=== PATIENT | male | born 1965 | race Caucasian/White ===

== ENCOUNTER → 2017-06-19 10:40 | Outpatient (CLI) | payer MEDICARE, SELFPAY ==
[2017-06-19 11:08] LABS: Absolute Lymphocyte Count 1.54 X10^3/ul (0.83-4.51); Absolute Neutrophil Count 2.7 X10^3/uL (2.0-7.7); Basophil# 0.03 X10^3/uL; Basophil% 0.6 % (0-1); Eosinophil# 0.24 X10^3/uL; Eosinophils% 4.8 % (0-5); Hematocrit 48.2 % (40-54); Hemoglobin 16.9 g/dl (13.0-16.5); Lymphocyte # 1.54 X10^3/ul (4.0); Lymphocyte % 30.8 % (19-41); Mean Corp Hgb Conc 35.1 g/gl (32-36); Mean Corpuscular Hgb 32.9 pg (27.0-32.0); Mean Platelet Vol. 10.2 fl (6.2-12.0); Neutrophil # 2.68 X10^3/uL (2.7-7.7); Neutrophil % 53.6 % (47-70); Platelet Count 168 K/mm3 (150-450); RBC Distribution Width CV 13.8 % (11.6-14.6); RBC Distribution Width SD 46.2 fl (35.1-43.9); Red Blood Count 5.13 M/mm3 (4.6-6.2)
[2017-06-19 11:10] LABS: POSITIVE COUNT NO; POSITIVE DIFFERENTIAL NO; POSITIVE MORPHOLOGY NO
[2017-06-19 11:24] LABS: International Normalized Ratio 0.9; Prothrombin Time (Protime)PT. 12.2 SECONDS (11.7-14.9)
[2017-06-19 11:25] LABS: Partial Thromboplast Time 27.8 Seconds (24.1-36.2)
--- NOTE | 2017-06-19 11:45 | RAD_ITS ---
STUDY: X-RAY CHEST REASON FOR EXAM: Male, 52 years old. Chest pain TECHNIQUE: 2 views COMPARISON: Prior chest radiograph of February 25, 2017. FINDINGS: Lung little remain well expanded without new consolidation, focal atelectasis or a substantial pleural effusion. Stable mild chronic changes. There is no demonstrated pleural abnormality. Normal size heart. Normal mediastinum and beverley. Normal visualized pulmonary arteries. Normal visualized aortic arch and descending thoracic aorta. Normal visualized thoracic spine. Multiple prior healed left rib fractures. There is no demonstrated abnormality of the visualized soft tissue structures of the upper abdomen. RAD/Chest PA and Lateral IMPRESSION: No acute cardiopulmonary findings or changes. Electronically Signed: Evelin Strickland MD at 22:23 EST , Service support ,
[2017-06-19 11:56] LABS: Anion Gap 7 (5-15); BUN 15 mg/dL (7-18); BUN/Creat Ratio 15.3 RATIO (10-20); Calcium,Total 8.6 mg/dL (8.5-10.1); Chloride 98 mmol/L (98-107); Creatinine, Serum 0.98 mg/dL (0.70-1.30); EST Glomerular Filtration Rate 86 mL/min (>60); Est Glom Filt Rate - Afr Amer 103 mL/min (>60); Glucose 177 mg/dL (74-106); Potassium 4.1 mmol/L (3.5-5.1); Sodium Level 135 mmol/L (136-145)
== END ==
PROVIDERS: Family Provider Family Medicine; PCP Family Medicine; Visit Provider Internal Medicine Cardiovascular Disease
DX: R07.89 Other chest pain (principal); E78.00 Pure hypercholesterolemia, unspecified; I25.5 Ischemic cardiomyopathy
CPT/HCPCS: 36415; 71046; 80048; 85025; 85610; 85730

== ENCOUNTER → 2017-07-01 08:03 | Day surgery (SDC) | payer MEDICARE, SELFPAY ==
[2017-06-28 10:25] VITALS: BMI 25.5
--- NOTE | 2017-07-01 10:14 | CL.D_ITS ---
Patient Name: VERÓNICA ENGLE Study Date: 07/01/2017 Performing: Dante Parnell MD Ht: 68.11 inches 173 cm : 1965 Wt: 167.55 lbs 76 kg Age: 52 Gender: male BSA: 1.9 PROCEDURE(S) PERFORMED MI65-GQS/COR/LV CLINICAL PROFILE AND INDICATIONS INDICATIONS: 52-year-old man with a history of chest pain. Stress/Imaging Standard Exercise Stress Test: Yes Result: Negative CAD Presentations: Symptom unlikely to be ischemic. 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 The risks and benefits of the procedure as well as a full d escription of our services here and current unavailability of surgical backup were fully explained to the patient and/or their significant other prior to the catheterization. The Timeout was completed, verifying the correct patient and procedure. The patient's procedural site was prepped and draped in the usual fashion. Local anesthetic was given subcutaneously to right radial region with Lidocaine 2% . Local anesthetic was given subcutaneously to right groin region with Lidocaine 2%. Using a modified Seldinger technique, arterial access was obtained via the right femoral artery, a 5Fr sheath was ins erted. Left Coronary Artery selective angiography was performed in multiple views using a 5 Fr. JL 5 catheter. Right Coronary Artery selective angiography was then performed in multiple views using a 5 Fr. 3DRC (Geraldo) catheter. Left Ventriculography was performed in GRAHAM projection using a 5 Fr. Pi gtail catheter. LV to AO pullback pressures were then recorded.The arterial sheath was pulled and man ual compression applied until hemostasis is achieved. CORONARY ANGIOGRAPHY DOMINANCE: Right Dominant LEFT HEART ASSESSMENT Left Ventricular Ejection Fraction: by LV Gram 37 % Anterior Hypokinesis - Severe Depressed Left Ventricular systolic function LEFT MAIN: Angiographically normal LEFT ANTERIOR DECENDING ARTERY: PROX LAD: Previously placed stent is patent DISTAL LAD: Mild luminal irregularities CIRCUMFLEX ARTERY: PROX CIRC: Mild luminal irregularities less than 30% MID CIRC: Mild luminal irregularities RIGHT CORONARY ARTERY: PROX RCA: is occluded COLLATERAL FLOW: Collateral flow from Left to Right COMPLICATIONS No Complications PROCEDURE MEDICATIONS Fentanyl 50 mcg IV Versed 1 mg IV Fentanyl 25 mcg IV Fentanyl 25 mcg IV Versed 1 mg IV Oxygen: 2 L/min via nasal cannula Baby Aspirin (81mg) 1 Tabs PO @ 07/01/2017 09:05:39 SUMMARY OF HEMODYNAMIC DATA Time AIR REST ECG 08:26:08 AO 126/61 (87) SA 09:53:48 LV 109/5, 15 09:59:54 LV 124/-2, 5 10:00:19 LV 114/-2, 3 10:01:34 LVp 118/-2, 5 10:01:38 AOp 127/63 (90) 10:01:43 Signed By Dante Parnell MD On 07/01/2017 10:13:44 Dante Parnell MD
== END ==
PROVIDERS: Family Provider Family Medicine; PCP Family Medicine; Visit Provider Internal Medicine Cardiovascular Disease
DX: I25.10 Atherosclerotic heart disease of native coronary artery without angina pectoris (principal); R07.9 Chest pain, unspecified; Z95.5 Presence of coronary angioplasty implant and graft; Z79.899 Other long term (current) drug therapy; Z79.02 Long term (current) use of antithrombotics/antiplatelets; Z79.82 Long term (current) use of aspirin; R06.09 Other forms of dyspnea; E78.5 Hyperlipidemia, unspecified; E03.9 Hypothyroidism, unspecified; Z82.49 Family history of ischemic heart disease and other diseases of the circulatory system; Z86.73 Personal history of transient ischemic attack (TIA), and cerebral infarction without residual deficits; Z79.4 Long term (current) use of insulin; F17.200 Nicotine dependence, unspecified, uncomplicated; I25.5 Ischemic cardiomyopathy; R07.89 Other chest pain; I10 Essential (primary) hypertension; E10.8 Type 1 diabetes mellitus with unspecified complications
CPT/HCPCS: 93005; 93458; 99152; J3010; J7040; Q9967; A4216; C1769; C1894

== ENCOUNTER → 2018-04-09 11:59 | Outpatient (CLI) | payer MEDICARE, SELFPAY ==
[2017-12-10 10:37] VITALS: BMI 24.7
[2018-04-09 12:02] LABS: Bacteria 0 SEEN /hpf (None Seen); Mucous, Urine 0 SEEN /hpf (<or=2+); Red Blood Cells-Urine 0 SEEN /hpf (0-5); Squamous Epithelial Cells - UA 0 SEEN /hpf (0-5); White Blood Cells 0 SEEN /hpf (0-5)
[2018-04-09 14:35] LABS: Color, Urine Yellow (Yellow); Glucose, Dipstick 50 mg/dl (Normal); Ketone-Dipstick Negative (Negative); Leukocyte Esterase-Dipstick Negative /ul (Negative); Nitrite-Dipstick Negative (Negative); Occult Blood-Urine Negative /ul (Negative); Protein-Dipstick Negative (Negative); Urine Bilirubin Dipstick Negative (Negative); Urine Clarity Clear (Clear); Urine Urobilinogen Normal (Normal); Urine pH 6.5 (5.0 - 8.0)
[2018-04-09 14:42] LABS: T3 Total - Triiodothyronine 1.07 ng/mL (0.6-1.81)
[2018-04-09 14:47] LABS: Hemoglobin A1c 7.6 % (4.2-6.3)
[2018-04-09 14:57] LABS: Microalbumin,Random Urine < 5.0 mg/L (NO RANGE EST.)
[2018-04-09 15:18] LABS: AST(SGOT) 26 U/L (15-37); Alanine Aminotransfer ALT/SGPT 36 U/L (16-61); Albumin, Serum 3.7 g/dL (3.2-5.0); Alkaline Phosphatase 57 U/L (45-117); Anion Gap 10 (5-15); BUN 12 mg/dL (7-18); Bilirubin, Direct 0.15 mg/dL (0.00-0.30); Calcium,Total 8.8 mg/dL (8.5-10.1); Chloride 103 mmol/L (98-107); Cholesterol 128 mg/dL (200); Creatinine, Serum 0.86 mg/dL (0.70-1.30); EST Glomerular Filtration Rate 100 mL/min (>60); Est Glom Filt Rate - Afr Amer 121 mL/min (>60); Free T3 3.6 pg/mL (2.18-3.98); Glucose 164 mg/dL (74-106); High Density Lipoprotein 56 mg/dL; Potassium 4.1 mmol/L (3.5-5.1); Protein, Total 6.7 g/dL (6.4-8.2); Sodium Level 139 mmol/L (136-145); T4 Total, Thyroxin 12.3 ug/dL (4.5-12.1); Thyroid Stim Hormone (TSH) < 0.01 uIU/mL (0.358-3.74); Triglycerides 126 mg/dL; Very Low Density Lipoprotein 25 mg/dL (5-40)
--- OUTSIDE RECORDS SUMMARY | 2018-05-26 15:30 | XMS RPT_ITS ---
:1965 Author Organization OHIP Care Team Providers Name Role Phone Yassine Bui Attending Unavailable Yassine Bui Primary Care Unavailable Parmjit, Dante Attending Unavailable Yassine Bui Referring Unavailable Yassine Bui Primary Care Unavailable Parmjit, Dante Attending Unavailable Parmjit, Dante Referring Unavailable Yassine Bui Primary Care Unavailable Parmjit, Dante Attending Unavailable Yassine Bui Primary Care Unavailable Parmjit, Dante Referring Unavailable Parmjit, Dante Attending Unavailable Parmjit, Dante Referring Unavailable Debora Garcia Attending Unavailable Yassine Bui Referring Unavailable PROBLEMS PROBLEMS DATE TYPE CONDITION / CODE ATTENDING STATUS SOURCE Unknown E11.9 - Type 2 diabetes Yassine Bui Active [facility]ff mellitus without Community complications / Hospital E11.9(ICD-10) Repository Unknown E03.9 - Hypothyroidism, Yassine Bui 8 unspecified / Community E03.9(ICD-10) Hospital Repository Unknown N48.89 - Other specified Yassine Bui Active [facility] 8 disorders of penis / Community N48.89(ICD-10) Hospital Repository Unknown R07.89 - Other chest pain Parmjit, [place] Active [facility] 8 / R07.89(ICD-10) [facility] Hospital Repository Unknown E78.00 - Pure Parmjit, [place] Active [facility] 8 hypercholesterolemia, Community unspecified / Hospital E78.00(ICD-10) Repository Unknown I25.5 - Ischemic Parmjit, [place] Active [facility] 8 cardiomyopathy / Community I25.5(ICD-10) Hospital Repository Unknown E78.0 - Pure Parmjit, [place] Active [facility] 8 hypercholesterolemia / Community E78.0(ICD-10) Hospital Repository Unknown I10 - Essential (primary) Parmjit, [place] Active [facility] 8 hypertension / Community I10(ICD-10) Hospital Repository Unknown Z72.0 - Tobacco use / Parmjit, [place] Active [facility] 8 Z72.0(ICD-10) [facility] Hospital Repository PROCEDURES PROCEDURES No Procedure Records FoundRESULTS RESULTS URINALYSIS, COMPLETE Collected: 04/09/2018 Status: F Source: [place] 12:00 PM [facility] REPOSITORY Order Comment: How was Urine Obtained? CLEAN CATCH TYPE CODE TESTS RESULT OUT OF RANGE REFERENCE UNITS LAB L400.3000 Yellow COLOR Normal Yellow LAB L400.3050 Clear Normal CLARITY Clear LAB L400.3200 Normal mg/dl High 50 GLUCOSE, UR LAB L400.3300 Negative mg/dL Normal BILIRUBIN URINE Negative LAB L400.3400 Negative mg/dl Normal KETONE UR Negative LAB L400.3465 1.002-1.030 Normal SP.GR. DIPSTX 1.010 LAB L400.3550 5.0 - 8.0 pH UR Normal 6.5 LAB L400.3600 Negative mg/dl PROT Normal DIPSTX Negative LAB L400.3700 Normal mg/dl Normal UROBILI Normal LAB L400.3750 Negative Normal NITRITE UR Negative LAB L400.3780 Negative /ul Normal OCCULT BLOOD-UR Negative LAB L400.3800 Negative /ul LEUK Normal ESTERASE Negative LAB L400.4050 0-5 /hpf WBC 0 Normal SEEN LAB L400.4100 0-5 /hpf 0 Normal RBC-UA SEEN LAB L400.4150 0-5 /hpf SQUAM 0 Normal EPI SEEN LAB L400.4300 None Seen /hpf 0 Normal BACTERIA SEEN LAB L400.4350 <or=2+ /hpf 0 Normal MUCUS, URINE SEEN Performed By: #### L400.0001 #### [facility] [address] [place], [place], [address] T3 TOTAL - TRIIODOTHYRONINE Collected: 04/09/2018 Status: F Source: [place] 12:00 PM [facility] REPOSITORY TYPE CODE TESTS RESULT OUT OF RANGE REFERENCE UNITS LAB L501.9186 0.6-1.81 ng/mL Normal T3 Total 1.07 Performed By: #### L501.9186 #### [facility] [address] [place], [place], [id number] HEMOGLOBIN A1C Collected: 04/09/2018 Status: F Source: [place] 12:00 PM [facility] REPOSITORY TYPE CODE TESTS RESULT OUT OF RANGE REFERENCE UNITS LAB L501.9985 4.2-6.3 % High HGB A1C 7.6 Performed By: #### L501.9985 #### [facility] [address] [place], [place], [address] MICROALB:CREAT Collected: 04/09/2018 Status: F Source: [place] RATIO,RANDOM UR 12:00 PM [facility] REPOSITORY TYPE CODE TESTS RESULT OUT OF RANGE REFERENCE UNITS LAB L501.1200 NO RANGE EST. mg/dL 56.30 Normal UR CREAT LAB L502.0500 NO RANGE EST. mg/L < 5.0 Normal MICROALBUMI N,UR LAB L502.0600 <30 mg/g CRE mg/g CRE Test Normal not performed MALB:CREAT Performed By: #### L502.0250 #### [facility] [address] [place], [address] BASIC METABOLIC Collected: 04/09/2018 Status: F Source: [place] PROFILE (BMP) 12:00 PM [facility] REPOSITORY Order Comment: Has Patient had X-rays with Contrast this admission? N TYPE CODE TESTS RESULT OUT OF RANGE REFERENCE UNITS LAB L501.0100 74-106 mg/dL High GLU 164 Result Comment: Fasting Glucose result greater than or equal to 126 mg/dL suggests DIABETES MELLITUS per A.D.A. criteria. Please note revised GLUCOSE reference range effective 2017. LAB L501.1000 7-18 mg/dL Normal BUN 12 LAB L501.1100 0.70-1.30 mg/dL Normal CREAT,SERUM 0.86 Result Comment: The validity of the calculated GFR AND GFRAA in patients over 70 years has not been determined. Clinical correlation is essential. LAB L501.1110 >60 mL/min Normal EST GFR 100 Result Comment: Non- GFR Calc LAB L501.1115 >60 mL/min Normal EST GFR - AA 121 Result Comment: GFR Calc LAB L501.1300 10-20 RATIO Normal BUN/CRE 14.0 LAB L501.2200 8.5-10.1 mg/dL CA Normal 8.8 LAB L501.5300 136-145 mmol/L NA Normal 139 LAB L501.5600 3.5-5.1 mmol/L K Normal 4.1 LAB L501.5900 98-107 mmol/L CL Normal 103 LAB L501.6100 21.0-32.0 mmol/L Normal CO2 26.0 LAB L501.6200 5-15 Normal GAP 10 Performed By: #### L500.2500, L500.3400, L500.4100, L501.70418, L501.9310, L501.9520 #### [facility] [address] [place], [place], [address] LIVER PROFILE Collected: 04/09/2018 Status: F Source: [place] 12:00 PM [facility] REPOSITORY Order Comment: Has Patient had X-rays with Contrast this admission? N TYPE CODE TESTS RESULT OUT OF RANGE REFERENCE UNITS LAB L501.1500 6.4-8.2 g/dL Normal T PROT 6.7 LAB L501.1800 3.2-5.0 g/dL Normal ALB 3.7 LAB L501.1950 2.2-4.2 g/dL Normal GLOB 3.0 LAB L501.4100 15-37 U/L Normal AST 26 LAB L501.4305 45-117 U/L Normal ALK P 57 LAB L501.4405 16-61 U/L Normal ALT 36 LAB L501.4600 0.20-1.00 mg/dL Normal T BILI 0.60 LAB L501.4700 0.00-0.30 mg/dL Normal D BILI 0.15 Performed By: #### L500.2500, L500.3400, L500.4100, L501.85086, L501.9310, L501.9520 #### [facility] [address] [place], [place], [id number] LIPID PROFILE Collected: 04/09/2018 Status: F Source: [place] 12:00 PM [facility] REPOSITORY Order Comment: Has Patient had X-rays with Contrast this admission? N TYPE CODE TESTS RESULT OUT OF RANGE REFERENCE UNITS LAB L501.4900 200 mg/dL Normal CHOL 128 Result Comment: <200 mg/dL Desirable 200-240 mg/dL Borderline >240 mg/dL High Risk LAB L501.5000 mg/dL Normal TRIG 126 Result Comment: The drugs N-Acetylcysteine and Metamizole may falsely depress this assay. Serum Triglycerides Reference Interval Normal <150 mg/dL Borderline high 150 - 199 mg/dL High 200 - 499 mg/dL Very High > or = 500 mg/dL LAB L501.6400 mg/dL Normal HDL 56 Result Comment: The drugs N-Acetylcysteine and Metamizole may falsely depress this assay. Reference Range HDL <40 mg/dL Low HDL Cholesterol HDL >or= 60 mg/dL High HDL Cholesterol LAB L501.6500 0-130 mg/dL Normal LDL 47 LAB L501.6600 5-40 mg/dL Normal VLDL 25 Performed By: #### L500.2500, L500.3400, L500.4100, L501.83148, L501.9310, L501.9520 #### [facility] [address] [place], [place], [id number] FREE T3 Collected: 04/09/2018 Status: F Source: [place] 12:00 PM [facility] REPOSITORY Order Comment: Has Patient had X-rays with Contrast this admission? N TYPE CODE TESTS RESULT OUT OF RANGE REFERENCE UNITS LAB L501.63080 2.18-3.98 pg/mL Normal FREE T3 3.6 Performed By: #### L500.2500, L500.3400, L500.4100, L501.58377, L501.9310, L501.9520 #### [facility] [address] [place], [address] T4 TOTAL, THYROXIN Collected: 04/09/2018 Status: F Source: [place] 12:00 PM [facility] REPOSITORY Order Comment: Has Patient had X-rays with Contrast this admission? N TYPE CODE TESTS RESULT OUT OF REFERENCE UNITS RANGE LAB L501.9310 4.5-12.1 ug/dL T4 High THYROXIN 12.3 Performed By: #### L500.2500, L500.3400, L500.4100, L501.65234, L501.9310, L501.9520 #### [facility] [place], [address] THYROID STIM HORMONE Collected: 04/09/2018 Status: F Source: [place] ([facility]SH) 12:00 PM [facility] REPOSITORY Order Comment: Has Patient had X-rays with Contrast this admission? N TYPE CODE TESTS RESULT OUT OF RANGE REFERENCE UNITS LAB L501.9520 0.358-3.74 uIU/mL Low TSH < 0.01 Performed By: #### L500.2500, L500.3400, L500.4100, L501.70938, L501.9310, L501.9520 #### [facility] [address] [place], [place], [address] CARDIOLOGY VISIT Observed: 12/16/2017 Status: F Source: [place] REPORT 7:26 AM [facility] REPOSITORY [facility] [address] [place] [address] OFFICE VISIT Date of Service: 12/10/17 MR#: [id number] Acct: [id number] Name: VERÓNICA ENGLE Rep #: [id number] : 1965 Provider: Debora Garcia Age/Sex: 52/M [place] [facility] Status: Signed HPI HPI Details: VERÓNICA ENGLE, is a 52 M who presents to the office today for a cardiovascular follow up. He has a history of premature coronary artery disease, diabetes mellitus, retinopathy and neuropathy. He was diagnosed with autonamic nervous system neuropathy. He does occasionally have chest pain. He did need to use his NTG once since he was here last. He is able to do things for 10-15 minutes then he takes a break. He does have some SOB but he feels that it is related to his vocal cords. He does have issues with aspiration at night. He does not have any palpitations. He continue to have positional dizziness. He does not have any near syncope/syncope. He does have swelling in his hands at night, this is newer for him. He does have some edema in his feet. 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 Accompanied by: none Is patient in pain?: No Allergies No Known Allergies Allergy (Verified 12/10/17 10:42) Medications Albuterol IH (ProAir) [Proair Hfa] 1 - 2 puff INHALATION Q4H PRN PRN 03/18/13 [History Confirmed 12/10/17] Citalopram [Celexa] 40 mg PO DAILY 03/18/13 [History Confirmed 12/10/17] Levothyroxine [Synthroid] 125 mcg PO DAILY 03/18/13 [History Confirmed 12/10/17] Amitriptyline HCl 50 mg PO QHS 11/02/14 [History Confirmed 12/10/17] Quetiapine Fumarate [Seroquel] 25 mg PO DAILY 03/13/16 [History Confirmed 12/10/17] nitroglycerin 0.4 mg sublingual tablet 0.4 mg SUBLINGUAL Q5M PRN 06/06/17 [History Confirmed 12/10/17] sucralfate 1 gram tablet 1 g PO .QID tab 06/06/17 [History Confirmed 12/10/17] aspirin 81 mg tablet,delayed release 81 mg PO .q day tab 06/07/17 [History Confirmed 12/10/17] gabapentin 600 mg tablet 600 mg PO BID tab 06/07/17 [History Confirmed 12/10/17] insulin aspart U-100 100 unit/mL subcutaneous solution 1 unit CONTINUOUS SUBCUTANEOUS INFUSION UD 06/07/17 [History Confirmed 12/10/17] atorvastatin 80 mg tablet 80 mg PO QHS #90 tab 06/10/17 [Rx Confirmed 12/10/17] amlodipine 5 mg tablet 5 mg PO QDAY #30 tab 07/01/17 [Rx Confirmed 12/10/17] isosorbide mononitrate ER 30 mg tablet,extended release 24 hr 30 mg PO QAM #30 tab 07/01/17 [Rx Confirmed 12/10/17] metoprolol succinate ER 50 mg tablet,extended release 24 hr 50 mg PO DAILY #90 tab 08/23/17 [Rx Confirmed 12/10/17] clopidogrel 75 mg tablet 75 mg PO DAILY #30 tab 08/26/17 [Rx Confirmed 12/10/17] lisinopril 5 mg tablet 5 mg PO .COMPLEX #90 tab 12/10/17 [Rx Confirmed 12/10/17] Ejection fraction %: 40 to 44 PFSH Medical History Ischemic cardiomyopathy (Chronic) Atherosclerotic heart disease of [place] coronary artery without angina pectoris (Chronic) Dyspnea on exertion (Chronic) Obstructive sleep apnea (Chronic) Tobacco abuse (Chronic) Old myocardial infarction (Chronic) Family history of CVA (Chronic) Family history of hyperlipidemia (Inactive) Family history of hypertension (Inactive) Palpitations (Chronic) TIA (transient ischemic attack) (Chronic) Other penitentiary (current) drug therapy (Chronic) Diabetes mellitus type I (Chronic) Hyperlipemia (Chronic) Acute ischemic left posterior cerebral artery (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) stroke (Acute) Hypertension (Chronic) Hypothyroidism (Acute) History lymph node removal (Resolved) History of vocal cord surgery (Resolved) Dizziness and giddiness (Inactive) Surgical History History of left heart catheterization (Chronic) Stented coronary artery (Chronic) History of prosthetic vocal cord (Chronic) History of appendectomy (Resolved) History of cataract extraction (Resolved) History of cholecystectomy (Resolved) History of open reduction and internal fixation (ORIF) procedure (Resolved) History of tonsillectomy and adenoidectomy (Resolved) Family History Unknown No problems noted. Father Heart disease CVA (cerebral vascular accident) Mother CAD (coronary artery disease) Grandfather Cancer Social History Smoking Status: Heavy Smoker (>10/day) alcohol intake: current alcohol intake frequency: a few times a week caffeine: Yes Type: coffee Number of servings: 2, carbonated beverages Number of servings: 6 ROS Const Const: Negative for weakness, fatigue, fever(s) or headache(s) Eyes Eyes: Negative for blind spots, loss of peripheral vision or transient loss of vision ENT ENT: Negative for headache(s), dizziness, tinnitus or Nosebleed/epistaxis Cardio Chest Pain: Yes Palpitations: No Edema: None Muscle aches with walking: None Resp Respiratory: Positive for SOB with activity; negative for SOB at rest, SOB orthopnea\SOB lying down or Cough GI GI: Negative nausea, vomiting, heartburn or vomiting blood/hematemesis : Negative for hematuria Musc Musc: Negative for muscle aches/ myalgia Neuro Neuro: Negative for weakness, headache(s), dizziness, near syncope, syncope, lightheadedness or orthostatic symptoms Maxx Hematologic/Lymphatic: Negative for easy bleeding Endo Endo: Negative for fatigue Cardiology Exam Const Appearance: cooperative, no acute distress and well developed Orientation: alert, awake and oriented x3 Head Head: normocephalic and atraumatic Mouth: moist mucous membranes Eyes General: appearance normal, both eyes and all related structures Conjunctivae: conjunctivae normal Pupils: PERRL EOM: EOM intact bilaterally Neck Neck: normal visual inspection, no lymphadenopathy, no JVD and other (trachestomy scor noted) Carotids: Negative bruit Neck Mass: Negative Neck mass Chest Chest inspection: normal inspection of the chest and symmetric chest movement Auscultation: Bilateral: Diminished Lung Sounds, Other (inspiratory stridor with deep breaths) Cardio Palpation: normal PMI Rate: regular rate Rhythm: regular rhythm Heart sounds: S1 normal and S2 normal; negative rub, gallop or murmur GI GI: normal to inspection, soft, no hepatosplenomegaly and bowel sounds present; negative tender Neuro General: alert, awake, oriented x3, CN's II-XI intact bilaterally and moves all extremities Extremities Pulses: Normal: Right Posterior Tibial Pulse, Left Posterior Tibial Pulse, Right Radial Pulse, Left Radial Pulse Lower Extremity Edema: +1: Bilateral Psych Psychological: normal affect Supplemental Info CORONARY ANGIOGRAPHY DOMINANCE: Right Dominant LEFT HEART ASSESSMENT Left Ventricular Ejection Fraction: by LV Gram 37 % Anterior Hypokinesis - Severe Depressed Left Ventricular systolic function LEFT MAIN: Angiographically normal LEFT ANTERIOR DESCENDING ARTERY: PROX LAD: Previously placed stent is patent DISTAL LAD: Mild luminal irregularities CIRCUMFLEX ARTERY: PROX CIRC: Mild luminal irregularities less than 30% MID CIRC: Mild luminal irregularities RIGHT CORONARY ARTERY: PROX RCA: is occluded COLLATERAL FLOW: Collateral flow from Left to Right Assessment AND Plan 1. Atherosclerosis of [place] coronary artery of [place] heart without angina pectoris I25.10 02/04/2010 PTCA and ANDRAE to mid LAD @ [facility] Plan - STEFANIA Burdick Patient has only needed to use 1 nitroglycerin since his last office visit. He feels that his chest pain is manageable. It is not any worse than before he is able to keep himself active for himself. He will continue with aggressive medical management and risk factor modification. 2. Cardiomyopathy, ischemic I25.5 EF 45% per echo 04/08/14 Plan - STEFANIA Burdick Patient does not have any symptoms of congestive heart failure. He will continue with current aggressive medical management and risk factor modification. 3. Essential hypertension I10 Plan - STEFANIA Burdick Blood pressure is well controlled on current medications, we do not recommend any changes at this time. 4. Pure hypercholesterolemia E78.00 Plan - STEFANIA Burdick These have been managed with his primary care doctor. Plan Detail Additional Comments - STEFANIA Burdick In regards to his concern over a swelling and numbness in his hands. Encouraged him to discuss this with his primary care and his neurologist. It does appear that this could be likely related to neuropathy or carpal tunnel syndrome. Recent echocardiogram has been reviewed. We will continue to monitor by history, exam and echocardiograms as deemed appropriate. The above patient was discussed with Dr. Parnell, he agrees with plan of care. Thank you for allowing us to participate in patient's plan of care, if you have any questions please do not hesitate to call. This note was generated using a voice recognition system and there may be incorrect words, spelling or punctuation errors that were not noted when reviewing the office note prior to saving. Follow Up 6 Months (TANK TESTER) Coding Level of Care Code Off vis,est,level 3 Diagnoses Atherosclerosis of [place] coronary artery of [place] heart without angina pectoris I25.10 [place] vs. transplanted heart: king salmon heart Cardiomyopathy, ischemic I25.5 Essential hypertension I10 Hypertension type: essential hypertension Pure hypercholesterolemia E78.00 Hyperlipidemia type: pure hypercholesterolemia Coding Level of Care Code Off vis,est,level 3 Diagnoses Atherosclerosis of [place] coronary artery of [place] heart without angina pectoris I25.10 [place] vs. transplanted heart: king salmon heart Cardiomyopathy, ischemic I25.5 Essential hypertension I10 Hypertension type: essential hypertension Pure hypercholesterolemia E78.00 Hyperlipidemia type: pure hypercholesterolemia 12/14/17 1247 <Electronically signed by Debora Garcia PA> Date Debora AGUIAR 12/16/17 0726<Electronically signed by Dante Parnell MD> Cosigner Signature: Date (if applicable) Dante Parnell MD CC: Yassine Bui MD CHEST PA AND LATERAL Observed: 06/19/2017 Status: F Source: [place] 10:54 AM [facility] REPOSITORY [facility] Imaging Services [address] [place] [id number] Chest PA and Lateral MR#: [id number] Acct: [id number] Name: VERÓNICA ENGLE Rep #: [id number] : 1965 M 52 From: Evelin Strickland MD PCP: Yassine Bui MD Status: REG CLI Study: Chest PA and Lateral Date of Exam: 06/19/17 Exam# [id number] Ordering Dr: Dante Parnell MD STUDY: X-RAY CHEST REASON FOR EXAM: Male, 52 years old. Chest pain TECHNIQUE: 2 views COMPARISON: Prior chest radiograph of February 25, 2017. FINDINGS: Lung little remain well expanded without new consolidation, focal atelectasis or a substantial pleural effusion. Stable mild chronic changes. There is no demonstrated pleural abnormality. Normal size heart. Normal mediastinum and beverley. Normal visualized pulmonary arteries. Normal visualized aortic arch and descending thoracic aorta. Normal visualized thoracic spine. Multiple prior healed left rib fractures. There is no demonstrated abnormality of the visualized soft tissue structures of the upper abdomen. RAD/Chest PA and Lateral IMPRESSION: No acute cardiopulmonary findings or changes. Electronically Signed: Evelin Strickland MD at 22:23 EST , Service support , CC: Dante Parnell MD; Yassine Bui MD Drum Stock Clerk: Signed CBC W/DIFF, AUTOMATED Collected: 06/19/2017 Status: F Source: [place] 10:46 AM [facility] REPOSITORY TYPE CODE TESTS RESULT OUT OF RANGE REFERENCE UNITS LAB L100.1000 4.4-11.0 K/mm3 Normal WBC 5.0 LAB L100.1200 4.6-6.2 M/mm3 Normal RBC 5.13 LAB L100.1300 13.0-16.5 g/dl High HGB 16.9 LAB L100.1400 40-54 % Normal HCT 48.2 LAB L100.1500 80-94 fL Normal MCV 94.0 LAB L100.1600 27.0-32.0 pg High MCH 32.9 LAB L100.1700 32-36 g/gl Normal MCHC 35.1 LAB L100.1810 11.6-14.6 % Normal RDW CV 13.8 LAB L100.1820 35.1-43.9 fl High RDW SD 46.2 LAB L100.1900 150-450 K/mm3 Normal PLT 168 LAB L100.2000 6.2-12.0 fl Normal MPV 10.2 LAB L100.2100 47-70 % Normal NEUT% 53.6 LAB L100.2200 19-41 % Normal LY% 30.8 LAB L100.2300 0-10 % Normal MONO% 10.0 LAB L100.2400 0-5 % Normal EO% 4.8 LAB L100.2500 0-1 % Normal BASO% 0.6 LAB L100.2550 0.0-0.9 % Normal IM GRAN % 0.200 Result Comment: IG% - Immature Granulocytes (promyelocytes, myelocytes and metamyelocytes) > 1% indicates that a LEFT SHIFT is Present. LAB L100.2620 2.0-7.7 X10 3/uL Normal Absolute Neut 2.7 LAB L100.2720 0.83-4.51 X10 3/ul Normal Absolute Lymph 1.54 Performed By: #### L100.0100, L300.3900, L300.4310 #### [facility] [address] [place], [address] PROTHROMBIN TIME W/INR Collected: 06/19/2017 Status: F Source: [place] 10:46 AM [facility] REPOSITORY TYPE CODE TESTS RESULT OUT OF RANGE REFERENCE UNITS LAB L300.4150 11.7-14.9 SECONDS Normal PROTIME 12.2 LAB L300.4200 Normal INR 0.9 Performed By: #### L100.0100, L300.3900, L300.4310 #### [facility] [address] [place], [place], [id number] PARTIAL THROMBOPLAST Collected: 06/19/2017 Status: F Source: [place] TIME 10:46 AM [facility] REPOSITORY TYPE CODE TESTS RESULT OUT OF RANGE REFERENCE UNITS LAB L300.4310 24.1-36.2 Seconds Normal PTT 27.8 Performed By: #### L100.0100, L300.3900, L300.4310 #### [facility] [address] [place], [address] BASIC METABOLIC Collected: 06/19/2017 Status: F Source: [place] PROFILE (BMP) 10:46 AM [facility] REPOSITORY TYPE CODE TESTS RESULT OUT OF RANGE REFERENCE UNITS LAB L501.0100 74-106 mg/dL High GLU 177 Result Comment: Fasting Glucose result greater than or equal to 126 mg/dL suggests DIABETES MELLITUS per A.D.A. criteria. Please note revised GLUCOSE reference range effective 2017. LAB L501.1000 7-18 mg/dL Normal BUN 15 LAB L501.1100 0.70-1.30 mg/dL Normal CREAT,SERUM 0.98 Result Comment: The validity of the calculated GFR AND GFRAA in patients over 70 years has not been determined. Clinical correlation is essential. LAB L501.1110 >60 mL/min Normal EST GFR 86 Result Comment: Non- GFR Calc LAB L501.1115 >60 mL/min Normal EST GFR - AA 103 Result Comment: GFR Calc LAB L501.1300 10-20 RATIO Normal BUN/CRE 15.3 LAB L501.2200 8.5-10.1 mg/dL CA Normal 8.6 LAB L501.5300 136-145 mmol/L Low NA 135 LAB L501.5600 3.5-5.1 mmol/L K Normal 4.1 LAB L501.5900 98-107 mmol/L CL Normal 98 LAB L501.6100 21.0-32.0 mmol/L Normal CO2 30.0 LAB L501.6200 5-15 Normal GAP 7 Performed By: #### L500.2500 #### [facility] [address] [place], [address] CARDIOLOGY VISIT Observed: 06/11/2017 Status: F Source: [place] REPORT 11:14 AM [facility] REPOSITORY [facility] [address] [place] [address] OFFICE VISIT Date of Service: 06/11/17 MR#: [id number] Acct: [id number] Name: VERÓNICA ENGLE Rep #: [id number] : 1965 Provider: Dante Parnell MD Age/Sex: 52/M Location[place] [facility] Status: Signed [facility] Chief Complaint: Follow-up visits. Details: VERÓNICA NEGLE, is a 52 M who presents to the office today for a follow-up visit. He is a gentleman with a history of premature coronary artery disease diabetes mellitus and diabetic complications whose has a known occluded left anterior descending artery 40% stenosis in the diagonal vessel 80% stenosis in the right coronary artery and circumflex artery. This was at the [facility] and he underwent angioplasty and stenting to the left anterior descending artery as an acute event. Medical therapy was recommended for the rest of the vessels. He appears to have done well but he unfortunately continues to have a significant amount of angina. He had previously been put on Ranexa but he could not afford it and also was put on isosorbide which she said caused a lot of esophageal problems. You do remember that he underwent stress testing in 2013 and demonstrated evidence of ischemic cardiac myopathy with a previous anteroapical infarct and inferoapical infarct and no ischemia was present however he continues to have chest discomfort which is very suggestive of angina. It is frequently relieved by sublingual nitroglycerin. He is currently on a calcium channel kathryn beta-kathryn and MARIYA inhibitor. He denies any neck arm or jaw discomfort suggest angina no dizziness or diaphoresis no near syncope or syncope. His physical exam today demonstrates clear lung little regular rate and rhythm and no pedal edema. Intake Vital Signs06/11/17 Height 5 ft 8 in 06/11/17 Weight: 168 lb 06/11/17 Body Mass Index (BMI) 25.5 06/11/17 Blood Pressure 120/50 Intake Visit Reasons: 6 M FU Is patient in pain?: No Allergies No Known Allergies Allergy (Verified 06/07/17 11:37) Medications Albuterol IH (ProAir) [Proair Hfa] 1 - 2 puff INHALATION Q4H PRN PRN 03/18/13 [History Confirmed 06/07/17] Citalopram [Celexa] 40 mg PO DAILY 03/18/13 [History Confirmed 06/07/17] Levothyroxine [Synthroid] 125 mcg PO DAILY 03/18/13 [History Confirmed 06/07/17] Lisinopril [Zestril] 5 mg PO DAILY 03/18/13 [History Confirmed 06/07/17] Clopidogrel Bisulfate [Plavix] 75 mg PO DAILY #30 tab 04/09/14 [Rx Confirmed 06/07/17] Amitriptyline HCl 50 mg PO QHS 11/02/14 [History Confirmed 06/07/17] Quetiapine Fumarate [Seroquel] 25 mg PO DAILY 03/13/16 [History Confirmed 06/07/17] Amlodipine Besylate [Norvasc] 2.5 mg PO DAILY #30 tab 02/25/17 [Rx Confirmed 06/07/17] Metoprolol(XL)Succ [Toprol Xl (Beta Kathryn)] 50 mg PO DAILY #30 tab 02/25/17 [Rx Confirmed 06/07/17] doxycycline hyclate 100 mg capsule 100 mg PO QDAY 06/06/17 [History Confirmed 06/07/17] nitroglycerin 0.4 mg sublingual tablet 0.4 mg SUBLINGUAL Q5M PRN 06/06/17 [History Confirmed 06/07/17] sucralfate 1 gram tablet 1 g PO .QID tab 06/06/17 [History Confirmed 06/07/17] aspirin 81 mg tablet,delayed release 81 mg PO .q day tab 06/07/17 [History Confirmed 06/07/17] gabapentin 600 mg tablet 600 mg PO BID tab 06/07/17 [History Confirmed 06/07/17] insulin aspart U-100 100 unit/mL subcutaneous solution 1 unit CONTINUOUS SUBCUTANEOUS INFUSION UD 06/07/17 [History Confirmed 06/07/17] atorvastatin 80 mg tablet 80 mg PO QHS #90 tab 06/10/17 [Rx Confirmed 06/11/17] Ejection fraction %: 45 to 49 (45% per echo 2013) [facility] Medical History Ischemic cardiomyopathy (Chronic) Atherosclerotic heart disease of [place] coronary artery without angina pectoris (Chronic) Dyspnea on exertion (Chronic) Obstructive sleep apnea (Chronic) Tobacco abuse (Chronic) Old myocardial infarction (Chronic) Family history of CVA (Chronic) Family history of hyperlipidemia (Inactive) Family history of hypertension (Inactive) Palpitations (Chronic) TIA (transient ischemic attack) (Chronic) Other penitentiary (current) drug therapy (Chronic) Diabetes mellitus type I (Chronic) Hyperlipemia (Chronic) Acute ischemic left posterior cerebral artery (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 Social History Smoking Status: Current every day smoker ROS Const Const: Positive for fatigue, weakness, poor appetite and weight gain; negative for frequent falls, headache(s) or excessive sweating Eyes Eyes: Negative for blurry vision or double vision ENT ENT: Negative for balance problems, Negative for dizziness, Negative for headache(s) Cardio Chest Pain: Yes (occasional tightness, not actual.) Frequency: other (about every 2 weeks) Character: tightness Onset: other (spontaneously or with going up stairs), exercise Location: mid sternal Duration: minutes (5) Relieving: rest Edema: None Muscle aches with walking: None Resp Respiratory: Positive for SOB with activity; negative for SOB at rest, SOB orthopnea\SOB lying down, Coughing up blood/hemoptysis, chest congestion, pain on inspiration, snoring, stridor, wheezing, crackles, paroxysmal nocturnal dyspnea or other GI GI: Negative nausea, vomiting, heartburn, constipation, belching, bloating, cramping, vomiting blood/hematemesis, bright, red blood in stools, black,tarry stools, loose stools, Difficulty Swallowing or other Musc Musc: Positive for muscle aches/ myalgia (cramps in calves); negative for muscle weakness, joint pain or balance problems Neuro Neuro: Positive for weakness, Negative for dizziness, Negative for lightheadedness, Negative for near syncope, Negative for syncope, Negative for orthostatic symptoms, Negative for frequent falls, Negative for headache(s), Negative for confusion, Negative for memory loss, Negative for restless legs, Negative for blurry vision, Negative for double vision, Negative for vertigo, Negative for seizures, Negative for lack of coordination, Negative for other Endo Endo: Positive for fatigue; negative for cold intolerance, heat intolerance, excessive sweating, flushing, increased thirst/drinking, increased hunger, hair loss, hair growth or other Cardiology Exam Const Appearance: cooperative, healthy appearing, well developed, well groomed and no acute distress Nutritional Appearance: well nourished and average body habitus Orientation: alert, awake and oriented x3 Head Head: normal to inspection, normocephalic and atraumatic Ears: hearing grossly normal bilaterally and external ears normal Nose: external nose normal, nasal mucous membranes and turbinates normal, nares normal, septum normal, no nasal discharge Face and Sinus: face symmetric Mouth: oral mucosae normal, tongue normal, oropharynx normal and moist mucous membranes Teeth and gingiva: dentition normal Throat: posterior oropharynx normal, tonsils normal and uvula midline Eyes General: appearance normal, both eyes and all related structures Eyelids: eyelids normal Conjunctivae: conjunctivae normal Pupils: PERRL, normal by confrontation and accommodation normal EOM: EOM intact bilaterally Neck Neck: normal visual inspection, trachea midline and no JVD JVD: +5 Carotids: normal carotid upstroke and bounding pulses Chest Chest inspection: normal inspection of the chest, symmetric chest movement and normal respiratory effort Auscultation: Bilateral: Clear to Auscultation Cardio Palpation: normal PMI Rate: regular rate Rhythm: regular rhythm Heart sounds: S1 normal, S2 normal and normal, physiologic split S2; negative rub, gallop or murmur GI GI: normal to inspection, soft, no hepatosplenomegaly and bowel sounds present Neuro General: alert, awake, oriented x3, no focal sensory deficit, gait normal and moves all extremities Skin Skin: no rashes or lesions noted Extremities Pulses: Normal: Right Femoral Pulse, Left Femoral Pulse, Right Dorsalis Pedis Pulse, Left Dorsalis Pedis Pulse, Right Posterior Tibial Pulse, Left Posterior Tibial Pulse, Right Radial Pulse, Left Radial Pulse Lower Extremity Edema: None: Bilateral Musculoskel Musculoskeletal: No joint tenderness Psych Psychological: normal affect Assessment AND Plan 1. Chest discomfort R07.89 Plan He continues unfortunately to have discomfort. I would recommend that we further evaluate him with a cardiac catheterization to assess his coronary anatomy. I have discussed the above with him the risks benefits and alternatives he understands and agrees to proceed. He does have evidence of left ventricular systolic dysfunction with an akinetic apex but it may be prudent to see what is going on his circumflex as well as right coronary artery distributions. Orders Orders: 2. Ischemic cardiomyopathy I25.5 EF 45% per echo 04/08/14 Plan His last echocardiogram demonstrated an ejection fraction of 40%. He has not had any heart failure symptoms but he will remain on the same medications with the beta-kathryn and MARIYA inhibitor. Orders Orders: 3. Essential hypertension I10 Plan His blood pressure is under good control at this time on the current medical therapy if there appears not to be any lesion that can be angioplastied I would recommend that we increase his amlodipine to 5 mg a day. 4. Pure hypercholesterolemia E78.00; E78.0 Plan She does remain on high intensity statin which will be continued. His most recent lipid profile demonstrated a total cholesterol 148, LDL of 52 and HDL of 73. Liver function tests were within normal limits. Orders Orders: 5. Tobacco abuse Z72.0 Plan He has been encouraged to continue refraining from the above. Thank you for allowing me to participate in the care of your patient. Please don't hesitate to call if any issues arise Plan Detail Follow Up 6 Months (mmm) Coding Level of Care Code Off vis,est,level 5 Diagnoses Chest discomfort R07.89 Ischemic cardiomyopathy I25.5 Essential hypertension I10 Hypertension type: essential hypertension Pure hypercholesterolemia E78.00; E78.0 Hyperlipidemia type: pure hypercholesterolemia Tobacco abuse Z72.0 Coding Level of Care Code Off vis,est,level 5 Diagnoses Chest discomfort R07.89 Ischemic cardiomyopathy I25.5 Essential hypertension I10 Hypertension type: essential hypertension Pure hypercholesterolemia E78.00; E78.0 Hyperlipidemia type: pure hypercholesterolemia Tobacco abuse Z72.0 06/11/17 1114 <Electronically signed by Dante Parnell MD> Date Dante Parnell MD Cosigner Signature: Date (if applicable) CC: Yassine Bui MD ALLERGIES ALLERGIES DATE TYPE / CODE NAME / CODE REACTION SEVERITY SOURCE 12/10/2017 Drug No Known Unknown [facility] Allergy/4160 Allergies/F00 Hospital 87867(SNOMED [id number](RXNOR Repository CT) M) ENCOUNTERS ENCOUNTERS ADMIT/DISCHARGE ACCOUNT ADMITTING ENCOUNTER LOCATION SOURCE NUMBER CLASS 04/09/2018 [id number] Ambulatory [place] [facility] 9 [facility] ing:MFPLAB Repository 12/10/2017/ [id number] Ambulatory BMSBuilding:B [facility] 8 2 MS.G [facility] Repository 07/01/2017 [id number] Ambulatory [place] [facility] 6 [facility] ing:CLSP Repository 07/01/2017 [id number] Ambulatory BMSBuilding:W [facility] 1 [facility] Repository 06/19/2017 [id number] Ambulatory [facility] [place] 1 [facility] ing:LAB Repository 06/11/2017/ [id number] Ambulatory BMSBuilding:B [facility] 8 7 MS.[facility] Repository PAYERS PAYERS ENCOUNTER GUARANTOR PAYER SUBSCRIBER SOURCE 04/09/2018 VERÓNICA A Primary VERÓNICA A [facility] [id number] Insurance:SUMMA CARE CHURBYDOB: [id number] Number: Repository [address]Usq: (330 [id number] [phone] () Date:[id number] [address] [place] [address]FJ: 04/09/2018 Secondary NOT GIVENUNK [facility] Insurance:SELF PAY [facility] Number: Effective Repository Date:2018-04-09 12/10/2017 VERÓNICA A Primary VERÓNICA A [facility] [id number] Insurance:SUMMA CARE CHURBYDOB: Community [id number] Number: Repository [address]Vnl: (330) [id number] [phone] () Date:[id number] [address], [place] [address]GR: 12/10/2017 Secondary NOT GIVENUNK [place] Insurance:SELF PAY [facility] Number: Effective Repository Date:2017-12-10 07/01/2017 VERÓNICA A Primary VERÓNICA A [place] [id number] Insurance:SUMMA CARE CHURBYDOB: Community [place] MED[id number] Number: Repository [address]Kxh: [id number] [phone] Date:7931-25-91PJ [address] ([place]) [place] [address]CR: 07/01/2017 Secondary NOT GIVENUNK [place] Insurance:SELF PAY [facility] Number: Effective Repository Date:2017-06-11 07/01/2017 VERÓNICA A Primary VERÓNICA A [facility] [id number] Insurance:SUMMA CARE CHURBYDOB: Community [place] MED[place] [id number] Number: Repository [address]Idw: [id number] [phone] Date:1023-96-88YC [address] (HP) [address] [address]MZ: 07/01/2017 Secondary NOT GIVENUNK [facility] Insurance:SELF PAY [facility] Number: Effective Repository Date:2017-07-01 06/19/2017 VERÓNICA A Primary VERÓNICA A [facility] [id number] Insurance:SUMMA CARE CHURBYDOB: Community [place] MEDICARE[place] [id number] [place] Number: Repository [address]Twz: [id number] [phone] Date:5390-75-31KI [address] ([place]) [place] [address]FR: 06/19/2017 Secondary NOT GIVENUNK [facility] Insurance:SELF PAY [facility] Number: Effective Repository Date:2017-06-19 06/11/2017 VERÓNICA A Primary VERÓNICA A [facility] [id number] Insurance:SUMMA CARE CHURBYDOB: Community [place] MEDICARE[place] [id number] [place] Number: Repository [address]Jqu: [id number] [phone] Date:[id number] [address] (HP) [address] [place] [address]JJ: 06/11/2017 Secondary NOT GIVENUNK [facility] Insurance:SELF PAY [facility] Hospital Number: Effective Repository Date:2017-06-11
== END ==
PROVIDERS: Family Provider Family Medicine; PCP Family Medicine; Visit Provider Family Medicine
DX: E11.9 Type 2 diabetes mellitus without complications (principal); E03.9 Hypothyroidism, unspecified; N48.89 Other specified disorders of penis; Z79.4 Long term (current) use of insulin
CPT/HCPCS: 36415; 80048; 80061; 80076; 81001; 82043; 82570; 83036; 84436; 84443; 84480; 84481

== ENCOUNTER → 2018-07-16 06:56 | Outpatient (CLI) | payer MEDICARE, SELFPAY ==
[2018-07-03 09:05] VITALS: BMI 24.6
--- NOTE | 2018-07-16 10:02 | NEURO ---
NCS and/or EMG Patient Report Ordering Doctor: Isela Royal DATE OF SERVICE: 07/16/18 This is an EMG and nerve conduction study performed on this 53-year-old male who 10 years ago suffered multiple fractures due to a fall and has had jumping sensations since that time. For the past 2 months he is also had tingling diffusely. He says his feet are worse, however today's study is with respect to his upper extremities. He takes gabapentin and has a history of diabetes he says his hemoglobin A1c is 7.5. There is no history of significant alcohol intake. Bilateral upper extremity sensory and motor nerve conduction studies are performed. The median motor and sensory distal latencies are moderately prolonged with preservation of amplitudes and mild slowing of conduction velocities bilaterally symmetrically. The right ulnar motor and sensory response is normal. On the left side the ulnar motor response is diminished across the elbow mildly. The radial sensory responses bilaterally normal. Right upper extremity needle electromyography was performed however the patient deferred testing after only 2 muscles could be evaluated. The right abductor pollicis brevis muscle is normal. The right first dorsal interosseous muscle does demonstrate fibrillation potentials but normal motor unit recruitment pattern and amplitude. Impression this is an abnormal electrophysiologic study including nerve conduction study and partial EMG. There is evidence of a moderate median neuropathy at the wrists bilaterally, and moderate ulnar neuropathy across the elbow on the left. Only 2 muscles could be evaluated at the behest of the patient, however both muscles are C8 distribution so this can be inferred relatively accurately that it is not a C8 radiculopathy rather than ulnar neuropathy at the elbow. It is likely complicated by diabetic neuropathy.
== END ==
LOC: PSN 06:57
PROVIDERS: Family Provider Family Medicine; PCP Family Medicine; Referring Provider Nurse Practitioner Acute Care; Visit Provider Nurse Practitioner Acute Care
DX: R20.0 Anesthesia of skin (principal); R20.2 Paresthesia of skin
CPT/HCPCS: 95885; 95911

== ENCOUNTER → 2018-07-29 07:55 | Outpatient (CLI) | payer MEDICARE, SELFPAY ==
[2018-07-03 09:05] VITALS: BMI 24.6
--- NOTE | 2018-07-29 08:57 | ECHOCS_ITS ---
Reason For Study: CAD Procedure This was a 2D Doppler, Color Flow transthoracic echocardiogram. Contrast injection was performed. Exam performed in department. Left Ventricle Normal LV size. The estimated ejection fraction is 47 %. Mild to moderate segmental systolic dysfunction (see wall motion). Stage 1 diastolic dysfunction. [place] : Akinetic. Mid-anteroseptal : Hypokinetic. Lateral [place] : Hypokinetic. Basal inferoseptal: Hypokinetic. The rest of the wall segments are normal. Right Ventricle Normal RV size. Normal systolic function. Atria Normal left atrium. Normal right atrium. Mitral Valve Normal mitral valve. Tricuspid Valve Normal tricuspid valve. Mild tricuspid valve insufficiency. Aortic Valve The aortic valve is not well visualized. Pulmonic Valve The pulmonic valve is not well visualized. Great Vessels Normal aortic root. The pulmonary artery is normal size. Normal inferior vena cava. Pericardium/Pleural No pericardial effusion. Medication 22 gauge I.V. with prn adaptor inserted into right arm. Diluted definity 3ml given slow IV push to enhance endocardial definition. Previously negative bubble study. MMode/2D Measurements & Calculations LVIDd: 4.8 cm IVSd: 0.87 cm Ao root diam: 2.7 cm LVIDs: 3.7 cm LVPWd: 0.99 cm RVDd: 2.9 cm FS: 23.4 % LAV(MOD-bp): 34.4 ml EDV(MOD-sp4): 105.3 ml SV(MOD-sp4): 50.8 ml LAV(MOD-bp) Indexed: 18.6 ml/m2 ESV(MOD-sp4): 54.4 ml LAV(MOD-sp2): 31.8 ml EF(MOD-sp4): 48.3 % LAV(MOD-sp4): 36.7 ml LA dimension(2D): 3.0 cm LA A4 area: 13.8 cm2 RA A4 area: 8.8 cm2 Time Measurements MV dec time: 0.23 sec Doppler Measurements & Calculations MV E max isaías: 52.2 cm/sec Lat Peak E' Isaías: 5.2 cm/sec Med Peak E' Isaías: 4.5 cm/sec MV A max isaías: 77.1 cm/sec E/E' lat: 10.0 E/E' med: 11.5 MV E/A: 0.68 MV V2 max: 83.6 cm/sec Ao V2 max: 106.3 cm/sec LV V1 max: 77.6 cm/sec MV max P.8 mmHg Ao max P.5 mmHg LV V1 max P.4 mmHg MV V2 mean: 51.4 cm/sec MV mean P.2 mmHg MV V2 VTI: 22.5 cm PA V2 max: 74.9 cm/sec PI end-d isaías: 117.7 cm/sec TR max isaías: 147.2 cm/sec TR max P.7 mmHg MV P1/2t-pr_phl: 107.2 msec Interpretation Summary Normal LV size. The estimated ejection fraction is 47 %. Mild to moderate segmental systolic dysfunction (see wall motion). Stage 1 diastolic dysfunction. Contrast injection was performed. Compared to prior study, there is no significant change. Ordering Physician: Dante Parnell Referring Physician: MAYRA DUMONT Performed By: Jacquie Huang, TRAY, RVT
--- NOTE | 2018-07-29 10:34 | NEURO ---
NCS and/or EMG Patient Report Ordering Doctor: Islea Royal DATE OF SERVICE: 07/29/18 This is a bilateral lower extremity nerve conduction study performed on this 53-year-old male with a history of fall 10 years ago with multiple fractures and more recently has experienced numbness tingling and swelling as well as jerking stations. There is also a history of diabetes. EMG testing was also ordered but declined by the patient. Bilateral lower extremity sensory motor nerve conduction studies are performed. There is mild to moderate diffuse slowing of sensory and motor conduction velocities with mild prolongation of distal latencies and moderate to severe reduction in amplitudes in all nerves tested. F-wave latencies from the tibial and common peroneal nerves are moderately prolonged and H reflex amplitudes from the bilateral tibial nerves are reduced. Impression this is an abnormal electrophysiologic study of the bilateral lower extremities consistent with length dependent polyneuropathy. On the above history this is not likely to be dated to his previous injuries, however diabetes is a common association.
== END ==
PROVIDERS: Family Provider Family Medicine; PCP Family Medicine; Referring Provider Internal Medicine Cardiovascular Disease; Visit Provider Internal Medicine Cardiovascular Disease
DX: R20.0 Anesthesia of skin (principal); R20.2 Paresthesia of skin; I25.5 Ischemic cardiomyopathy; I25.10 Atherosclerotic heart disease of native coronary artery without angina pectoris
CPT/HCPCS: 93306; 95910; Q9957; A4216; C8929

== ENCOUNTER → 2019-03-11 12:04 | Outpatient (CLI) | payer MEDICARE, SELFPAY ==
[2019-01-07 09:27] VITALS: BMI 24.9
[2019-03-11 14:34] LABS: ALB/GLOB Ratio 1.4 RATIO (0.9-2.4); AST(SGOT) 18 U/L (15-37); Alanine Aminotransfer ALT/SGPT 29 U/L (16-61); Alkaline Phosphatase 55 U/L (45-117); Anion Gap 5 (5-15); BUN 12 mg/dL (7-18); BUN/Creat Ratio 11.4 RATIO (10-20); Calcium,Total 8.6 mg/dL (8.5-10.1); Chloride 102 mmol/L (98-107); Cholesterol 163 mg/dL (200); Creatinine, Serum 1.05 mg/dL (0.70-1.30); EST Glomerular Filtration Rate 79 mL/min (>60); Est Glom Filt Rate - Afr Amer 95 mL/min (>60); Globulin 2.9 g/dL (2.2-4.2); Glucose 188 mg/dL (74-106); High Density Lipoprotein 66 mg/dL; Potassium 4.3 mmol/L (3.5-5.1); Protein, Total 6.9 g/dL (6.4-8.2); Sodium Level 134 mmol/L (136-145); Thyroid Stim Hormone (TSH) 3.41 uIU/mL (0.358-3.74); Triglycerides 97 mg/dL; Very Low Density Lipoprotein 19 mg/dL (5-40)
[2019-03-11 16:35] LABS: Neisserai gonorrhoeae by PCR Negative (Negative); Probe Check PASS; Sample Adequacy Control PASS; Specimen Processing Control PASS
[2019-03-12 02:46] LABS: Rapid Plasmin Reagin (RPR) NONREACTIVE (NONREACTIVE)
== END ==
PROVIDERS: Family Provider Family Medicine; PCP Family Medicine; Referring Provider Family Medicine; Visit Provider Family Medicine
DX: E03.9 Hypothyroidism, unspecified (principal); R30.0 Dysuria; E10.9 Type 1 diabetes mellitus without complications
CPT/HCPCS: 36415; 80053; 80061; 84443; 86592; 87591

== ENCOUNTER 2019-03-30 09:58 | Day surgery (SDC) | payer MEDICARE, SELFPAY ==
[2019-01-07 09:27] VITALS: BMI 24.9
[2019-03-30 10:29] VITALS: BP 131/71; PULSE 72; RESP 16; TEMP 36.1; O2SAT 98; BMI 25.7
[2019-03-30] MEDS: Lactated Ringers 1,000 ML 100 ML IV (10:43)
[2019-03-30 10:50] LABS: Bedside Glucose 215 mg/dL (70-110)
--- NOTE | 2019-03-30 11:09 | RAD_ITS ---
PROCEDURE: Caudal block. DATE OF EXAMINATION: March 30, 2019. INDICATION: Male, 54 years old. Chronic low back pain. FLUOROSCOPY TIME (if supplied): (8.5 seconds) minutes/seconds. Single lateral view was obtained. Intraoperative fluoroscopic services provided for caudal block. RAD/Fluor Guidance for Spine Inj IMPRESSION: Intraoperative fluoroscopic services provided for caudal block. Electronically Signed: Jorge A Tavera, at 12:48 EST , Service support ,
[2019-03-30] MEDS: Bupivacaine 0.25% 30 ML Vial (11:13)
[2019-03-30] MEDS: 0.9% Normal Saline (Pres. free 10 ML Vial (11:13)
[2019-03-30] MEDS: MethylPREDNISolone Acetate 80 MG/ML Vial (11:13)
[2019-03-30 11:23] VITALS: BP 130/102; BP 131/71; PULSE 73; RESP 18; TEMP 36.6; O2SAT 96
[2019-03-30 11:30] VITALS: BP 119/69; BP 131/71; PULSE 70; RESP 18; O2SAT 96
[2019-03-30 11:35] VITALS: BP 115/70; BP 121/72; BP 131/71; PULSE 67; RESP 18; O2SAT 94; O2SAT 95
--- NOTE | 2019-03-30 11:39 | OP.PCM_ITS ---
Report of Operation Date of Procedure: 03/30/19 Description of Surgical Findings:: PREOPERATIVE DIAGNOSIS: Lumbosacral radiculopathy, lumbosacral degenerative disc disease, lumbosacral spinal stenosis POSTOPERATIVE DIAGNOSIS: Lumbosacral radiculopathy, lumbosacral degenerative disc disease, lumbosacral spinal stenosis PROCEDURE PERFORMED: Diagnostic/therapeutic caudal epidural steroid injection. ANESTHESIA: MAC. BLOOD LOSS: Minimal. COMPLICATIONS: None. DESCRIPTION OF PROCEDURE: History and physical of today was reviewed. Risks and benefits of the procedure were explained. The patient understood and agreed to proceed. Informed consent was obtained. IV inserted per routine protocol. The patient was taken to the operating room and placed in the prone position with a pillow positioned underneath the abdomen. The lower back and tailbone area was prepped and draped in a sterile fashion using iodine x3. Under fluoroscopy guidance on a lateral view, the caudal space was identified. The skin and subcutaneous tissue was anesthetized with approximately 3 mL of 1% lidocaine using a 25-gauge regular needle. Under direct visualization with fluoroscopy, using a 22-gauge 3-1/2-inch spinal needle, the needle was advanced via the skin through the sacral hiatus. The tip of the needle was passed through the sacrococcygeal ligament and advanced to approximately S4 area. After negative aspiration of blood or CSF, a total of 3 mL of contrast was injec rodriguez to confirm correct placement of the needle as well as cephalad spread. The spread was followed to approximately L5 area. After confirmation on AP as well as lateral view and repeated negative aspiration, a total of 15 mL of preservative-free 0.125% Marcaine with 80 mg of Depo-Medrol was injected easily. The needle was then removed intact. The patient experienced no sign or symptoms of intrathecal or intravascular injection. The patient experienced no paresthesia. The procedure was completed without any apparent difficulty or any complications. The patient appeared to tolerate it well. ASSESSMENT AND PLAN: This is a 54-year-old male with lumbosacral radiculopathy, lumbosacral degenerative disc disease, lumbosacral spinal stenosis status post diagnostic/therapeutic caudal epidural steroid injection patient will continue his current medications patient found approximately 2 weeks for reevaluation.
[2019-03-30 11:45] VITALS: BP 112/69; BP 131/71; PULSE 64; RESP 18; TEMP 36.6; O2SAT 97
[2019-03-30 11:50] VITALS: BP 131/71
== END 2019-03-30 12:05 | disposition home or self-care (01) ==
LOC: SDC 10:01 → AC 10:02
PROVIDERS: Family Provider Family Medicine; PCP Family Medicine; Referring Provider Anesthesiology Pain Medicine; Visit Provider Anesthesiology Pain Medicine
PROC: 3E0S3BZ Introduction of Anesthetic Agent into Epidural Space, Percutaneous Approach (ICD-10-PCS; CPT 62282; principal; 2019-03-30 11:15)
DX: M51.17 Intervertebral disc disorders with radiculopathy, lumbosacral region (principal); M48.07 Spinal stenosis, lumbosacral region; K59.09 Other constipation; M51.36 Other intervertebral disc degeneration, lumbar region; Z79.891 Long term (current) use of opiate analgesic; I25.10 Atherosclerotic heart disease of native coronary artery without angina pectoris; F17.210 Nicotine dependence, cigarettes, uncomplicated; Z86.73 Personal history of transient ischemic attack (TIA), and cerebral infarction without residual deficits; I10 Essential (primary) hypertension; E78.00 Pure hypercholesterolemia, unspecified
CPT/HCPCS: 62323; 64483; 77003; 82962; J7120; J3490

== ENCOUNTER → 2019-06-10 11:23 | Outpatient (CLI) | payer MEDICARE, SELFPAY ==
[2019-06-10 14:32] LABS: Anion Gap 3 (5-15); BUN 13 mg/dL (7-18); BUN/Creat Ratio 12.7 RATIO (10-20); Calcium,Total 8.7 mg/dL (8.5-10.1); Chloride 103 mmol/L (98-107); Creatinine, Serum 1.02 mg/dL (0.70-1.30); EST Glomerular Filtration Rate 81 mL/min (>60); Est Glom Filt Rate - Afr Amer 98 mL/min (>60); Glucose 182 mg/dL (74-106); Sodium Level 136 mmol/L (136-145); Thyroid Stim Hormone (TSH) 5.07 uIU/mL (0.358-3.74)
== END ==
PROVIDERS: PCP Family Medicine; Referring Provider Family Medicine; Visit Provider Family Medicine
DX: E03.9 Hypothyroidism, unspecified (principal); E10.9 Type 1 diabetes mellitus without complications
CPT/HCPCS: 36415; 80048; 84436; 84443; 84481

== ENCOUNTER → 2019-12-09 09:30 | Outpatient (CLI) | payer MEDICARE, SELFPAY ==
[2019-07-28 13:47] VITALS: BMI 25.8
--- NOTE | 2019-12-09 09:34 | RAD_ITS ---
STUDY: X-RAY CHEST REASON FOR EXAM: Male, 54 years old. COUGH PATIENT STATES HE HAS SMOKED FOR MANY YRS. TECHNIQUE: PA and lateral views of the chest. COMPARISON: Comparison is made with prior study dated 06/19/2017. FINDINGS: Surgical clips are seen in the left axillary region. Hyperinflation. Decreased bronchovascular markings bilaterally suggestive of a emphysematous change. There is no demonstrated pleural abnormality. Normal size heart. Normal mediastinum and beverley. Normal visualized pulmonary arteries. Normal visualized aortic arch and descending thoracic aorta. Normal visualized thoracic spine. Healed left rib fractures. There is no demonstrated abnormality of the visualized soft tissue structures of the upper abdomen. RAD/Chest PA and Lateral IMPRESSION: Hyperinflation. Stable decreased bilateral bronchovascular markings suggestive of emphysematous change. Healed left rib fractures. Electronically Signed: Jorge A Tavera, at 15:30 EDT , Service support ,
== END ==
PROVIDERS: PCP Family Medicine; Referring Provider Family Medicine; Visit Provider Family Medicine
DX: R05 Cough (principal)
CPT/HCPCS: 71046

== ENCOUNTER → 2019-12-16 10:31 | Outpatient (CLI) | payer MEDICARE, SELFPAY ==
[2019-07-28 13:47] VITALS: BMI 25.8
[2019-12-16 13:13] LABS: Anion Gap 2 (5-15); BUN 10 mg/dL (7-18); BUN/Creat Ratio 8.6 RATIO (10-20); Calcium,Total 8.5 mg/dL (8.5-10.1); Chloride 104 mmol/L (98-107); Cholesterol 151 mg/dL (200); Creatinine, Serum 1.16 mg/dL (0.70-1.30); EST Glomerular Filtration Rate 70 mL/min (>60); Est Glom Filt Rate - Afr Amer 84 mL/min (>60); Free T3 2.5 pg/mL (2.18-3.98); Glucose 327 mg/dL (74-106); High Density Lipoprotein 59 mg/dL; Potassium 3.7 mmol/L (3.5-5.1); Sodium Level 138 mmol/L (136-145); T4 Total, Thyroxin 8.3 ug/dL (4.5-12.1); Thyroid Stim Hormone (TSH) 0.66 uIU/mL (0.358-3.74); Triglycerides 143 mg/dL; Very Low Density Lipoprotein 29 mg/dL (5-40)
== END ==
PROVIDERS: PCP Family Medicine; Referring Provider Family Medicine; Visit Provider Family Medicine
DX: E03.9 Hypothyroidism, unspecified (principal); E78.5 Hyperlipidemia, unspecified
CPT/HCPCS: 36415; 80048; 80061; 84436; 84443; 84481

== ENCOUNTER 2020-06-02 18:13 | Emergency (ER) | payer MEDICARE, SELFPAY ==
[2019-07-28 13:47] VITALS: BMI 25.8
[2020-06-02 18:14] VITALS: BP 108/53; PULSE 86; RESP 17; TEMP 35.9; O2SAT 98; BMI 24.3
--- NOTE | 2020-06-02 18:33 | ED.VISSUMM ---
- ER Visit Summary Date of Service: 06/02/20 Chief Complaint: Right ankle injury History of Present Illness: The patient is a 55 M who presents with a right ankle injury that occurred today. Patient states he fell and twisted his right ankle. Patient states he got up from a chair and was walking when he fell. Patient states he has neuropathy in his right leg and thinks his right leg gave out on him. Patient states he also passed out and fell. Patient states the pain is worse with any weightbearing. Patient admits to chronic paresthesias in his right ankle and foot. Patient describes the pain as sharp and throbbing. Patient states nothing makes it better. Physical Examination: Vital signs are stable. Patient is afebrile. Patient is in no acute distress. Musculoskeletal exam reveals tenderness over the lateral aspect of the right ankle. There is edema and ecchymosis noted over the lateral malleolus. There is no obvious deformity noted. Range of motion was limited in all motions of the right ankle secondary to pain. Pedal pulses are equal bilaterally. Sensation was intact to light touch in all digits. Capillary refill was less than 2 seconds in all digits. There is no tenderness over the fifth metatarsal or proximal fibula. Test Results: X-rays of the right ankle were obtained. There are 3 views. On my interpretation, there is a nondisplaced fracture of the distal fibula. There is some soft tissue swelling. There are no other fractures noted. Radiologist also interpreted the x-ray and agrees. Emergency Department Course and Treatment: Patient was given a dose of Essington here. Patient was given a walking boot. Patient was instructed to ice and elevate the right ankle. Patient was given a prescription for Essington. Patient states he has crutches. Patient was instructed to follow-up with orthopedics in 3 to 5 days. Patient was instructed return if worse in any way. Patient understood and was agreeable with the plan. All questions were answered. Disposition: Discharge home Impression: 1. Acute fracture right distal fibula This note was generated with [employer] dictation software. It may contain incorrect words, spelling, and punctuation that were not noted in review of the chart prior to signing ED Disposition - Plan for ED Patient: Disposition: Home or Assisted Living Diagnosis: Closed fracture of right distal fibula Instructions: ED Ankle Fracture Prescriptions: Hydrocodone Bitart/Apap 5-325 [Essington 5MG-325MG] 1 tab PO Q6H PRN PRN 3 Days #10 tab PRN Reason: Pain Prescription Printed Referrals: Yassine Bui MD [Primary Care Provider] - 5-7 Days Deejay Nance DO [STAFF PHYSICIAN] - 3-5 Days
[2020-06-02] MEDS: HYDROcodone Bitartrate/Apap 5/325 Tablet PO (18:45)
--- NOTE | 2020-06-02 18:50 | RAD_ITS ---
STUDY: X-RAY - RIGHT ANKLE REASON FOR EXAM: Male, 55 years old. Fall TECHNIQUE: 3 view(s) of the ankle. COMPARISON: None. FINDINGS: There is an oblique fracture of the distal fibula with overlying soft tissue swelling. The remainder the visualized osseous structures are intact. There are no radiodense foreign bodies. RAD/Ankle min 3 Views IMPRESSION: Oblique fracture of the right distal fibula with overlying soft tissue swelling. Electronically Signed: Christian Moore MD at 19:28 EST Tel , Service support ,
[2020-06-02 19:52] VITALS: PULSE 89; RESP 15; O2SAT 99
== END 2020-06-02 19:53 | disposition home or self-care (01) ==
PROVIDERS: Emergency Provider Emergency Medicine; PCP Family Medicine
DX: S82.831A Other fracture of upper and lower end of right fibula, initial encounter for closed fracture (principal); Y93.01 Activity, walking, marching and hiking; G62.9 Polyneuropathy, unspecified; X50.1XXA Overexertion from prolonged static or awkward postures, initial encounter; Y92.9 Unspecified place or not applicable; Y99.9 Unspecified external cause status; Z86.73 Personal history of transient ischemic attack (TIA), and cerebral infarction without residual deficits; I25.2 Old myocardial infarction; E11.9 Type 2 diabetes mellitus without complications; F17.210 Nicotine dependence, cigarettes, uncomplicated
CPT/HCPCS: 73610; 99283

== ENCOUNTER 2020-06-04 17:40 | Emergency (ER) | payer MEDICARE, SELFPAY ==
[2020-06-04] VITALS (7 sets, daily range): BP systolic 89–135; BP diastolic 60–84; PULSE 80–94; RESP 15–20; TEMP 36.9; O2SAT 96; BMI 25.9
--- NOTE | 2020-06-04 18:00 | EKG12_ITS ---
Test Reason : SYNCOPE Blood Pressure : / mmHG Vent. Rate : 095 BPM Atrial Rate : 095 BPM P-R Int : 202 ms QRS Dur : 104 ms QT Int : 394 ms P-R-T Axes : 071 115 080 degrees QTc Int : 495 ms Normal sinus rhythm Right axis deviation Anteroseptal infarct , age undetermined Abnormal ECG Confirmed by MONA SEO, KIRK ([id number]), pictures editor JAIMIE MENDOZA ([id number]) on 06/07/2020 8:20:45 AM Referred By: RADHA Confirmed By:KIRK DUNN MD
--- NOTE | 2020-06-04 18:02 | ED.DCSUM_ITS ---
- ER Visit Summary Date of Service: 06/04/20 Chief Complaint: Fall with near syncope. Complaining right lower leg pain History of Present Illness: The patient is a 55 M history of near syncope. Today was in his kitchen had an episode he went down. No LOC. No significant injury except complaining of pain over the midportion of his right lower leg. He had a similar event happen within the last week and has a distal right fibular fracture. For which he is wearing orthopedic boot. He is scheduled to see orthopedics this week. Denies any other injuries. No LOC. No headache, chest pain, shortness of breath or abdominal pain. No nausea, vomiting, diarrhea or melena. Physical Examination: Middle-aged male no acute distress vital signs stable afebrile. H EENT exam unremarkable. RRR reactive light. No signs of trauma to his face or scalp. No hematoma. C-spine nontender. Trachea midline. Lungs clear to auscultation bilaterally. Heart regular rhythm rate about 90 no murmur. Chest were nontender. Abdomen soft nontender. Pelvic girdle intact. Patient moving all 4 extremities. Neurovascular intact. Is an orthopedic boot on his right leg it was removed. Complains of pain in the midportion of his right lower leg. There is mild swelling in the right lower ankle and foot the foot is nontender neurovascular intact with a strong DP pulse. He is able to wiggle his toes. Has normal touch sensation. Neurologically is awake and alert with no focal motor deficits. Test Results: EKG shows normal sinus rhythm rate 95 no acute signs of DC or ischemia. No dysrhythmia. Right tib-fib x-ray shows the previously seen distal fibula fracture no acute change. Interpreted by myself and also the radiologist. CBC white count 1.5. Hemoglobin 15. Chemistries unremarkable potassium 3.1 creatinine 1.38 normal gap of 3 orthostatic vital signs were positive he became orthostatic with a blood pressure 89/61 standing. This may be from dehydration. Emergency Department Course and Treatment: Patient's is also in the room. She said and he said he has had these near syncopal episodes in the past she is just concerned because every seem to be occurring more frequently over the last week. He has had no recent illness. Normal saline for his orthostatic hypotension. He was given OxyIR for his pain of his previously right lower leg fracture. Treatment Plan: [] Disposition: [] Impression: Near syncope with fall Sent right distal fibula fracture not new tonight Orthostatic hypotension This note was generated with [employer] dictation software. It may contain incorrect words, spelling, and punctuation that were not noted in review of the chart prior to signing ED Disposition - Plan for ED Patient: Referrals: Yassine Bui MD [Primary Care Provider] -
--- NOTE | 2020-06-04 18:04 | RAD_ITS ---
STUDY: X-RAY - RIGHT TIBIA AND FIBULA REASON FOR EXAM: Male, 55 years old. Pt fall. Dizziness. Right lower leg pain. PATIENT HAD A DISTAL FIBULA FX FROM EARLIER THIS WEEK (REMOVED WALKING CAST TO TAKE TODAY''S IMAGES) TECHNIQUE: 2 view(s) of the tibia and fibula were obtained. COMPARISON: 06/02/2020 FINDINGS: Normal visualized tibia. Stable distal fibular fracture with decreased soft tissue swelling. The soft tissue structures are unremarkable. RAD/Tibia & Fibula 2 Views IMPRESSION: 1. No new fracture. Stable distal fibular fracture. Electronically Signed: Ricky Silver MD (Brooks) at 18:25 EST , Service support ,
[2020-06-04 18:23] LABS: Absolute Lymphocyte Count 1.95 X10^3/uL (0.83-4.51); Absolute Neutrophil Count 8.2 X10^3/uL (2.0-7.7); Basophil# 0.08 X10^3/uL; Basophil% 0.7 % (0-1); Eosinophil# 0.24 X10^3/uL; Eosinophils% 2.1 % (0-5); Hematocrit 45.3 % (40-54); Hemoglobin 15.7 g/dL (13.0-16.5); Lymphocyte # 1.95 X10^3/ul (4.0); Mean Corp Hgb Conc 34.7 g/dL (32-36); Mean Corpuscular Hgb 32.2 pg (27.0-32.0); Mean Platelet Vol. 10.2 fl (6.2-12.0); Monocyte% 8.7 % (0-10); NRBC Flagged by Analyzer 0 % (0-5); Neutrophil # 8.15 X10^3/uL (2.7-7.7); Neutrophil % 71.2 % (47-70); Platelet Count 224 K/mm3 (150-450); RBC Distribution Width CV 13.1 % (11.6-14.6); RBC Distribution Width SD 44.5 fl (35.1-43.9); Red Blood Count 4.87 M/mm3 (4.6-6.2); White Blood Count 11.5 K/mm3 (4.4-11.0)
[2020-06-04 18:33] LABS: Anion Gap 3 (5-15); BUN 10 mg/dL (7-18); BUN/Creat Ratio 7.2 RATIO (10-20); Calcium,Total 9.1 mg/dL (8.5-10.1); Chloride 99 mmol/L (98-107); Creatinine, Serum 1.38 mg/dL (0.70-1.30); EST Glomerular Filtration Rate 57 mL/min (>60); Est Glom Filt Rate - Afr Amer 69 mL/min (>60); Glucose 100 mg/dL (74-106); Potassium 3.1 mmol/L (3.5-5.1); Sodium Level 136 mmol/L (136-145)
[2020-06-04] MEDS: 0.9% Normal Saline 1,000 ML 999 ML IV (19:11)
[2020-06-04] MEDS: oxyCODONE 5 MG Tablet 10 MG PO (19:11)
--- NOTE | 2020-06-04 21:33 | ED.DEP ---
ED Disposition - Plan for ED Patient: Disposition: Home or Assisted Living Instructions: ED Hypotension, Orthostatic Referrals: Yassine Bui MD [Primary Care Provider] - 3-5 Days Additional Instructions: Follow-up with your doctor.
== END 2020-06-04 21:50 | disposition home or self-care (01) ==
PROVIDERS: Emergency Provider Emergency Medicine; PCP Family Medicine
DX: S82.831A Other fracture of upper and lower end of right fibula, initial encounter for closed fracture (principal); I95.1 Orthostatic hypotension; W18.30XA Fall on same level, unspecified, initial encounter; Y93.89 Activity, other specified; Y92.000 Kitchen of unspecified non-institutional (private) residence as the place of occurrence of the external cause; Y99.9 Unspecified external cause status
CPT/HCPCS: 73590; 80048; 85025; 93005; 96360; 99285; J7030; A4216

== ENCOUNTER → 2020-06-07 13:53 | Outpatient (CLI) | payer MEDICARE, SELFPAY ==
[2020-06-07 13:02] VITALS: BMI 24.7
[2020-06-07 15:42] LABS: Anion Gap 5 (5-15); BUN 9 mg/dL (7-18); Calcium,Total 8.9 mg/dL (8.5-10.1); Chloride 98 mmol/L (98-107); Creatinine, Serum 1.28 mg/dL (0.70-1.30); EST Glomerular Filtration Rate 62 mL/min (>60); Est Glom Filt Rate - Afr Amer 75 mL/min (>60); Glucose 135 mg/dL (74-106); Potassium 3.1 mmol/L (3.5-5.1); Sodium Level 136 mmol/L (136-145)
[2020-06-07 15:57] LABS: Thyroid Stim Hormone (TSH) 8.44 uIU/mL (0.358-3.74)
== END ==
PROVIDERS: Anesthesiology; PCP Family Medicine; Referring Provider Physician Assistant Medical; Visit Provider Physician Assistant Medical
DX: I25.10 Atherosclerotic heart disease of native coronary artery without angina pectoris (principal); I25.5 Ischemic cardiomyopathy; I10 Essential (primary) hypertension
CPT/HCPCS: 36415; 80048; 83036; 84443

== ENCOUNTER 2020-06-10 08:52 | Day surgery (SDC) | payer MEDICARE, SELFPAY ==
[2020-06-06 11:01] VITALS: BMI 24.3
[2020-06-07 13:02] VITALS: BMI 24.7
--- NOTE | 2020-06-07 14:28 | EKG12_ITS ---
Test Reason : PRE SURGERY Blood Pressure : / mmHG Vent. Rate : 078 BPM Atrial Rate : 078 BPM P-R Int : 180 ms QRS Dur : 098 ms QT Int : 430 ms P-R-T Axes : 059 152 075 degrees QTc Int : 490 ms Normal sinus rhythm Anterolateral infarct , age undetermined Abnormal ECG Confirmed by NADJA SEO, JAZMÍN ([id number]), editor farm journal JAIMIE MENDOZA ([id number]) on 06/10/2020 8:39:59 AM Referred By: Deejay Nance Confirmed By:JENNIFER SAEZ MD
[2020-06-10] VITALS (11 sets, daily range): BP systolic 94–126; BP diastolic 57–95; PULSE 66–80; RESP 16; TEMP 36.2–37; O2SAT 92–97; BMI 25.7
[2020-06-10] MEDS: Lactated Ringers 1,000 ML 100 ML IV (09:38)
[2020-06-10 09:49] LABS: Potassium 4.8 mmol/L (3.5-5.1)
--- NOTE | 2020-06-10 10:52 | PCM.HP.BLA ---
History and Physical Date of Admission: 06/10/20 Intake Intake Visit Reasons: RIGHT ANKLE Accompanied by: Is patient in pain?: Yes Allergies No Known Allergies Allergy (Verified 06/04/20 17:41) Medications Citalopram [Celexa] 40 mg PO DAILY 03/18/13 [History Confirmed 06/06/20] nitroglycerin 0.4 mg sublingual tablet 0.4 mg SUBLINGUAL Q5M PRN 06/06/17 [History Confirmed 06/06/20] aspirin 81 mg tablet,delayed release 81 mg PO .q day tab 06/07/17 [History Confirmed 06/06/20] insulin aspart U-100 100 unit/mL subcutaneous solution 1.2 unit CONTINUOUS SUBCUTANEOUS INFUSION UD 06/07/17 [History Confirmed 06/06/20] nortriptyline 50 mg capsule 50 mg PO QHS 01/28/19 [History Confirmed 06/06/20] quetiapine 200 mg tablet,extended release 24 hr 200 mg PO QPM 01/28/19 [History Confirmed 06/04/20] atorvastatin 80 mg tablet 80 mg PO QHS #90 tab 07/28/19 [Rx Confirmed 06/06/20] clopidogrel 75 mg tablet 75 mg PO DAILY #90 tab 07/28/19 [Rx Confirmed 06/06/20] furosemide 40 mg tablet 40 mg PO DAILY #90 tab 07/28/19 [Rx Confirmed 06/06/20] levothyroxine 125 mcg tablet 125 mcg PO DAILY tab 07/28/19 [History Confirmed 06/06/20] lisinopril 5 mg tablet 5 mg PO DAILY #90 tab 07/28/19 [Rx Confirmed 06/06/20] metoprolol succinate 50 mg tablet,extended release 24 hr 50 mg PO DAILY #90 tab 07/28/19 [Rx Confirmed 06/06/20] Oxycodone HCl/Acetaminophen [Percocet 5/325] 1 tab PO Q6H PRN PRN 06/04/20 [History Confirmed 06/06/20] lorazepam 0.5 mg tablet 0.5 mg PO tab 06/06/20 [History Confirmed 06/06/20] [facility] Medical History (Updated 06/03/20 @ 00:00 by Background Dabetsy) Atherosclerotic heart disease of [place] coronary artery without angina pectoris (Chronic) Ischemic cardiomyopathy (Chronic) Essential (primary) hypertension (Chronic) Hyperlipemia (Chronic) CVA (cerebral vascular accident) (Chronic) Nicotine dependence (Chronic) Acute ischemic left posterior cerebral artery (SPA CONSULTANT) stroke (Chronic) Chronic pain due to injury (Chronic) Degenerative joint disease (DJD) of lumbar spine (Chronic) Diabetes mellitus type I (Chronic) Hypothyroidism (Chronic) Lymphadenopathy, axillary (Chronic) Obstructive sleep apnea (Chronic) Old myocardial infarction (Chronic) Palpitations (Chronic) TIA (transient ischemic attack) (Chronic) TIA (transient ischemic attack) (Chronic) Type I diabetes with insulin pump usage (Chronic) Dyspnea on exertion (Resolved) History lymph node removal (Resolved) History of vocal cord surgery (Resolved) Dizziness and giddiness (Inactive) Family history of hyperlipidemia (Inactive) Family history of hypertension (Inactive) 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 Father Heart disease CVA (cerebral vascular accident) Mother CAD (coronary artery disease) Grandfather Cancer Social History (Updated 06/06/20 @ 11:[address] Deejay Nance DO) Smoking Status: Current every day smoker alcohol intake: current alcohol intake frequency: a few times a week caffeine: Yes Type: carbonated beverages Number of servings: 6, coffee Number of servings: 2 HPI RIGHT ANKLE: Details: Parts of this documentation were recorded by a scribe, this documentation accurately reflects the service provided and the decisions made by me, Dr. Deejay Nance DO 06/06/20 0751. VERÓNICA ENGLE is a 55 year old M new patient here today for ER F/U on Oblique fracture of the right distal fibula. He states that on 06/02/2020 he fell letting his dog out and he doesnt recall how his ankle twisted or if the ankle hit anything. He said that he has blackouts and falls, this injury was do to this . He has increased pain with inversion and twisting of the foot. He was given a CAM boot at the ER. He has episodes of dizziness and he has fallen twice since . Ortho Exam General General: Yes no acute distress Neurologic: Yes alert, Yes oriented x3 Psychologic: Yes reasonable and appropriate Right Knee KNEE: no joint effusion Right Foot/Ankle 06/02/20 Skin/Wound: Yes Soft Tissue Swelling (medial and lateral ankle); no Erythema Exam: present TTP FX site, TTP Lateral Malleolus, TTP Medial Malleolus and TTP Deltoid Ligament Anterior Drawer: 1 Sensation: Deep Peroneal Nerve: I, Superficial Peroneal Nerve: I, Tibial Nerve: I, Sural Nerve: I, Saphenous Nerve: I Pulses: Dorsalis Pedis: 1, Posterior Tibial: 1 ANKLE: swelling over medial and lateral ankle able to move toes Denies numbness, tingling or other associated symptoms. significant swelling medial ankle with tenderness about deltoid and small ecchymosis Supplemental Info 06/04/2020 x-ray right ankle Minimally displaced oblique fracture distal fibula with medial joint space widening suspect small posterior malleolus fracture seen on lateral of tib-fib view Assessment & Plan Problems 1. Other closed fracture of distal end of right fibula, initial encounter S82.831A Plan Patient educated that he does have a distal fibula fx and medial deltoid injury essentially a bimalleolar equivalent injury. Educated that it is recommended that he has surgery to repair the fx but he will need to get the swelling down. He should ice and elevate the leg as much as possible. Reviewed the pre-operative plans with the patient. Risks and benefits of the procedure were fully explained, including but not limited to infection, neurovascular injury, continued pain, arthritis, stiffness, need for further surgery, re-injury, DVT, PE, general risks of anesthesia, and loss of limb or life. The patient understands all the risks and does wish to proceed with written consent for right distal fibula ORIF. Educated that his elevated A1C can cause increased risk of infection. He will be in a splint for 2 weeks post op then will be placed into a cast. He will be NWB for about 8 weeks. We will need medical consent prior to having surgery d/t his syncope episodes. 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 strict ice and elevation nonweight bearing until surgery. no NSAIDs. Follow up post op or sooner if pain, swelling, numbness or associated symptoms, or concerns develop. All questions answered. Patient in agreement of plan. Coding Level of Care Code Off vis,new,level 3 Diagnoses Other closed fracture of distal end of right fibula, initial encounter S82.831A ??Encounter type: initial encounter ??Fracture morphology: other fracture ??Fracture type: closed ??Laterality: right I have re-examined the patient. There are no clinical changes since date of exam
[2020-06-10] MEDS: Cefazolin 2 GM in 0.9% Normal Saline 100 ML IV (11:00)
--- NOTE | 2020-06-10 11:10 | RAD_ITS ---
STUDY: X-RAY - RIGHT ANKLE REASON FOR EXAM: ORIF right fibular fracture. TECHNIQUE: 3 intraoperative images of the ankle. COMPARISON: Radiographs 06/02/2020. FINDINGS: There is an orthopedic plate and screws transfixing a distal fibular fracture in anatomical alignment and position. 28.6 seconds of fluoroscopy time was used. Electronically Signed: Milad Key MD at 14:54 EST Tel , Service support , RAD/Ankle min 3 Views
[2020-06-10 11:40] LABS: Bedside Glucose 240 mg/dL (70-110)
[2020-06-10] MEDS: Bupiv/Epi 0.25% 30 ML Vial (12:19)
--- NOTE | 2020-06-10 12:35 | PCM.DC.ORTHO ---
Discharge Diet: No Restrictions Weight Bearing Status: No weight bearing Keep extremity elevated above heart level: Operative Extremity Call your doctor if you observe: Shortness of breath, Chest pain Additional Instructions: Do not bear weight on operative extremity . strict ice and elevation to the operative extremity 7 days postop. Do not remove splint. keep splint on clean and dry. Keep extremity cool apply ice behind the knee or anterior ankle. Avoid sweating to minimize itch. Do not stick anything inside of splint may take [id number] Benadryl for itch if necessary. Only take pain medication as prescribed. Narcotics can be addictive so only take if needed supplement with 1000 mg of Tylenol every 6 hours as needed for pain and OTC NSAID of preference to minimize narcotic usage. call with any questions or concerns and follow-up as directed. Allergies/Adverse Reactions: Allergies No Known Allergies Allergy (Verified 06/07/20 14:11) Medications to take at Discharge Citalopram [Celexa] 40 mg PO DAILY 03/18/13 nitroglycerin 0.4 mg sublingual tablet 0.4 mg SUBLINGUAL Q5M PRN 06/06/17 insulin aspart U-100 100 unit/mL subcutaneous solution 1.1 unit CONTINUOUS SUBCUTANEOUS INFUSION UD 06/07/17 nortriptyline 50 mg capsule 50 mg PO QHS 01/28/19 quetiapine 200 mg tablet,extended release 24 hr 200 mg PO QPM 01/28/19 levothyroxine 125 mcg tablet 125 mcg PO DAILY tab 07/28/19 lisinopril 5 mg tablet 5 mg PO DAILY #90 tab 07/28/19 metoprolol succinate 50 mg tablet,extended release 24 hr 50 mg PO DAILY #90 tab 07/28/19 Oxycodone HCl/Acetaminophen [Percocet 5/325] 1 tab PO Q6H PRN PRN 06/04/20 lorazepam 0.5 mg tablet 0.5 mg PO QHS tab 06/06/20 potassium chloride 10 mEq capsule,extended release 10 meq PO DAILY #30 cap 06/07/20 Acetaminophen [Tylenol Extra Strength] 1,000 mg PO Q6H PRN #100 tab 06/10/20 Cephalexin [Keflex] 1,000 mg PO Q8 #4 cap 06/10/20 Oxycodone [Oxyir] 5 mg PO Q4H PRN PRN #60 tablet 06/10/20 The following prescriptions were given: Cephalexin [Keflex] 1,000 mg PO Q8 #4 cap Transmission Status: Pending to [facility] Oxycodone [Oxyir] 5 mg PO Q4H PRN PRN #60 tablet PRN Reason: Pain Score 6-10 Transmission Status: Sent to [facility] Acetaminophen [Tylenol Extra Strength] 1,000 mg PO Q6H PRN #100 tab Transmission Status: Pending to [facility] Primary Care Physician: Yassine Bui MD [Primary Care Provider] - Test Results: Test results from this visit will be discussed in further detail at your follow-up appointment, if applicable. Please Follow Up With: Deejay Nance DO - 2weeks
--- NOTE | 2020-06-10 12:38 | PCM.OPRPT ---
Report of Operation Date of Procedure: 06/10/20 Description of Surgical Findings:: Preoperative diagnosis: Right displaced oblique distal fibula fracture with deltoid rupture Postoperative diagnosis: Same Procedure: ORIF right distal fibula Anesthesia: General EBL: 10 Complications: None Implants: Synthes distal fibular locking plate Tourniquet time: 51 minutes Condition: stable to PACU Indication for procedure: 55-year-old male smoker diabetic having multiple syncope events causing fall injury to right ankle with displaced oblique Bowman B distal fibula fracture with corresponding medial joint space widening and deltoid ligament tenderness [We did discuss thoroughly risk benefits and alternatives of surgery versus nonsurgical intervention including risk of bleeding infection nerve artery tissue damage need for further surgery, hardware prominence and continued pain and expected post operative course. Procedure: Patient was met the preoperative holding area once again the operative extremity was then identified by both patient and physician was marked. Patient was brought back to the operating room on a wheeled cart and transferred to the operative table supine position. Anesthesia was started well-padded tourniquet was placed on the operative upper thigh. The patient was prepped and draped in the usual sterile fashion and a timeout was called to ensure the proper patient procedure and extremity were being contemplated. An Esmarch was used to exsanguinate the extremity and the tourniquet was inflated to 300 mmHg. A 15 blade scalpel was used to make a lateral incision to the distal fibula. This was carried down through the skin and subcutaneous tissue electrocautery was used, avoiding superficial peroneal nerve. Full-thickness flaps were elevated to the bone fracture site was evaluated and was cleared of hematoma and debris with a curette and irrigation was used. A [id number] reduction clamp was used to reduce the fracture while a interfragmentary compression screw was placed followed by a lateral locking plate was slid underneath this was checked under fluoroscopy for positioning of plate and fracture reduction the plate was secured to the shaft with a cortical screw followed by sequential cortical screws in the proximal aspect of the plate. This was followed by 3 locking screws in the distal end of the plate hook test was performed to ensure no syndesmotic instability. The medial syndesmotic joint space was symmetric with the remainder of the ankle mortise in both AP and mortise views fluoroscopic under stress testing images were saved to the PACS system the wound was thoroughly irrigated and was closed with 0 Vicryl followed by 2-0 Vicryl subcutaneous tissue followed by 3-0 nylon vertical mattress followed by Xeroform 4 x 4 ABD web roll bulky Love dressing stirrup splint and posterior slab splint followed by an Eric wrap. Patient tolerated the procedure well and was transferred the PACU in stable condition. All counts were correct.
[2020-06-10] MEDS: Cefazolin 1 GM/50 ML BAG IV (14:31)
== END 2020-06-10 15:59 | disposition home or self-care (01) ==
LOC: SDC 08:52 → AC 08:53
PROVIDERS: Anesthesiology; PCP Family Medicine; Referring Provider Orthopaedic Surgery; Visit Provider Orthopaedic Surgery
PROC: (CPT 27792; principal; 2020-06-10 10:10)
DX: S82.831A Other fracture of upper and lower end of right fibula, initial encounter for closed fracture (principal); W19.XXXA Unspecified fall, initial encounter; Y93.9 Activity, unspecified; Y92.89 Other specified places as the place of occurrence of the external cause; Y99.9 Unspecified external cause status; I25.10 Atherosclerotic heart disease of native coronary artery without angina pectoris; E10.9 Type 1 diabetes mellitus without complications; I10 Essential (primary) hypertension; I25.5 Ischemic cardiomyopathy; E03.9 Hypothyroidism, unspecified; Z86.73 Personal history of transient ischemic attack (TIA), and cerebral infarction without residual deficits; G89.21 Chronic pain due to trauma; Z95.5 Presence of coronary angioplasty implant and graft; F17.200 Nicotine dependence, unspecified, uncomplicated; Z79.82 Long term (current) use of aspirin; Z79.4 Long term (current) use of insulin
CPT/HCPCS: 01480; 27792; 73610; 76000; 82962; 84132; 87426; 93005; C1713; C9803; J7120; J0330; J2405

== ENCOUNTER → 2020-08-10 13:48 | Outpatient (CLI) | payer MEDICARE, SELFPAY ==
[2020-08-10 12:55] VITALS: BMI 24.9
[2020-08-10 14:46] LABS: Free T3 1.7 pg/mL (2.18-3.98); T4 Free Direct 0.86 ng/dL (0.76-1.46)
== END ==
PROVIDERS: PCP Family Medicine; Referring Provider Physician Assistant Medical; Visit Provider Physician Assistant Medical
DX: E03.9 Hypothyroidism, unspecified (principal); E78.00 Pure hypercholesterolemia, unspecified
CPT/HCPCS: 36415; 84439; 84443; 84481

== ENCOUNTER 2020-12-21 14:29 | Inpatient (IN) | payer MEDICARE, SELFPAY ==
[2020-12-21] VITALS (9 sets, daily range): BP systolic 88–153; BP diastolic 50–93; PULSE 86–106; RESP 16–18; TEMP 36.3–36.9; O2SAT 97–98; BMI 27.5; BMI 27.6
--- NOTE | 2020-12-21 14:51 | EKG12_ITS ---
Test Reason : Blood Pressure : / mmHG Vent. Rate : 094 BPM Atrial Rate : 094 BPM P-R Int : 198 ms QRS Dur : 098 ms QT Int : 392 ms P-R-T Axes : 065 120 079 degrees QTc Int : 490 ms Normal sinus rhythm Low voltage QRS (Limb Leads) Anteroseptal infarct , age undetermined Abnormal ECG Confirmed by EMILY SEO, MAYRA ([id number]), editorial intern JAIMIE MENDOZA ([id number]) on 12/26/2020 9:46:06 AM Referred By: ALFONZO Confirmed By:MAYRA DIAZ MD
--- NOTE | 2020-12-21 14:53 | ED.VIS.FALL ---
HPI HPI - Fall History of Present Illness Chief Complaint: Fall Detail of Chief Complaint: Complaint of right lower leg pain post fall with deformity. Informant: patient and spouse/S.O. Occured/Mechanism Occurred: Today and Hours Mechanism/Context: Yes same level fall Usually ambulates: Without assistance Pain/Injury Pain Location: lower extremity Quality of Pain: Sharp Current Severity: Severe Maximum Severity: Severe Narrative Narrative: Middle-age male states is a history of with a hypotension, MIs, cardiomyopathy, TIAs, long-term diabetes with insulin pump and neuropathy. He was walking at home fell injuring his right lower leg. There is deformity was brought in by squad. He denies other injuries. He denies hitting his head. He denies recent illness. He denies nausea, vomiting or diarrhea. No chest pain or shortness of breath. No abdominal pain or fever. Patient has been drinking alcohol today. Prior similar symptoms: Yes Recent Illness/Hospitalization: No PFSH PFSH Medical History (Updated 12/21/20 @ 17:[address] 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 CVA (cerebral vascular accident) Degenerative joint disease (DJD) of lumbar spine Diabetes mellitus type I Dizziness and giddiness Dyspnea on exertion Essential (primary) hypertension Family history of hyperlipidemia Family history of hypertension History lymph node removal History of vocal cord surgery Hyperlipemia Hypothyroidism Ischemic cardiomyopathy Lymphadenopathy, axillary Nicotine dependence Obstructive sleep apnea Old myocardial infarction 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 Palpitations TIA (transient ischemic attack) TIA (transient ischemic attack) Type I diabetes with insulin pump usage Home Medications citalopram 40 mg PO DAILY 03/18/13 [History Last Taken 07/01/17] insulin aspart U-100 100 unit/mL subcutaneous solution 1.1 unit CONTINUOUS SUBCUTANEOUS INFUSION UD 06/07/17 [History Last Taken Unknown] nortriptyline 50 mg capsule 50 mg PO QHS 01/28/19 [History Last Taken Unknown] quetiapine 200 mg tablet,extended release 24 hr 200 mg PO QPM 01/28/19 [History Last Taken Unknown] levothyroxine 125 mcg tablet 125 mcg PO DAILY tab 07/28/19 [History Last Taken 06/10/20] lorazepam 0.5 mg tablet 0.5 mg PO QHS tab 06/06/20 [History Last Taken Unknown] acetaminophen 1,000 mg PO Q6H PRN #100 tab 06/10/20 [Rx Last Taken Unknown] aspirin 81 mg tablet,delayed release 81 mg PO DAILY #30 tab 06/14/20 [Rx Last Taken Unknown] famotidine 20 mg tablet 20 mg PO BID 08/10/20 [History Last Taken Unknown] multivitamin 1 tablet PO DAILY 08/10/20 [History Last Taken Unknown] nitroglycerin 0.4 mg sublingual tablet 0.4 mg SUBLINGUAL Q5M PRN #25 tablet 08/10/20 [Rx Last Taken Unknown] metoprolol succinate 50 mg tablet,extended release 24 hr See Rx Instructions .ROUTE .COMPLEX #90 tab 09/14/20 [Rx Last Taken Unknown] lisinopril 5 mg tablet 5 mg PO QPM #90 tablet 10/19/20 [Rx Last Taken Unknown] Allergy/AdvReac Type Severity Reaction Status Date / Time No Known Allergies Allergy Verified 12/21/20 14:30 Family History Unknown No problems noted. Father Heart disease CVA (cerebral vascular accident) Mother CAD (coronary artery disease) Grandfather Cancer Surgical History History of appendectomy History of cataract extraction History of cholecystectomy History of coronary artery stent placement (02/04/10) History of left heart catheterization (06/2017) History of open reduction and internal fixation (ORIF) procedure History of prosthetic vocal cord History of tonsillectomy and adenoidectomy Social History Smoking Status: Current every day smoker tobacco type: cigarettes alcohol intake: current alcohol intake frequency: a few times a week caffeine: Yes Type: carbonated beverages Number of servings: 6 and coffee Number of servings: 2 ROS ROS ED ROS Narrative Patient denies recent illness. Review of Systems ROS Unobtainable: Denies due to encephalopathy Constitutional Constitutional ED: Denies chills or fever(s) Eyes Eyes: Denies change in vision ENT ENT ED: Denies ear pain or sore throat Cardiovascular Cardiovascular: Denies chest pain Respiratory/Chest Respiratory/Chest: Denies cough or dyspnea Gastrointestinal Gastrointestinal: Denies abdominal pain, diarrhea, nausea or vomiting Genitourinary Genitourinary ED: Denies dysuria Musculoskeletal Musculoskeletal: Denies myalgias Integumentary Denies rash Neurologic Neurologic: Denies headache(s) Psychiatric Psychiatric: Denies depression Endocrine Endocrinology: Denies polyuria Hematologic/Lymphatic Hematologic/Lymphatic: Denies easy bruising Allergic/Immunologic Allergic/Immunologic ED: Denies urticaria EXAM Physical Exam Narrative Exam Narrative: Middle-age male. Initial blood pressure 92/50. Pulse ox 90%. Afebrile. He has a right lower leg air splint in place. H EENT exam atraumatic. Strong smell of alcohol on his breath. Pupils round reactive light. Neck nontender trachea midline. Lungs clear to auscultation. Heart regular rhythm rate about 90 no murmur. Chest were nontender. Abdomen soft nontender. Pelvic girdle intact. Both upper extremities are nontender with normal range of motion. Normal cooler servicer strength. Back is nontender. Spine is nontender. Left lower extremity unremarkable. Right hip and knee are nontender. Right mid lower leg is tender to palpation with deformity. Right foot appears to be neurovascularly intact he is able to wiggle his toes. He has normal touch sensation. Normal DP pulse. Skin appears to be intact. Neurologically he is intoxicated but awake alert. Answering questions and following commands. Const Vital Signs: 12/21/20 14:30 12/21/20 16:05 Temperature 98.0 F Temperature Source Oral Pulse Rate 97 89 Respiratory Rate 18 17 Blood Pressure 92/50 L 143/72 H Blood Pressure Mean 64 95 Pulse Ox 98 98 Oxygen Delivery Method Room Air Room Air HEENT Reports normocephalic atraumatic; Negative for trauma, contusion, hematoma or tenderness Eyes PERRL and EOMs intact bilaterally Neck full ROM, no lymphadenopathy and supple General: Negative for tenderness Chest Wall inspection of chest normal and palpation of chest normal Resp normal respiratory effort, no retractions and clear to auscultation bilaterally Auscultation: Negative for rales, rhonchi or wheezes Cardio regular rate, regular rhythm, S1 normal heart sound, S2 normal heart sound and no murmurs GI non-tender, non-distended and no masses Inspection: Negative for abdominal distention Auscultation: normoactive bowel sounds Palpation: soft; Negative for guarding or rebound tenderness present Back/Spine no CVA tenderness Cervical Spine: Negative for cervical spine tenderness Thoracic Spine / Upper Back: Negative for thoracic spinal tenderness Lumbar Spine / Lower Back: Negative for lumbar spinal tenderness Extremity normal to inspection Extremity Narrative: Except right lower leg deformity mid to distal third lower leg. Right foot appears to be neurovascular intact with DP pulse. Able to wiggle his toes. Touch sensation intact. Right knee and hip are unremarkable. Left lower extremity both upper extremities are unremarkable. Neuro oriented x3 and moves all extremities [place] Coma Scale: document GCS findings Spontaneous Obeys Commands Oriented 15 Sensorium / Orientation: alert, oriented to person, oriented to place and oriented to time; Negative for orientation impaired Motor Exam: strength 5/5 throughout Psych mental status grossly normal Skin Lesions: no lesions Rashes: no rashes MDM MDM MDM Narrative Medical decision making narrative: 55-year-old male fall may be from orthostatic hypotension or intoxication. He does smell of alcohol. Admits to drinking. Has a deformity of his right lower leg is suspect tibial fracture. Labs and x-rays to be obtained. He will be given IV fentanyl and Zofran for pain. IV fluids for his hypotension. Repeat exam patient doing well at 4:55 PM. Pain is improving after the initial fentanyl now this pressure is better I gave him IV morphine. His right foot has a strong DP pulse he can wiggle his toes he has normal sensation. He had I went over his test results and x-ray. I have his orthopedic physician on page. Discussed with Dr. Michael Nance. Patient be admitted by hospitalist. He is planning on doing surgery tomorrow. Patient be placed in a long leg posterior Ortho-Glass splint splint fabricated by myself. Ice and elevate to keep the swelling down as discussed with the orthopod. Lab Data Attestation: I reviewed the patient's lab results. Lab results narrative: CBC shows a white count of 7. Hemoglobin 15. Electrolytes unremarkable gap 7. Normal creatinine of 1.1. Patient is intoxicated with alcohol 188. Labs: Laboratory Results - last 24 hr 12/21/20 12/21/20 12/21/20 14:34 14:34 14:34 WBC 7.9 RBC 4.46 L Hgb 15.1 Hct 44.9 MCV 100.7 H MCH 33.9 H MCHC 33.6 RDW Std Deviation 50.5 H RDW Coeff of Gabrielle 13.6 Plt Count 226 MPV 10.0 Immature Gran % (Auto) 0.500 Neut % (Auto) 66.0 Lymph % (Auto) 22.6 [place] % (Auto) 7.6 Eos % (Auto) 2.4 Baso % (Auto) 0.9 Absolute Neuts (auto) 5.2 Absolute Lymphs (auto) 1.78 Nucleated RBC % 0 Sodium 137 Potassium 4.1 Chloride 104 Carbon Dioxide 26.0 Anion Gap 7 BUN 9 Creatinine 1.19 Estim Creat Clear Calc 68.66 Est GFR (MDRD) Af Amer 82 Est GFR (MDRD) Non-Af 68 BUN/Creatinine Ratio 7.6 L Glucose 252 H Calcium 8.3 L Ethyl Alcohol 188.0 Radiography Diagnostic Testing: Radiology Impression Tibia/Fibula X-Ray 12/21/20 15:00 IMPRESSION: Comminuted fracture of the proximal and mid shaft of the right femur as well as a nondisplaced fracture in the proximal neck of the right fibula. Soft tissue swelling. Prior ORIF of the distal fibula. Electronically Signed: Jorge A Tavera MD at 15:34 EDT , Service support , Right tib-fib x-ray shows a comminuted fracture Procedures Lower Extremity Splints Lower Extremity Splint: Orthoglass, Long leg and - (Patient placed in a long-leg Ortho-Glass well-padded splint. ) Splint Fabrication: Fabricated Location: Right Discharge Plan Dx/Rx/DC Orders Clinical Impression: Fall, Comminuted fracture of shaft of tibia, Fibula fracture, Alcohol intoxication Disposition Disposition: Acute Care Hospital [facility]
[2020-12-21] MEDS: fentaNYL 100 MCG/2 ML Ampul 50 MCG IV (14:58)
[2020-12-21 14:59] LABS: Absolute Lymphocyte Count 1.78 X10^3/uL (0.83-4.51); Absolute Neutrophil Count 5.2 X10^3/uL (2.0-7.7); Basophil# 0.07 X10^3/uL; Basophil% 0.9 % (0-1); Eosinophil# 0.19 X10^3/uL; Eosinophils% 2.4 % (0-5); Hematocrit 44.9 % (40-54); Hemoglobin 15.1 g/dL (13.0-16.5); Lymphocyte # 1.78 X10^3/ul (0.83-4.51); Lymphocyte % 22.6 % (19-41); Mean Corp Hgb Conc 33.6 g/dL (32-36); Mean Corpuscular Hgb 33.9 pg (27.0-32.0); Mean Corpuscular Volume 100.7 fL (80-94); Monocyte% 7.6 % (0-10); NRBC Flagged by Analyzer 0 % (0-5); Neutrophil # 5.18 X10^3/uL (2.7-7.7); Platelet Count 226 K/mm3 (150-450); RBC Distribution Width CV 13.6 % (11.6-14.6); RBC Distribution Width SD 50.5 fl (35.1-43.9); Red Blood Count 4.46 M/mm3 (4.6-6.2); White Blood Count 7.9 K/mm3 (4.4-11.0)
[2020-12-21] MEDS: 0.9% Normal Saline 1,000 ML 999 ML IV (14:59)
--- NOTE | 2020-12-21 15:00 | RAD_ITS ---
STUDY: X-RAY - RIGHT TIBIA AND FIBULA REASON FOR EXAM: Male, 55 years old. History of trauma. TECHNIQUE: 2 view(s) of the tibia and fibula were obtained. COMPARISON: None. FINDINGS: There is a comminuted fracture through the proximal and mid shaft of the right femur. Nondisplaced transverse fracture of the proximal fibular neck. Prior ORIF of the distal fibula. Soft tissue swelling. RAD/Tibia & Fibula 2 Views IMPRESSION: Comminuted fracture of the proximal and mid shaft of the right femur as well as a nondisplaced fracture in the proximal neck of the right fibula. Soft tissue swelling. Prior ORIF of the distal fibula. Electronically Signed: Jorge A Tavera MD at 15:34 EDT , Service support ,
[2020-12-21 15:19] LABS: Anion Gap 7 (5-15); BUN 9 mg/dL (7-18); BUN/Creat Ratio 7.6 RATIO (10-20); Calcium,Total 8.3 mg/dL (8.5-10.1); Chloride 104 mmol/L (98-107); Creatinine, Serum 1.19 mg/dL (0.70-1.30); EST Glomerular Filtration Rate 68 mL/min (>60); Est Glom Filt Rate - Afr Amer 82 mL/min (>60); Estimated Creatinine Clearance 68.66 ml/min; Glucose 252 mg/dL (74-106); Potassium 4.1 mmol/L (3.5-5.1); Sodium Level 137 mmol/L (136-145)
[2020-12-21] MEDS: morphine 8 MG/ML Syringe IV ×2 (16:05→17:22)
--- NOTE | 2020-12-21 17:15 | NURSING ---
MED SURG TERELETSKY COMMINUTED TIFULA AND FIBULA FX ALCOHOL INTOXICATION
--- NOTE | 2020-12-21 17:21 | PCM.HP.STD ---
Documented by User: Bryan AGUIAR 12/21/20 18:16 HPI - General General Date of Admission: 12/21/20 Date of Service: 12/21/20 Chief Complaint: Fracture of the right femur and right fibula HPI Narrative VERÓNICA ENGLE is a 55-year-old male who presents to the ED at [facility] on 12/20/2020 with a chief complaint of right lower extremity fracture. Patient reports that around noon today, after eating lunch he got up to utilize the restroom and suffered a fall outside of his bathroom that resulted in a right lower extremity fracture. Patient's fall was secondary to getting lightheaded and subsequently falling, which she has a history of due to autonomic neuropathy. Patient denies any other trauma outside of that on the right lower extremity, does not believe he hit his head and does not believe that he lost consciousness. Denies any other recent sickness or any other associated symptoms, denies chest pain, shortness of breath, palpitations, hemoptysis, sputum production, fever, chills, N/V/D. Patient does endorse drinking 2 mixed alcoholic drinks this morning, but did not feel acutely intoxicated at the time of his fall. Patient reports that usually he does not drink 1/5 of vodka a day. Past medical history is significant for prior ORIF of the right ankle performed in May 2020, central neuropathy and ischemic cardiomyopathy. Vital signs are stable and patient is afebrile, there were no orthostatic vitals obtained in the ED. CBC and BMP are unremarkable. Ethyl alcohol on admission was 188. POC glucose was 240. X-ray of the tibia and fibula demonstrated comminuted fracture of the proximal and midshaft of the right femur as well as a nondisplaced fracture in the proximal neck of the right fibula with associated soft tissue swelling. Prior ORIF to the distal fibula was evident on x-ray. Rapid Covid obtained and pending. Orthopedic consult was obtained in the ED and patient will be admitted for surgical intervention. Patient was given fentanyl and morphine in the ED, patient reports his pain was responsive to fentanyl. 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 CVA (cerebral vascular accident) Degenerative joint disease (DJD) of lumbar spine Diabetes mellitus type I Dizziness and giddiness Dyspnea on exertion Essential (primary) hypertension Family history of hyperlipidemia Family history of hypertension History lymph node removal History of vocal cord surgery Hyperlipemia Hypothyroidism Ischemic cardiomyopathy Lymphadenopathy, axillary Nicotine dependence Obstructive sleep apnea Old myocardial infarction Other shelter (current) drug therapy Palpitations TIA (transient ischemic attack) TIA (transient ischemic attack) Type I diabetes with insulin pump usage Home Medications citalopram 40 mg PO DAILY 03/18/13 [History Last Taken 07/01/17] insulin aspart U-100 100 unit/mL subcutaneous solution 1.1 unit CONTINUOUS SUBCUTANEOUS INFUSION UD 06/07/17 [History Last Taken Unknown] nortriptyline 50 mg capsule 50 mg PO QHS 01/28/19 [History Last Taken Unknown] quetiapine 200 mg tablet,extended release 24 hr 200 mg PO QPM 01/28/19 [History Last Taken Unknown] levothyroxine 125 mcg tablet 125 mcg PO DAILY tab 07/28/19 [History Last Taken 06/10/20] lorazepam 0.5 mg tablet 0.5 mg PO QHS tab 06/06/20 [History Last Taken Unknown] acetaminophen 1,000 mg PO Q6H PRN #100 tab 06/10/20 [Rx Last Taken Unknown] aspirin 81 mg tablet,delayed release 81 mg PO DAILY #30 tab 06/14/20 [Rx Last Taken Unknown] famotidine 20 mg tablet 20 mg PO BID 08/10/20 [History Last Taken Unknown] multivitamin 1 tablet PO DAILY 08/10/20 [History Last Taken Unknown] nitroglycerin 0.4 mg sublingual tablet 0.4 mg SUBLINGUAL Q5M PRN #25 tablet 08/10/20 [Rx Last Taken Unknown] metoprolol succinate 50 mg tablet,extended release 24 hr See Rx Instructions .ROUTE .COMPLEX #90 tab 09/14/20 [Rx Last Taken Unknown] lisinopril 5 mg tablet 5 mg PO QPM #90 tablet 10/19/20 [Rx Last Taken Unknown] Allergy/AdvReac Type Severity Reaction Status Date / Time No Known Allergies Allergy Verified 12/21/20 14:30 Family History Unknown No problems noted. Father Heart disease CVA (cerebral vascular accident) Mother CAD (coronary artery disease) Grandfather Cancer Surgical History History of appendectomy History of cataract extraction History of cholecystectomy History of coronary artery stent placement (02/04/10) History of left heart catheterization (06/2017) History of open reduction and internal fixation (ORIF) procedure History of prosthetic vocal cord History of tonsillectomy and adenoidectomy Social History Smoking Status: Current every day smoker tobacco type: cigarettes alcohol intake: current alcohol intake frequency: a few times a week caffeine: Yes Type: carbonated beverages Number of servings: 6 and coffee Number of servings: 2 ROS Constitutional Constitutional: Denies anorexia, change in weight, chills, fatigue, fever(s), malaise, night sweats, weakness or other Eyes Eyes: Denies blurry vision, change in eye color, change in vision, discharge from eye(s), double vision, erythema, eye pain, loss of vision or other ENT HEENT: Denies abnormal hearing, dysphagia, ear pain, epistaxis, headache(s), hearing loss, nasal congestion, nasal discharge, post nasal drip, sinus pressure, sore throat or other Cardiovascular Cardiovascular: Reports lightheadedness; Denies chest pain, claudication, dyspnea on exertion, edema, orthopnea, palpitations, paroxysmal nocturnal dyspnea, rapid heart rate, syncope or other Respiratory/Chest Respiratory/Chest: Denies cough, dyspnea, excessive phlegm production, hemoptysis, productive cough, shortness of breath at rest, shortness of breath with exertion, wheezing or other Gastrointestinal Gastrointestinal: Denies abdominal pain, coffee ground emesis, constipation, diarrhea, dyspepsia, hematemesis, hematochezia, loose stools, melena, nausea, vomiting or other Genitourinary Genitourinary: Denies burning urination, difficulty urinating, dysuria, hematuria, nocturia, urinary frequency, urinary hesitancy, urinary incontinence, urinary urgency or other Musculoskeletal Musculoskeletal: Reports other Details: Right lower extremity pain Vital Signs Vital Signs Vital Signs: 12/21/20 14:30 12/21/20 16:05 Temperature 98.0 F Temperature Source Oral Pulse Rate 97 89 Respiratory Rate 18 17 Blood Pressure 92/50 L 143/72 H Blood Pressure Mean 64 95 Pulse Ox 98 98 Oxygen Delivery Method Room Air Room Air Weight Weight: 180 lb 15.992 oz Body Mass Index (BMI) 27.5 Physical Exam Const alert and oriented x3 General Appearance: cooperative HEENT normocephalic, head/scalp atraumatic and hearing grossly normal bilaterally Eyes PERRL, EOMs intact bilaterally and conjunctivae normal Neck no lymphadenopathy, supple and no JVD Resp normal respiratory effort, no retractions, no use of accessory muscles and clear to auscultation bilaterally Cardio regular rate, regular rhythm, no murmurs and no JVD GI normal to inspection, nondistended, normoactive bowel sounds, soft to palpation and non-tender Extremity Extremity Narrative: Deformity about the right lower extremity. Skin no rashes or lesions noted, no wounds, skin turgor normal and no jaundice Neuro CN's II-XII intact bilaterally Psych affect normal Results Lab / Micro Data Result Diagrams: 12/21/20 14:34 12/21/20 14:34 Labs: Laboratory Results - last 24 hr 12/21/20 14:34: WBC 7.9, RBC 4.46 L, Hgb 15.1, Hct 44.9, MCV 100.7 H, MCH 33.9 H, MCHC 33.6, RDW Std Deviation 50.5 H, RDW Coeff of Gabrielle 13.6, Plt Count 226, MPV 10.0, Immature Gran % (Auto) 0.500, Neut % (Auto) 66.0, Lymph % (Auto) 22.6, [place] % (Auto) 7.6, Eos % (Auto) 2.4, Baso % (Auto) 0.9, Absolute Neuts (auto) 5.2, Absolute Lymphs (auto) 1.78, Nucleated RBC % 0 12/21/20 14:34: Sodium 137, Potassium 4.1, Chloride 104, Carbon Dioxide 26.0, Anion Gap 7, BUN 9, Creatinine 1.19, Estim Creat Clear Calc 68.66, Est GFR (MDRD) Af Amer 82, Est GFR (MDRD) Non-Af 68, BUN/Creatinine Ratio 7.6 L, Glucose 252 H, Calcium 8.3 L 12/21/20 14:34: Ethyl Alcohol 188.0 Radiology Impression Tibia/Fibula X-Ray 12/21/20 15:00 IMPRESSION: Comminuted fracture of the proximal and mid shaft of the right femur as well as a nondisplaced fracture in the proximal neck of the right fibula. Soft tissue swelling. Prior ORIF of the distal fibula. Electronically Signed: Jorge A Tavera MD at 15:34 EDT , Service support , Assessment & Plan Assessment/Plan (1) Fall: (2) Comminuted fracture of shaft of tibia: (3) Fibula fracture: (4) Alcohol intoxication: PLAN: Patient is a 55-year-old male who presents to the ED with [address] [place] [address] on 12/21/2020 after suffering a fall that resulted in right lower extremity fracture. Patient will be admitted for surgical intervention. 1) comminuted fracture of the right femur as well as a nondisplaced fracture of the right fibula secondary to fall Patient suffered a fall outside of his restroom that resulted in a right lower extremity fracture as described above. Fall was a result of feeling lightheaded, which patient has a history of due to a combination central neuropathy related to diabetes mellitus type 1. X-ray of the tibia and fibula demonstrated comminuted fracture of the proximal and mid shaft of the right femur as well as a nondisplaced fracture in the proximal neck of the right fibula. Plan; admit to [facility] for orthopedic surgery evaluation, Dr. Leslie consulted and agrees to see patient, fentanyl as needed for pain, CBC and BMP in a.m., IV fluids, PT/OT eval. 2) Autonomic neuropathy associated with Diabetes Mellitus Type 1 Continue with insulin pump. Accu-Cheks ordered, patient will give on insulin in accordance with his own sliding scale. 3) alcohol abuse Patient endorses drinking 1/5 of vodka a day. This morning patient reports that he only had 2 small drinks. Ethyl alcohol was 188 on admission. Patient does not display any symptoms of acute intoxication or withdrawal. Taper dose of Ativan ordered. 4) ischemic cardiomyopathy Is a patient of Dr. Dawn, cardiology consult ordered. CODE STATUS: Full code DVT prophylaxis - SCDs in anticipation for surgery in a.m. Patient seen by Bryan Duenas PA-C, under the supervision of Dr. Anderson. Documented by User: Dr. 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 CVA (cerebral vascular accident) Degenerative joint disease (DJD) of lumbar spine Diabetes mellitus type I Dizziness and giddiness Dyspnea on exertion Essential (primary) hypertension Family history of hyperlipidemia Family history of hypertension History lymph node removal History of vocal cord surgery Hyperlipemia Hypothyroidism Ischemic cardiomyopathy Lymphadenopathy, axillary Nicotine dependence Obstructive sleep apnea Old myocardial infarction 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 Palpitations TIA (transient ischemic attack) TIA (transient ischemic attack) Type I diabetes with insulin pump usage Home Medications citalopram 40 mg PO DAILY 03/18/13 [History Last Taken 07/01/17] insulin aspart U-100 100 unit/mL subcutaneous solution 1.1 unit CONTINUOUS SUBCUTANEOUS INFUSION UD 06/07/17 [History Last Taken Unknown] nortriptyline 50 mg capsule 50 mg PO QHS 01/28/19 [History Last Taken Unknown] quetiapine 200 mg tablet,extended release 24 hr 200 mg PO QPM 01/28/19 [History Last Taken Unknown] levothyroxine 125 mcg tablet 125 mcg PO DAILY tab 07/28/19 [History Last Taken 06/10/20] lorazepam 0.5 mg tablet 0.5 mg PO QHS tab 06/06/20 [History Last Taken Unknown] acetaminophen 1,000 mg PO Q6H PRN #100 tab 06/10/20 [Rx Last Taken Unknown] aspirin 81 mg tablet,delayed release 81 mg PO DAILY #30 tab 06/14/20 [Rx Last Taken Unknown] famotidine 20 mg tablet 20 mg PO BID 08/10/20 [History Last Taken Unknown] multivitamin 1 tablet PO DAILY 08/10/20 [History Last Taken Unknown] nitroglycerin 0.4 mg sublingual tablet 0.4 mg SUBLINGUAL Q5M PRN #25 tablet 08/10/20 [Rx Last Taken Unknown] metoprolol succinate 50 mg tablet,extended release 24 hr See Rx Instructions .ROUTE .COMPLEX #90 tab 09/14/20 [Rx Last Taken Unknown] lisinopril 5 mg tablet 5 mg PO QPM #90 tablet 10/19/20 [Rx Last Taken Unknown] Allergy/AdvReac Type Severity Reaction Status Date / Time No Known Allergies Allergy Verified 12/21/20 14:30 Family History Unknown No problems noted. Father Heart disease CVA (cerebral vascular accident) Mother CAD (coronary artery disease) Grandfather Cancer Surgical History History of appendectomy History of cataract extraction History of cholecystectomy History of coronary artery stent placement (02/04/10) History of left heart catheterization (06/2017) History of open reduction and internal fixation (ORIF) procedure History of prosthetic vocal cord History of tonsillectomy and adenoidectomy Social History Smoking Status: Current every day smoker tobacco type: cigarettes alcohol intake: current alcohol intake frequency: a few times a week caffeine: Yes Type: carbonated beverages Number of servings: 6 and coffee Number of servings: 2 Results Lab / Micro Data Result Diagrams: 12/21/20 14:34 12/21/20 14:34 Charges/Coding Addendum Addendum: Patient was seen and examined independently of Bryan Duenas, he sustained a fall at home today when he got up from a seated position and struck his right leg, he complained of pain and swelling in his right leg, he was brought in by squad and imaging studies obtained in the emergency room showed a tib-fib fracture of the right leg. On examination he appeared his stated age. Vital signs as documented. Skin warm and dry and without overt rashes. Neck without JVD, neck was supple, trachea midline, thyroid was normal. Lungs clear bilaterally, normal air movement was noted. Heart exam notable for regular rhythm, normal sounds and absence of murmurs, rubs or gallops. Abdomen unremarkable and without evidence of organomegaly, masses, or abdominal aortic enlargement. Bowel sounds are present, abdomen is not distended. Extremities-there was noted to be deformity and swelling of the patient's right lower leg just distal to the knee, this area was exquisitely tender to palpation, no cyanosis was noted, no clubbing was noted. Neuro: Cranial nerves II through XII are grossly intact, no focal motor deficits were noted, sensation to light touch and pinprick intact, motor exam 5/5 throughout. Psych: Patient is alert and oriented x3, he does not appear anxious or depressed, he does not appear agitated. Labs obtained on the patient included a blood alcohol level which was elevated at 188, patient's glucose was elevated at 252, and patient's CBC was unremarkable. Patient's BUN and creatinine were normal, electrolytes appeared normal. Patient admits to drinking 1/5 of vodka daily. Patient states he has an autonomic neuropathy secondary to his diabetes, he has had frequent syncopal episodes and falls in the past. Patient also has a history of coronary artery disease and has an ischemic cardiomyopathy-his last ejection fraction on his echocardiogram 3 years ago was 47%. Patient will be admitted to [facility], he will be seen in consultation by orthopedic surgery and cardiology for surgical clearance. I talked with Dr. Dawn and Dr. Shafer today by phone concerning the patient's medical care and preop testing. Patient will be placed on Ativan taper due to his excessive alcohol usage and CIWA scores were ordered for the first 24 hours for the patient. Patient will be placed on telemetry due to the fact I will be giving him IV fentanyl for pain control. I have reviewed Bryan Fulton's history and physical including his medical assessment and plan of care and endorse it. Visit Charges Inpatient E&M: 12442 Init Hosp L3
--- NOTE | 2020-12-21 18:07 | RAD_ITS ---
STUDY: X-RAY - RIGHT FEMUR REASON FOR STUDY: Male, 55 years old. fall, best images possible, patient has lower tib-fib fractures TECHNIQUE: AP and lateral view(s) of the femur. COMPARISON: None. FINDINGS: No acute fracture or dislocation. No destructive bone changes. Joint spaces are well-maintained. Normal alignment. Soft tissues are unremarkable. No radiopaque foreign body or soft tissue gas. RAD/Femur Min 2 Views IMPRESSION: Normal x-ray examination of the femur. Electronically Signed: Tete Woods MD at 19:29 EDT Tel , Service support ,
[2020-12-21] MEDS: LORazepam 1 MG Tablet 2 MG PO ×2 (19:47→23:50)
[2020-12-21] MEDS: 0.9% Normal Saline 1,000 ML 100 ML IV (19:47)
[2020-12-21] MEDS: oxyCODONE 5 MG Tablet PO ×2 (19:54→23:50)
--- NOTE | 2020-12-21 20:03 | CON.PCM.CA_ITS ---
Assessment & Plan Assessment/Plan (1) Atherosclerotic heart disease of [place] coronary artery without angina pectoris: QUALIFIERS: [place] vs. transplanted heart: [place] heart Qualified Code(s): I25.10 - Atherosclerotic heart disease of [place] coronary artery w [facility] angina pectoris PLAN: The patient has history of CAD. He does not describe any ongoing symptoms at this time. He will continue medical therapy as deemed appropriate. (2) History of coronary artery stent placement: PLAN: The patient has undergone previous noninvasive and invasive evaluation. His last cardiac catheterization is as noted. At the moment he is without acute coronary symptoms. He will continue medical therapy. (3) Ischemic cardiomyopathy: PLAN: The patient has a history of an underlying ischemic mediated cardiomyopathy. He appears to be without any obvious signs or symptoms at this time of acute CHF or pulmonary edema. He will continue medical therapy at this time. His LV wall motion and systolic function can be reassessed as part of his preoperative assessment with an echocardiogram. (4) Hyperlipemia: QUALIFIERS: Hyperlipidemia type: pure hypercholesterolemia Qualified Code(s): E78.00 - Pure hypercholesterolemia, unspecified; E78.0 - Pure hypercholesterolemia PLAN: He should continue risk factor modification medical therapy based upon his history of underlying CAD. Ideally this would include statin therapy unless otherwise contraindicated. (5) Essential (primary) hypertension: PLAN: His blood pressure will need to be followed for any significant fluctuations with his medications adjusted accordingly. (6) Syncope: PLAN: The etiology of his syncope may be multifactorial. It did occur after a change from a sitting to a standing position thus this raises concerns of an underlying orthostatic change. The patient has been reportedly diagnosed with autonomic dysfunction in the past as well which may be a contributing factor. This is superimposed upon the patient being found to be positive for alcohol intoxication. At the present time the patient is being followed. He can receive IV fluids as deemed appropriate to assist with any obvious orthostatic changes. He is also being monitored for any alcohol withdrawal. (7) Alcohol intoxication: PLAN: Again the patient was found to have alcohol intoxication. This could be a contributing factor to his event. He is being monitored by internal medicine for any alcohol withdrawal. (8) Comminuted fracture of shaft of tibia: PLAN: The patient does have a right leg fracture. From a cardiac standpoint he will undergo preoperative valuation with a transthoracic echocardiogram to reassess his left ventricular wall motion and systolic function which hopefully will help guide anesthesiology and orthopedic surgery. He will need close monitoring of his cardiac rate and rhythm and pressure during and following his surgical procedure. An attempt should be made to avoid any excess IV volume overload that could bring out, especially based upon his underlying history of an ischemic mediated cardiomyopathy, event such as CHF or pulmonary edema. He should continue his medical therapy and and around the time of his surgery as best as possible. Addt'l Comments The patient's case was discussed and reviewed with the patient and Dr. Anderson. This note was generated using a voice recognition system and there may be inco rrect words, spelling or punctuation that were not noted when reviewing the office note prior to saving. HPI Consult Data Date of Consult: 12/21/20 HPI Narrative HPI Narrative: VERÓNICA ENGLE, is a 55 year old white male who presents presents for cardiovascular consultation and preoperative assessment for a right lower extremity ORIF procedure with a history of underlying CAD, remote PCI, ischemic mediated cardiomyopathy, hyperlipidemia, and hypertension. The patient states, similar to an event he had in the past that led to a right ankle injury, he was getting up from a table to go use the bathroom, when he subsequently fell as his everything dropped out and he lost consciousness and fell. His fall resulted in a fracture of his right lower extremity/leg. He was brought to [facility] for further evaluation. From a cardiac standpoint he has had similar type events in the past which have been attributed to concerns of underlying autonomic dysfunction/neuropathy. He does not recall any symptoms of ongoing chest discomfort or difficulty breathing. He has not had orthopnea or PND or ongoing peripheral pitting edema. He states that he has been taking his medications as prescribed. He also admits that he has been drinking 1/5 of 90 proof vodka per day. He has laboratory studies demonstrated that he had an ethanol level of 188 (a range compatible with severe poisoning based upon the laboratory report). He was placed in the medical surgical unit for further preoperative assessment. [facility] Medical History (Updated 12/21/20 @ 20:[address] 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 Alcohol abuse Atherosclerotic heart disease of [place] coronary artery without angina pectoris Bipolar disorder Chronic pain due to injury Congestive heart failure (CHF) CVA (cerebral vascular accident) Degenerative joint disease (DJD) of lumbar spine Depression Diabetes mellitus type I Dizziness and giddiness Dyspnea on exertion Essential (primary) hypertension Family history of hyperlipidemia Family history of hypertension GERD (gastroesophageal reflux disease) History lymph node removal History of vocal cord surgery Hoarseness Hyperlipemia Hypertension Hypothyroidism Ischemic cardiomyopathy Lymphadenopathy, axillary Nicotine dependence Obstructive sleep apnea Old myocardial infarction Other group home (current) drug therapy Palpitations Smoker Syncope TIA (transient ischemic attack) TIA (transient ischemic attack) Type I diabetes with insulin pump usage Home Medications citalopram 40 mg PO DAILY 03/18/13 [History Last Taken 07/01/17] insulin aspart U-100 100 unit/mL subcutaneous solution 1.1 unit CONTINUOUS SUBCUTANEOUS INFUSION UD 06/07/17 [History Last Taken Unknown] nortriptyline 50 mg capsule 50 mg PO QHS 01/28/19 [History Last Taken Unknown] quetiapine 200 mg tablet,extended release 24 hr 200 mg PO QPM 01/28/19 [History Last Taken Unknown] levothyroxine 125 mcg tablet 125 mcg PO DAILY tab 07/28/19 [History Last Taken 06/10/20] lorazepam 0.5 mg tablet 0.5 mg PO QHS tab 06/06/20 [History Last Taken Unknown] acetaminophen 1,000 mg PO Q6H PRN #100 tab 06/10/20 [Rx Last Taken Unknown] aspirin 81 mg tablet,delayed release 81 mg PO DAILY #30 tab 06/14/20 [Rx Last Taken Unknown] famotidine 20 mg tablet 20 mg PO BID 08/10/20 [History Last Taken Unknown] multivitamin 1 tablet PO DAILY 08/10/20 [History Last Taken Unknown] nitroglycerin 0.4 mg sublingual tablet 0.4 mg SUBLINGUAL Q5M PRN #25 tablet 08/10/20 [Rx Last Taken Unknown] metoprolol succinate 50 mg tablet,extended release 24 hr See Rx Instructions .ROUTE .COMPLEX #90 tab 09/14/20 [Rx Last Taken Unknown] lisinopril 5 mg tablet 5 mg PO QPM #90 tablet 10/19/20 [Rx Last Taken Unknown] Allergy/AdvReac Type Severity Reaction Status Date / Time No Known Allergies Allergy Verified 12/21/20 14:30 Family History Unknown No problems noted. Father Heart disease CVA (cerebral vascular accident) Mother CAD (coronary artery disease) Grandfather Cancer Surgical History History of appendectomy History of cataract extraction History of cholecystectomy History of coronary artery stent placement (02/04/10) History of left heart catheterization (06/2017) History of open reduction and internal fixation (ORIF) procedure History of prosthetic vocal cord History of tonsillectomy and adenoidectomy Social History Smoking Status: Current every day smoker tobacco type: cigarettes alcohol intake: current alcohol intake frequency: a few times a week caffeine: Yes Type: carbonated beverages Number of servings: 6 and coffee Number of servings: 2 ROS Constitutional Constitutional: Reports frequent falls Eyes Eyes: Reports as per HPI ENT HEENT: Reports as per HPI Cardiovascular Cardiovascular: Reports syncope Respiratory/Chest Respiratory/Chest: Reports as per HPI Gastrointestinal Gastrointestinal: Reports as per HPI Genitourinary Genitourinary: Reports as per HPI Musculoskeletal Musculoskeletal: Reports extremity pain Integumentary Integumentary: Reports as per HPI Neurologic Neurologic: Reports syncope Psychiatric Psychiatric: Reports as per HPI Physical Exam Const alert, oriented x3 and healthy appearing Orientation / Consciousness: awake HEENT normocephalic, head/scalp atraumatic and hearing grossly normal bilaterally Eyes PERRL, EOMs intact bilaterally and conjunctivae normal Neck full ROM, supple and no JVD Resp clear to auscultation bilaterally Cardio regular rate, S1 normal heart sound and S2 normal heart sound GI normal to inspection, nondistended, normoactive bowel sounds Extremity no pedal edema Skin no rashes or lesions noted Neuro oriented x3 and moves all extremities Psych mental status grossly normal Procedure Criteria Type of Procedure Procedure Type: Elective Elective Risks - COVID COVID Risk Discussion: The surgeon/proceduralist and patient have discussed in detail the risk of exposure to and/or potential harm posed by the COVID-19 virus with having a surgery/procedure at this time versus the risk of delaying the surgery/procedure. It is not possible to know either the risk of delaying the surgery or procedure or chance of getting an infection with perfect accuracy, but a joint decision was made between the patient and the surgeon/proceduralist to proceed at this time with the scheduled surgery/procedure as indicated on the consent form. Objective Data Vital Signs: Vital Signs Temp Pulse Resp BP Pulse Ox 97.3 F L 96 16 134/65 H 98 12/21/20 18:52 12/21/20 18:52 12/21/20 18:52 12/21/20 18:52 12/21/20 18:52 Oxygen Delivery Method Room Air Weight: 176 lb Body Mass Index (BMI) 27.6 Intake & Output: Intake and Output for Last 24 Hours 12/19/20 12/20/20 12/21/20 23:59 23:59 23:59 Intake Total 1000 / 1000 Balance 1000 / 1000 Lab / Micro Data Result Diagrams: 12/21/20 14:34 12/21/20 14:34 Labs: Laboratory Results - last 24 hr 12/21/20 14:34: WBC 7.9, RBC 4.46 L, Hgb 15.1, Hct 44.9, MCV 100.7 H, MCH 33.9 H , MCHC 33.6, RDW Std Deviation 50.5 H, RDW Coeff of Gabrielle 13.6, Plt Count 226, MPV 10.0, Immature Gran % (Auto) 0.500, Neut % (Auto) 66.0, Lymph % (Auto) 22.6, [place] % (Auto) 7.6, Eos % (Auto) 2.4, Baso % (Auto) 0.9, Absolute Neuts (auto) 5.2, Absolute Lymphs (auto) 1.78, Nucleated RBC % 0 12/21/20 14:34: Sodium 137, Potassium 4.1, Chloride 104, Carbon Dioxide 26.0, Anion Gap 7, BUN 9, Creatinine 1.19, Estim Creat Clear Calc 68.66, Est GFR (MDRD) Af Amer 82, Est GFR (MDRD) Non-Af 68, BUN/Creatinine Ratio 7.6 L, Glucose 252 H, Calcium 8.3 L 12/21/20 14:34: Ethyl Alcohol 188.0 Micro: Microbiology 12/21/20 17:05 Interface Orders SARS-CoV-2 Antigen (Rapid) - Final Cardiology Labs/Tests 12/21/20 14:34: WBC 7.9, RBC 4.46 L, Hgb 15.1, Hct 44.9, MCV 100.7 H, MCH 33.9 H , MCHC 33.6, Plt Count 226, MPV 10.0, Immature Gran % (Auto) 0.500, Neut % (Auto) 66.0, Lymph % (Auto) 22.6, [place] % (Auto) 7.6, Eos % (Auto) 2.4, Baso % (Auto) 0.9, Absolute Neuts (auto) 5.2, Nucleated RBC % 0 12/21/20 14:34: Sodium 137, Potassium 4.1, Chloride 104, Carbon Dioxide 26.0, Anion Gap 7, BUN 9, Creatinine 1.19, Est GFR (MDRD) Af Amer 82, Est GFR (MDRD) Non-Af 68, BUN/Creatinine Ratio 7.6 L, Glucose 252 H, Calcium 8.3 L EKG: Pending ECHO: 07-29-2018 Interpretation Summary Normal LV size. The estimated ejection fraction is 47 %. Mild to moderate segmental systolic dysfunction (see wall motion). Stage 1 diastolic dysfunction. Contrast injection was performed. Compared to prior study, there is no significant change. Stress Test: 11-06-2013 PHARMACOLOGIC MYOCARDIAL PERFUSION STRESS TEST REASON FOR EVALUATION: This is a 48-year-old man with a history of ischemic cardiomyopathy and for preoperative evaluation. BASELINE INFORMATION: Resting EKG demonstrates a normal sinus rhythm with a rate of 81 beats per minute. Previous anterior infarct is present. The resting blood pressure was 144/74. STRESS TEST: 0.4 mg of regadenoson was infused per usual protocol followed by rapid intravenous saline flush injection. Continuous EKG monitoring was performed. The maximum heart rate attained was 120 beats per minute, which was 69% of maximum predicted heart rate. The maximum workload attained was 1 MET. The patient maintained sinus rhythm throughout the recording. At rest, there were no ST or T-wave changes noted to suggest abnormal flow reserve. At peak infusion, no ST or T-wave changes were noted to suggest abnormal flow reserve. The resting blood pressure was 144/74 with a final blood pressure of 132/70. No clinical angina was noted. MYOCARDIAL PERFUSION PROTOCOL: 10.0 mCi of Sestamibi was injected at rest. 0.4 mg of regadenoson was infused per usual protocol. At peak infusion, 33.0 mCi of Sestamibi was injected. Stress images were obtained. Stress and rest images were reconstructed and compared in the short axis, vertical long, and horizontal long axes. Gated images were also obtained. PERFUSION SPECT ANALYSIS: Review of the images demonstrate a normal cardiac silhouette size. The septum and basal anterior wall appear to be well perfused. The lateral wall is normally perfused and the inferior wall as well. There is a defect noted in the mid to distal anterior wall encompassing the apex and inferolateral apical wall. This defect appears to be present on the stress and resting images to a similar extent. No reversibility is noted to suggest ischemia. A previous anteroapical infarct is present. GATED SPECT ANALYSIS: The gated ejection fraction demonstrates normal left ventricular size with severe hypokinesis to akinesis of the mid to distal anterior wall and apex and inferoapical wall. The gated ejection fraction is 39%. CONCLUSION: 1. Ischemic cardiomyopathy. 2. Previous anteroapical infarct. 3. Inferoapical infarct. 4. No ischemia is present. 5. Reduced ejection fraction. Cardiac Cath: 07-01-2017 CONCLUSIONS Occluded right coronary artery with left to right collaterals and reduced left ventricular systolic function RECOMMENDATIONS Medical therapy DESCRIPTION OF PROCEDURE The patient arrived to the procedure lab. The risks and benefits of the procedure as well as a full description of our services here and current unavailability of surgical backup were fully explained to the patient and/or their significant other prior to the catheterization. The Timeout was completed, verifying the correct patient and procedure. The patient's procedural site was prepped and draped in the usual fashion. Local anesthetic was given subcutaneously to right radial region with Lidocaine 2%. Local anesthetic was given subcutaneously to right groin region with Lidocaine 2%. Using a modified Seldinger technique, arterial access was obtained via the right femoral artery, a 5Fr sheath was inserted. Left Coronary Artery selective angiography was performed in multiple views using a 5 Fr. JL 5 catheter. Right Coronary Artery selective angiography was then performed in multiple views using a 5 Fr. 3DRC (Geraldo) catheter. Left Ventriculography was performed in GRAHAM projection using a 5 Fr. Pigtail catheter. LV to AO pullback pressures were then recorded.The arterial sheath was pulled and manual compression applied until hemostasis is achieved. CORONARY ANGIOGRAPHY DOMINANCE: Right Dominant LEFT HEART ASSESSMENT Left Ventricular Ejection Fraction: by LV Gram 37 % Anterior Hypokinesis - Severe Depressed Left Ventricular systolic function LEFT MAIN: Angiographically normal LEFT ANTERIOR DESCENDING ARTERY: PROX LAD: Previously placed stent is patent DISTAL LAD: Mild luminal irregularities CIRCUMFLEX ARTERY: PROX CIRC: Mild luminal irregularities less than 30% MID CIRC: Mild luminal irregularities RIGHT CORONARY ARTERY: PROX RCA: is occluded COLLATERAL FLOW: Collateral flow from Left to Right Radiography Diagnostic Testing: Radiology Impression Tibia/Fibula X-Ray 12/21/20 15:00 IMPRESSION: Comminuted fracture of the proximal and mid shaft of the right femur as well as a nondisplaced fracture in the proximal neck of the right fibula. Soft tissue swelling. Prior ORIF of the distal fibula. Electronically Signed: Jorge A Tavera MD at 15:34 EDT , Service support , Femur X-Ray 12/21/20 18:07 IMPRESSION: Normal x-ray examination of the femur. Electronically Signed: Tete Woods MD at 19:29 EDT Tel , Service support ,
[2020-12-21 20:21] LABS: Bedside Glucose 292 mg/dL (70-110)
[2020-12-21] MEDS: LORazepam 0.5 MG Tablet PO (21:30)
[2020-12-21] MEDS: Heparin Injection (Vial) 5,000 UNIT/ML VIAL 5000 UNIT SC (21:30)
[2020-12-21] MEDS: QUEtiapine 100 MG Tablet 200 MG PO (21:30)
[2020-12-21] MEDS: Acetaminophen 325 MG Tablet 650 MG PO (21:30)
[2020-12-21] MEDS: Nortriptyline 25 MG Capsule 50 MG PO (21:30)
[2020-12-21] MEDS: Insulin Bolus Pump SC (21:31)
[2020-12-21] MEDS: Famotidine 20 MG Tablet PO (21:31)
[2020-12-21] MEDS: Lisinopril 5 MG Tablet PO (21:33)
[2020-12-22] VITALS (19 sets, daily range): BP systolic 128–184; BP diastolic 70–98; PULSE 102–125; RESP 16–18; TEMP 36.3–37; O2SAT 86–99
--- NOTE | 2020-12-22 | NURSING ---
Pt reduced home insulin pump basil rate to 0.5u/hr while sleeping and NPO prior to sx
[2020-12-22] MEDS: oxyCODONE 5 MG Tablet PO ×2 (03:47→22:25)
[2020-12-22] MEDS: LORazepam 1 MG Tablet 2 MG PO ×2 (03:47→06:44)
[2020-12-22 05:51] LABS: Absolute Neutrophil Count 4.3 X10^3/uL (2.0-7.7); Basophil# 0.04 X10^3/uL; Basophil% 0.6 % (0-1); Eosinophil# 0.14 X10^3/uL; Hematocrit 40.5 % (40-54); Hemoglobin 13.8 g/dL (13.0-16.5); Lymphocyte % 28.3 % (19-41); Mean Corp Hgb Conc 34.1 g/dL (32-36); Mean Corpuscular Hgb 34.2 pg (27.0-32.0); Mean Corpuscular Volume 100.5 fL (80-94); Mean Platelet Vol. 9.7 fl (6.2-12.0); Monocyte# 0.57 X10^3/uL; Monocyte% 8.1 % (0-10); NRBC Flagged by Analyzer 0 % (0-5); Neutrophil # 4.31 X10^3/uL (2.7-7.7); Neutrophil % 60.9 % (47-70); Platelet Count 187 K/mm3 (150-450); RBC Distribution Width CV 13.3 % (11.6-14.6); RBC Distribution Width SD 49.3 fl (35.1-43.9); Red Blood Count 4.03 M/mm3 (4.6-6.2); White Blood Count 7.1 K/mm3 (4.4-11.0)
--- NOTE | 2020-12-22 05:55 | ECHOCS_ITS ---
Reason For Study: PRE-OPERATIVE Procedure This was a 2D Doppler, Color Flow transthoracic echocardiogram. The study was technically difficult. Due to acute RLE fracture unable to position patient for optimal imaging. Contrast injection was performed. Exam performed portable in patient room. Left Ventricle Normal LV size. Mild segmental systolic dysfunction (see wall motion). The estimated ejection fraction is 50 %. Unable to assess diastolic dysfunction. Basal inferoseptal: Hypokinetic. Mid- Inferior: Hypokinetic. Mid-inferoseptal : Akinetic. Mid-anteroseptal : Akinetic. Rowena : Akinetic. Right Ventricle Normal RV size. Normal systolic function. Atria Normal left atrium. Normal right atrium. No doppler evidence for ASD. Mitral Valve There is no mitral annular calcification. Normal mitral valve. Trivial mitral valve insufficiency. Tricuspid Valve Normal tricuspid valve. Trivial tricuspid valve insufficiency. Unable to estimate RV systolic pressure/pulmonary artery pressure due to technically difficult study. Aortic Valve The aortic valve is not well visualized. Pulmonic Valve The pulmonic valve is not well visualized. Great Vessels Normal sized aortic root. Pericardium/Pleural No pericardial effusion. MMode/2D Measurements & Calculations LVIDd: 5.3 cm IVSd: 0.94 cm Ao root diam: 2.8 cm LVIDs: 4.2 cm LVPWd: 0.90 cm RVDd: 2.8 cm FS: 20.8 % LAV(MOD-sp2): 27.0 ml LVAd ap4: 33.7 cm2 LVAd ap2: 24.3 cm2 LVLd ap4: 8.5 cm LVLd ap2: 7.7 cm EDV(MOD-sp4): 109.2 ml EDV(MOD-sp2): 63.9 ml EDV(sp4-el): 112.9 ml EDV(sp2-el): 64.8 ml LVAs ap4: 21.7 cm2 LVAs ap2: 16.4 cm2 LVLs ap4: 7.7 cm LVLs ap2: 7.7 cm ESV(MOD-sp4): 49.8 ml ESV(MOD-sp2): 29.3 ml ESV(sp4-el): 51.4 ml ESV(sp2-el): 29.8 ml EF(MOD-sp4): 54.4 % EF(MOD-sp2): 54.2 % EF(sp4-el): 54.4 % SV(MOD-sp4): 59.3 ml SV(MOD-sp2): 34.6 ml SV(sp4-el): 61.4 ml LA dimension(2D): 3.2 cm Doppler Measurements & Calculations MV E max marcelina: 103.9 cm/sec Ao V2 max: 95.1 cm/sec LV V1 max: 82.5 cm/sec MV A max marcelina: 40.6 cm/sec Ao max P.6 mmHg LV V1 max P.7 mmHg MV E/A: 2.6 PA V2 max: 124.4 cm/sec ECHO/Echo Complete W/ Contrast Interpretation Summary The study was technically difficult. Contrast injection was performed. Mild segmental systolic dysfunction (see wall motion). The estimated ejection fraction is 50 %. Trivial mitral valve insufficiency. Trivial tricuspid valve insufficiency. Unable to estimate RV systolic pressure/pulmonary artery pressure due to techni eleazar difficult study. Unable to assess diastolic dysfunction. Ordering Physician: Fredi Anderson Referring Physician: Yassine Bui Performed By: Mariaelena Meeks RDCS, RVT
[2020-12-22 06:13] LABS: Prothrombin Time (Protime)PT. 12.3 SECONDS (11.7-14.9)
[2020-12-22 06:15] LABS: Partial Thromboplast Time 27.4 Seconds (24.1-36.2)
[2020-12-22 06:16] LABS: AST(SGOT) 24 U/L (15-37); Alanine Aminotransfer ALT/SGPT 32 U/L (16-61); Albumin, Serum 3.5 g/dL (3.2-5.0); Alkaline Phosphatase 60 U/L (45-117); Anion Gap 5 (5-15); BUN 10 mg/dL (7-18); BUN/Creat Ratio 12.3 RATIO (10-20); Bilirubin, Direct 0.28 mg/dL (0.00-0.30); Calcium,Total 7.7 mg/dL (8.5-10.1); Chloride 103 mmol/L (98-107); Creatinine, Serum 0.81 mg/dL (0.70-1.30); EST Glomerular Filtration Rate 105 mL/min (>60); Est Glom Filt Rate - Afr Amer 127 mL/min (>60); Estimated Creatinine Clearance 97.47 ml/min; Globulin 2.7 g/dL (2.2-4.2); Glucose 133 mg/dL (74-106); Potassium 3.8 mmol/L (3.5-5.1); Protein, Total 6.2 g/dL (6.4-8.2); Sodium Level 136 mmol/L (136-145)
[2020-12-22] MEDS: 0.9% Normal Saline 1,000 ML 100 ML IV (06:44)
[2020-12-22] MEDS: Levothyroxine 125 MCG Tablet PO (06:47)
[2020-12-22 06:55] LABS: Bedside Glucose 133 mg/dL (70-110)
[2020-12-22 08:39] LABS: Hemoglobin A1c 6.4 % (3.8-5.6)
[2020-12-22] MEDS: Metoprolol(XL)Succ 50 MG Tablet PO (09:13)
--- NOTE | 2020-12-22 10:02 | CASEMGMT ---
SW met w/pt in room briefly, in regard to alcohol use and grief. Pt having difficulty staying awake to speak w/SW. SW spoke w/pt initially about the alcohol use. Pt states just started drinking in January, this is when pt lost his son. Pt denies wanting to harm himself or others. Pt is interested in bereavement counseling, has not had any counseling up until now. Pt state, we just put him in the ground, in regard to son. SW asked how pt's is coping, he states she is having a difficult time also. SW gave pt information for local mental health agencies, [facility] for bereavement, [facility] and a list of AA meetings. SW will continue to follow for any reinforcement on these resources if needed, as pt having difficulty maintaining conversation w/SW at this time, falling asleep. JACINTA Triplett
--- NOTE | 2020-12-22 11:40 | CASEMGMT ---
NEELAM JAQUEZ Assessment: Face to Face with pt for initial transition planning/care coordination assessment. RN GISELE introduced self and role at [facility], pt voices understanding and consents to assessment. Pt is drowsy, O x4 and answers all questions appropriately at this time. Pt at bedside. Pt lying in bed in no distress. Care providers, pharmacy, and demographics verified/updated. Admitting Dx: Right tib fib fracture PCP:Ramya Specialists:Parmjit cardio Preferred Pharmacy: [facility] Insurance: [facility] Prescription Benefit: yes LW/HPOA: Pt denies having a LW/DPOA or info regarding. LNOK: Sabrina Sanderson, Living Arrangements: Pt lives with and adult dtr in a two story house with 2 steps to enter without a rail. Pt reports being I in ADL's prior to hospitalization. Pt denies concerns at home. Transportation: Pt drives self and denies concerns with transportation. DME/HHC: Pt has a cane, walker and knee scooter at home but does not currently use. Pt denies hx of HHC. Pt reports he is disabled. He admits to drinking a fifth of 90 proof vodka daily. His states He drinks way too much. Pt denies use of illegal or street drugs. Pt states no concerns with going home at time of dc. Pt states no further concerns/needs. CM to follow. Advised pt to ask CM if any further question/concerns/needs arise, voices understanding. Pt Goal: Home Plan: TBD with progress post surgery.
--- NOTE | 2020-12-22 12:57 | PCM.PN.HOSP ---
Documented by User: Patricia Solomon NP, BELLOWS FILLER-C 12/22/20 13:16 Subjective Subjective Patient seen and examined. Drowsy during assessment. Denies pain currently. Denies alcohol withdrawal symptoms. States he typically drinks 1/5 of vodka per day with last drink yesterday morning. Denies chest pain, shortness of breath. Objective Data Objective Data Vital Signs: Vital Signs Temp Pulse Resp BP Pulse Ox 98.6 F 125 H 16 132/74 H 94 12/22/20 09:04 12/22/20 09:13 12/22/20 09:04 12/22/20 09:04 12/22/20 09:04 Oxygen Delivery Method Room Air Weight: 176 lb Body Mass Index (BMI) 27.6 Intake & Output: Intake and Output for Last 24 Hours 12/20/20 12/21/20 12/22/20 23:59 23:59 23:59 Intake Total 1000 / 1000 1578.33 / 1578.33 Output Total 700 / 700 Balance 1000 / 1000 878.33 / 878.33 Lab / Micro Data Result Diagrams: 12/22/20 05:30 12/22/20 05:30 Labs: Laboratory Results - last 24 hr 12/21/20 14:34: WBC 7.9, RBC 4.46 L, Hgb 15.1, Hct 44.9, MCV 100.7 H, MCH 33.9 H, MCHC 33.6, RDW Std Deviation 50.5 H, RDW Coeff of Gabrielle 13.6, Plt Count 226, MPV 10.0, Immature Gran % (Auto) 0.500, Neut % (Auto) 66.0, Lymph % (Auto) 22.6, [place] % (Auto) 7.6, Eos % (Auto) 2.4, Baso % (Auto) 0.9, Absolute Neuts (auto) 5.2, Absolute Lymphs (auto) 1.78, Nucleated RBC % 0 12/21/20 14:34: Sodium 137, Potassium 4.1, Chloride 104, Carbon Dioxide 26.0, Anion Gap 7, BUN 9, Creatinine 1.19, Estim Creat Clear Calc 68.66, Est GFR (MDRD) Af Amer 82, Est GFR (MDRD) Non-Af 68, BUN/Creatinine Ratio 7.6 L, Glucose 252 H, Calcium 8.3 L 12/21/20 14:34: Ethyl Alcohol 188.0 12/21/20 20:14: POC Glucose 292 H 12/22/20 05:30: WBC 7.1, RBC 4.03 L, Hgb 13.8, Hct 40.5, MCV 100.5 H, MCH 34.2 H, MCHC 34.1, RDW Std Deviation 49.3 H, RDW Coeff of Gabrielle 13.3, Plt Count 187, MPV 9.7, Immature Gran % (Auto) 0.100, Neut % (Auto) 60.9, Lymph % (Auto) 28.3, [place] % (Auto) 8.1, Eos % (Auto) 2.0, Baso % (Auto) 0.6, Absolute Neuts (auto) 4.3, Absolute Lymphs (auto) 2.00, Nucleated RBC % 0 12/22/20 05:30: Sodium 136, Potassium 3.8, Chloride 103, Carbon Dioxide 28.0, Anion Gap 5, BUN 10, Creatinine 0.81, Estim Creat Clear Calc 97.47, Est GFR (MDRD) Af Amer 127, Est GFR (MDRD) Non-Af 105, BUN/Creatinine Ratio 12.3, Glucose 133 H, Calcium 7.7 L, Total Bilirubin 1.20 H, Direct Bilirubin 0.28, AST 24, ALT 32, Alkaline Phosphatase 60, Total Protein 6.2 L, Albumin 3.5, Globulin 2.7, TSH 19.20 H 12/22/20 05:30: PT 12.3, INR 1.0, APTT 27.4 12/22/20 05:30: Hemoglobin A1c 6.4 H 12/22/20 06:49: POC Glucose 133 H Micro: Microbiology 12/21/20 17:05 Interface Orders SARS-CoV-2 Antigen (Rapid) - Final Radiography Diagnostic Testing: Radiology Impression Tibia/Fibula X-Ray 12/21/20 15:00 IMPRESSION: Comminuted fracture of the proximal and mid shaft of the right femur as well as a nondisplaced fracture in the proximal neck of the right fibula. Soft tissue swelling. Prior ORIF of the distal fibula. Electronically Signed: Jorge A Tavera MD at 15:34 EDT , Service support , ADDENDUM: 12/22/20 0812 Femur X-Ray 12/21/20 18:07 IMPRESSION: Normal x-ray examination of the femur. Electronically Signed: Tete Woods MD at 19:29 EDT Tel , Service support , Echocardiogram 12/22/20 05:55 Interpretation Summary The study was technically difficult. Contrast injection was performed. Mild segmental systolic dysfunction (see wall motion). The estimated ejection fraction is 50 %. Trivial mitral valve insufficiency. Trivial tricuspid valve insufficiency. Unable to estimate RV systolic pressure/pulmonary artery pressure due to technically difficult study. Unable to assess diastolic dysfunction. Ordering Physician: Fredi Anderson Referring Physician: Yassine Bui Performed By: Mariaelena Meeks, RDCS, RVT Physical Exam Const alert, oriented x3 and no apparent distress Orientation / Consciousness: awake, oriented to person, oriented to place and oriented to time HEENT normocephalic and moist oral mucous membranes Eyes PERRL, EOMs intact bilaterally and conjunctivae normal Neck no lymphadenopathy Resp normal respiratory effort and clear to auscultation bilaterally Cardio regular rate, regular rhythm and no murmurs Peripheral Pulses: pulses 2+ throughout GI normal to inspection, nondistended, normoactive bowel sounds, non-tender and non-distended Extremity normal to inspection Skin no rashes or lesions noted Lesions: no lesions Rashes: no rashes Trauma: no lacerations or abrasions Neuro CN's II-XII intact bilaterally, no focal motor deficits, no sensory deficits noted and deep tendon reflexes 2+ bilaterally Psych mental status grossly normal and affect normal Assessment & Plan Assessment/Plan (1) Comminuted fracture of shaft of tibia: (2) Fibula fracture: PLAN: 1. Acute traumatic comminuted fracture of tibia/fibula, secondary to mechanical fall prior to admission-orthopedic surgery on consult. Cardiology consulted for clearance. Echocardiogram completed and demonstrated an EF of 50%. As needed pain regimen. PT/OT. Patient has a chronic history of falls, multifactorial due to autonomic dysfunction and chronic alcohol abuse. 2. Type 1 diabetes mellitus with autonomic [id number] with sliding scale insulin. Continue home insulin regimen. 3. Chronic alcohol abuse with alcohol intoxication on admission- [facility] protocol. Medical stabilization per protocol including Ativan taper. Folic acid, thiamine, multivitamin supplementation. No active withdrawal symptoms. 4. CAD/ischemic cardiomyopathy/history of stent placement-preoperative echo as noted above. Cardiology following for clearance. 5. Hypertension-stable, continue metoprolol, lisinopril. 6. Hyperlipidemia-does not appear to be on statin. 7. Hypothyroidism-continue Synthroid regimen. DVT prophylaxis-Heparin subcu This patient was seen by Patricia Solomon NP-C under the supervision of Dr. Childers. Documented by User: Dr. Zenaida Childers DO 12/22/20 16:21 Subjective Subjective This patient was seen in conjunction with Patricia Solomon NP. The following is representation my independent history and physical examination. Please see below for any addendum the above. Patient is sitting upright in bed currently getting his echocardiogram. He is on the phone and is not interested in having a discussion with me at this time. No issues overnight. Plan is for OR today as long he is cleared by cardiology. 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 Exam Limitations: no limitations HEENT head/scalp atraumatic Head and Scalp: normocephalic Resp normal respiratory effort, no retractions, no use of accessory muscles and clear to auscultation bilaterally Resp Narrative: Diminished but clear Cardio regular rate, regular rhythm, S1 normal heart sound, S2 normal heart sound, no murmurs, no rub, no gallops, no clicks and no JVD GI normal to inspection, nondistended, normoactive bowel sounds, soft to palpation, non-tender and non-distended Extremity Extremity Narrative: Mild swelling right lower extremity, splint in place with Eric bandage securing splint, cap refill is 2+, no cyanosis or clubbing Peripheral Pulses: Yes pulses 2+ throughout Skin no rashes or lesions noted, no wounds, skin turgor normal, no jaundice, no petechiae and no mottling Neuro Sensorium / Orientation: awake and alert Speech: speech normal Psych Psych Narrative: Affect is flat patient seems disinterested Assessment & Plan Assessment/Plan (1) Comminuted fracture of shaft of tibia: (2) Fibula fracture: (3) Alcohol intoxication: (4) Ischemic cardiomyopathy: (5) Fall: PLAN: Assessment: Acute traumatic comminuted fracture of the left tibia and fibula Mechanical fall DM-1 Autonomic dysfunction Chronic alcohol abuse Alcohol intoxication upon presentation CAD Ischemic cardiomyopathy Hypertension Hyperlipidemia Hypothyroidism Hypophosphatemia Hyperbilirubinemia Plan: -Echocardiogram showed an EF of 50% and mild segmental wall motion abnormality -Placed and was cleared by cardiology and taken the OR this afternoon for repair of his left tib-fib fracture -Phenobarbital for alcohol withdrawal -Discontinue as needed Ativan other than his nightly dose -TSH is abnormally high and free T4 in 3 are low--> patient is on levothyroxine at baseline -Hold levothyroxine for now -Repeat free T4 in 48 hours -Unclear if patient is taking inappropriately, if there is been a dose change recently, or if patient just needs a new dose -PT OT consultation -D5 normal saline while patient is n.p.o. given insulin pump -This is to discontinue when the patient is able to take p.o. -Continue home cardiac medications -Magnesium is within normal limits -Phos is low replaced with IV phosphorus Charges/Coding Visit Charges Inpatient E&M: 59295 Subs Hosp L2
[2020-12-22 13:35] LABS: Phosphorus 2.4 mg/dL (2.5-4.9)
--- NOTE | 2020-12-22 13:35 | NURSING ---
pt to hair
[2020-12-22 13:42] LABS: Free T3 1.6 pg/mL (2.18-3.98); Magnesium 1.8 mg/dL (1.6-2.6); T4 Free Direct 0.66 ng/dL (0.76-1.46)
[2020-12-22 13:46] LABS: Bedside Glucose 74 mg/dL (70-110)
--- NOTE | 2020-12-22 14:01 | SUR.PREOP ---
Patient VSS. On tableau lead. Insulin pump turned off by patient. Capped needle in right thigh. Insulin pump taken to PACU with cardiac montior box. BGL checked in pre -op. D5 0.9 infusing on IV pump now.
--- NOTE | 2020-12-22 14:15 | PCM.CONS.GEN ---
Assessment & Plan Assessment/Plan (1) Comminuted fracture of shaft of tibia: QUALIFIERS: Encounter type: initial encounter Fracture type: closed Fracture alignment: displaced Laterality: right Qualified Code(s): S82.251A - Displaced comminuted fracture of shaft of right tibia, initial encounter for closed fracture PLAN: Planned intramedullary rodding right tibia consent signed HPI Consult Data Date of Consult: 12/22/20 HPI Narrative HPI Narrative: VERÓNICA ENGLE, is a 55 M who presents after falling ground-level while intoxicated. He has history of right distal fibula fracture ORIF. [facility] Medical History (Updated 12/22/20 @ 14:[address] 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 Alcohol abuse Atherosclerotic heart disease of [place] coronary artery without angina pectoris Bipolar disorder Chronic pain due to injury Congestive heart failure (CHF) CVA (cerebral vascular accident) Degenerative joint disease (DJD) of lumbar spine Depression Diabetes mellitus type I Dizziness and giddiness Dyspnea on exertion Essential (primary) hypertension Family history of hyperlipidemia Family history of hypertension GERD (gastroesophageal reflux disease) History lymph node removal History of vocal cord surgery Hoarseness Hyperlipemia Hypertension Hypothyroidism Ischemic cardiomyopathy Lymphadenopathy, axillary Nicotine dependence Obstructive sleep apnea Old myocardial infarction Other correction (current) drug therapy Palpitations Smoker Syncope TIA (transient ischemic attack) TIA (transient ischemic attack) Type I diabetes with insulin pump usage Home Medications citalopram 40 mg PO DAILY 03/18/13 [History Last Taken 07/01/17] insulin aspart U-100 100 unit/mL subcutaneous solution 1.1 unit CONTINUOUS SUBCUTANEOUS INFUSION UD 06/07/17 [History Last Taken Unknown] nortriptyline 50 mg capsule 50 mg PO QHS 01/28/19 [History Last Taken Unknown] quetiapine 200 mg tablet,extended release 24 hr 200 mg PO QPM 01/28/19 [History Last Taken Unknown] levothyroxine 125 mcg tablet 125 mcg PO DAILY tab 07/28/19 [History Last Taken 06/10/20] acetaminophen 1,000 mg PO Q6H PRN #100 tab 06/10/20 [Rx Last Taken Unknown] multivitamin 1 tablet PO DAILY 08/10/20 [History Last Taken Unknown] nitroglycerin 0.4 mg sublingual tablet 0.4 mg SUBLINGUAL Q5M PRN #25 tablet 08/10/20 [Rx Last Taken Unknown] metoprolol succinate 50 mg tablet,extended release 24 hr See Rx Instructions .ROUTE .COMPLEX #90 tab 09/14/20 [Rx Last Taken Unknown] lisinopril 5 mg tablet 5 mg PO QPM #90 tablet 10/19/20 [Rx Last Taken Unknown] Allergy/AdvReac Type Severity Reaction Status Date / Time No Known Allergies Allergy Verified 12/21/20 14:30 Family History Unknown No problems noted. Father Heart disease CVA (cerebral vascular accident) Mother CAD (coronary artery disease) Grandfather Cancer Surgical History History of appendectomy History of cataract extraction History of cholecystectomy History of coronary artery stent placement (02/04/10) History of left heart catheterization (06/2017) History of open reduction and internal fixation (ORIF) procedure History of prosthetic vocal cord History of tonsillectomy and adenoidectomy Social History Smoking Status: Current every day smoker tobacco type: cigarettes alcohol intake: current alcohol intake frequency: a few times a week caffeine: Yes Type: carbonated beverages Number of servings: 6 and coffee Number of servings: 2 Physical Exam Const no apparent distress; Negative for alert or oriented x3 General Appearance: Negative for well kempt Extremity Extremity Narrative: Compartment soft he is able to wiggle his toes he is in a splint Lab / Micro Data Result Diagrams: 12/22/20 05:30 12/22/20 05:30 Labs: Laboratory Results - last 24 hr 12/21/20 14:34: WBC 7.9, RBC 4.46 L, Hgb 15.1, Hct 44.9, MCV 100.7 H, MCH 33.9 H, MCHC 33.6, RDW Std Deviation 50.5 H, RDW Coeff of Gabrielle 13.6, Plt Count 226, MPV 10.0, Immature Gran % (Auto) 0.500, Neut % (Auto) 66.0, Lymph % (Auto) 22.6, [place] % (Auto) 7.6, Eos % (Auto) 2.4, Baso % (Auto) 0.9, Absolute Neuts (auto) 5.2, Absolute Lymphs (auto) 1.78, Nucleated RBC % 0 12/21/20 14:34: Sodium 137, Potassium 4.1, Chloride 104, Carbon Dioxide 26.0, Anion Gap 7, BUN 9, Creatinine 1.19, Estim Creat Clear Calc 68.66, Est GFR (MDRD) Af Amer 82, Est GFR (MDRD) Non-Af 68, BUN/Creatinine Ratio 7.6 L, Glucose 252 H, Calcium 8.3 L 12/21/20 14:34: Ethyl Alcohol 188.0 12/21/20 20:14: POC Glucose 292 H 12/22/20 05:30: WBC 7.1, RBC 4.03 L, Hgb 13.8, Hct 40.5, MCV 100.5 H, MCH 34.2 H, MCHC 34.1, RDW Std Deviation 49.3 H, RDW Coeff of Gabrielle 13.3, Plt Count 187, MPV 9.7, Immature Gran % (Auto) 0.100, Neut % (Auto) 60.9, Lymph % (Auto) 28.3, [place] % (Auto) 8.1, Eos % (Auto) 2.0, Baso % (Auto) 0.6, Absolute Neuts (auto) 4.3, Absolute Lymphs (auto) 2.00, Nucleated RBC % 0 12/22/20 05:30: Sodium 136, Potassium 3.8, Chloride 103, Carbon Dioxide 28.0, Anion Gap 5, BUN 10, Creatinine 0.81, Estim Creat Clear Calc 97.47, Est GFR (MDRD) Af Amer 127, Est GFR (MDRD) Non-Af 105, BUN/Creatinine Ratio 12.3, Glucose 133 H, Calcium 7.7 L, Total Bilirubin 1.20 H, Direct Bilirubin 0.28, AST 24, ALT 32, Alkaline Phosphatase 60, Total Protein 6.2 L, Albumin 3.5, Globulin 2.7, TSH 19.20 H 12/22/20 05:30: PT 12.3, INR 1.0, APTT 27.4 12/22/20 05:30: Hemoglobin A1c 6.4 H 12/22/20 05:30: Magnesium 1.8, Free T4 0.66 L, Free T3 pg/dL 1.6 L 12/22/20 05:30: Phosphorus 2.4 L 12/22/20 06:49: POC Glucose 133 H 12/22/20 13:36: POC Glucose 74 Micro: Microbiology 12/21/20 17:05 Interface Orders SARS-CoV-2 Antigen (Rapid) - Final Radiology Impression Tibia/Fibula X-Ray 12/21/20 15:00 IMPRESSION: Comminuted fracture of the proximal and mid shaft of the right femur as well as a nondisplaced fracture in the proximal neck of the right fibula. Soft tissue swelling. Prior ORIF of the distal fibula. Electronically Signed: Jorge A Tavera MD at 15:34 EDT , Service support , ADDENDUM: 12/22/20 0812 Femur X-Ray 12/21/20 18:07 IMPRESSION: Normal x-ray examination of the femur. Electronically Signed: Tete Woods MD at 19:29 EDT Tel , Service support , Echocardiogram 12/22/20 05:55 Interpretation Summary The study was technically difficult. Contrast injection was performed. Mild segmental systolic dysfunction (see wall motion). The estimated ejection fraction is 50 %. Trivial mitral valve insufficiency. Trivial tricuspid valve insufficiency. Unable to estimate RV systolic pressure/pulmonary artery pressure due to technically difficult study. Unable to assess diastolic dysfunction. Ordering Physician: Fredi Anderson Referring Physician: Yassine Bui Performed By: Mariaelena Meeks, RDCS, RVT
--- NOTE | 2020-12-22 14:26 | RAD_ITS ---
STUDY: X-RAY - RIGHT TIBIA AND FIBULA REASON FOR EXAM: Male, 55 years old. TIBIAL RODDING TECHNIQUE: 1 view(s) of the tibia and fibula were obtained. COMPARISON: 12/21/2020. FINDINGS: Multiple views obtained intraoperatively during open reduction internal fixation. Alignment appears anatomic. RAD/Tibia & Fibula 2 Views IMPRESSION: Images obtained intraoperatively for hardware localization. Electronically Signed: Tete Woods MD at 16:26 EDT Tel , Service support ,
[2020-12-22] MEDS: Lactated Ringers 1,000 ML 100 ML IV ×2 (15:13→22:30)
[2020-12-22] MEDS: Lidocaine 1% /Epi 1:100 (20ml) 20 ML Vial (15:55)
--- NOTE | 2020-12-22 16:13 | OP.PCM_ITS ---
Report of Operation Date of Procedure: 12/22/20 Description of Surgical Findings:: Preoperative diagnosis: Right comminuted tibial shaft fracture Postoperative diagnosis: Same Procedure: Intramedullary rodding right tibia Anesthesia: General EBL: 20 Complications: None Tourniquet time: 0 Condition: Stable to PACU Indication for procedure: 55-year-old male alcoholic status post ground-level fall while intoxicated sustaining comminuted right midshaft tibial fracture, discussed with patient and surgical indication risk benefits and alternatives including risk of bleeding infection nerve artery tissue damage need for further surgery continued pain and expected postoperative course Procedure: Patient was met the preoperative holding area once again the operative extremity was then applied by with patient and physician was marked patient brought back by anesthesia to the operating room table anesthesia was started he was transferred on the operating table in the supine position. Patient was prepped and draped in usual sterile fashion a timeout was called ensure the proper patient procedure extremity being contemplated. Anatomic landmarks were marked under fluoroscopy including a nic in line with the intramedullary canal which did in line with the medial border of the lateral tibial spine the fracture site was also visualized. At this point a 10 blade scalpel was used to make a midline incision over the patellar tendon dissection was carried down to the tendon was reached the tendon was split in line with its fibers starting point was then found on both AP and lateral projections and was inserted this was followed by an opening reamer we then passed a bent guidewire down the canal to the desired position we then reduced the fracture with a pointed point reduction clips stab incisions were made over the the tibia to allow this. We then measured the appropriate length nail and sequentially reamed to 11 for the insertion of a 10 diameter nail with good cortical chatter. The nail was then inserted. Due to the proximal extent of the fracture oblique screws were placed through the nail including a anterior to posterior screw we then turned our attention distally and placed to medial to lateral screws using perfect [place] technique. The wounds were thoroughly irrigated AP and lateral fluoroscopic images were taken of the proximal and distal part of the nail as well as at the fracture site saved to the PACS system. Patient tolerated procedure well with no Intra-Op complications all the wounds were thoroughly irrigated and closed with 3-0 Vicryl followed by mary in the skin dressing was applied a form of Xeroform 4 x 4 ABD web roll and an Eric wrap from the foot to the groin.
[2020-12-22 16:40] LABS: Bedside Glucose 213 mg/dL (70-110)
[2020-12-22] MEDS: Cefazolin 1 GM/50 ML BAG IV (16:44)
--- NOTE | 2020-12-22 16:49 | PN.ORTHO_ITS ---
Subjective Subjective Seen in PACU arousable able to follow commands pain controlled Objective Data Objective Data Vital Signs: Vital Signs Temp Pulse Resp BP Pulse Ox 98.1 F 102 H 16 174/87 H 86 12/22/20 16:20 12/22/20 16:20 12/22/20 16:20 12/22/20 16:20 12/22/20 16:20 Oxygen Delivery Method Room Air Weight: 176 lb Body Mass Index (BMI) 27.6 Intake & Output: Intake and Output for Last 24 Hours 12/20/20 12/21/20 12/22/20 23:59 23:59 23:59 Intake Total 1000 / 1000 1578.33 / 1578.33 Output Total 700 / 700 Balance 1000 / 1000 878.33 / 878.33 Lab / Micro Data Result Diagrams: 12/22/20 05:30 12/22/20 05:30 Labs: Laboratory Results - last 24 hr 12/21/20 20:14: POC Glucose 292 H 12/22/20 05:30: WBC 7.1, RBC 4.03 L, Hgb 13.8, Hct 40.5, MCV 100.5 H, MCH 34.2 H , MCHC 34.1, RDW Std Deviation 49.3 H, RDW Coeff of Gabrielle 13.3, Plt Count 187, MPV 9.7, Immature Gran % (Auto) 0.100, Neut % (Auto) 60.9, Lymph % (Auto) 28.3, [place] % (Auto) 8.1, Eos % (Auto) 2.0, Baso % (Auto) 0.6, Absolute Neuts (auto) 4.3, Absolute Lymphs (auto) 2.00, Nucleated RBC % 0 12/22/20 05:30: Sodium 136, Potassium 3.8, Chloride 103, Carbon Dioxide 28.0, Anion Gap 5, BUN 10, Creatinine 0.81, Estim Creat Clear Calc 97.47, Est GFR (MDRD) Af Amer 127, Est GFR (MDRD) Non-Af 105, BUN/Creatinine Ratio 12.3, Glucose 133 H, Calcium 7.7 L, Total Bilirubin 1.20 H, Direct Bilirubin 0.28, AST 24, ALT 32, Alkaline Phosphatase 60, Total Protein 6.2 L, Albumin 3.5, Globulin 2.7, TSH 19.20 H 12/22/20 05:30: PT 12.3, INR 1.0, APTT 27.4 12/22/20 05:30: Hemoglobin A1c 6.4 H 12/22/20 05:30: Magnesium 1.8, Free T4 0.66 L, Free T3 pg/dL 1.6 L 12/22/20 05:30: Phosphorus 2.4 L 12/22/20 06:49: POC Glucose 133 H 12/22/20 13:36: POC Glucose 74 12/22/20 16:38: POC Glucose 213 H Micro: Microbiology 12/21/20 17:05 Interface Orders SARS-CoV-2 Antigen (Rapid) - Final Radiography Diagnostic Testing: Radiology Impression Tibia/Fibula X-Ray 12/21/20 15:00 IMPRESSION: Comminuted fracture of the proximal and mid shaft of the right femur as well as a nondisplaced fracture in the proximal neck of the right fibula. Soft tissue swelling. Prior ORIF of the distal fibula. Electronically Signed: Jorge A Tavera MD at 15:34 EDT , Service support , ADDENDUM: 12/22/20 0812 Femur X-Ray 12/21/20 18:07 IMPRESSION: Normal x-ray examination of the femur. Electronically Signed: Tete Woods MD at 19:29 EDT Tel , Service support , Echocardiogram 12/22/20 05:55 Interpretation Summary The study was technically difficult. Contrast injection was performed. Mild segmental systolic dysfunction (see wall motion). The estimated ejection fraction is 50 %. Trivial mitral valve insufficiency. Trivial tricuspid valve insufficiency. Unable to estimate RV systolic pressure/pulmonary artery pressure due to technically difficult study. Unable to assess diastolic dysfunction. Ordering Physician: Fredi Anderson Referring Physician: Yassine Bui Performed By: Mariaelena Meeks, TRAY, RVT Tibia/Fibula X-Ray 12/22/20 14:26 IMPRESSION: Images obtained intraoperatively for hardware localization. Electronically Signed: Tete Woods MD at 16:26 EDT Tel , Service support , Physical Exam Extremity Extremity Narrative: Able to wiggle toes compartments compressible brisk capillary refill palpable pulses Assessment & Plan Assessment/Plan (1) Comminuted fracture of shaft of tibia: QUALIFIERS: Encounter type: initial encounter Fracture type: closed Fracture alignment: displaced Laterality: right Qualified Code(s): S82.251A - Displaced comminuted fracture of shaft of right tibia, initial encounter for closed fracture PLAN: Status post right IM rodding for comminuted fracture. Ice and elevate strict for the next 72 hours except when ambulating and therapy PT OT weightbearing as tolerated with assistive device. Encourage ankle and knee range of motion immediately. Eliquis 2.5 mg twice daily beginning 12/23/2020 for 2 weeks Dressing to be undisturbed for 72 hours postoperatively and then removed prior to for shower may shower daily after this point but do not submerge in tub pool or other. Follow-up in the office in 2 weeks
[2020-12-22 19:33] LABS: Anion Gap 6 (5-15); BUN 8 mg/dL (7-18); BUN/Creat Ratio 10.8 RATIO (10-20); Calcium,Total 7.8 mg/dL (8.5-10.1); Chloride 102 mmol/L (98-107); Creatinine, Serum 0.74 mg/dL (0.70-1.30); EST Glomerular Filtration Rate 117 mL/min (>60); Est Glom Filt Rate - Afr Amer 141 mL/min (>60); Estimated Creatinine Clearance 106.69 ml/min; Glucose 211 mg/dL (74-106); Potassium 4.3 mmol/L (3.5-5.1); Sodium Level 135 mmol/L (136-145)
[2020-12-22] MEDS: Nortriptyline 25 MG Capsule 50 MG PO (21:23)
[2020-12-22] MEDS: Famotidine 20 MG Tablet PO (21:23)
[2020-12-22] MEDS: Lisinopril 5 MG Tablet PO (21:23)
[2020-12-22 22:36] LABS: Bedside Glucose 266 mg/dL (70-110)
[2020-12-22] MEDS: QUEtiapine 100 MG Tablet 200 MG PO (23:06)
[2020-12-22] MEDS: LORazepam 0.5 MG Tablet PO (23:06)
[2020-12-22] MEDS: HYDROmorphone 0.5 MG/0.5 ML SYRINGE IV (23:56)
[2020-12-23] VITALS (9 sets, daily range): BP systolic 113–169; BP diastolic 55–88; PULSE 69–111; RESP 16–20; TEMP 36.6–37; O2SAT 94–99
[2020-12-23] MEDS: Cefazolin 1 GM/50 ML BAG IV ×3 (00:08→16:50)
[2020-12-23] MEDS: LORazepam 1 MG Tablet 2 MG PO ×4 (01:32→18:46)
[2020-12-23] MEDS: APIXABAN 2.5 MG TABLET PO ×2 (06:35→22:58)
[2020-12-23 07:16] LABS: Bedside Glucose 297 mg/dL (70-110)
--- NOTE | 2020-12-23 07:17 | PN.ORTHO_ITS ---
Subjective Subjective Seen and examined falling asleep while talking to himPain controlled. Objective Data Objective Data Vital Signs: Vital Signs Temp Pulse Resp BP Pulse Ox 98.2 F 106 H 18 169/73 H 96 12/23/20 06:00 12/23/20 06:00 12/23/20 06:00 12/23/20 06:00 12/23/20 06:00 Oxygen Flow Rate (L/min) 3 Oxygen Delivery Method Room Air Weight: 176 lb Body Mass Index (BMI) 27.6 Intake & Output: Intake and Output for Last 24 Hours 12/21/20 12/22/20 12/23/20 23:59 23:59 23:59 Intake Total 1000 / 1000 2333.66 / 2333.66 213.33 / 213.33 Output Total 700 / 700 2725 / 2725 Balance 1000 / 1000 1633.66 / 1633.66 -2511.67 / -2511.67 Lab / Micro Data Result Diagrams: 12/22/20 05:30 12/22/20 18:56 Labs: Laboratory Results - last 24 hr 12/22/20 05:30: Hemoglobin A1c 6.4 H 12/22/20 05:30: Magnesium 1.8, Free T4 0.66 L, Free T3 pg/dL 1.6 L 12/22/20 05:30: Phosphorus 2.4 L 12/22/20 13:36: POC Glucose 74 12/22/20 16:38: POC Glucose 213 H 12/22/20 18:56: Sodium 135 L, Potassium 4.3, Chloride 102, Carbon Dioxide 27.0, Anion Gap 6, BUN 8, Creatinine 0.74, Estim Creat Clear Calc 106.69, Est GFR (MDRD) Af Amer 141, Est GFR (MDRD) Non-Af 117, BUN/Creatinine Ratio 10.8, Glucose 211 H, Calcium 7.8 L 12/22/20 21:28: POC Glucose 266 H 12/23/20 06:38: POC Glucose 297 H Micro: Microbiology 12/21/20 17:05 Interface Orders SARS-CoV-2 Antigen (Rapid) - Final Radiography Diagnostic Testing: Radiology Impression Tibia/Fibula X-Ray 12/21/20 15:00 IMPRESSION: Comminuted fracture of the proximal and mid shaft of the right femur as well as a nondisplaced fracture in the proximal neck of the right fibula. Soft tissue swelling. Prior ORIF of the distal fibula. Electronically Signed: Jorge A Tavera MD at 15:34 EDT , Service support , ADDENDUM: 12/22/20 0812 Echocardiogram 12/22/20 05:55 Interpretation Summary The study was technically difficult. Contrast injection was performed. Mild segmental systolic dysfunction (see wall motion). The estimated ejection fraction is 50 %. Trivial mitral valve insufficiency. Trivial tricuspid valve insufficiency. Unable to estimate RV systolic pressure/pulmonary artery pressure due to technically difficult study. Unable to assess diastolic dysfunction. ____ Ordering Physician: Fredi Anderson Referring Physician: Yassine Bui Performed By: Mariaelena Meeks, TRAY, RVT Tibia/Fibula X-Ray 12/22/20 14:26 IMPRESSION: Images obtained intraoperatively for hardware localization. Electronically Signed: Tete Woods MD at 16:26 EDT Tel , Service support , Physical Exam Const no apparent distress; Negative for alert or oriented x3 General Appearance: cooperative Extremity Extremity Narrative: Compartments soft brisk capillary refill able to wiggle toes and plantarflex dorsiflex foot Assessment & Plan Assessment/Plan (1) Comminuted fracture of shaft of tibia: QUALIFIERS: Encounter type: initial encounter Fracture type: closed Fracture alignment: displaced Laterality: right Qualified Code(s): S82.251A - Displaced comminuted fracture of shaft of right tibia, initial encounter for closed fracture PLAN: Postop day #1 right comminuted tibial fracture with rodding Changing weightbearing status to 50% right lower extremity secondary to patient's alcoholism do not feel he can adequately adjust his weightbearing based on pain Continue PT OT DVT prophylaxis Eliquis 2.5 mg twice daily for 2 weeks Strict ice and elevation when not ambulating Encourage ankle knee range of motion Dressing to be removed 72 hours postop prior to for shower then change daily and shower daily at that point Follow-up in 2 weeks call with any questions or concerns
[2020-12-23 07:48] LABS: Absolute Lymphocyte Count 1.38 X10^3/uL (0.83-4.51); Absolute Neutrophil Count 7.9 X10^3/uL (2.0-7.7); Basophil# 0.07 X10^3/uL; Basophil% 0.7 % (0-1); Eosinophil# 0.07 X10^3/uL; Eosinophils% 0.7 % (0-5); Hematocrit 38.3 % (40-54); Hemoglobin 12.8 g/dL (13.0-16.5); Lymphocyte # 1.38 X10^3/ul (0.83-4.51); Lymphocyte % 13.2 % (19-41); Mean Corp Hgb Conc 33.4 g/dL (32-36); Mean Corpuscular Volume 101.9 fL (80-94); Mean Platelet Vol. 10.5 fl (6.2-12.0); Monocyte# 1.06 X10^3/uL; Monocyte% 10.1 % (0-10); NRBC Flagged by Analyzer 0 % (0-5); Neutrophil # 7.85 X10^3/uL (2.7-7.7); Platelet Count 184 K/mm3 (150-450); RBC Distribution Width CV 12.9 % (11.6-14.6); RBC Distribution Width SD 48.9 fl (35.1-43.9); Red Blood Count 3.76 M/mm3 (4.6-6.2); White Blood Count 10.5 K/mm3 (4.4-11.0)
[2020-12-23] MEDS: Lactated Ringers 1,000 ML 100 ML IV ×2 (08:15→18:49)
[2020-12-23] MEDS: Thiamine Hydrochloride 100 MG Tablet PO ×2 (08:24→16:52)
[2020-12-23] MEDS: Folic Acid 1 MG Tablet PO (08:24)
[2020-12-23] MEDS: Aspirin E.C. 81 MG Tablet PO (08:24)
[2020-12-23] MEDS: Multivitamins,Ther W-Minerals Tablet 1 TABLET PO (08:24)
[2020-12-23 08:34] LABS: Anion Gap 17 (5-15); BUN 10 mg/dL (7-18); BUN/Creat Ratio 10.2 RATIO (10-20); Calcium,Total 8.1 mg/dL (8.5-10.1); Chloride 95 mmol/L (98-107); Creatinine, Serum 0.98 mg/dL (0.70-1.30); EST Glomerular Filtration Rate 84 mL/min (>60); Est Glom Filt Rate - Afr Amer 102 mL/min (>60); Estimated Creatinine Clearance 80.56 ml/min; Glucose 319 mg/dL (74-106); Potassium 4.3 mmol/L (3.5-5.1); Sodium Level 132 mmol/L (136-145)
--- NOTE | 2020-12-23 08:45 | NURSING ---
Bed exit alarming. Patient sitting up in bed. IV pulled apart- blood on the bed/linens/gown. tele and pulse ox pulled off, insulin pump pulled off. Patient cleaned up, adriana to leg changed due to blood from IV on dressing. Will notify primary RN. Patient confused and drowsy but directable.
[2020-12-23] MEDS: Levothyroxine 125 MCG Tablet PO (09:29)
[2020-12-23] MEDS: Citalopram 40 MG TABLET PO (09:31)
[2020-12-23] MEDS: Famotidine 20 MG Tablet PO ×2 (09:31→23:00)
[2020-12-23] MEDS: Metoprolol(XL)Succ 50 MG Tablet PO (09:32)
--- NOTE | 2020-12-23 11:00 | CT_ITS ---
STUDY: CT BRAIN WITHOUT CONTRAST REASON FOR EXAM: Male, 55 years old. altered mental status RADIATION DOSAGE (If Supplied By Facility): CTDIvol = ( 44.99 ) mGy, DLP = ( 863.60 ) mGycm TECHNIQUE: Transaxial CT imaging of the brain was performed without administration of intravenous contrast material. Individualized dose optimization techniques were used for this CT. COMPARISON: 11/02/2014 FINDINGS: Normal soft tissue structures. Normal calvarium. There is mild cerebral atrophy with widening of the extra-axial spaces and ventricular dilatation. Normal white matter tracts of the cerebral hemispheres. Normal basal ganglia and thalami. Normal brainstem. Normal cerebellum. There is no intracranial hemorrhage. Encephalomalacia in the right temporal lobe consistent with a chronic infarct. Normal visualized paranasal sinuses. CT/Brain/Head without Contrast IMPRESSION: Chronic involutional changes of the brain. Electronically Signed: Heriberto Barnes MD at 11:46 EDT Tel , Service support ,
--- NOTE | 2020-12-23 11:07 | PCM.PN.HOSP ---
Documented by User: Patricia Solomon NP, BOND ANALYST-C 12/23/20 11:34 Subjective Subjective Patient seen and examined. Currently drowsy, resting comfortably in bed. However, nursing reports patient has been restless, confused and agitated this morning and pulled out his IV and insulin pump multiple times. at bedside. She reports patient fell and hit his head prior to admission and is concerned due to history of reported brain bleed. Discussed plan of care with including obtaining brain CT, adjusting insulin and treating for alcohol withdrawal. Objective Data Objective Data Vital Signs: Vital Signs Temp Pulse Resp BP Pulse Ox 98.2 F 104 H 16 113/55 L 99 12/23/20 09:42 12/23/20 09:42 12/23/20 09:42 12/23/20 09:42 12/23/20 09:42 Oxygen Flow Rate (L/min) 3 Oxygen Delivery Method Room Air Weight: 176 lb Body Mass Index (BMI) 27.6 Intake & Output: Intake and Output for Last 24 Hours 12/21/20 12/22/20 12/23/20 23:59 23:59 23:59 Intake Total 1000 / 1000 2333.66 / 2333.66 990.00 / 990.00 Output Total 700 / 700 2725 / 2725 Balance 1000 / 1000 1633.66 / 1633.66 -1735.00 / -1735.00 Lab / Micro Data Result Diagrams: 12/23/20 07:00 12/23/20 14:40 Labs: Laboratory Results - last 24 hr 12/22/20 05:30: Magnesium 1.8, Free T4 0.66 L, Free T3 pg/dL 1.6 L 12/22/20 05:30: Phosphorus 2.4 L 12/22/20 13:36: POC Glucose 74 12/22/20 16:38: POC Glucose 213 H 12/22/20 18:56: Sodium 135 L, Potassium 4.3, Chloride 102, Carbon Dioxide 27.0, Anion Gap 6, BUN 8, Creatinine 0.74, Estim Creat Clear Calc 106.69, Est GFR (MDRD) Af Amer 141, Est GFR (MDRD) Non-Af 117, BUN/Creatinine Ratio 10.8, Glucose 211 H, Calcium 7.8 L 12/22/20 21:28: POC Glucose 266 H 12/23/20 06:38: POC Glucose 297 H 12/23/20 07:00: WBC 10.5, RBC 3.76 L, Hgb 12.8 L, Hct 38.3 L, MCV 101.9 H, MCH 34.0 H, MCHC 33.4, RDW Std Deviation 48.9 H, RDW Coeff of Gabrielle 12.9, Plt Count 184, MPV 10.5, Immature Gran % (Auto) 0.300, Neut % (Auto) 75.0 H, Lymph % (Auto) 13.2 L, Cocke % (Auto) 10.1 H, Eos % (Auto) 0.7, Baso % (Auto) 0.7, Absolute Neuts (auto) 7.9 H, Absolute Lymphs (auto) 1.38, Nucleated RBC % 0 12/23/20 07:00: Sodium 132 L, Potassium 4.3, Chloride 95 L, Carbon Dioxide 20.0 L, Anion Gap 17 H, BUN 10, Creatinine 0.98, Estim Creat Clear Calc 80.56, Est GFR (MDRD) Af Amer 102, Est GFR (MDRD) Non-Af 84, BUN/Creatinine Ratio 10.2, Glucose 319 H, Calcium 8.1 L Micro: Microbiology 12/21/20 17:05 Interface Orders SARS-CoV-2 Antigen (Rapid) - Final Radiography Diagnostic Testing: Radiology Impression Tibia/Fibula X-Ray 12/22/20 14:26 IMPRESSION: Images obtained intraoperatively for hardware localization. Electronically Signed: Ttee Woods MD at 16:26 EDT Tel , Service support , Physical Exam Const Orientation / Consciousness: confused and disoriented HEENT normocephalic and moist oral mucous membranes Eyes PERRL, EOMs intact bilaterally and conjunctivae normal Neck no lymphadenopathy Resp normal respiratory effort and clear to auscultation bilaterally Cardio regular rate, regular rhythm and no murmurs Peripheral Pulses: pulses 2+ throughout GI normal to inspection, nondistended, normoactive bowel sounds, non-tender and non-distended Extremity normal to inspection Skin no rashes or lesions noted Skin Narrative: right hip post-op wound. Dressing intact. Patient removed post operative dressing this a.m. Lesions: no lesions Rashes: no rashes Trauma: no lacerations or abrasions Neuro CN's II-XII intact bilaterally, no focal motor deficits, no sensory deficits noted and deep tendon reflexes 2+ bilaterally Psych mental status grossly normal Activity / Motor Behavior: restless Assessment & Plan Assessment/Plan (1) Comminuted fracture of shaft of tibia: QUALIFIERS: Encounter type: initial encounter Fracture alignment: displaced Fracture type: closed Laterality: right Qualified Code(s): S82.251A - Displaced comminuted fracture of shaft of right tibia, initial encounter for closed fracture (2) Fibula fracture: PLAN: 1. Acute traumatic right comminuted fracture of tibia/fibula, secondary to mechanical fall prior to admission-orthopedic surgery on consult. Cleared by cardiology for OR. Underwent right tibia intramedullary rodding 12/22/2020. PT/OT. Patient has a chronic history of falls, multifactorial due to autonomic dysfunction and chronic alcohol abuse. Eliquis for DVT prophylaxis. 2. Type 1 diabetes mellitus with autonomic pguicelbkiu-Dzbq-Cdrea with sliding scale insulin. Patient has insulin pump however he removed it twice this morning. Cover with additional Lantus and sliding scale. 3. Alcohol withdrawal, chronic alcohol abuse- CIWA/Ativan protocol. Medical stabilization per protocol including phenobarbital taper. Folic acid, thiamine, multivitamin supplementation. Patient confused, restless, agitated this morning. Suspect secondary to alcohol withdrawal however states patient hit his head during fall prior to admission. Will obtain brain CT. 4. CAD/ischemic cardiomyopathy/history of stent placement-preoperative echocardiogram completed which demonstrated an EF of 50% and mild segmental wall motion abnormality. Not on aspirin, statin. Continue beta-rolando, lisinopril. 5. Hypertension-stable, continue metoprolol, lisinopril. 6. Hyperlipidemia-does not appear to be on statin. Outpatient follow-up 7. Hypothyroidism-TSH 19.2. T4 0.66. Suspect due to noncompliance with Synthroid regimen. Resume home Synthroid and repeat TSH in 4 to 6 weeks. DVT prophylaxis-Eliquis per Ortho Discharge plan: Follow PT recommendations, rehab versus home therapies pending resolve of acute alcohol withdrawal. This patient was seen by GUS Montalvo under the supervision of Dr. Childers. Documented by User: Dr. Zenaida Childers DO 12/23/20 15:20 Subjective Subjective Patient was seen in conjunction with Patricia Solomon NP. The following represents my independent history and physical examination. Please see below for any addendum to the above. The patient is sitting up in bed and is awake but sleepy. He has been restless on and off. He did get a dose of Ativan early this morning. He has a significant history of alcohol abuse and I suspect he is going through some withdrawal at this time as well as having some residual effects from sedation utilized for surgery yesterday. Objective Data Lab / Micro Data Result Diagrams: 12/23/20 07:00 12/23/20 14:40 Physical Exam Const alert and no apparent distress Constitutional Narrative: Middle-aged white male sitting up in bed, very moon Orientation / Consciousness: confused and disoriented Exam Limitations: no limitations HEENT normocephalic, head/scalp atraumatic and moist oral mucous membranes Head and Scalp: normocephalic Eyes PERRL, EOMs intact bilaterally and conjunctivae normal Neck no lymphadenopathy and supple Neck Narrative: Trachea midline, no thyroid enlargement noted Resp normal respiratory effort, no retractions, no use of accessory muscles and clear to auscultation bilaterally Resp Narrative: Diminished but clear Cardio regular rate, regular rhythm, S1 normal heart sound, S2 normal heart sound, no murmurs, no rub, no gallops, no clicks and no JVD Peripheral Pulses: pulses 2+ throughout GI normal to inspection, nondistended, normoactive bowel sounds, soft to palpation, non-tender and non-distended Extremity normal to inspection Extremity Narrative: splint in place with Eric bandage securing splint, cap refill is 2+, no cyanosis or clubbing, pedal pulses 2+ on left unable to palpate on right secondary to bandaging Skin no rashes or lesions noted, no wounds, skin turgor normal, no jaundice, no petechiae and no mottling Skin Narrative: Right leg postop wound dressing intact and covered by an Eric bandage Lesions: no lesions Rashes: no rashes Trauma: no lacerations or abrasions Neuro moves all extremities, no focal motor deficits, no sensory deficits noted and deep tendon reflexes 2+ bilaterally Sensorium / Orientation: awake and alert Speech: speech normal Psych mental status grossly normal Psych Narrative: Confused Activity / Motor Behavior: restless Assessment & Plan Assessment/Plan (1) Comminuted fracture of shaft of tibia: QUALIFIERS: Encounter type: initial encounter Fracture alignment: displaced Fracture type: closed Laterality: right Qualified Code(s): S82.251A - Displaced comminuted fracture of shaft of right tibia, initial encounter for closed fracture (2) Acute hypoactive alcohol withdrawal delirium: (3) Fall: (4) Alcohol intoxication: PLAN: ASSESSMENT: Acute traumatic comminuted fracture of the left tibia and fibula Mechanical fall DM-1 Anion gap elevation secondary to mild DKA Metabolic acidosis-solving Autonomic dysfunction Chronic alcohol abuse Alcohol intoxication upon presentation CAD Ischemic cardiomyopathy Hypertension Hyperlipidemia Hypothyroidism Hypophosphatemia Hyperbilirubinemia History of intracranial hemorrhage per Mild acute anemia in the postoperative period Plan: -Echocardiogram showed an EF of 50% and mild segmental wall motion abnormality -Placed and was cleared by cardiology and taken the OR this afternoon for repair of his left tib-fib fracture -Continue phenobarbital for alcohol withdrawal -Continue as needed Ativan as well -Lantus 10 units given this morning we will continue daily -Stat 10 units of insulin now -It appears patient had some mild DKA this morning but this has improved with most recent BMP -I suspect this is related to his pump malfunctioning through the night -We will hold his pump until he is more lucid and able to be discharged -Repeat BMP tonight at 7--> will sign out to night physician -Start sliding scale with meals -Continue Accu-Cheks -CT of the head was negative for any acute processes -TSH is abnormally high and free T4 in 3 are low--> patient is on levothyroxine at baseline -Continue home levothyroxine as I suspect the patient is not taking this as ordered -Repeat free T4 tomorrow -PT OT consultation -Continue IV fluids for now -Continue home cardiac medications Charges/Coding Visit Charges Inpatient E&M: 88668 Subs Hosp L2
[2020-12-23] MEDS: 0.9% Saline Lock 10 ML Syringe IV (11:09)
[2020-12-23] MEDS: Insulin Lispro 100 UNIT/ML INSULN.PEN SC ×2 (11:37→16:52)
[2020-12-23] MEDS: Phenobarbital 32.4 MG Tablet 97.2 MG PO ×4 (11:52→22:58)
[2020-12-23 12:01] LABS: Bedside Glucose 396 mg/dL (70-110)
[2020-12-23] MEDS: oxyCODONE 5 MG Tablet PO ×2 (13:29→18:46)
--- NOTE | 2020-12-23 14:30 | NURSING ---
lab called for stat lab draw. primary RN updated.
--- NOTE | 2020-12-23 14:59 | MDS.RN ---
called lab requesting to expodite BMP as requested by Patricia Solomon NP
[2020-12-23 15:04] LABS: Anion Gap 14 (5-15); BUN 13 mg/dL (7-18); BUN/Creat Ratio 12.6 RATIO (10-20); Calcium,Total 8.2 mg/dL (8.5-10.1); Chloride 99 mmol/L (98-107); Creatinine, Serum 1.03 mg/dL (0.70-1.30); EST Glomerular Filtration Rate 80 mL/min (>60); Est Glom Filt Rate - Afr Amer 96 mL/min (>60); Estimated Creatinine Clearance 76.65 ml/min; Glucose 281 mg/dL (74-106); Potassium 4.4 mmol/L (3.5-5.1); Sodium Level 131 mmol/L (136-145)
[2020-12-23] MEDS: Insulin Lispro 100 UNIT/ML INSULN.PEN 10 UNIT SC (15:17)
--- NOTE | 2020-12-23 16:28 | PCM.HOSP.N ---
Hospitalist Note notified the nurse that she would like to talk to me and was frustrated that she had not seen yet today. She states she discussed her with the nurse practitioner this morning I told her that if she wants to talk to me just let us know and I am happy to talk to her but if I am not aware that she would like to also talk to me I usually assume that the nurse practitioner has relayed information. We discussed that the CAT scan was negative. She is concerned about his delirium. I reported that I think it is most likely acute alcohol withdrawal. She states he really has not had much to drink since the day prior to admission. It is documented that he had 2 drinks in the morning of admission. I did discuss with her that alcohol withdrawal is usually worse 48 to 72 hours after the last drink. He did endorse drinking 1/5 of gin a day. We also discussed that this may be a combination of acute alcohol withdrawal and postoperative medication delirium in conjunction with his high blood sugars as his insulin pump came off last night and he was not getting his basal dose insulin. Labs were repeated and he does not appear to be in DKA this time. His anion gap was normal at 14. His blood sugar was elevated and she is aware of this and we are addressing this with subcutaneous insulin and IV fluids. He will have a sitter at the bedside as discussed with the nursing staff and the nursing sandblasting supervisor will move his room closer to the nurses station. I will also check a UA as discussed with her to rule out any infection as she is concerned his hyperglycemia may be related to that. Infection is unlikely at this time and we did discuss that it is most likely related to his lack of insulin from his insulin pump working appropriately.
[2020-12-23 17:01] LABS: Bedside Glucose 206 mg/dL (70-110)
[2020-12-23 19:18] LABS: Bacteria 0 SEEN /hpf (None Seen); Mucous, Urine 0 SEEN /hpf (<or=2+); Red Blood Cells-Urine 0 SEEN /hpf (0-5); Squamous Epithelial Cells - UA 0 SEEN /hpf (0-5); White Blood Cells 0 SEEN /hpf (0-5)
[2020-12-23 19:20] LABS: Color, Urine Yellow (Yellow); Glucose, Dipstick 1000 mg/dl (Normal); Leukocyte Esterase-Dipstick Negative /ul (Negative); Nitrite-Dipstick Negative (Negative); Occult Blood-Urine Negative /ul (Negative); Protein-Dipstick 15 mg/dl (Negative); Urine Bilirubin Dipstick Negative (Negative); Urine Clarity Clear (Clear); Urine Urobilinogen Normal (Normal)
[2020-12-23 19:23] LABS: Ketone-Dipstick 150 mg/dl (Negative)
[2020-12-23 19:36] LABS: Anion Gap 9 (5-15); BUN 12 mg/dL (7-18); BUN/Creat Ratio 12.6 RATIO (10-20); Calcium,Total 8.5 mg/dL (8.5-10.1); Chloride 100 mmol/L (98-107); Creatinine, Serum 0.95 mg/dL (0.70-1.30); EST Glomerular Filtration Rate 88 mL/min (>60); Est Glom Filt Rate - Afr Amer 106 mL/min (>60); Estimated Creatinine Clearance 83.11 ml/min; Glucose 165 mg/dL (74-106); Potassium 4.4 mmol/L (3.5-5.1); Sodium Level 132 mmol/L (136-145)
[2020-12-23] MEDS: QUEtiapine 100 MG Tablet 200 MG PO (22:58)
[2020-12-23] MEDS: Lisinopril 5 MG Tablet PO (22:58)
[2020-12-23] MEDS: LORazepam 0.5 MG Tablet PO (22:58)
[2020-12-23] MEDS: Nortriptyline 25 MG Capsule 50 MG PO (22:58)
[2020-12-23 23:11] LABS: Bedside Glucose 185 mg/dL (70-110)
[2020-12-24] VITALS (16 sets, daily range): BP systolic 105–137; BP diastolic 53–92; PULSE 58–119; RESP 12–20; TEMP 36.1–36.9; O2SAT 95–100
[2020-12-24] MEDS: Cefazolin 1 GM/50 ML BAG IV (00:40)
--- NOTE | 2020-12-24 03:18 | NURSING ---
pt refused blood pressure assessment
[2020-12-24] MEDS: Phenobarbital 32.4 MG Tablet 97.2 MG PO ×2 (03:19→06:32)
[2020-12-24] MEDS: Lactated Ringers 1,000 ML 100 ML IV (05:02)
[2020-12-24] MEDS: Levothyroxine 125 MCG Tablet PO (06:32)
[2020-12-24] MEDS: Insulin Lispro 100 UNIT/ML INSULN.PEN SC ×2 (06:37→22:35)
[2020-12-24] MEDS: oxyCODONE 5 MG Tablet PO ×2 (06:39→22:30)
[2020-12-24 06:45] LABS: Bedside Glucose 307 mg/dL (70-110)
[2020-12-24] MEDS: Metoprolol(XL)Succ 50 MG Tablet PO (08:11)
[2020-12-24] MEDS: Famotidine 20 MG Tablet PO ×2 (08:11→22:27)
[2020-12-24] MEDS: Thiamine Hydrochloride 100 MG Tablet PO ×2 (08:11→18:25)
[2020-12-24] MEDS: Citalopram 40 MG TABLET PO (08:11)
[2020-12-24] MEDS: Folic Acid 1 MG Tablet PO (08:11)
[2020-12-24] MEDS: Multivitamins,Ther W-Minerals Tablet 1 TABLET PO (08:12)
[2020-12-24] MEDS: Aspirin E.C. 81 MG Tablet PO (08:12)
[2020-12-24] MEDS: APIXABAN 2.5 MG TABLET PO ×2 (08:12→22:27)
[2020-12-24 08:32] LABS: Absolute Neutrophil Count 3.9 X10^3/uL (2.0-7.7); Basophil# 0.03 X10^3/uL; Basophil% 0.6 % (0-1); Eosinophil# 0.06 X10^3/uL; Eosinophils% 1.2 % (0-5); Hematocrit 33.7 % (40-54); Hemoglobin 11.4 g/dL (13.0-16.5); Lymphocyte % 9.8 % (19-41); Mean Corp Hgb Conc 33.8 g/dL (32-36); Mean Corpuscular Hgb 34.1 pg (27.0-32.0); Mean Corpuscular Volume 100.9 fL (80-94); Mean Platelet Vol. 10.4 fl (6.2-12.0); Monocyte# 0.57 X10^3/uL; Monocyte% 11.2 % (0-10); NRBC Flagged by Analyzer 0 % (0-5); Neutrophil # 3.92 X10^3/uL (2.7-7.7); POSITIVE DIFFERENTIAL YES; POSITIVE MORPHOLOGY YES; Platelet Count 159 K/mm3 (150-450); RBC Distribution Width SD 48.3 fl (35.1-43.9); Red Blood Count 3.34 M/mm3 (4.6-6.2); White Blood Count 5.1 K/mm3 (4.4-11.0)
[2020-12-24 08:40] LABS: Differential Indicated SCAN CRITERIA MET
[2020-12-24 08:49] LABS: Anion Gap 19 (5-15); BUN 14 mg/dL (7-18); BUN/Creat Ratio 15.8 RATIO (10-20); Calcium,Total 7.9 mg/dL (8.5-10.1); Chloride 95 mmol/L (98-107); Creatinine, Serum 0.89 mg/dL (0.70-1.30); EST Glomerular Filtration Rate 95 mL/min (>60); Est Glom Filt Rate - Afr Amer 114 mL/min (>60); Estimated Creatinine Clearance 88.71 ml/min; Glucose 290 mg/dL (74-106); Potassium 4.1 mmol/L (3.5-5.1); Sodium Level 129 mmol/L (136-145); T4 Free Direct 0.64 ng/dL (0.76-1.46)
[2020-12-24 09:23] LABS: Magnesium 1.8 mg/dL (1.6-2.6)
[2020-12-24 09:41] LABS: Differential Comment SCANNED; Hypochromasia RARE; Macrocytosis 1+; Platelet Estimate ADEQUATE (ADEQ)
--- NOTE | 2020-12-24 10:22 | NURSING ---
Report called to Inga in ICU.
[2020-12-24 10:25] LABS: Bedside Glucose 263 mg/dL (70-110)
--- NOTE | 2020-12-24 10:26 | PN.HOSP_ITS ---
Documented by User: Patricia Solomon NP, MINISTER-C 12/24/20 10:33 Subjective Subjective Patient seen and examined. Drowsy this morning. Restlessness, agitation improved. No distress noted. Objective Data Objective Data Vital Signs: Vital Signs Temp Pulse Resp BP Pulse Ox 98.5 F 119 H 18 121/68 H 95 12/24/20 07:57 12/24/20 08:11 12/24/20 07:57 12/24/20 07:57 12/24/20 07:57 Oxygen Flow Rate (L/min) 3 Oxygen Delivery Method Room Air Weight: 175 lb 15.991 oz Body Mass Index (BMI) 27.6 Intake & Output: Intake and Output for Last 24 Hours 12/22/20 12/23/20 12/24/20 23:59 23:59 23:59 Intake Total 2333.66 / 2333.66 3026.67 / 3026.67 1450 / 1450 Output Total 700 / 700 5025 / 5025 700 / 700 Balance 1633.66 / 1633.66 -1997.33 / - 750 / 750 Lab / Micro Data Result Diagrams: 12/24/20 07:42 12/24/20 07:42 Labs: Laboratory Results - last 24 hr 12/23/20 11:36: POC Glucose 396 H 12/23/20 14:40: Sodium 131 L, Potassium 4.4, Chloride 99, Carbon Dioxide 18.0 L, Anion Gap 14, BUN 13, Creatinine 1.03, Estim Creat Clear Calc 76.65, Est GFR (MDRD) Af Amer 96, Est GFR (MDRD) Non-Af 80, BUN/Creatinine Ratio 12.6, Glucose 281 H, Calcium 8.2 L 12/23/20 16:51: POC Glucose 206 H 12/23/20 17:50: Urine Color Yellow, Urine Clarity Clear, Urine pH 6.0, Ur Specific [place] 1.020, Urine Protein 15 H, Urine Glucose (UA) 1000 H, Urine Ketones 150 A*, Urine Occult Blood Negative, Urine Nitrite Negative, Urine Bilirubin Negative, Urine Urobilinogen Normal, Ur Leukocyte Esterase Negative, Urine RBC 0 SEEN, Urine WBC 0 SEEN, Ur Squamous Epith Cells 0 SEEN, Urine Bacteria 0 SEEN, Urine Mucus 0 SEEN 12/23/20 19:12: Sodium 132 L, Potassium 4.4, Chloride 100, Carbon Dioxide 23.0, Anion Gap 9, BUN 12, Creatinine 0.95, Estim Creat Clear Calc 83.11, Est GFR (MDRD) Af Amer 106, Est GFR (MDRD) Non-Af 88, BUN/Creatinine Ratio 12.6, Glucose 165 H, Calcium 8.5 12/23/20 22:40: POC Glucose 185 H 12/24/20 06:36: POC Glucose 307 H 12/24/20 07:30: Acetone Level NEGATIVE 12/24/20 07:42: WBC 5.1, RBC 3.34 L, Hgb 11.4 L, Hct 33.7 L, MCV 100.9 H, MCH 34.1 H, MCHC 33.8, RDW Std Deviation 48.3 H, RDW Coeff of Gabrielle 13.0, Plt Count 159, MPV 10.4, Immature Gran % (Auto) 0.200, Neut % (Auto) 77.0 H, Lymph % (Auto) 9.8 L, Alcorn % (Auto) 11.2 H, Eos % (Auto) 1.2, Baso % (Auto) 0.6, Absolute Neuts (auto) 3.9, Absolute Lymphs (auto) 0.50 L, Nucleated RBC % 0, Differential Comment SCANNED, Platelet Estimate ADEQUATE, Hypochromasia RARE, Macrocytosis 1+ 12/24/20 07:42: Sodium 129 L, Potassium 4.1, Chloride 95 L, Carbon Dioxide 15.0 L, Anion Gap 19 H, BUN 14, Creatinine 0.89, Estim Creat Clear Calc 88.71, Est GFR (MDRD) Af Amer 114, Est GFR (MDRD) Non-Af 95, BUN/Creatinine Ratio 15.8, Glucose 290 H, Calcium 7.9 L, Free T4 0.64 L 12/24/20 07:42: Magnesium 1.8 12/24/20 10:17: POC Glucose 263 H Micro: Microbiology 12/21/20 17:05 Interface Orders SARS-CoV-2 Antigen (Rapid) - Final Radiography Diagnostic Testing: Radiology Impression Brain CT 12/23/20 11:00 IMPRESSION: Chronic involutional changes of the brain. Electronically Signed: Heriberto Barnes MD at 11:46 EDT Tel , Service support , Physical Exam Const no apparent distress Constitutional Narrative: Drowsy HEENT normocephalic Mouth: dry mucous membranes Eyes PERRL, EOMs intact bilaterally and conjunctivae normal Neck no lymphadenopathy Resp normal respiratory effort and clear to auscultation bilaterally Cardio regular rate, regular rhythm and no murmurs Peripheral Pulses: pulses 2+ throughout GI normal to inspection, nondistended, normoactive bowel sounds, non-tender and non-distended Extremity normal to inspection Skin no rashes or lesions noted Skin Narrative: right hip post-op wound. Dressing intact. Lesions: no lesions Rashes: no rashes Trauma: no lacerations or abrasions Neuro CN's II-XII intact bilaterally, no focal motor deficits, no sensory deficits noted and deep tendon reflexes 2+ bilaterally Psych mental status grossly normal and affect normal Assessment & Plan Assessment/Plan (1) Acute hypoactive alcohol withdrawal delirium: (2) Comminuted fracture of shaft of tibia: QUALIFIERS: Encounter type: initial encounter Fracture alignment: displaced Fracture type: closed Laterality: right Qualified Code(s): S82.251A - Displaced comminuted fracture of shaft of right tibia, initial encounter for closed fracture (3) Fibula fracture: PLAN: 1. Acute traumatic right comminuted fracture of tibia/fibula, secondary to mechanical fall prior to admission-orthopedic surgery on consult. Cleared by cardiology for OR. Underwent right tibia intramedullary rodding 12/22/2020. PT/OT. Patient has a chronic history of falls, multifactorial due to autonomic dysfunction and chronic alcohol abuse. Eliquis for DVT prophylaxis. 2. Mild DKA in the setting of type 1 diabetes mellitus with autonomic [id number]-Cpsm-[id number] with sliding scale insulin. Patient has insulin pump however currently not in place. Cover with additional Lantus and sliding scale. Stat BMP ordered. Insulin drip if labs continue to be consistent with mild DKA. 3. Alcohol withdrawal, chronic alcohol abuse- CIWA/Ativan protocol. Medical stabilization per protocol including phenobarbital taper. Folic acid, thiamine, multivitamin supplementation. 4. Acute metabolic encephalopathy-secondary to alcohol withdrawal, mild DKA possibly contributing as well. Continue treatment of underlying processes. Brain CT negative for acute process. UA unremarkable. 5. CAD/ischemic cardiomyopathy/history of stent placement-preoperative echocardiogram completed which demonstrated an EF of 50% and mild segmental wall motion abnormality. Not on aspirin, statin. Continue beta-rolando, lisinopril. 6. Hypertension-stable, continue metoprolol, lisinopril. 7. Hyperlipidemia-does not appear to be on statin. Outpatient follow-up 8. Hypothyroidism-TSH 19.2. T4 0.66. Suspect due to noncompliance with Synthroid regimen. Resume home Synthroid and repeat TSH in 4 to 6 weeks. DVT prophylaxis-Eliquis per Ortho Discharge plan: Follow PT recommendations, rehab versus home therapies pending resolve of acute alcohol withdrawal. This patient was seen by ERNESTO MontalvoC under the supervision of Dr. Childers. Documented by User: Dr. Zenaida Childers DO 12/24/20 11:33 Subjective Subjective The patient was seen in conjunction with Patricia Solomon NP. The following is representation my independent history and physical examination. Please see below for any addendum to the above. Nursing at the bedside and overnight status discussed. She reports he had overall a pretty good night and slept well. Minimal agitation. He remains fairly somnolent at this time, but did awake to name and was able to tell me where he was. Does fall back to sleep easily. Objective Data Lab / Micro Data Result Diagrams: 12/24/20 07:42 12/24/20 07:42 Physical Exam Const no apparent distress Constitutional Narrative: Drowsy but awakens and is able to tell me he is at [facility], falls back to sleep easily Orientation / Consciousness: confused and disoriented Exam Limitations: no limitations HEENT normocephalic and head/scalp atraumatic Head and Scalp: normocephalic Eyes PERRL, EOMs intact bilaterally and conjunctivae normal Neck no lymphadenopathy, supple and no JVD Neck Narrative: Trachea midline, no thyroid enlargement noted Resp normal respiratory effort, no retractions, no use of accessory muscles and clear to auscultation bilaterally Resp Narrative: Diminished but clear Cardio regular rhythm, S1 normal heart sound, S2 normal heart sound, no murmurs, no rub, no gallops, no clicks and no JVD Cardio Narrative: Mild tachycardia Peripheral Pulses: pulses 2+ throughout GI normal to inspection, nondistended, normoactive bowel sounds, soft to palpation, non-tender and non-distended Extremity normal to inspection Extremity Narrative: splint in place with Eric bandage securing splint, cap refill is 2+, no cyanosis or clubbing, pedal pulses 2+ on left unable to palpate on right secondary to bandaging Skin no rashes or lesions noted, no wounds, skin turgor normal, no jaundice, no petechiae and no mottling Skin Narrative: right hip post-op wound. Dressing intact. Lesions: no lesions Rashes: no rashes Trauma: no lacerations or abrasions Neuro moves all extremities, no focal motor deficits, no sensory deficits noted and deep tendon reflexes 2+ bilaterally Neuro Narrative: Sleeping but awakens easily and was oriented to self and location, falls back to sleep easily Psych mental status grossly normal and affect normal Psych Narrative: Confused but seems to be improved Activity / Motor Behavior: restless Assessment & Plan Assessment/Plan (1) Acute hypoactive alcohol withdrawal delirium: (2) Comminuted fracture of shaft of tibia: QUALIFIERS: Encounter type: initial encounter Fracture alignment: displaced Fracture type: closed Laterality: right Qualified Code(s): S82.251A - Displaced comminuted fracture of shaft of right tibia, initial encounter for closed fracture (3) DKA (diabetic ketoacidoses): (4) High anion gap metabolic acidosis: PLAN: ASSESSMENT: Acute traumatic comminuted fracture of the left tibia and fibula Mechanical fall DM-1 DKA Anion gap metabolic acidosis secondary to mild DKA Pseudohyponatremia Mild tachycardia Autonomic dysfunction Chronic alcohol abuse Alcohol intoxication upon presentation CAD Ischemic cardiomyopathy Hypertension Hyperlipidemia Hypothyroidism Hypophosphatemia Hyperbilirubinemia History of intracranial hemorrhage per Mild acute anemia in the postoperative period Plan: -Echocardiogram showed an EF of 50% and mild segmental wall motion abnormality -Placed and was cleared by cardiology and taken the OR this afternoon for repair of his left tib-fib fracture -Continue phenobarbital for alcohol withdrawal -Continue as needed Ativan as well -Will discuss RAMP further when patient is more awake -Given mild DKA will start transferred to the ICU and start an insulin drip--> glucose is only 290 -ABG is pending -She did had 15 units of Lantus this morning and I expect his DKA will turn around quite quickly -Two 4-hour BMPs -Check magnesium and phosphorus -Hold pump--> basal rate has been clarified that it is 1 unit/h which is 24 units -We will hold his pump until he is more lucid and able to be discharged -N.p.o. except for p.o. meds at this time -CT of the head was negative for any acute processes -TSH is abnormally high and free T4 in 3 are low--> patient is on levothyroxine at baseline -Continue home levothyroxine as I suspect the patient is not taking this as ordered -Repeat TSH in 4 to 6 weeks -PT OT following -Continue IV fluids -Continue home cardiac medications was updated with regards to his urine, morning labs, and transfer to the intensive care unit for further intervention with regards to his blood sugars. His mentation seems to slowly be improving although he is still fairly somnolent and this was discussed with her as well. I told her we would update her later today Charges/Coding Visit Charges Inpatient E&M: 33273 Subs Hosp L3
[2020-12-24] MEDS: 0.9% Normal Saline 1,000 ML 999 ML IV (11:32)
[2020-12-24 12:09] LABS: Anion Gap 16 (5-15); BUN 15 mg/dL (7-18); BUN/Creat Ratio 16.4 RATIO (10-20); Calcium,Total 7.7 mg/dL (8.5-10.1); Chloride 97 mmol/L (98-107); Creatinine, Serum 0.92 mg/dL (0.70-1.30); EST Glomerular Filtration Rate 91 mL/min (>60); Est Glom Filt Rate - Afr Amer 110 mL/min (>60); Estimated Creatinine Clearance 85.82 ml/min; Glucose 259 mg/dL (74-106); Potassium 4.4 mmol/L (3.5-5.1); Sodium Level 131 mmol/L (136-145)
[2020-12-24] MEDS: Dext 5%-0.45% NS 1,000 ML 150 ML IV (13:30)
[2020-12-24 14:06] LABS: Bedside Glucose 161 mg/dL (70-110)
[2020-12-24] MEDS: Phenobarbital 32.4 MG Tablet 64.8 MG PO ×3 (14:09→22:32)
[2020-12-24 14:41] LABS: Allen Test Positive; Base Excess -5 mmol/L (-2 to +2); Bicarbonate 19.7 mmol/L (22-26); Blood Gas Specimen Type ART; FI02 21; PO2 67 mmHG (75-100); SITE L Radial; SO2 93 % (95-99); Total Carbon Dioxide 21 mmol/L; pCO2 32.6 mmHg (35-45); pH 7.39 (7.35-7.45)
[2020-12-24 14:50] LABS: Bedside Glucose 223 mg/dL (70-110)
[2020-12-24 14:55] LABS: Bedside Glucose 117 mg/dL (70-110)
[2020-12-24 16:07] LABS: Bedside Glucose 82 mg/dL (70-110)
[2020-12-24 16:20] LABS: Anion Gap 4 (5-15); BUN 12 mg/dL (7-18); BUN/Creat Ratio 15.8 RATIO (10-20); Calcium,Total 7.9 mg/dL (8.5-10.1); Chloride 102 mmol/L (98-107); Creatinine, Serum 0.76 mg/dL (0.70-1.30); EST Glomerular Filtration Rate 113 mL/min (>60); Est Glom Filt Rate - Afr Amer 137 mL/min (>60); Estimated Creatinine Clearance 103.89 ml/min; Glucose 67 mg/dL (74-106); Potassium 3.5 mmol/L (3.5-5.1); Sodium Level 134 mmol/L (136-145)
[2020-12-24 17:45] LABS: Bedside Glucose 75 mg/dL (70-110)
[2020-12-24 18:16] LABS: Bedside Glucose 98 mg/dL (70-110)
[2020-12-24 20:06] LABS: Bedside Glucose 81 mg/dL (70-110)
[2020-12-24 20:52] LABS: Anion Gap 6 (5-15); BUN 11 mg/dL (7-18); BUN/Creat Ratio 15.2 RATIO (10-20); Calcium,Total 7.9 mg/dL (8.5-10.1); Chloride 103 mmol/L (98-107); Creatinine, Serum 0.72 mg/dL (0.70-1.30); EST Glomerular Filtration Rate 120 mL/min (>60); Est Glom Filt Rate - Afr Amer 145 mL/min (>60); Estimated Creatinine Clearance 109.66 ml/min; Glucose 68 mg/dL (74-106); Potassium 3.6 mmol/L (3.5-5.1); Sodium Level 135 mmol/L (136-145)
[2020-12-24] MEDS: Dext 5%-0.45% NS 1,000 ML 100 ML IV (21:04)
[2020-12-24 21:21] LABS: Bedside Glucose 54 mg/dL (70-110)
--- NOTE | 2020-12-24 21:41 | PN.HOSP_ITS ---
Hospitalist Note GAP closed x 2; however, patient now with hypoglycemia. Will given dextrose amp. Will allow ADA diet start and plan repeat BS following in addition to repeat even if normalized in ~ 1 hour to assure normalization. Hesitant to add long- acting overlap given this finding. Will reassess long-acting addition once repeat BS obtained.
[2020-12-24] MEDS: Dextrose 50%-Water 25 GM/50 ML DISP.SYRIN IV (21:59)
[2020-12-24 22:21] LABS: Bedside Glucose 179 mg/dL (70-110)
[2020-12-24] MEDS: Lisinopril 5 MG Tablet PO (22:27)
[2020-12-24] MEDS: Nortriptyline 25 MG Capsule 50 MG PO (22:27)
[2020-12-24] MEDS: QUEtiapine 100 MG Tablet 200 MG PO (22:28)
[2020-12-24] MEDS: LORazepam 0.5 MG Tablet PO (22:31)
[2020-12-24 22:56] LABS: Bedside Glucose 183 mg/dL (70-110)
[2020-12-25] VITALS (14 sets, daily range): BP systolic 97–153; BP diastolic 57–101; PULSE 93–103; RESP 11–20; TEMP 36.2–37; O2SAT 95–100
[2020-12-25 02:06] LABS: Bedside Glucose 148 mg/dL (70-110)
[2020-12-25] MEDS: Lactated Ringers 1,000 ML 100 ML IV ×2 (02:20→11:40)
[2020-12-25] MEDS: Phenobarbital 32.4 MG Tablet 64.8 MG PO ×5 (02:21→23:09)
[2020-12-25 04:21] LABS: Bedside Glucose 156 mg/dL (70-110)
[2020-12-25 06:31] LABS: Anion Gap 8 (5-15); BUN 12 mg/dL (7-18); BUN/Creat Ratio 16.8 RATIO (10-20); Calcium,Total 7.9 mg/dL (8.5-10.1); Chloride 102 mmol/L (98-107); Creatinine, Serum 0.72 mg/dL (0.70-1.30); EST Glomerular Filtration Rate 121 mL/min (>60); Est Glom Filt Rate - Afr Amer 147 mL/min (>60); Estimated Creatinine Clearance 109.66 ml/min; Glucose 148 mg/dL (74-106); Potassium 3.6 mmol/L (3.5-5.1); Sodium Level 134 mmol/L (136-145)
[2020-12-25 08:12] LABS: AST(SGOT) 22 U/L (15-37); Alanine Aminotransfer ALT/SGPT 20 U/L (16-61); Albumin, Serum 3.1 g/dL (3.2-5.0); Alkaline Phosphatase 54 U/L (45-117); Bilirubin, Direct 0.16 mg/dL (0.00-0.30); Globulin 2.9 g/dL (2.2-4.2)
[2020-12-25] MEDS: Levothyroxine 125 MCG Tablet PO (09:02)
[2020-12-25] MEDS: Multivitamins,Ther W-Minerals Tablet 1 TABLET PO (09:02)
[2020-12-25] MEDS: Aspirin E.C. 81 MG Tablet PO (09:02)
[2020-12-25] MEDS: Thiamine Hydrochloride 100 MG Tablet PO (09:03)
[2020-12-25] MEDS: Folic Acid 1 MG Tablet PO (09:03)
[2020-12-25 09:06] LABS: Bedside Glucose 176 mg/dL (70-110)
[2020-12-25] MEDS: Insulin Lispro 100 UNIT/ML INSULN.PEN SC ×4 (09:14→21:48)
[2020-12-25 09:34] LABS: Anion Gap 8 (5-15); BUN 10 mg/dL (7-18); BUN/Creat Ratio 14.8 RATIO (10-20); Calcium,Total 7.8 mg/dL (8.5-10.1); Chloride 101 mmol/L (98-107); Creatinine, Serum 0.68 mg/dL (0.70-1.30); EST Glomerular Filtration Rate 130 mL/min (>60); Est Glom Filt Rate - Afr Amer 157 mL/min (>60); Estimated Creatinine Clearance 116.11 ml/min; Glucose 183 mg/dL (74-106); Potassium 3.5 mmol/L (3.5-5.1); Sodium Level 134 mmol/L (136-145)
[2020-12-25 09:37] LABS: Ammonia < 10.0 umol/L (11-32)
--- NOTE | 2020-12-25 10:00 | PCM.PN.HOSP ---
Documented by User: Patricia Solomon NP, POTATO PEELING MACHINE OPERATOR-C 12/25/20 10:05 Subjective Subjective Patient seen and examined. More alert this morning. States he is in the hospital. Unable to state month. Falls asleep easily however easier to arouse. Objective Data Objective Data Vital Signs: Vital Signs Temp Pulse Resp BP Pulse Ox 97.9 F 99 15 104/58 L 100 12/25/20 06:00 12/25/20 06:00 12/25/20 06:00 12/25/20 06:00 12/25/20 06:00 Oxygen Flow Rate (L/min) 2 Oxygen Delivery Method Room Air Weight: 177 lb Body Mass Index (BMI) 27.6 Intake & Output: Intake and Output for Last 24 Hours 12/23/20 12/24/20 12/25/20 23:59 23:59 23:59 Intake Total 3026.67 / 3026.67 4746.48 / 4746.48 0 / 0 Output Total 5025 / 5025 1200 / 1200 Balance -33 / - 3546.48 / 3546.48 0 / 0 Lab / Micro Data Result Diagrams: 12/24/20 07:42 12/25/20 09:00 Labs: Laboratory Results - last 24 hr 12/24/20 10:17: POC Glucose 263 H 12/24/20 11:45: Sodium 131 L, Potassium 4.4, Chloride 97 L, Carbon Dioxide 18.0 L, Anion Gap 16 H, BUN 15, Creatinine 0.92, Estim Creat Clear Calc 85.82, Est GFR (MDRD) Af Amer 110, Est GFR (MDRD) Non-Af 91, BUN/Creatinine Ratio 16.4, Glucose 259 H, Calcium 7.7 L 12/24/20 12:42: POC Glucose 223 H 12/24/20 13:55: POC Glucose 161 H 12/24/20 14:47: POC Glucose 117 H 12/24/20 15:41: POC Glucose 82 12/24/20 15:45: Sodium 134 L, Potassium 3.5, Chloride 102, Carbon Dioxide 28.0, Anion Gap 4 L, BUN 12, Creatinine 0.76, Estim Creat Clear Calc 103.89, Est GFR (MDRD) Af Amer 137, Est GFR (MDRD) Non-Af 113, BUN/Creatinine Ratio 15.8, Glucose 67 L, Calcium 7.9 L 12/24/20 16:30: POC Glucose 75 12/24/20 18:06: POC Glucose 98 12/24/20 19:45: Sodium 135 L, Potassium 3.6, Chloride 103, Carbon Dioxide 26.0, Anion Gap 6, BUN 11, Creatinine 0.72, Estim Creat Clear Calc 109.66, Est GFR (MDRD) Af Amer 145, Est GFR (MDRD) Non-Af 120, BUN/Creatinine Ratio 15.2, Glucose 68 L, Calcium 7.9 L 12/24/20 19:54: POC Glucose 81 12/24/20 21:16: POC Glucose 54 L 12/24/20 22:13: POC Glucose 179 H 12/24/20 22:44: POC Glucose 183 H 12/25/20 02:01: POC Glucose 148 H 12/25/20 04:15: POC Glucose 156 H 12/25/20 06:00: Sodium 134 L, Potassium 3.6, Chloride 102, Carbon Dioxide 24.0, Anion Gap 8, BUN 12, Creatinine 0.72, Estim Creat Clear Calc 109.66, Est GFR (MDRD) Af Amer 147, Est GFR (MDRD) Non-Af 121, BUN/Creatinine Ratio 16.8, Glucose 148 H, Calcium 7.9 L 12/25/20 06:00: Total Bilirubin 0.50, Direct Bilirubin 0.16, AST 22, ALT 20, Alkaline Phosphatase 54, Total Protein 6.0 L, Albumin 3.1 L, Globulin 2.9 12/25/20 08:51: POC Glucose 176 H 12/25/20 09:00: Sodium 134 L, Potassium 3.5, Chloride 101, Carbon Dioxide 25.0, Anion Gap 8, BUN 10, Creatinine 0.68 L, Estim Creat Clear Calc 116.11, Est GFR (MDRD) Af Amer 157, Est GFR (MDRD) Non-Af 130, BUN/Creatinine Ratio 14.8, Glucose 183 H, Calcium 7.8 L 12/25/20 09:00: Ammonia < 10.0 L Micro: Microbiology 12/21/20 17:05 Interface Orders SARS-CoV-2 Antigen (Rapid) - Final ABG Data ABG results: ABG 12/24/20 14:32 Specimen Type ART Sample Site L Radial pH 7.39 Bicarbonate Actual 19.7 L Total CO2 21 Base Excess -5 L O2 Saturation 93 L O2 % 21 ABG pCO2 32.6 L ABG pO2 67 L Bruce Test Positive Physical Exam Const no apparent distress Constitutional Narrative: Drowsy, arouses to voice Orientation / Consciousness: oriented to person and oriented to place HEENT normocephalic Mouth: dry mucous membranes Eyes PERRL, EOMs intact bilaterally and conjunctivae normal Neck no lymphadenopathy Resp normal respiratory effort and clear to auscultation bilaterally Cardio regular rate, regular rhythm and no murmurs Peripheral Pulses: pulses 2+ throughout GI normal to inspection, nondistended, normoactive bowel sounds, non-tender and non-distended Extremity normal to inspection Skin no rashes or lesions noted Skin Narrative: Right lower extremity postop dressing intact Lesions: no lesions Rashes: no rashes Trauma: no lacerations or abrasions Neuro CN's II-XII intact bilaterally, no focal motor deficits, no sensory deficits noted and deep tendon reflexes 2+ bilaterally Psych mental status grossly normal Assessment & Plan Assessment/Plan (1) Comminuted fracture of shaft of tibia: QUALIFIERS: Encounter type: initial encounter Fracture alignment: displaced Fracture type: closed Laterality: right Qualified Code(s): S82.251A - Displaced comminuted fracture of shaft of right tibia, initial encounter for closed fracture (2) Fibula fracture: PLAN: 1. Acute traumatic right comminuted fracture of tibia/fibula, secondary to mechanical fall prior to admission-orthopedic surgery on consult. Cleared by cardiology for OR. Underwent right tibia intramedullary rodding 12/22/2020. PT/OT. Patient has a chronic history of falls, multifactorial due to autonomic dysfunction and chronic alcohol abuse. Eliquis for DVT prophylaxis. 2. Mild DKA in the setting of type 1 diabetes mellitus with autonomic yahalegmcth-[id number] with sliding scale insulin. Patient has insulin pump however currently not in place. Cover with additional Lantus and sliding scale. DKA resolved. Continue close glucose/BMP monitoring. 3. Alcohol withdrawal, chronic alcohol abuse- CIWA/Ativan protocol. Medical stabilization per protocol including phenobarbital taper. Folic acid, thiamine, multivitamin supplementation. 4. Acute metabolic encephalopathy-secondary to alcohol withdrawal, mild DKA possibly contributing as well. Continue treatment of underlying processes. Brain CT negative for acute process. UA unremarkable. 5. CAD/ischemic cardiomyopathy/history of stent placement-preoperative echocardiogram completed which demonstrated an EF of 50% and mild segmental wall motion abnormality. Not on aspirin, statin. Continue beta-rolando, lisinopril. 6. Hypertension-stable, continue metoprolol, lisinopril. 7. Hyperlipidemia-does not appear to be on statin. Outpatient follow-up 8. Hypothyroidism-TSH 19.2. T4 0.66. Suspect due to noncompliance with Synthroid regimen. Resume home Synthroid and repeat TSH in 4 to 6 weeks. DVT prophylaxis-Eliquis per Ortho Discharge plan: Follow PT recommendations, rehab versus home therapies pending resolve of acute alcohol withdrawal. This patient was seen by GUS Montalvo under the supervision of Dr. Childers. Documented by User: Dr. Zenaida Childers DO 12/25/20 14:16 Subjective Subjective This patient was seen in conjunction with Patricia Solomon NP. The following is representation my independent history and physical exam. Please see below for any addendum to the above. Patient was able to be transitioned off his insulin drip remains out of DKA this morning. Per nursing he had some agitation last night and had been given several doses of Ativan. He is unfortunately now fairly somnolent and it is difficult to reassess him although he does awaken and state that he is in the hospital. Objective Data Lab / Micro Data Result Diagrams: 12/24/20 07:42 12/25/20 09:00 Physical Exam Const no apparent distress Constitutional Narrative: Patient still drowsy but arouses to voice and stimulation, engages with some conversation, nontoxic appearing, remains confused Orientation / Consciousness: oriented to person, oriented to place, confused and disoriented HEENT normocephalic, head/scalp atraumatic and moist oral mucous membranes Head and Scalp: normocephalic Resp normal respiratory effort, no retractions, no use of accessory muscles and clear to auscultation bilaterally Resp Narrative: Diminished but clear Cardio regular rate, regular rhythm, S1 normal heart sound, S2 normal heart sound, no murmurs, no rub, no gallops, no clicks and no JVD Cardio Narrative: Mild tachycardia Peripheral Pulses: pulses 2+ throughout GI normal to inspection, nondistended, normoactive bowel sounds, soft to palpation, non-tender and non-distended Extremity normal to inspection Extremity Narrative: splint in place with Eric bandage securing splint, cap refill is 2+, no cyanosis or clubbing, pedal pulses 2+ on left unable to palpate on right secondary to bandaging Skin Lesions: no lesions Rashes: no rashes Trauma: no lacerations or abrasions Neuro moves all extremities, no focal motor deficits and deep tendon reflexes 2+ bilaterally Neuro Narrative: Sleeping but awakens easily and was oriented to self and location, falls back to sleep easily Psych mental status grossly normal Psych Narrative: Remains confused-intermittent agitation but currently calm Activity / Motor Behavior: restless Assessment & Plan Assessment/Plan (1) Comminuted fracture of shaft of tibia: QUALIFIERS: Encounter type: initial encounter Fracture alignment: displaced Fracture type: closed Laterality: right Qualified Code(s): S82.251A - Displaced comminuted fracture of shaft of right tibia, initial encounter for closed fracture (2) Metabolic encephalopathy: (3) Acute hypoactive alcohol withdrawal delirium: (4) Fall: PLAN: ASSESSMENT: Acute traumatic comminuted fracture of the left tibia and fibula Mechanical fall DM-1 DKA-resolved Anion gap metabolic acidosis secondary to mild DKA-resolved Mild tachycardia Autonomic dysfunction Chronic alcohol abuse Alcohol intoxication upon presentation CAD Ischemic cardiomyopathy Hypertension Hyperlipidemia Hypothyroidism Hypophosphatemia Hyperbilirubinemia History of intracranial hemorrhage per Mild acute anemia in the postoperative period Plan: -Echocardiogram showed an EF of 50% and mild segmental wall motion abnormality -Placed and was cleared by cardiology and taken the OR this afternoon for repair of his left tib-fib fracture -Continue phenobarbital for alcohol withdrawal and wean as ordered -Continue as needed Ativan as well but decrease dose and frequency -Will discuss RAMP further when patient is more awake -Transfer to general medical floor as DKA has resolved -We will dose Lantus twice daily-patient was given 10 units this morning and will dose 7 units this evening -Typical basal rate from his pump is 24 but p.o. intake is limited at this time -Repeat BMP pending for 2 PM -With encephalopathy ammonia was checked and was negative and LFTs are within normal limits -Check magnesium and phosphorus in a.m. -Restart carb controlled diet -CT of the head was negative for any acute processes -TSH is abnormally high and free T4 in 3 are low--> patient is on levothyroxine at baseline -Continue home levothyroxine as I suspect the patient is not taking this as ordered -Repeat TSH in 4 to 6 weeks -PT OT following -Continue IV fluids but decrease rate -Continue home cardiac medications - was updated by POTATO PEELING MACHINE OPERATOR earlier today--> she will now be able to visit again since he has been transferred out of the intensive care unit Charges/Coding Visit Charges Inpatient E&M: 60378 Subs Hosp L2
[2020-12-25] MEDS: Famotidine 20 MG Tablet PO ×2 (11:39→21:39)
[2020-12-25] MEDS: APIXABAN 2.5 MG TABLET PO ×2 (11:40→21:40)
[2020-12-25] MEDS: Citalopram 40 MG TABLET PO (11:40)
[2020-12-25] MEDS: Metoprolol(XL)Succ 50 MG Tablet PO (11:48)
[2020-12-25 14:54] LABS: Anion Gap 7 (5-15); BUN 9 mg/dL (7-18); BUN/Creat Ratio 13.9 RATIO (10-20); Calcium,Total 7.8 mg/dL (8.5-10.1); Chloride 101 mmol/L (98-107); Creatinine, Serum 0.65 mg/dL (0.70-1.30); EST Glomerular Filtration Rate 136 mL/min (>60); Est Glom Filt Rate - Afr Amer 165 mL/min (>60); Estimated Creatinine Clearance 121.47 ml/min; Glucose 239 mg/dL (74-106); Potassium 3.5 mmol/L (3.5-5.1); Sodium Level 133 mmol/L (136-145)
[2020-12-25 15:51] LABS: Bedside Glucose 243 mg/dL (70-110)
--- NOTE | 2020-12-25 18:14 | NURSING ---
1809 into pt room, patient pulled IV out and pox probe off finger. Changed gown and sheets. will replace IV and apply new pox probe. Adama Christie RN
[2020-12-25 18:25] LABS: Bedside Glucose 256 mg/dL (70-110)
[2020-12-25] MEDS: Acetaminophen 325 MG Tablet 650 MG PO (20:16)
[2020-12-25] MEDS: LORazepam 1 MG Tablet PO (20:16)
[2020-12-25] MEDS: Lisinopril 5 MG Tablet PO (21:39)
[2020-12-25] MEDS: QUEtiapine 100 MG Tablet 200 MG PO (21:39)
[2020-12-25] MEDS: LORazepam 0.5 MG Tablet PO (21:40)
[2020-12-25] MEDS: Nortriptyline 25 MG Capsule 50 MG PO (21:41)
[2020-12-25 21:50] LABS: Bedside Glucose 352 mg/dL (70-110)
[2020-12-26] VITALS (7 sets, daily range): BP systolic 134–155; BP diastolic 63–86; PULSE 81–89; RESP 16–17; TEMP 36.4–36.9; O2SAT 96–98
[2020-12-26] MEDS: LORazepam 1 MG Tablet PO (01:04)
[2020-12-26] MEDS: Lactated Ringers 1,000 ML 50 ML IV ×2 (04:51→23:09)
[2020-12-26] MEDS: Phenobarbital 32.4 MG Tablet 64.8 MG PO (06:42)
[2020-12-26] MEDS: Levothyroxine 125 MCG Tablet PO (06:43)
[2020-12-26 06:50] LABS: Bedside Glucose 136 mg/dL (70-110)
[2020-12-26 07:12] LABS: Absolute Lymphocyte Count 0.94 X10^3/uL (0.83-4.51); Absolute Neutrophil Count 3.2 X10^3/uL (2.0-7.7); Basophil# 0.03 X10^3/uL; Basophil% 0.6 % (0-1); Eosinophil# 0.28 X10^3/uL; Eosinophils% 5.4 % (0-5); Hematocrit 29.7 % (40-54); Hemoglobin 10.2 g/dL (13.0-16.5); Lymphocyte # 0.94 X10^3/ul (0.83-4.51); Lymphocyte % 18.2 % (19-41); Mean Corp Hgb Conc 34.3 g/dL (32-36); Mean Corpuscular Hgb 33.8 pg (27.0-32.0); Mean Corpuscular Volume 98.3 fL (80-94); Mean Platelet Vol. 10.1 fl (6.2-12.0); Monocyte# 0.68 X10^3/uL; Monocyte% 13.2 % (0-10); NRBC Flagged by Analyzer 0 % (0-5); Neutrophil # 3.22 X10^3/uL (2.7-7.7); Neutrophil % 62.2 % (47-70); Platelet Count 189 K/mm3 (150-450); RBC Distribution Width CV 12.9 % (11.6-14.6); RBC Distribution Width SD 46.5 fl (35.1-43.9); Red Blood Count 3.02 M/mm3 (4.6-6.2); White Blood Count 5.2 K/mm3 (4.4-11.0)
[2020-12-26 07:38] LABS: Anion Gap 6 (5-15); BUN 6 mg/dL (7-18); BUN/Creat Ratio 11.2 RATIO (10-20); Calcium,Total 7.9 mg/dL (8.5-10.1); Chloride 104 mmol/L (98-107); Creatinine, Serum 0.54 mg/dL (0.70-1.30); EST Glomerular Filtration Rate 169 mL/min (>60); Est Glom Filt Rate - Afr Amer 205 mL/min (>60); Estimated Creatinine Clearance 146.21 ml/min; Glucose 120 mg/dL (74-106); Sodium Level 137 mmol/L (136-145)
--- NOTE | 2020-12-26 08:09 | NURSING ---
spoke with update given.
[2020-12-26] MEDS: APIXABAN 2.5 MG TABLET PO ×2 (08:33→23:10)
[2020-12-26] MEDS: Aspirin E.C. 81 MG Tablet PO (08:33)
[2020-12-26] MEDS: Potassium Chloride Oral Tablet 20 MEQ 60 MEQ PO (08:33)
[2020-12-26] MEDS: Citalopram 40 MG TABLET PO (08:34)
[2020-12-26] MEDS: Metoprolol(XL)Succ 50 MG Tablet PO (08:34)
[2020-12-26] MEDS: Famotidine 20 MG Tablet PO ×2 (08:34→23:13)
[2020-12-26] MEDS: Multivitamins,Ther W-Minerals Tablet 1 TABLET PO (08:34)
--- NOTE | 2020-12-26 10:11 | NURSING ---
pt refused to eat breakfast this am.
[2020-12-26] MEDS: Insulin Lispro 100 UNIT/ML INSULN.PEN SC ×3 (11:16→23:11)
[2020-12-26 11:31] LABS: Bedside Glucose 229 mg/dL (70-110)
--- NOTE | 2020-12-26 12:08 | PN.HOSP_ITS ---
Documented by User: Patricia Solomon NP, RELOCATION DIRECTOR-C 12/26/20 12:20 Subjective Subjective Patient seen and examined. Continues to be more alert today. States he is in the hospital. Unable to correctly state month, year. Remains more alert during conversation compared to prior exam. Objective Data Objective Data Vital Signs: Vital Signs Temp Pulse Resp BP Pulse Ox 98.4 F 83 16 150/78 H 98 12/26/20 11:28 12/26/20 11:28 12/26/20 11:28 12/26/20 11:28 12/26/20 11:28 Oxygen Flow Rate (L/min) 2 Oxygen Delivery Method Room Air Weight: 177 lb Body Mass Index (BMI) 27.6 Intake & Output: Intake and Output for Last 24 Hours 12/24/20 12/25/20 12/26/20 23:59 23:59 23:59 Intake Total 4746.48 / 4746.48 2449.96 / 2449.96 386.67 / 386.67 Output Total 1200 / 1200 2300 / 2300 1650 / 1650 Balance 3546.48 / 3546.48 149.96 / 149.96 -1263.33 / -1263.33 Lab / Micro Data Result Diagrams: 12/26/20 06:05 12/26/20 06:05 Labs: Laboratory Results - last 24 hr 12/25/20 13:36: POC Glucose 243 H 12/25/20 14:30: Sodium 133 L, Potassium 3.5, Chloride 101, Carbon Dioxide 25.0, Anion Gap 7, BUN 9, Creatinine 0.65 L, Estim Creat Clear Calc 121.47, Est GFR (MDRD) Af Amer 165, Est GFR (MDRD) Non-Af 136, BUN/Creatinine Ratio 13.9, Glucose 239 H, Calcium 7.8 L 12/25/20 16:53: POC Glucose 256 H 12/25/20 21:45: POC Glucose 352 H 12/26/20 06:05: WBC 5.2, RBC 3.02 L, Hgb 10.2 L, Hct 29.7 L, MCV 98.3 H, MCH 33.8 H, MCHC 34.3, RDW Std Deviation 46.5 H, RDW Coeff of Gabrielle 12.9, Plt Count 189, MPV 10.1, Immature Gran % (Auto) 0.400, Neut % (Auto) 62.2, Lymph % (Auto) 18.2 L, Marinette % (Auto) 13.2 H, Eos % (Auto) 5.4 H, Baso % (Auto) 0.6, Absolute Ne uts (auto) 3.2, Absolute Lymphs (auto) 0.94, Nucleated RBC % 0 12/26/20 06:05: Sodium 137, Potassium 3.0 L, Chloride 104, Carbon Dioxide 27.0, Anion Gap 6, BUN 6 L, Creatinine 0.54 L, Estim Creat Clear Calc 146.21, Est GFR (MDRD) Af Amer 205, Est GFR (MDRD) Non-Af 169, BUN/Creatinine Ratio 11.2, Glucose 120 H, Calcium 7.9 L 12/26/20 06:46: POC Glucose 136 H 12/26/20 11:12: POC Glucose 229 H Micro: Microbiology 12/21/20 17:05 Interface Orders SARS-CoV-2 Antigen (Rapid) - Final Physical Exam Const alert and no apparent distress Orientation / Consciousness: awake and oriented to place HEENT normocephalic Mouth: dry mucous membranes Eyes PERRL, EOMs intact bilaterally and conjunctivae normal Neck no lymphadenopathy Resp normal respiratory effort and clear to auscultation bilaterally Cardio regular rate, regular rhythm and no murmurs Peripheral Pulses: pulses 2+ throughout GI normal to inspection, nondistended, normoactive bowel sounds, non-tender and non-distended Extremity normal to inspection Skin no rashes or lesions noted Skin Narrative: Right lower extremity dressing intact Lesions: no lesions Rashes: no rashes Trauma: no lacerations or abrasions Neuro CN's II-XII intact bilaterally, no focal motor deficits, no sensory deficits noted and deep tendon reflexes 2+ bilaterally Psych mental status grossly normal and affect normal Assessment & Plan Assessment/Plan (1) Metabolic encephalopathy: PLAN: 1. Acute traumatic right comminuted fracture of tibia/fibula, secondary to mechanical fall prior to admission-orthopedic surgery on consult. Underwent right tibia intramedullary rodding 12/22/2020. PT/OT. Patient has a chronic history of falls, multifactorial due to autonomic dysfunction and chronic alcohol abuse. Eliquis for DVT prophylaxis. 2. Mild DKA in the setting of type 1 diabetes mellitus with autonomic [id number] with sliding scale insulin. Patient has insulin pump however currently not in place. Cover with additional Lantus and sliding scale. DKA resolved. Continue close glucose/BMP monitoring. 3. Alcohol withdrawal, chronic alcohol abuse- CIWA/Ativan protocol. Medical stabilization per protocol including phenobarbital taper. Folic acid, thiamine, multivitamin supplementation. 4. Acute metabolic encephalopathy-secondary to alcohol withdrawal, mild DKA possibly contributing as well. Continue treatment of underlying processes. Brain CT negative for acute process. UA unremarkable. 5. CAD/ischemic cardiomyopathy/history of stent placement-preoperative echocardiogram completed which demonstrated an EF of 50% and mild segmental wall motion abnormality. Not on aspirin, statin. Continue beta-rolando, lisinopril. 6. Hypertension-stable, continue metoprolol, lisinopril. 7. Hyperlipidemia-does not appear to be on statin. Outpatient follow-up 8. Hypothyroidism-TSH 19.2. T4 0.66. Suspect due to noncompliance with Synthroid regimen. Resume home Synthroid and repeat TSH in 4 to 6 weeks. DVT prophylaxis-Eliquis per Ortho Discharge plan: Follow PT recommendations, rehab versus home therapies pending resolve of acute alcohol withdrawal/improved mental status. This patient was seen by ERNESTO MontalvoC under the supervision of Dr. Childers. Documented by User: Dr. Zenaida Childers DO 12/26/20 12:53 Subjective Subjective This patient was seen in conjunction with Patricia Solomon NP. The following is a representation my independent history and physical examination. Please see below for any addendum to the above. Patient is more awake and interactive today. Still impulsive but improved in the last 24 to 48 hours. Is oriented to self and place. No significant overnight issues Objective Data Lab / Micro Data Result Diagrams: 12/26/20 06:05 12/26/20 06:05 Physical Exam Const alert and no apparent distress Constitutional Narrative: Patient drowsy but more awake and interactive than he had been in the last 24 to 48 hours, did engage with conversation and follows all commands well Orientation / Consciousness: awake, oriented to place, confused and disoriented Exam Limitations: no limitations Nutritional Appearance: overweight HEENT normocephalic and head/scalp atraumatic HEENT Narrative: Mallampati 3, no thrush noted Head and Scalp: normocephalic Resp normal respiratory effort, no retractions, no use of accessory muscles and clear to auscultation bilaterally Resp Narrative: Diminished but clear Cardio regular rate, regular rhythm, S1 normal heart sound, S2 normal heart sound, no murmurs, no rub, no gallops, no clicks and no JVD Cardio Narrative: Tachycardia has resolved Peripheral Pulses: pulses 2+ throughout GI normal to inspection, nondistended, normoactive bowel sounds, soft to palpation, non-tender and non-distended Extremity normal to inspection Extremity Narrative: splint in place with Eric bandage securing splint, cap refill is 2+, no cyanosis or clubbing, pedal pulses 2+ on left unable to palpate on right secondary to bandaging Peripheral Pulses: Yes pulses 2+ throughout Skin Skin Narrative: Right lower extremity dressing intact Lesions: no lesions Rashes: no rashes Trauma: no lacerations or abrasions Neuro moves all extremities, no focal motor deficits and deep tendon reflexes 2+ bilaterally Neuro Narrative: Sleeping but awakens much more easily and much more interactive than he has been, orientation seems to be improving Sensorium / Orientation: awake and alert Psych mental status grossly normal and affect normal Psych Narrative: Patient remains confused and intermittently impulsive Activity / Motor Behavior: restless Assessment & Plan Assessment/Plan (1) Metabolic encephalopathy: (2) Acute hypoactive alcohol withdrawal delirium: (3) Fall: (4) Comminuted fracture of shaft of tibia: QUALIFIERS: Encounter type: initial encounter Fracture type: closed Fracture alignment: displaced Laterality: right Qualified Code(s): S82.251A - Displaced comminuted fracture of shaft of right tibia, initial encounter for closed fracture PLAN: ASSESSMENT: Acute traumatic comminuted fracture of the left tibia and fibula Mechanical fall DM-1 Hypokalemia Autonomic dysfunction Chronic alcohol abuse Alcohol intoxication upon presentation CAD Ischemic cardiomyopathy Hypertension Hyperlipidemia Hypothyroidism Hyperbilirubinemia History of intracranial hemorrhage per Mild acute anemia in the postoperative period Plan: -Echocardiogram showed an EF of 50% and mild segmental wall motion abnormality -Placed and was cleared by cardiology and taken the OR this afternoon for repair of his left tib-fib fracture -Continue phenobarbital for alcohol withdrawal and wean as ordered--> patient completes taper tomorrow -Continue as needed Ativan but decreased to 1 mg every 8 hours from 1 mg every 4 hours -Will discuss RAMP further when patient is more awake -Patient is typically on insulin pump but with mental status alteration and for his safety this was discontinued -Typical basal rate from his pump is 24 but p.o. intake is limited at this time -Increase Lantus to 10 units twice daily -Change to high-dose sliding scale -Continue daily BMPs -Replace potassium -TSH is abnormally high and free T4 in 3 are low--> patient is on levothyroxine at baseline -Continue home levothyroxine as I suspect the patient is not taking this as ordered -Repeat TSH in 4 to 6 weeks -PT OT following -We will stop IV fluids -Continue home cardiac medications Charges/Coding Visit Charges Inpatient E&M: 86712 Subs Hosp L2
[2020-12-26] MEDS: Phenobarbital 32.4 MG Tablet PO ×3 (12:27→23:10)
--- NOTE | 2020-12-26 15:47 | CASEMGMT ---
Pt screened with [facility] Palliative Care Screening Tool due to strata 3, pt did not meet criteria.
[2020-12-26 16:16] LABS: Bedside Glucose 268 mg/dL (70-110)
--- NOTE | 2020-12-26 22:04 | NURSING ---
Spoke with , requesting update on her
[2020-12-26] MEDS: LORazepam 0.5 MG Tablet PO (23:10)
[2020-12-26] MEDS: QUEtiapine 100 MG Tablet 200 MG PO (23:12)
[2020-12-26] MEDS: Lisinopril 5 MG Tablet PO (23:12)
[2020-12-26] MEDS: Nortriptyline 25 MG Capsule 50 MG PO (23:13)
[2020-12-26 23:21] LABS: Bedside Glucose 194 mg/dL (70-110)
[2020-12-27 03:11] VITALS: BP 125/56; PULSE 87; RESP 16; TEMP 36.6; O2SAT 98
[2020-12-27 05:55] LABS: AST(SGOT) 19 U/L (15-37); Alanine Aminotransfer ALT/SGPT 19 U/L (16-61); Albumin, Serum 2.9 g/dL (3.2-5.0); Alkaline Phosphatase 58 U/L (45-117); Anion Gap 9 (5-15); BUN 5 mg/dL (7-18); BUN/Creat Ratio 9.8 RATIO (10-20); Calcium,Total 7.8 mg/dL (8.5-10.1); Chloride 102 mmol/L (98-107); Creatinine, Serum 0.51 mg/dL (0.70-1.30); EST Glomerular Filtration Rate 179 mL/min (>60); Est Glom Filt Rate - Afr Amer 217 mL/min (>60); Estimated Creatinine Clearance 154.81 ml/min; Globulin 2.9 g/dL (2.2-4.2); Glucose 135 mg/dL (74-106); Protein, Total 5.8 g/dL (6.4-8.2); Sodium Level 137 mmol/L (136-145)
[2020-12-27] MEDS: Levothyroxine 125 MCG Tablet PO (06:01)
[2020-12-27] MEDS: Phenobarbital 32.4 MG Tablet PO (06:01)
[2020-12-27 06:16] LABS: Bedside Glucose 149 mg/dL (70-110)
[2020-12-27 08:19] VITALS: BP 156/74; PULSE 87; RESP 18; TEMP 36.8; O2SAT 94
[2020-12-27 08:29] VITALS: PULSE 90
[2020-12-27 08:34] VITALS: PULSE 90
[2020-12-27] MEDS: Famotidine 20 MG Tablet PO ×2 (08:34→22:27)
[2020-12-27] MEDS: Aspirin E.C. 81 MG Tablet PO (08:34)
[2020-12-27] MEDS: Metoprolol(XL)Succ 50 MG Tablet PO (08:34)
[2020-12-27] MEDS: Multivitamins,Ther W-Minerals Tablet 1 TABLET PO (08:35)
[2020-12-27] MEDS: APIXABAN 2.5 MG TABLET PO ×2 (08:35→22:27)
[2020-12-27] MEDS: Citalopram 40 MG TABLET PO (08:35)
[2020-12-27] MEDS: Potassium Chloride Oral Tablet 20 MEQ 60 MEQ PO (10:51)
[2020-12-27] MEDS: Insulin Lispro 100 UNIT/ML INSULN.PEN SC ×3 (10:52→22:24)
[2020-12-27] MEDS: Acetaminophen 325 MG Tablet 650 MG PO (11:03)
--- NOTE | 2020-12-27 11:42 | CASEMGMT ---
Addendum entered by Inocencia Garcia 12/27/20 15:49: TC to [facility] to schedule PT and OT evals. PT is on 01/05 at 11am and OT eval is on 01/09 at 1130. Addendum entered by Inocencia Garcia 12/27/20 11:43: NEELAM JAQUEZ back into room to verify that pt does indeed have a BGM and supplies at home. Pt states he does and he checks his blood sugars. Original Note: NEELAM JAQUEZ in to pt room with JULIANA Lai to discuss dc planning. Pt agreeable to outpt therapy. He states he has gone to [facility] before and would prefer to go back. His will transport him.
[2020-12-27 12:01] LABS: Bedside Glucose 380 mg/dL (70-110)
--- NOTE | 2020-12-27 12:15 | CASEMGMT ---
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 JULIANA and RN GISELE in to speak with pt and pt's Sabrina present in room. RN GISELE discussed discharge plans. Pt and Sabrina agreeable to home with outpatient therapy, Sabrina to provide transportation. SW spoke with pt about ETOH resources. Pt agreeable to taking resources and looking at them. SW also spoke with pt about bereavement resources. Pt also agreeable to taking bereavement/grief resources, states both him and his could use bereavement/grief resources. SW informed pt and Sabrina that this worker will look up resources and provide to pt/Sabrina. Pt states understanding. SW looked up bereavement/grief counseling resources. SW provided Sabrina with ETOH resources (including counseling resources, treatment centers, AA meetings, etc) and bereavement/grief counseling resources. Pt was in the bathroom when this worker returned with resources so that is why resources were handed to Sabrina. Sabrina asked to speak with physician, COMBINATION BUILDING INSPECTOR updated. Meri Navarrete PROBATE LAWYER, SURGERY CENTER ADMINISTRATOR
--- NOTE | 2020-12-27 13:21 | PCM.PN.HOSP ---
Documented by User: Patricia Solomon NP, MANNEQUIN MOUNTER-C 12/27/20 13:31 Subjective Subjective Patient seen and examined. Mental status significantly improved at this time however intermittently not making sense during conversation. at bedside. Concerned with taking him home however patient refusing rehab. Objective Data Objective Data Vital Signs: Vital Signs Temp Pulse Resp BP Pulse Ox 98.3 F 90 18 156/74 H 94 12/27/20 08:19 12/27/20 08:34 12/27/20 08:19 12/27/20 08:19 12/27/20 08:19 Oxygen Flow Rate (L/min) 2 Oxygen Delivery Method Room Air Weight: 168 lb 10.458 oz Body Mass Index (BMI) 27.6 Intake & Output: Intake and Output for Last 24 Hours 12/25/20 12/26/20 12/27/20 23:59 23:59 23:59 Intake Total 2449.96 / 2449.96 2251.67 / 2251.67 300 / 300 Output Total 2300 / 2300 2650 / 2650 Balance 149.96 / 149.96 -398.33 / -398.33 300 / 300 Lab / Micro Data Result Diagrams: 12/26/20 06:05 12/27/20 05:06 Labs: Laboratory Results - last 24 hr 12/26/20 16:02: POC Glucose 268 H 12/26/20 23:08: POC Glucose 194 H 12/27/20 05:06: Sodium 137, Potassium 3.0 L, Chloride 102, Carbon Dioxide 26.0, Anion Gap 9, BUN 5 L, Creatinine 0.51 L, Estim Creat Clear Calc 154.81, Est GFR (MDRD) Af Amer 217, Est GFR (MDRD) Non-Af 179, BUN/Creatinine Ratio 9.8 L, Glucose 135 H, Calcium 7.8 L, Total Bilirubin 0.50, AST 19, ALT 19, Alkaline Phosphatase 58, Total Protein 5.8 L, Albumin 2.9 L, Globulin 2.9, Albumin/Globulin Ratio 1.0 12/27/20 06:05: POC Glucose 149 H 12/27/20 10:50: POC Glucose 380 H Micro: Microbiology 12/21/20 17:05 Interface Orders SARS-CoV-2 Antigen (Rapid) - Final Physical Exam Const alert, oriented x3 and no apparent distress Orientation / Consciousness: awake, oriented to person, oriented to place and oriented to time HEENT normocephalic and moist oral mucous membranes Eyes PERRL, EOMs intact bilaterally and conjunctivae normal Neck no lymphadenopathy Resp normal respiratory effort and clear to auscultation bilaterally Cardio regular rate, regular rhythm and no murmurs Peripheral Pulses: pulses 2+ throughout GI normal to inspection, nondistended, normoactive bowel sounds, non-tender and non-distended Extremity normal to inspection Extremity Narrative: Right lower extremity dressing intact. Skin no rashes or lesions noted Lesions: no lesions Rashes: no rashes Trauma: no lacerations or abrasions Neuro CN's II-XII intact bilaterally, no focal motor deficits, no sensory deficits noted and deep tendon reflexes 2+ bilaterally Psych mental status grossly normal and affect normal Assessment & Plan Assessment/Plan (1) Metabolic encephalopathy: PLAN: 1. Acute traumatic right comminuted fracture of tibia/fibula, secondary to mechanical fall prior to admission-orthopedic surgery on consult. Underwent right tibia intramedullary rodding 12/22/2020. PT/OT. Patient has a chronic history of falls, multifactorial due to autonomic dysfunction and chronic alcohol abuse. Eliquis for DVT prophylaxis. 2. Mild DKA in the setting of type 1 diabetes mellitus with autonomic dysfunction-DKA resolved. Plan to resume home insulin pump now that patient is coherent. Accu-Cheks. 3. Alcohol withdrawal, chronic alcohol abuse- CIWA/Ativan protocol. Medical stabilization per protocol, completed phenobarbital taper. Folic acid, thiamine, multivitamin supplementation. Patient given outpatient resources however not amendable to alcohol rehab. 4. Acute metabolic encephalopathy-secondary to alcohol withdrawal. Significantly improved. Brain CT negative for acute process. UA unremarkable. 5. CAD/ischemic cardiomyopathy/history of stent placement-preoperative echocardiogram completed which demonstrated an EF of 50% and mild segmental wall motion abnormality. Not on aspirin, statin. Continue beta-rolando, lisinopril. 6. Hypertension-stable, continue metoprolol, lisinopril. 7. Hyperlipidemia-does not appear to be on statin. Outpatient follow-up 8. Hypothyroidism-TSH 19.2. T4 0.66. Suspect due to noncompliance with Synthroid regimen. Resume home Synthroid and repeat TSH in 4 to 6 weeks. DVT prophylaxis-Eliquis per Ortho Discharge plan: Plan for home on 12/28/2020 if continued improvement in mental status. Declines SNF at this time. Resume home insulin pump and monitor blood glucose. This patient was seen by GUS Montalvo under the supervision of Dr. Dodson. Documented by User: Dr. Vladimir Dodson MD 12/27/20 15:11 Objective Data Lab / Micro Data Result Diagrams: 12/26/20 06:05 12/27/20 05:06 Charges/Coding Addendum Addendum: Dr. Dodson: I personally reviewed the chart and examined the patient, and agree with the above findings. 55-year-old male with a history of type 1 diabetes as well as alcoholism presents to the hospital after mechanical fall with an acute right traumatic comminuted fracture of the tibia and fibula. He did have this repaired on 12/22/2020. He is doing well with physical therapy and would like to go home when he is able to. He does not want to follow-up with 180 as an outpatient for his alcohol withdrawal, he thinks that he will be able to manage this on his own at home. He also did have mild DKA but did get his insulin comes back up and feels like he should be okay with this as well on discharge. He does feel like his fogginess in his confusion is clearing up and is doing much better today. We will continue to follow and assess for any ongoing needs, hopefully can plan for discharge in the next day or so. Visit Charges Inpatient E&M: 19066 Subs Hosp L2
[2020-12-27 14:40] VITALS: BP 153/81; PULSE 81; RESP 16; TEMP 36.9; O2SAT 94
[2020-12-27 16:20] LABS: Bedside Glucose 251 mg/dL (70-110)
--- NOTE | 2020-12-27 17:52 | NURSING ---
Administered 6 units of NovoLog and 1 unit every hour per .
--- NOTE | 2020-12-27 17:57 | NURSING ---
Pt unable to self administer from his own machine.
[2020-12-27 19:33] LABS: Anion Gap 4 (5-15); BUN 8 mg/dL (7-18); BUN/Creat Ratio 10.7 RATIO (10-20); Calcium,Total 8.4 mg/dL (8.5-10.1); Chloride 99 mmol/L (98-107); Creatinine, Serum 0.75 mg/dL (0.70-1.30); EST Glomerular Filtration Rate 115 mL/min (>60); Est Glom Filt Rate - Afr Amer 139 mL/min (>60); Estimated Creatinine Clearance 105.27 ml/min; Glucose 358 mg/dL (74-106); Potassium 4.2 mmol/L (3.5-5.1); Sodium Level 133 mmol/L (136-145)
[2020-12-27 22:15] VITALS: BP 149/82; PULSE 93; RESP 17; TEMP 37; O2SAT 99
[2020-12-27] MEDS: Lisinopril 5 MG Tablet PO (22:27)
[2020-12-27] MEDS: LORazepam 0.5 MG Tablet PO (22:27)
[2020-12-27] MEDS: Nortriptyline 25 MG Capsule 50 MG PO (22:27)
[2020-12-27] MEDS: QUEtiapine 100 MG Tablet 200 MG PO (22:28)
[2020-12-27 22:36] LABS: Bedside Glucose 312 mg/dL (70-110)
[2020-12-28 03:58] VITALS: BP 139/84; PULSE 80; RESP 16; TEMP 36.6; O2SAT 97
[2020-12-28] MEDS: Levothyroxine 125 MCG Tablet PO (06:24)
[2020-12-28] MEDS: Insulin Lispro 100 UNIT/ML INSULN.PEN SC ×2 (06:24→10:26)
[2020-12-28 06:30] LABS: Bedside Glucose 157 mg/dL (70-110)
[2020-12-28 07:27] LABS: Absolute Lymphocyte Count 1.93 X10^3/uL (0.83-4.51); Absolute Neutrophil Count 3.7 X10^3/uL (2.0-7.7); Basophil# 0.06 X10^3/uL; Basophil% 0.9 % (0-1); Eosinophil# 0.29 X10^3/uL; Eosinophils% 4.3 % (0-5); Hematocrit 32.7 % (40-54); Hemoglobin 11.7 g/dL (13.0-16.5); Lymphocyte # 1.93 X10^3/ul (0.83-4.51); Lymphocyte % 28.3 % (19-41); Mean Corp Hgb Conc 35.8 g/dL (32-36); Mean Corpuscular Hgb 34.8 pg (27.0-32.0); Mean Corpuscular Volume 97.3 fL (80-94); Mean Platelet Vol. 10.1 fl (6.2-12.0); Monocyte# 0.76 X10^3/uL; Monocyte% 11.1 % (0-10); NRBC Flagged by Analyzer 0 % (0-5); Neutrophil # 3.72 X10^3/uL (2.7-7.7); Neutrophil % 54.5 % (47-70); Platelet Count 260 K/mm3 (150-450); RBC Distribution Width SD 46.1 fl (35.1-43.9); Red Blood Count 3.36 M/mm3 (4.6-6.2); White Blood Count 6.8 K/mm3 (4.4-11.0)
[2020-12-28 07:43] VITALS: BP 141/78; PULSE 79; RESP 15; TEMP 36.4; O2SAT 100
[2020-12-28 07:45] VITALS: PULSE 79
[2020-12-28 07:58] LABS: Anion Gap 5 (5-15); BUN 6 mg/dL (7-18); BUN/Creat Ratio 9.8 RATIO (10-20); Calcium,Total 8.3 mg/dL (8.5-10.1); Chloride 101 mmol/L (98-107); Creatinine, Serum 0.62 mg/dL (0.70-1.30); EST Glomerular Filtration Rate 145 mL/min (>60); Est Glom Filt Rate - Afr Amer 175 mL/min (>60); Estimated Creatinine Clearance 127.34 ml/min; Glucose 153 mg/dL (74-106); Potassium 3.1 mmol/L (3.5-5.1); Sodium Level 138 mmol/L (136-145)
[2020-12-28] MEDS: Aspirin E.C. 81 MG Tablet PO (08:15)
[2020-12-28] MEDS: Multivitamins,Ther W-Minerals Tablet 1 TABLET PO (08:15)
[2020-12-28] MEDS: Citalopram 40 MG TABLET PO (08:37)
[2020-12-28] MEDS: APIXABAN 2.5 MG TABLET PO (08:38)
[2020-12-28] MEDS: Famotidine 20 MG Tablet PO (08:39)
[2020-12-28 08:40] VITALS: PULSE 79
[2020-12-28] MEDS: Metoprolol(XL)Succ 50 MG Tablet PO (08:40)
[2020-12-28] MEDS: Acetaminophen 325 MG Tablet 650 MG PO (08:42)
[2020-12-28 10:16] LABS: Bedside Glucose 291 mg/dL (70-110)
[2020-12-28] MEDS: Potassium Chloride Oral Tablet 20 MEQ 60 MEQ PO (10:22)
--- NOTE | 2020-12-28 11:39 | PCM.DC ---
Discharge Instructions Diet Discharge Diet: Carb Control Diet Activity Discharge Activity: Return to Normal Activity Additional Activity Instructions:: 50% right lower extremity weightbearing status. Ice and elevation when not ambulating. Dressing / Incision Call your doctor if you observe: Shortness of breath, Dizziness and Chest pain Additional Dressing/Incision Instructions:: May change right lower extremity dressing daily Follow Up Care Test Results: Test results from this visit will be discussed in further detail at your follow-up appointment, if applicable. Discharge Plan Admission Admit Date/Time: 12/21/20 18:21 Primary Reason for Your Visit: Alcohol withdrawal, acute traumatic right fracture of tibia/fibula Attending Provider: Vladimir Dodson Primary Care Provider: Yassine Bui Consulting Providers: Yassine Dawn ; Deejay Nance Instructions Additional Instructions / Restrictions: You will need repeat thyroid function labs within 1 month which can be completed by primary care provider. Discharge Orders/Prescriptions Prescriptions: New Eliquis 2.5 mg Tablet 2.5 mg PO BID Qty: 20 RF: 0 potassium chloride [K-Tab] 20 mEq tablet extended release 20 meq PO DAILY Qty: 30 RF: 0 Continued levothyroxine 125 mcg tablet 125 mcg PO DAILY RF: 0 nortriptyline 50 mg capsule 50 mg PO QHS RF: 0 quetiapine [Seroquel XR] 200 mg tablet extended release 24 hr 200 mg PO QPM RF: 0 multivitamin [Daily Multi-Vitamin] Tablet 1 tablet PO DAILY RF: 0 nitroglycerin 0.4 mg tablet, sublingual 0.4 mg SUBLINGUAL Q5M PRN (Reason: Cardiac/Chest Pain) Qty: 25 RF: 3 citalopram 40 MG tablet 40 mg PO DAILY RF: 0 insulin aspart U-100 100 UNIT/ML solution 1.1 unit Continuous Subcutaneous Infusion UD RF: 0 acetaminophen 500 MG tablet 1,000 mg PO Q6H PRN Qty: 100 RF: 0 metoprolol succinate 50 mg tablet extended release 24 hr See Rx Instructions .ROUTE .COMPLEX Qty: 90 RF: 3 lisinopril 5 mg tablet 5 mg PO QPM Qty: 90 RF: 3 Referrals / Follow Up: Dante Parnell MD [STAFF PHYSICIAN] - See Referral Note (As scheduled) Deejay Nance DO [STAFF PHYSICIAN] - In 1 Week Yassine Bui MD [Primary Care Provider] - In 1 Week (will need repeat BMP to check potassium ) Disposition Disposition (needs filled in before D/C Order can be placed): Home, Self Care
[2020-12-28 11:53] VITALS: BP 141/77; PULSE 90; RESP 15; TEMP 36.6; O2SAT 100
--- NOTE | 2020-12-28 12:01 | PCM.DC.SUM ---
Documented by User: Patricia Solomon NP, [employer]ER-C 12/28/20 12:18 Providers Date of Admission: 12/21/20 Date of Discharge: 12/28/20 Primary Care Physician: Dr. Yassine Bui MD Consultations 12/21/20 18:34 Consult: Cardiology Routine Consulting Provider: Yassine Dawn Reason for Consult: pre op clearance EMERGENT Consult: No Notified: Yes Date Notified: 12/21/20 Time Notified: 18:13 Method of Notification: Verbal Method of Consult:: In-Person Consult: Orthopedics Routine Consulting Provider: Deejay Nance Reason for Consult: tib/fib fracture EMERGENT Consult: No Notified: Yes Date Notified: 12/21/20 Time Notified: 18:14 Method of Notification: Verbal Method of Consult:: In-Person Reason For Visit: RIGHT TIB/FIB FRACTURE Diagnosis Discharge Diagnosis (1) Metabolic encephalopathy: Status: Acute Code(s): G93.41 - Metabolic encephalopathy Medications at Discharge Home Medications citalopram 40 mg PO DAILY 03/18/13 insulin aspart U-100 100 unit/mL subcutaneous solution 1.1 unit CONTINUOUS SUBCUTANEOUS INFUSION UD 06/07/17 nortriptyline 50 mg capsule 50 mg PO QHS 01/28/19 quetiapine 200 mg tablet,extended release 24 hr 200 mg PO QPM 01/28/19 levothyroxine 125 mcg tablet 125 mcg PO DAILY tab 07/28/19 acetaminophen 1,000 mg PO Q6H PRN #100 tab 06/10/20 multivitamin 1 tablet PO DAILY 08/10/20 nitroglycerin 0.4 mg sublingual tablet 0.4 mg SUBLINGUAL Q5M PRN #25 tablet 08/10/20 metoprolol succinate 50 mg tablet,extended release 24 hr See Rx Instructions .ROUTE .COMPLEX #90 tab 09/14/20 lisinopril 5 mg tablet 5 mg PO QPM #90 tablet 10/19/20 apixaban [Eliquis] 2.5 mg PO BID #20 tab 12/28/20 potassium chloride [K-Tab] 20 meq PO DAILY #30 tab 12/28/20 Hospital Course Operations - (right tibia intramedullary rodding 12/22/2020) Procedures 2-D Echocardiogram Summary of Care Provided Minutes Spent on Discharge: 35 Hospital Course: Patient is a 55-year-old male admitted 12/21/2020 due to right femur and right fibula fracture. 1. Acute traumatic right comminuted fracture of tibia/fibula, secondary to mechanical fall prior to admission-Underwent right tibia intramedullary rodding 12/22/2020. Patient has a chronic history of falls, multifactorial due to autonomic dysfunction and chronic alcohol abuse. Eliquis for DVT prophylaxis X2 weeks. Outpatient PT at discharge. Follow-up with orthopedic surgery in 1 week at discharge. Due to recurrent fractures, asking for outpatient DEXA scan. Instructed to discuss with orthopedic medicine/PCP on an outpatient basis. Vitamin D pending at [facility]. 2. Mild DKA in the setting of type 1 diabetes mellitus with autonomic dysfunction-DKA resolved. Resume home insulin pump at discharge. 3. Alcohol withdrawal, chronic alcohol abuse- CIWA/Ativan protocol during admission. Medical stabilization per protocol, completed phenobarbital taper. Patient given outpatient resources however not amendable to alcohol rehab. Encouraged outpatient follow-up. 4. Acute metabolic encephalopathy-secondary to alcohol withdrawal. Brain CT negative for acute process. UA unremarkable. Patient required extended stay due to significant metabolic encephalopathy related to alcohol withdrawal. Mental status at baseline at discharge. 5. CAD/ischemic cardiomyopathy/history of stent placement-preoperative echocardiogram completed which demonstrated an EF of 50% and mild segmental wall motion abnormality. Not on aspirin, statin. Continue beta-rolando, lisinopril. Recommend daily baby aspirin following completion of Eliquis. 6. Hypertension-stable, continue metoprolol, lisinopril. 7. Hyperlipidemia-does not appear to be on statin. Outpatient follow-up 8. Hypothyroidism-TSH 19.2. T4 0.66. Suspect due to noncompliance with Synthroid regimen. Resume home Synthroid and repeat TSH within 4 weeks by primary care provider. Physical Exam Const alert, oriented x3 and no apparent distress Orientation / Consciousness: awake, oriented to person, oriented to place and oriented to time HEENT normocephalic and moist oral mucous membranes Eyes PERRL, EOMs intact bilaterally and conjunctivae normal Neck no lymphadenopathy Resp normal respiratory effort and clear to auscultation bilaterally Cardio regular rate, regular rhythm and no murmurs Peripheral Pulses: pulses 2+ throughout GI normal to inspection, nondistended, normoactive bowel sounds, non-tender and non-distended Extremity normal to inspection Extremity Narrative: Right lower extremity dressing intact. Skin no rashes or lesions noted Lesions: no lesions Rashes: no rashes Trauma: no lacerations or abrasions Neuro CN's II-XII intact bilaterally, no focal motor deficits, no sensory deficits noted and deep tendon reflexes 2+ bilaterally Psych mental status grossly normal and affect normal Patient seen and examined prior to discharge. Physical assessment as noted above. Patient is stable for discharge with follow up recommendations as noted above. This patient was seen by GUS Montalvo under the supervision of Dr. Dodson. Weight / BMI Weight Weight: 163 lb 2.273 oz Body Mass Index (BMI) 27.6 ABG / Lab / Microbiology Data Result Diagrams: 12/28/20 06:05 12/28/20 06:05 Laboratory: Laboratory Results - last 24 hr 12/27/20 10:50: POC Glucose 380 H 12/27/20 16:09: POC Glucose 251 H 12/27/20 19:05: Sodium 133 L, Potassium 4.2, Chloride 99, Carbon Dioxide 30.0, Anion Gap 4 L, BUN 8, Creatinine 0.75, Estim Creat Clear Calc 105.27, Est GFR (MDRD) Af Amer 139, Est GFR (MDRD) Non-Af 115, BUN/Creatinine Ratio 10.7, Glucose 358 H, Calcium 8.4 L 12/27/20 22:22: POC Glucose 312 H 12/28/20 06:05: WBC 6.8, RBC 3.36 L, Hgb 11.7 L, Hct 32.7 L, MCV 97.3 H, MCH 34.8 H, MCHC 35.8, RDW Std Deviation 46.1 H, RDW Coeff of Gabrielle 13.0, Plt Count 260, MPV 10.1, Immature Gran % (Auto) 0.900, Neut % (Auto) 54.5, Lymph % (Auto) 28.3, Gaston % (Auto) 11.1 H, Eos % (Auto) 4.3, Baso % (Auto) 0.9, Absolute Neuts (auto) 3.7, Absolute Lymphs (auto) 1.93, Nucleated RBC % 0 12/28/20 06:05: Sodium 138, Potassium 3.1 L, Chloride 101, Carbon Dioxide 32.0, Anion Gap 5, BUN 6 L, Creatinine 0.62 L, Estim Creat Clear Calc 127.34, Est GFR (MDRD) Af Amer 175, Est GFR (MDRD) Non-Af 145, BUN/Creatinine Ratio 9.8 L, Glucose 153 H, Calcium 8.3 L 12/28/20 06:23: POC Glucose 157 H 12/28/20 10:12: POC Glucose 291 H Microbiology: Microbiology 12/21/20 17:05 Interface Orders SARS-CoV-2 Antigen (Rapid) - Final D/C Instructions Discharge Diet: Carb Control Diet Additional Activity Instructions: 50% right lower extremity weightbearing status. Ice and elevation when not ambulating. Call your doctor if you observe: Shortness of breath, Dizziness and Chest pain Additional Dressing/Incision Instructions: May change right lower extremity dressing daily Meaningful Use Info Meaningful Use Diagnoses (Choose all that apply): None applicable Discharge Plan Admission Admit Date/Time: 12/21/20 18:21 Primary Reason for Your Visit: Alcohol withdrawal, acute traumatic right fracture of tibia/fibula Attending Provider: Vladimir Dodson Primary Care Provider: Yassine Bui Consulting Providers: Yassine Dawn ; Deejay Nance Instructions Additional Instructions / Restrictions: You will need repeat thyroid function labs within 1 month which can be completed by primary care provider. Discharge Orders/Prescriptions Prescriptions: New Eliquis 2.5 mg Tablet 2.5 mg PO BID Qty: 20 RF: 0 potassium chloride [K-Tab] 20 mEq tablet extended release 20 meq PO DAILY Qty: 30 RF: 0 Continued levothyroxine 125 mcg tablet 125 mcg PO DAILY RF: 0 nortriptyline 50 mg capsule 50 mg PO QHS RF: 0 quetiapine [Seroquel XR] 200 mg tablet extended release 24 hr 200 mg PO QPM RF: 0 multivitamin [Daily Multi-Vitamin] Tablet 1 tablet PO DAILY RF: 0 nitroglycerin 0.4 mg tablet, sublingual 0.4 mg SUBLINGUAL Q5M PRN (Reason: Cardiac/Chest Pain) Qty: 25 RF: 3 citalopram 40 MG tablet 40 mg PO DAILY RF: 0 insulin aspart U-100 100 UNIT/ML solution 1.1 unit Continuous Subcutaneous Infusion UD RF: 0 acetaminophen 500 MG tablet 1,000 mg PO Q6H PRN Qty: 100 RF: 0 metoprolol succinate 50 mg tablet extended release 24 hr See Rx Instructions .ROUTE .COMPLEX Qty: 90 RF: 3 lisinopril 5 mg tablet 5 mg PO QPM Qty: 90 RF: 3 Referrals / Follow Up: Dante Parnell MD [STAFF PHYSICIAN] - See Referral Note (As scheduled) Deejay Nance DO [STAFF PHYSICIAN] - 01/04/21 10:15 am (APPOINTMENT SCHEDULED FOR 2020 AT 1015AM.) Yassine Bui MD [Primary Care Provider] - 01/05/21 10:50 am (will need repeat BMP to check potassium APPOINTMENT SCHEDULED AT 1050AM.) Disposition Disposition (needs filled in before D/C Order can be placed): Home, Self Care Documented by User: Dr. Vladimir Dodson MD 12/28/20 13:33 Providers Date of Admission: 12/21/20 Reason For Visit: RIGHT TIB/FIB FRACTURE Medications at Discharge Home Medications citalopram 40 mg PO DAILY 03/18/13 insulin aspart U-100 100 unit/mL subcutaneous solution 1.1 unit CONTINUOUS SUBCUTANEOUS INFUSION UD 06/07/17 nortriptyline 50 mg capsule 50 mg PO QHS 01/28/19 quetiapine 200 mg tablet,extended release 24 hr 200 mg PO QPM 01/28/19 levothyroxine 125 mcg tablet 125 mcg PO DAILY tab 07/28/19 acetaminophen 1,000 mg PO Q6H PRN #100 tab 06/10/20 multivitamin 1 tablet PO DAILY 08/10/20 nitroglycerin 0.4 mg sublingual tablet 0.4 mg SUBLINGUAL Q5M PRN #25 tablet 08/10/20 metoprolol succinate 50 mg tablet,extended release 24 hr See Rx Instructions .ROUTE .COMPLEX #90 tab 09/14/20 lisinopril 5 mg tablet 5 mg PO QPM #90 tablet 10/19/20 apixaban [Eliquis] 2.5 mg PO BID #20 tab 12/28/20 potassium chloride [K-Tab] 20 meq PO DAILY #30 tab 12/28/20 ABG / Lab / Microbiology Data Result Diagrams: 12/28/20 06:05 12/28/20 06:05 Discharge Plan Admission Admit Date/Time: 12/21/20 18:21 Primary Reason for Your Visit: Alcohol withdrawal, acute traumatic right fracture of tibia/fibula Attending Provider: Vladimir Dodson Primary Care Provider: Yassine Bui Consulting Providers: Yassine Dawn ; Deejay Nance Instructions Additional Instructions / Restrictions: You will need repeat thyroid function labs within 1 month which can be completed by primary care provider. Discharge Orders/Prescriptions Prescriptions: New Eliquis 2.5 mg Tablet 2.5 mg PO BID Qty: 20 RF: 0 potassium chloride [K-Tab] 20 mEq tablet extended release 20 meq PO DAILY Qty: 30 RF: 0 Continued levothyroxine 125 mcg tablet 125 mcg PO DAILY RF: 0 nortriptyline 50 mg capsule 50 mg PO QHS RF: 0 quetiapine [Seroquel XR] 200 mg tablet extended release 24 hr 200 mg PO QPM RF: 0 multivitamin [Daily Multi-Vitamin] Tablet 1 tablet PO DAILY RF: 0 nitroglycerin 0.4 mg tablet, sublingual 0.4 mg SUBLINGUAL Q5M PRN (Reason: Cardiac/Chest Pain) Qty: 25 RF: 3 citalopram 40 MG tablet 40 mg PO DAILY RF: 0 insulin aspart U-100 100 UNIT/ML solution 1.1 unit Continuous Subcutaneous Infusion UD RF: 0 acetaminophen 500 MG tablet 1,000 mg PO Q6H PRN Qty: 100 RF: 0 metoprolol succinate 50 mg tablet extended release 24 hr See Rx Instructions .ROUTE .COMPLEX Qty: 90 RF: 3 lisinopril 5 mg tablet 5 mg PO QPM Qty: 90 RF: 3 Referrals / Follow Up: Dante Parnell MD [STAFF PHYSICIAN] - See Referral Note (As scheduled) Deejay Nance DO [STAFF PHYSICIAN] - 01/04/21 10:15 am (APPOINTMENT SCHEDULED FOR 2020 AT 1015AM.) Yassine Bui MD [Primary Care Provider] - 01/05/21 10:50 am (will need repeat BMP to check potassium APPOINTMENT SCHEDULED AT 1050AM.) Disposition Disposition (needs filled in before D/C Order can be placed): Home, Self Care Charges/Coding Addendum Addendum: Dr. Dodson: I personally reviewed the chart and examined the patient, and agree with the above findings. 55-year-old male with a history of type 1 diabetes as well as alcoholism presents to the hospital after mechanical fall with an acute right traumatic comminuted fracture of the tibia and fibula. He did have this repaired on 12/22/2020. He is doing well with physical therapy and would like to go home when he is able to. He does not want to follow-up with 180 as an outpatient for his alcohol withdrawal, he thinks that he will be able to manage this on his own at home. He also did have mild DKA but did get his insulin comes back up and feels like he should be okay with this as well on discharge. He does feel like his fogginess in his confusion is clearing up and is doing much better today. We will continue to follow and assess for any ongoing needs, hopefully can plan for discharge in the next day or so. 12/28/20: Doing well today, alert and oriented x3. Eyes any significant right lower extremity pain and says that he has been doing well with physical therapy. We will continue with [facility] for DVT prophylaxis for tomorrow, he will need outpatient physical therapy at discharge extensive discussions with him and his on education for his type 1 diabetes as well as alcohol cessation. At this time does not want to meet with [facility] as an outpatient however will provide him with outpatient resources that he can choose to explore on his own schedule. I did discuss with him the plan for discharge today and he expressed understanding of the risk benefits going home and would like to go home today. Visit Charges Inpatient E&M: 11269 Disch Hosp
[2020-12-28 12:06] LABS: Bedside Glucose 290 mg/dL (70-110)
[2020-12-28 14:17] LABS: Vitamin D,25 Hydroxy 39.5 ng/mL
--- NOTE | 2020-12-28 14:24 | CASEMGMT ---
Provided pt and an eliquis card with explanation. Pt states the med was going to cost $180. They both denied further questions and will notify this RN CM if they encounter any issues filling the med.
--- NOTE | 2020-12-29 14:52 | CASEMGMT ---
NEELAM JAQUEZ Discharge Follow-Up Phone Call. Leslie: 13 Strata: 3 Discharge Date: 12/28/20 Adm Dx: Rt tib/fib fx. Call to pt to inquire about how he has been doing since being discharged from the hospital. Pt states he is doing okay. He states he did not sleep well last night d/t pain, but contacted Ortho surgeon today and was prescribed pain medication. He states he was able to get the Eliquis and KCL from [facility] yesterday w/out difficulty. He is aware of the upcoming appts and will be starting OP therapy 01/06. He denies having any questions/concerns and thanked NEELAM JAQUEZ for calling. Ke FINNEY RN, CM
== END 2020-12-28 14:43 | disposition home or self-care (01) | DRG 492 ==
LOC: ED 17:01 → MS3 17:55 → ICU 12-26 10:02
PROVIDERS: Anesthesiology; Internal Medicine; Nurse Practitioner Family; Orthopaedic Surgery; Admitting Provider Internal Medicine; Emergency Provider Emergency Medicine; PCP Family Medicine; Visit Provider Family Medicine
PROC: 0QSG06Z Reposition Right Tibia with Intramedullary Internal Fixation Device, Open Approach (ICD-10-PCS; principal; 2020-12-22 13:45)
DX: S82.251A Displaced comminuted fracture of shaft of right tibia, initial encounter for closed fracture (principal); E10.10 Type 1 diabetes mellitus with ketoacidosis without coma; G93.41 Metabolic encephalopathy; F10.231 Alcohol dependence with withdrawal delirium; R17 Unspecified jaundice; W18.30XA Fall on same level, unspecified, initial encounter; E10.43 Type 1 diabetes mellitus with diabetic autonomic (poly)neuropathy; I25.5 Ischemic cardiomyopathy; I11.0 Hypertensive heart disease with heart failure; I25.10 Atherosclerotic heart disease of native coronary artery without angina pectoris; E78.5 Hyperlipidemia, unspecified; E78.00 Pure hypercholesterolemia, unspecified; E10.649 Type 1 diabetes mellitus with hypoglycemia without coma; E87.6 Hypokalemia; E03.9 Hypothyroidism, unspecified; G47.33 Obstructive sleep apnea (adult) (pediatric); K21.9 Gastro-esophageal reflux disease without esophagitis; F17.210 Nicotine dependence, cigarettes, uncomplicated; F10.229 Alcohol dependence with intoxication, unspecified; I25.2 Old myocardial infarction; Z82.49 Family history of ischemic heart disease and other diseases of the circulatory system; Z95.5 Presence of coronary angioplasty implant and graft; Z79.4 Long term (current) use of insulin; Z91.81 History of falling; Z91.14 Patient's other noncompliance with medication regimen; Z86.73 Personal history of transient ischemic attack (TIA), and cerebral infarction without residual deficits; Y90.6 Blood alcohol level of 120-199 mg/100 ml; E83.39 Other disorders of phosphorus metabolism; I50.9 Heart failure, unspecified; D64.9 Anemia, unspecified
CPT/HCPCS: 36415; 36600; 70450; 73552; 73590; 76000; 80048; 80053; 80076; 81001; 82009; 82077; 82140; 82306; 82803; 82962; 83036; 83735; 84100; 84439; 84443; 84481; 85025; 85610; 85730; 87426; 93005; 93306; 97163; 97166; 97530; 97535; 99285; 99406; C1713; C1776; J7030; J7050; J7120; Q9957; A4216; C8929; J2405; J3490; J7799

== ENCOUNTER → 2021-01-12 08:12 | Outpatient (CLI) | payer MEDICARE, SELFPAY ==
--- NOTE | 2021-01-12 08:37 | BD_ITS ---
STUDY: DUAL ENERGY X-RAY ABSORPTIOMETRY / DXA REASON FOR EXAM: Male, 56 years old. V76.12ScreeningBONE DENSITY REASON FOR EXAM TECHNIQUE: Bone Mineral Density (BMD) measurements of lumbar spine and left hip were obtained. COMPARISON: None. FINDINGS: Lumbar Spine (L1-L4): g/cm2 (0.906) / T-score (-1.5) / Z-score (-1.0) Findings are suggestive of osteopenia with a moderate fracture risk. Prior vertebroplasty of the L4 vertebrae. Left Femur Total: g/cm2 (0.769) / T-score (-1.8) / Z-score (-1.4) Left Femoral Neck: g/cm2 (0.555) / T-score (-2.8) / Z-score (-1.9) BD/Dexa Bone Density Study IMPRESSION: The patient is considered osteoporotic as outlined below according to World Leonid Organization (WHO) criteria with a high fracture risk. Reference Information: The T-score is the number of standard deviations above or below the standard which is normal for young adults at their peak bone mineral density. The World Health Organization (WHO) interprets the T-scores as follows: Above -1 Normal bone density Between -1 and -2.5 Osteopenia Equal to / or below -2.5 Osteoporosis As a practical clinical guideline, osteopenia may be graded as follows: Mild -1 through -1.5 Moderate -1.6 through -2.0 Severe -2.1 through -2.4 The Z-score is the number of standard deviations above or below age-matched controls. A Z-score of less than -1.5 would be considered abnormal. References: 1. NIH Osteoporosis and Related Bone Diseases www osteo.org 2. International Society for Clinical Densitometry www iscd.org 3. National Osteoporosis Foundation www nof.org Electronically Signed: Jorge A Tavera MD at 10:55 EDT , Service support ,
== END ==
PROVIDERS: PCP Family Medicine; Referring Provider Family Medicine; Visit Provider Family Medicine
DX: M81.0 Age-related osteoporosis without current pathological fracture (principal)
CPT/HCPCS: 77080

== ENCOUNTER 2021-01-12 12:30 | Outpatient (RCR) | payer MEDICARE, SELFPAY ==
--- NOTE | 2021-01-06 12:25 | HP.PTEVAL_ITS ---
Patient's Visit Information VERÓNICA ENGLE is a 55 year old M referred to Physical Therapy by GUS Montalvo with a diagnosis of DEBILITY , S/P SURGERY for comminuted tibial shaft fracture. Date of Evaluation: 01/06/21 Physical Therapist: Alexis Will, PT, Cert MDT, OCS - Visit Plan Frequency: 2x /Week Duration: 4 Weeks Plan: S/P IM LEONCIO 12/22, PATIENT IS < 50% RLE WITH FWW,PLAN TO RTD IN 4 WEEKS. PT INTEREVTION GAIT AND BALNCE TRAINING WITH PROGRESSION WB PER MD,AROM ANKLE KNEE,STRENGTH RIGHT QUADS/HAMS/HIP /ANKLE ,NUSTEP AND PROGRESS WITH WB ACTIVITIES GALILEA UNTIL MD INCREASE WB STATUS - Subjective This 55 y/o male presents to physical therapy with s/p surgery comminuted tibial shaft fracture. Patient fell 2weeks ago when getting up from chair right leg collapsed went to ER [facility] showed tibia fracture. Patient went to ER showed mid tibia fracture. Patient underwent s/p intramedullary leoncio right tibia on 12/22/25 done by [facility] . Patient d/c to home last week from [facility]. Patient d/c with fww < less 50% WB . Patient recently seen DR 01/04/21 and cont with < 50% WB. Patient continues to have pain mid tibia . C/O paranesthesia right knee . Patient has tub/shower. Patient lives in 2 story home with one step with bed /bath 2 floor with 20 steps. But currently lives in [facility]. Patient is unable top squat/kneel. Patient has difficulty with walking and standing. Patient plans to return to in 4 weeks. Patient condition affects function and QOL. Patient has multiple comorbities to influence condition : ETOH,CHF,CVA,TIA,DM,DEPRESSION ,HTN,GERD CARDIOYOPATHY,VOCAL CORD SURGERY,BIPOLAR,CHRONIC PAIN,PA SYNCOPE,CADPROSTHETIC VOVAL CORD ,RIGHT ORIF ANKLE. SOCIAL: - Pain Right Ankle Pain Intensity (Out of 10): 6 Pain Intensity Range: 10 - Objective POSTURE: mild forward posture. SKIN: inscion. GAIT: reciprocal pattern decrease stance RLE slow steve with fww < 50% WB RLE. BALANCE: fair+ with fww with 50% WB RLE. AROM: supine knee flexion 2-130 degrees ,ankle dorsiflexion 5 degrees, inversion 20 degrees, eversion 5 degrees, plantarflexion 50 degrees. MMT: quads/hams 3+/5 ,hip flexion 3+/5,abduction 3/5 ,ankle 4-/5 except G-S 3+/5. FLEXABLITY: mild hamstrings tight - Balance/Special Test Scores Lower Extremity Functional Score: 0 - Goals Goal 1:: I with HEP to improve gait and function. Goal Time Frame: 6-8 Weeks Goal 2:: Patient to ambulate with cane with WBAT with improved gait pattern community distance to get to store Goal Time Frame: 6-8 Weeks Goal 3:: Patient to improve balance on level /unlevel surfaces to good - balance to get to mailbox Goal Time Frame: 6-8 Weeks Goal 4:: Patient increase strength quads/hams 4-/5 and hip 4-/5 to ambulate with cane. Goal Time Frame: 6-8 Weeks Goal 5:: Patient to improve LFES score by 15 points to improve function with gait and balance Goal Time Frame: 6-8 Weeks Goal 6:: Patient to ascend/descend 12 steps with rails in order to get to bed/bath at home Goal Time Frame: 6-8 Weeks - Rehabilitation Potential Physical Therapy Diagnosis: This patient underwent s/p IM leoncio placement tibia 12/22 with decrease gait with WB < 50% ,balance ,weakness right leg ,decrease endurance and pain along with comorbities influences patient condition thus benefit from skilled PT Rehabilitation Potential: Good - Anticipated Interventions Patient/Client Instruction: Educate patient on: Condition, Plan of Care, Risk Factors For the Purpose of:: To decrease pain, To increase ROM, To improve muscle performance and motor function, To improve ability to perform ADL's, To increase tolerance to activity/condition/position, To improve performance and independence with ADL's, To improve ability of physical actions for home/community/work/leisure, To improve gait and locomotor functions, To increase flexibility/ROM, To improve endurance, To improve balance, To improve safety with gait Therapeutic Exercise to Include: Strength training, Endurance training, Balance training, Flexibilty training, Gait and locomotor training, Passive ROM, Active ROM Comment: BLE STRENGTHENING HIP/KNEE ANKLE For the Purpose of:: To decrease pain, To increase ROM, To increase oxygenation perfusion, To improve ability to perform ADL's, To increase tolerance to activity/condition/position, To improve ability of physical actions for home/community/work/leisure, To improve health of tissue, To decrease soft tissu e restriction, To increase flexibility/ROM, To improve endurance, To improve balance, To improve safety with gait Thank you for the opportunity to evaluate your patient. For Medicare and Medicare HMO plans, please review the plan of care and approve it. It will need to be FAXED BACK to us at [phone] for Medicare purposes. For Medicare only, by signing this I certify the plan of care. Please let me know if there are questions or concerns regarding this plan of care. Physician Signature: Date:
--- NOTE | 2021-02-09 12:07 | HP.PT.NRP ---
VERÓNICA ENGLE was seen in my office for initial evaluation on 01/06/21. The following Plan of Care was established for this patient: Initial Frequency: 2x /Week Initial Duration: 4 Weeks Patient/Client Instruction: Educate patient on: Condition, Plan of Care, Risk Factors For the Purpose of:: To decrease pain, To increase ROM, To improve muscle performance and motor function, To improve ability to perform ADL's, To increase tolerance to activity/condition/position, To improve performance and independence with ADL's, To improve ability of physical actions for home/community/work/leisure, To improve gait and locomotor functions, To increase flexibility/ROM, To improve endurance, To improve balance, To improve safety with gait Therapeutic Exercise to Include: Strength training, Endurance training, Balance training, Flexibilty training, Gait and locomotor training, Passive ROM, Active ROM For the Purpose of:: To decrease pain, To increase ROM, To increase oxygenation perfusion, To improve ability to perform ADL's, To increase tolerance to activity/condition/position, To improve ability of physical actions for home/community/work/leisure, To improve health of tissue, To decrease soft tissue restriction, To increase flexibility/ROM, To improve endurance, To improve balance, To improve safety with gait This patient was last seen in our office . Pertinent comments regarding their Physical therapy will appear below: Patient seen for s/p IM nailing for tibia. F/U with due to concern with surgery x-rays looked gppd ,but did place patient in cast with TTWB At this point patient is d/c At this point I will be discontinuing this patient from physical therapy. I would be happy to see this patient again in the future if found appropriate by the physician. Thank you! Alexis Will, PT, Cert MDT, OCS Balance/Gait/Functional tests - Balance/Special Test Scores Lower Extremity Functional Score: 0
== END 2021-01-12 19:00 | disposition home or self-care (01) ==
LOC: PT 12:30
PROVIDERS: PCP Family Medicine; Referring Provider Family Medicine; Visit Provider Family Medicine
DX: Z47.89 Encounter for other orthopedic aftercare (principal); S82.209D Unspecified fracture of shaft of unspecified tibia, subsequent encounter for closed fracture with routine healing; X58.XXXD Exposure to other specified factors, subsequent encounter; R53.81 Other malaise
CPT/HCPCS: 97110; 97162

== ENCOUNTER → 2021-01-30 09:37 | Outpatient (CLI) | payer MEDICARE, SELFPAY ==
[2021-01-30 12:52] LABS: ALB/GLOB Ratio 1.1 RATIO (0.9-2.4); AST(SGOT) 10 U/L (15-37); Alanine Aminotransfer ALT/SGPT 24 U/L (16-61); Albumin, Serum 3.5 g/dL (3.2-5.0); Alkaline Phosphatase 85 U/L (45-117); Anion Gap 8 (5-15); BUN 12 mg/dL (7-18); Calcium,Total 8.9 mg/dL (8.5-10.1); Chloride 103 mmol/L (98-107); EST Glomerular Filtration Rate 82 mL/min (>60); Est Glom Filt Rate - Afr Amer 100 mL/min (>60); Free T3 1.9 pg/mL (2.18-3.98); Globulin 3.1 g/dL (2.2-4.2); Glucose 297 mg/dL (74-106); Potassium 4.2 mmol/L (3.5-5.1); Protein, Total 6.6 g/dL (6.4-8.2); Sodium Level 137 mmol/L (136-145); T4 Free Direct 0.81 ng/dL (0.76-1.46)
== END ==
PROVIDERS: PCP Family Medicine; Referring Provider Family Medicine; Visit Provider Family Medicine
DX: E03.9 Hypothyroidism, unspecified (principal); I10 Essential (primary) hypertension
CPT/HCPCS: 36415; 80053; 84439; 84443; 84481

== ENCOUNTER → 2021-03-13 12:02 | Outpatient (CLI) | payer MEDICARE, SELFPAY ==
[2021-03-13 15:13] LABS: Free T3 1.9 pg/mL (2.18-3.98); T4 Free Direct 0.95 ng/dL (0.76-1.46)
== END ==
PROVIDERS: PCP Family Medicine; Referring Provider Family Medicine; Visit Provider Family Medicine
DX: E03.9 Hypothyroidism, unspecified (principal)
CPT/HCPCS: 36415; 84439; 84443; 84481

== ENCOUNTER 2021-12-07 21:44 | Inpatient (IN) | payer MEDICARE, SELFPAY ==
[2021-12-07 21:45] VITALS: BP 104/60; PULSE 103; RESP 18; TEMP 36.1; O2SAT 97; BMI 24.5
[2021-12-07 21:55] VITALS: BP 127/63; PULSE 100; RESP 21; TEMP 36.9; O2SAT 97
--- NOTE | 2021-12-07 22:08 | CT_ITS ---
INDICATION: seizure EXAMINATION: CT BRAIN - CT Head or Brain W/O Contrast Injection TECHNIQUE: Multiple axial images were obtained of the head without intravenous contrast. A radiation dose optimization technique was used for this scan. IV Contrast dosage and agent: None. COMPARISON: MRI brain 11/03/2014. FINDINGS: BRAIN PARENCHYMA: No intra- or extra-axial hemorrhage. No intracranial mass or mass effect. [place]son/white matter differentiation is maintained and there is no blurring of the basal ganglia. There is no hyperdense vessel. Area of encephalomalacia in the lateral periphery of the inferior right temporal lobe consistent with remote injury, likely infarct. Associated mildly increased volume right ventricle compared to the left. This is unchanged compared to prior exam. 8mm pineal gland calcification with no surrounding soft tissue, within normal limits. Posterior fossa structures are unremarkable. CSF SPACES: Appropriate for age. No hydrocephalus. Basal cisterns are patent. CALVARIUM, SKULL BASE, PARANASAL SINUSES AND MASTOID AIR CELLS: Trace mucosal thickening right maxillary sinus Otherwise clear paranasal sinuses, mastoid air cells and middle ears. There is decreased size right maxillary sinus with some osseous wall thickening consistent with chronic sinus disease. No discrete lytic or blastic abnormalities. ORBITS: Both globes, extraocular muscles, optic nerves and retrobulbar fat appear unremarkable. ASPECTS Score for Acute Strokes: 10 CT/Brain/Head without Contrast IMPRESSION: Right temporal lobe encephalomalacia, chronic. No evidence of acute intracranial pathology. Stigmata of chronic right maxillary sinus disease. Electronically Signed: Yung Cueva DO at 23:17 EDT ,
--- NOTE | 2021-12-07 22:10 | EDS_ITS ---
HPI History of Present Illness Chief Complaint: Substance Abuse Informant: patient and spouse/S.O. Narrative Narrative: Patient presents requesting alcohol detox. Patient has been a drinker for the last 14 years. He usually drinks 1/5 of vodka daily. Patient does report having a seizure earlier today after he had not had a drink. He has had seizures in the past when he tries to stop drinking. called patient's PCP and he was written a prescription for 0.5 mg of Ativan 3 times daily to help with withdrawal symptoms. He decided he needed inpatient detox. He does report having at least 4 shots tonight to help with his withdrawal symptoms. He denies any other drug use. Patient denies suicidal or homicidal ideation. He does feel that the of his son from a drunk food service driver is a stressor that really worsened his drinking. 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 Alcohol abuse Atherosclerotic heart disease of [place] coronary artery without angina pectoris Bipolar disorder Chronic pain due to injury Congestive heart failure (CHF) CVA (cerebral vascular accident) Degenerative joint disease (DJD) of lumbar spine Depression Diabetes mellitus type I Dizziness and giddiness Dyspnea on exertion Essential (primary) hypertension Family history of hyperlipidemia Family history of hypertension GERD (gastroesophageal reflux disease) History lymph node removal History of vocal cord surgery Hoarseness Hyperlipemia Hypertension Hypothyroidism Ischemic cardiomyopathy Lymphadenopathy, axillary Nicotine dependence Obstructive sleep apnea Old myocardial infarction Other nursing home (current) drug therapy Palpitations Smoker Syncope TIA (transient ischemic attack) TIA (transient ischemic attack) Type I diabetes with insulin pump usage Home Medications citalopram 40 mg tablet 40 mg PO DAILY depression 03/18/13 [History Last Taken 07/01/17] insulin aspart U-100 100 unit/mL subcutaneous solution 1.1 unit continuous subcutaneous infusion UD diabetes 06/07/17 [History Last Taken Unknown] nortriptyline 50 mg capsule 50 mg PO QHS depression 01/28/19 [History Last Taken Unknown] quetiapine 200 mg tablet,extended release 24 hr (Seroquel XR) 200 mg PO QPM bipolar 01/28/19 [History Last Taken Unknown] levothyroxine 125 mcg tablet 125 mcg PO DAILY hypothyroid 07/28/19 [History Last Taken 06/10/20] acetaminophen 500 mg tablet 1,000 mg PO Q6H PRN #100 tabs 06/10/20 [Rx Last Taken Unknown] multivitamin (Daily Multi-Vitamin tablet) 1 tablet PO DAILY health 08/10/20 [History Last Taken Unknown] nitroglycerin 0.4 mg sublingual tablet 0.4 mg sublingual Q5M PRN Cardiac/Chest Pain #25 tabs 08/10/20 [Rx Last Taken Unknown] potassium chloride 20 mEq tablet,extended release (K-Tab) 20 meq PO DAILY #30 tabs 12/28/20 [Rx Last Taken Unknown] alendronate 70 mg tablet tablet PO 05/15/21 [History Last Taken Unknown] cholecalciferol (vitamin D3) 10 mcg (400 unit) capsule 10 mcg PO DAILY 05/15/21 [History Last Taken Unknown] thiamine HCl (vitamin B1) 100 mg tablet ea PO 05/15/21 [History Last Taken Unknown] metoprolol succinate 50 mg tablet,extended release 24 hr See Rx Instructions .Route .COMPLEX #90 tabs 10/03/21 [Rx Last Taken Unknown] lisinopril 5 mg tablet 5 mg PO QPM #90 tabs 10/23/21 [Rx Last Taken Unknown] Allergy/AdvReac Type Severity Reaction Status Date / Time No Known Allergies Allergy Verified 12/07/21 21:45 Family History Unknown No problems noted. Father Heart disease CVA (cerebral vascular accident) Mother CAD (coronary artery disease) Grandfather Cancer Surgical History History of appendectomy History of cataract extraction History of cholecystectomy History of coronary artery stent placement (02/04/10) History of left heart catheterization (06/2017) History of open reduction and internal fixation (ORIF) procedure History of prosthetic vocal cord History of tonsillectomy and adenoidectomy Social History Smoking Status: Current every day smoker tobacco type: cigarettes alcohol intake: current alcohol intake frequency: a few times a week caffeine: Yes Type: carbonated beverages Number of servings: 6 and coffee Number of servings: 2 ROS ROS ED Constitutional Constitutional ED: Denies chills or fever(s) Eyes Eyes: Denies change in vision or discharge from eye(s) ENT ENT ED: Denies discharge from eye(s), rhinorrhea or sore throat Cardiovascular Cardiovascular: Denies chest pain or palpitations Respiratory/Chest Respiratory/Chest: Denies cough or dyspnea Gastrointestinal Gastrointestinal: Denies abdominal pain, diarrhea, nausea or vomiting Genitourinary Genitourinary ED: Denies difficulty urinating or dysuria Musculoskeletal Musculoskeletal: Denies back pain or extremity pain Integumentary Denies Abrasions or rash Neurologic Neurologic: Denies headache(s) or weakness Psychiatric Psychiatric: Denies anxiety or depression Allergic/Immunologic Allergic/Immunologic ED: Denies lip swelling or urticaria EXAM Physical Exam Const Vital Signs: 12/07/21 21:45 12/07/21 21:55 12/07/21 22:40 Temperature 97 F L 98.4 F Temperature Source Temporal Temporal Pulse Rate 103 H 100 99 Respiratory Rate 18 21 H 19 H Blood Pressure 104/60 127/63 H Blood Pressure Mean 74 84 Blood Pressure Source Monitor Monitor Blood Pressure Position Semi-Fowlers Blood Pressure Location Right Arm Pulse Ox 97 97 97 Oxygen Delivery Method Room Air Room Air Room Air 12/07/21 23:26 Temperature Temperature Source Pulse Rate 110 H Respiratory Rate 17 Blood Pressure 134/86 H Blood Pressure Mean 102 Blood Pressure Source Blood Pressure Position Blood Pressure Location Pulse Ox 97 Oxygen Delivery Method Room Air Positive well nourished and well developed General Appearance ED: well developed HEENT Reports normocephalic and head/scalp atraumatic Eyes PERRL and EOMs intact bilaterally Neck supple Chest Wall inspection of chest normal and palpation of chest normal Resp normal respiratory effort and clear to auscultation bilaterally Cardio regular rate and regular rhythm GI normal to inspection, nondistended, normoactive bowel sounds Palpation: soft Extremity normal to inspection Neuro oriented x3 and no sensory deficits noted Sensorium / Orientation: alert Motor Exam: strength 5/5 throughout Psych mental status grossly normal Skin no rashes or lesions noted MDM MDM MDM Narrative Medical decision making narrative: Lab work for ED addiction medicine obtained. Head CT obtained secondary to patient having seizure earlier today. He was given 0.5 mg IV Ativan. Lab Data Attestation: I reviewed the patient's lab results. Labs: Laboratory Results - last 24 hr 08/11/22 08/11/22 08/11/22 22:26 22:26 22:26 WBC 14.0 H RBC 5.10 Hgb 17.1 H Hct 48.6 MCV 95.3 H MCH 33.5 H MCHC 35.2 RDW Std Deviation 45.1 H RDW Coeff of Gabrielle 12.8 Plt Count 244 MPV 9.7 Immature Gran % (Auto) 0.400 Neut % (Auto) 71.7 H Lymph % (Auto) 19.0 [place] % (Auto) 6.5 Eos % (Auto) 1.8 Baso % (Auto) 0.6 Absolute Neuts (auto) 10.0 H Absolute Lymphs (auto) 2.65 Nucleated RBC % 0 PT 11.6 L INR 0.9 Sodium 133 L Potassium 4.0 Chloride 95 L Carbon Dioxide 28.0 Anion Gap 10 BUN 20 H Creatinine 1.19 Estim Creat Clear Calc 65.58 Est GFR (MDRD) Af Amer 81 Est GFR (MDRD) Non-Af 67 BUN/Creatinine Ratio 16.8 Glucose 328 H Calcium 9.0 Total Bilirubin 0.40 AST 36 ALT 37 Alkaline Phosphatase 76 Total Protein 7.0 Albumin 3.6 Globulin 3.4 Albumin/Globulin Ratio 1.1 Radiography Diagnostic Testing: Clinical Impression(s) from Imaging Studies Brain CT 12/07/21 22:08 IMPRESSION: Right temporal lobe encephalomalacia, chronic. No evidence of acute intracranial pathology. Stigmata of chronic right maxillary sinus disease. Electronically Signed: Yung Cueva DO at 23:17 EDT , Treatment and Re-Evaluation Narrative: CBC was white count is 14.0 with no left shift. Hemoglobin concentrated at 17.1. Chemistry studies reveal a sodium of 133 and a chloride of 95. Creatinine is normal. LFTs unremarkable. Glucose is elevated at 328 and patient is a known diabetic. Head CT reveals right temporal encephalomalacia that is chronic and unchanged from prior. No acute findings. Patient's alcohol level is still pending. Talk screen is still pending. I will speak with hospitalist regarding admission. Discharge Plan Triage Chief Complaint: Substance Abuse Other Complaint: Lower Extremity Injury ED Provider: Alejandrina Hernández Dx/Rx/DC Orders Clinical Impression: Alcohol abuse, Desire for detoxification, Hyperglycemia, Alcohol withdrawal seizure Prescriptions: No Action levothyroxine 125 mcg tablet 125 mcg PO DAILY Label Comments: TAKE 1 TABLET BY MOUTH ONCE DAILY nortriptyline 50 mg capsule 50 mg PO QHS quetiapine [Seroquel XR] 200 mg tablet extended release 24 hr 200 mg PO QPM multivitamin [Daily Multi-Vitamin] Tablet 1 tablet PO DAILY nitroglycerin 0.4 mg tablet, sublingual 0.4 mg SUBLINGUAL Q5M PRN (Reason: Cardiac/Chest Pain) Qty: 25 3RF thiamine HCl (vitamin B1) 100 mg tablet PO Label Comments: TAKE 1 TABLET BY MOUTH ONCE DAILY cholecalciferol (vitamin D3) 10 mcg (400 unit) capsule 10 mcg PO DAILY alendronate 70 mg tablet PO citalopram 40 MG tablet 40 mg PO DAILY Label Comments: DEPRESSION insulin aspart U-100 100 UNIT/ML solution 1.1 unit Continuous Subcutaneous Infusion UD Label Comments: 1 UNIT PER HOUR AND THEN SLIDING SCALE PER INTAKE OF CARBS acetaminophen 500 MG tablet 1,000 mg PO Q6H PRN Qty: 100 0RF potassium chloride [K-Tab] 20 mEq tablet extended release 20 meq PO DAILY Qty: 30 0RF metoprolol succinate 50 mg tablet extended release 24 hr See Rx Instructions .ROUTE .COMPLEX Qty: 90 3RF Dose Instruction: Take 1 tablet by mouth once daily Rx Instructions: Take 1 tablet by mouth once daily lisinopril 5 mg tablet 5 mg PO QPM Qty: 90 3RF Primary Care Provider: Yassine Bui Referrals: Yassine Bui MD [Primary Care Provider] - Disposition Disposition: Acute Care Hospital [facility]
--- NOTE | 2021-12-07 22:13 | CM.ED ---
JULIANA Note JULIANA met with patient and his , along with Meri RICHTER and Betty SEO. Patient reports that he is at the hospital for detox. He was attempting to detox today and had a seizure. Patient then drank 4 shots today with his last drink being 2 hours ago. Patient drinks 1/5 of vodka daily. No previous detox. No current linkage with [email or web address]. Patient said that he has been drinking for 14 years but it increased 7 years ago when his son was killed by a drunk drive. Patient voiced stress this week related to the legal case involving the individual that killed his son and the civil lawsuit. Patient voiced he is willing to work with [employer]. SW reviewed rules that said no phones, no outside visitors and no outside food. Patient verbalized understanding and agreement. Patient uses alcohol and cigarrettes. SW explained [facility] program and patient is in agreement with [facility] admission. JULIANA called Liss, treatment navigator and updated her that patient was here for detox. No current room assignment as patient is in the ED. Plan: LENNIE LIND
[2021-12-07 22:33] LABS: Absolute Lymphocyte Count 2.65 X10^3/uL (0.83-4.51); Basophil# 0.08 X10^3/uL; Basophil% 0.6 % (0-1); Eosinophil# 0.25 X10^3/uL; Eosinophils% 1.8 % (0-5); Hematocrit 48.6 % (40-54); Hemoglobin 17.1 g/dL (13.0-16.5); Lymphocyte # 2.65 X10^3/ul (0.83-4.51); Mean Corp Hgb Conc 35.2 g/dL (32-36); Mean Corpuscular Hgb 33.5 pg (27.0-32.0); Mean Corpuscular Volume 95.3 fL (80-94); Mean Platelet Vol. 9.7 fl (6.2-12.0); Monocyte# 0.91 X10^3/uL; Monocyte% 6.5 % (0-10); NRBC Flagged by Analyzer 0 % (0-5); Neutrophil % 71.7 % (47-70); Platelet Count 244 K/mm3 (150-450); RBC Distribution Width CV 12.8 % (11.6-14.6); RBC Distribution Width SD 45.1 fl (35.1-43.9)
[2021-12-07 22:40] VITALS: PULSE 99; RESP 19; O2SAT 97
[2021-12-07 22:43] LABS: International Normalized Ratio 0.9; Prothrombin Time (Protime)PT. 11.6 SECONDS (11.7-14.9)
[2021-12-07] MEDS: LORazepam 2 MG/ML Syringe 0.5 MG IV (22:43)
[2021-12-07 22:50] LABS: ALB/GLOB Ratio 1.1 RATIO (0.9-2.4); AST(SGOT) 36 U/L (15-37); Alanine Aminotransfer ALT/SGPT 37 U/L (16-61); Albumin, Serum 3.6 g/dL (3.2-5.0); Alkaline Phosphatase 76 U/L (45-117); Anion Gap 10 (5-15); BUN 20 mg/dL (7-18); BUN/Creat Ratio 16.8 RATIO (10-20); Chloride 95 mmol/L (98-107); Creatinine, Serum 1.19 mg/dL (0.70-1.30); EST Glomerular Filtration Rate 67 mL/min (>60); Est Glom Filt Rate - Afr Amer 81 mL/min (>60); Estimated Creatinine Clearance 65.58 ml/min; Globulin 3.4 g/dL (2.2-4.2); Glucose 328 mg/dL (74-106); Sodium Level 133 mmol/L (136-145)
[2021-12-07 23:26] VITALS: BP 134/86; PULSE 110; RESP 17; O2SAT 97
--- NOTE | 2021-12-07 23:49 | PCM.HP.STD ---
[facility] - General General Date of Admission: 12/07/21 Date of Service: 12/07/21 Chief Complaint: Recurrent alcohol withdrawal for last 3 days. Failed outpatient Ativan oral regimen HPI Narrative VERÓNICA ENGLE, is a 56 M with multiple comorbidities as listed below came to ED for treatment for acute alcohol withdrawal syndrome. Patient stated he has been having severe alcohol withdrawal symptoms including seizure for last 3 days and he drinks in order to stay calm. He fell down 3 times in the last 3 days. He also had seizure, seems grand mal generalized seizure that lasted around 5 minutes according to the patient. His and patient himself does not remember the details including LOC, urinary incontinence or other. Patient has history of alcohol withdrawal seizures in the past including DT. Patient has history of many complications of drinking alcohol including fracture of right tibia-fibula in 2020 when he was admitted, fall from 30 feet height resulting in multiple fractures of ribs, neck bone, pelvis and others and required tracheostomy and laryngeal surgery. Patient voice is hoarse. Patient drinks 1/5 bottle of vodka, states half a gallon of vodka 90 proof in 5 days from Saturday to Saturday. Patient got prescription of 0.5 mg of Ativan 3 times daily but was not sufficient for alcohol withdrawal symptoms. Patient took 4 shots of vodka, couple hours before coming to ED. Patient has mild tremors. He does not remember well and has a hard time in recall and for most questions he asked his . Patient also smokes cigarettes 2 packs/day since age of 16. He denies suicidal or homicidal ideation. Labs reviewed, alcohol level 222, phosphorus and magnesium level normal. Potassium 4.0. Patient is states his father was also alcoholic. Patient has diabetes type 1 and uses insulin pump. Patient also had history of DKA in the past along with CVA, CHF, and coronary artery status post stent in 2010. He follows Dr. Parnell. He denies any recent chest pain, shortness of breath on exertion, abdominal pain, constipation or diarrhea. [facility] Medical History Acute ischemic left posterior cerebral artery ([employer]OR[employer]IST) stroke Alcohol abuse Atherosclerotic heart disease of [place] coronary artery without angina pectoris Bipolar disorder Chronic pain due to injury Congestive heart failure (CHF) CVA (cerebral vascular accident) Degenerative joint disease (DJD) of lumbar spine Depression Diabetes mellitus type I Dizziness and giddiness Dyspnea on exertion Essential (primary) hypertension Family history of hyperlipidemia Family history of hypertension GERD (gastroesophageal reflux disease) History lymph node removal History of vocal cord surgery Hoarseness Hyperlipemia Hypertension Hypothyroidism Ischemic cardiomyopathy Lymphadenopathy, axillary Nicotine dependence Obstructive sleep apnea Old myocardial infarction Other penitentiary (current) drug therapy Palpitations Smoker Syncope TIA (transient ischemic attack) TIA (transient ischemic attack) Type I diabetes with insulin pump usage Home Medications citalopram 40 mg tablet 40 mg PO DAILY depression 03/18/13 [History Last Taken 07/01/17] insulin aspart U-100 100 unit/mL subcutaneous solution 1.1 unit continuous subcutaneous infusion UD diabetes 06/07/17 [History Last Taken Unknown] nortriptyline 50 mg capsule 50 mg PO QHS depression 01/28/19 [History Last Taken Unknown] quetiapine 200 mg tablet,extended release 24 hr (Seroquel XR) 200 mg PO QPM bipolar 01/28/19 [History Last Taken Unknown] levothyroxine 125 mcg tablet 125 mcg PO DAILY hypothyroid 07/28/19 [History Last Taken 06/10/20] acetaminophen 500 mg tablet 1,000 mg PO Q6H PRN #100 tabs 06/10/20 [Rx Last Taken Unknown] multivitamin (Daily Multi-Vitamin tablet) 1 tablet PO DAILY health 08/10/20 [History Last Taken Unknown] nitroglycerin 0.4 mg sublingual tablet 0.4 mg sublingual Q5M PRN Cardiac/Chest Pain #25 tabs 08/10/20 [Rx Last Taken Unknown] potassium chloride 20 mEq tablet,extended release (K-Tab) 20 meq PO DAILY #30 tabs 12/28/20 [Rx Last Taken Unknown] alendronate 70 mg tablet tablet PO 05/15/21 [History Last Taken Unknown] cholecalciferol (vitamin D3) 10 mcg (400 unit) capsule 10 mcg PO DAILY 05/15/21 [History Last Taken Unknown] thiamine HCl (vitamin B1) 100 mg tablet ea PO 05/15/21 [History Last Taken Unknown] metoprolol succinate 50 mg tablet,extended release 24 hr See Rx Instructions .Route .COMPLEX #90 tabs 10/03/21 [Rx Last Taken Unknown] lisinopril 5 mg tablet 5 mg PO QPM #90 tabs 10/23/21 [Rx Last Taken Unknown] Allergy/AdvReac Type Severity Reaction Status Date / Time No Known Allergies Allergy Verified 12/07/21 21:45 Family History Unknown No problems noted. Father Heart disease CVA (cerebral vascular accident) Mother CAD (coronary artery disease) Grandfather Cancer Surgical History History of appendectomy History of cataract extraction History of cholecystectomy History of coronary artery stent placement (02/04/10) History of left heart catheterization (06/2017) History of open reduction and internal fixation (ORIF) procedure History of prosthetic vocal cord History of tonsillectomy and adenoidectomy Social History Smoking Status: Current every day smoker tobacco type: cigarettes alcohol intake: current alcohol intake frequency: a few times a week caffeine: Yes Type: carbonated beverages Number of servings: 6 and coffee Number of servings: 2 ROS ROS Narrative 14 system ROS is in complete as patient is still in drunkenly state. ROS also contributed by his . Constitutional: Reports fatigue and weakness HEENT: Reports systems reviewed and no addt'l complaints, except as documented Respiratory/Chest/CVS: Denies chest pain, shortness of breath with exertion. History of postural hypotension Gastrointestinal: Denies recent coffee ground emesis, hematemesis or vomiting Genitourinary: Denies burning urination or new urinary tract symptoms Musculoskeletal: Right leg Rade status post tibia-fibula fracture Neurologic: Grand mal seizure as described in HPI. skin: No ulcer. No rash Endocrinology: DM type I, on insulin pump. Has diabetic neuropathy. Reports systems reviewed and no addt'l complaints, except as documented Hematologic/Lymphatic: Reports systems reviewed and no addt'l complaints, except as documented Rest 14 ROS are negative except as mentioned in HPI Vital Signs Vital Signs Vital Signs: 12/07/21 21:45 12/07/21 21:55 12/07/21 22:40 Temperature 97 F L 98.4 F Temperature Source Temporal Temporal Pulse Rate 103 H 100 99 Respiratory Rate 18 21 H 19 H Blood Pressure 104/60 127/63 H Blood Pressure Mean 74 84 Blood Pressure Source Monitor Monitor Blood Pressure Position Semi-Fowlers Blood Pressure Location Right Arm Pulse Ox 97 97 97 Oxygen Delivery Method Room Air Room Air Room Air 12/07/21 23:26 Temperature Temperature Source Pulse Rate 110 H Respiratory Rate 17 Blood Pressure 134/86 H Blood Pressure Mean 102 Blood Pressure Source Blood Pressure Position Blood Pressure Location Pulse Ox 97 Oxygen Delivery Method Room Air Weight Weight: 157 lb Body Mass Index (BMI) 24.5 Physical Exam Narrative General: Awake, oriented x3, Cooperative, mild restless HEENT: Atraumatic, PERRLA, EOMI, Normocephalic Oral: No Gingival or Mucosal Lesions/ Ulcerations Neck: Supple, No JVD, Negative Carotid Bruits Lungs: Air entry diminished in bilateral lung bases. No crepitation/rhonchi Cardiovascular: Regular rate, Regular Rhythm, Normal S1, Normal S2, No murmurs Abdomen: Bowel Sounds Present, Soft, Non Tender, Non-Distended : No renal angle tenderness. No suprapubic tenderness. Extremities: No edema, Capillary Refill Less than 3 Seconds Skin: No rashes, No breakdown Musculoskeletal: No Tenderness to Palpation of Joints or Extremities Neurological: Cranial nerves II-XII grossly intact, DTR 2+/4 and Symmetrical, Neuro grossly intact Psych/Mental Status:Flat affect, restless hard time in recall and registration Results Lab / Micro Data Result Diagrams: 12/07/21 22:26 12/07/21 22:26 Labs: Laboratory Results - last 24 hr 12/07/21 22:26: WBC 14.0 H, RBC 5.10, Hgb 17.1 H, Hct 48.6, MCV 95.3 H, MCH 33.5 H, MCHC 35.2, RDW Std Deviation 45.1 H, RDW Coeff of Gabrielle 12.8, Plt Count 244, MPV 9.7, Immature Gran % (Auto) 0.400, Neut % (Auto) 71.7 H, Lymph % (Auto) 19.0, Bland % (Auto) 6.5, Eos % (Auto) 1.8, Baso % (Auto) 0.6, Absolute Neuts (auto) 10.0 H, Absolute Lymphs (auto) 2.65, Nucleated RBC % 0 12/07/21 22:26: PT 11.6 L, INR 0.9 12/07/21 22:26: Sodium 133 L, Potassium 4.0, Chloride 95 L, Carbon Dioxide 28.0, Anion Gap 10, BUN 20 H, Creatinine 1.19, Estim Creat Clear Calc 65.58, Est GFR (MDRD) Af Amer 81, Est GFR (MDRD) Non-Af 67, BUN/Creatinine Ratio 16.8, Glucose 328 H, Calcium 9.0, Total Bilirubin 0.40, AST 36, ALT 37, Alkaline Phosphatase 76, Total Protein 7.0, Albumin 3.6, Globulin 3.4, Albumin/Globulin Ratio 1.1 12/07/21 22:26: Ethyl Alcohol 222.[address] 12/07/21 22:08 IMPRESSION: Right temporal lobe encephalomalacia, chronic. No evidence of acute intracranial pathology. Stigmata of chronic right maxillary sinus disease. Electronically Signed: Yung Cueva DO at 23:17 EDT , Assessment & Plan Assessment/Plan (1) Alcohol withdrawal seizure: (2) Acute hyperactive alcohol withdrawal delirium: PLAN: This 56-year-old gentleman with history of chronic alcohol use came to ED for help for alcohol withdrawal symptoms. 1. Acute alcohol intoxication with high risk and recent multiple episodes of alcohol withdrawal syndrome and alcohol withdrawal seizure: Patient is being admitted in [facility]. Patient has chronic alcohol use with dependence and tolerance. Started on phenobarbital based other adjunctive medications as needed for control of symptoms. Labs reviewed. Mild leukocytosis. Liver chemistry shows normal transaminases bilirubin. Potassium 4.0, magnesium and phosphorus normal limit. Serum alcohol level 222. 2. Type I diabetes mellitus with autonomic dysfunction/orthostatic hypotension: Patient uses insulin pump. It is functional. Glucose is high, 328 in BMP. 5. Coronary artery disease, chronic HFpEF due to ischemic cardiomyopathy: Last echo in November 2020 during previous hospitalization for fracture of right tibia-fibula showed EF of 50% and mild segmental wall motion abnormality.? The patient is not on aspirin and a statin. On metoprolol succinate and lisinopril continued. 6. Hypertension-blood pressure in normal range. Might go high if patient gets overt alcohol withdrawal syndrome., continue metoprolol, lisinopril. 7. Hyperlipidemia: Not on a statin. Fasting profile tomorrow a.m. 8. Hypothyroidism-continue home dose of levothyroxine. Need thyroid function testing patient is on baseline because lab lab result might be get altered during alcohol withdrawal state. 9. Active smoking, nicotine dependence: Nicotine patch ordered History of recurrent fall, multiple injuries in the past. History of tracheostomy vocal cord injury. DVT prophylaxis-moderate risk. Eliquis 2.5 mg twice daily Living will/advanced directive/end of life care: Patient does not have living will or advanced directive. He is next to kin. He does not have designated power of client experience consultant for health. After discussion of benefits/risks procedures involved with full code, DNR CC arrest and DNR CC, the patient and opted for full code. Patient does want artificial life support including intubation, tube feed, ventilator and/chest compression, central venous catheter, vasopressor and DC shock if needed Total time spent in [id number] encounter in discussion of advanced directive 16 minutes. Laboratory Results 12/07/21 22:26: WBC 14.0 H, RBC 5.10, Hgb 17.1 H, Hct 48.6, MCV 95.3 H, MCH 33.5 H, MCHC 35.2, RDW Std Deviation 45.1 H, RDW Coeff of Gabrielle 12.8, Plt Count 244, MPV 9.7, Immature Gran % (Auto) 0.400, Neut % (Auto) 71.7 H, Lymph % (Auto) 19.0, Bland % (Auto) 6.5, Eos % (Auto) 1.8, Baso % (Auto) 0.6, Absolute Neuts (auto) 10.0 H, Absolute Lymphs (auto) 2.65, Nucleated RBC % 0 12/07/21 22:26: PT 11.6 L, INR 0.9 12/07/21 22:26: Sodium 133 L, Potassium 4.0, Chloride 95 L, Carbon Dioxide 28.0, Anion Gap 10, BUN 20 H, Creatinine 1.19, Estim Creat Clear Calc 65.58, Est GFR (MDRD) Af Amer 81, Est GFR (MDRD) Non-Af 67, BUN/Creatinine Ratio 16.8, Glucose 328 H, Calcium 9.0, Total Bilirubin 0.40, AST 36, ALT 37, Alkaline Phosphatase 76, Total Protein 7.0, Albumin 3.6, Globulin 3.4, Albumin/Globulin Ratio 1.1 12/07/21 22:26: Ethyl Alcohol 222.0 12/07/21 22:56: Phosphorus 4.2, Magnesium 1.9 Charges/Coding Visit Charges Inpatient E&M: 55974 Init Hosp L3 Procedures Hospitalists Procedures: 40541 Advncd Care Plan 30 Min
[2021-12-08] VITALS (9 sets, daily range): BP systolic 114–131; BP diastolic 64–90; PULSE 70–117; RESP 14–22; TEMP 36.4–37; O2SAT 94–99; BMI 22.5
[2021-12-08 00:22] LABS: Magnesium 1.9 mg/dL (1.6-2.6); Phosphorus 4.2 mg/dL (2.5-4.9)
[2021-12-08 01:40] LABS: Bedside Glucose 235 mg/dL (74-106)
[2021-12-08] MEDS: traZODone 100 MG Tablet PO ×2 (01:56→21:30)
[2021-12-08] MEDS: Phenobarbital 32.4 MG Tablet 64.8 MG PO ×6 (01:56→21:30)
[2021-12-08] MEDS: Ondansetron 8 MG Tablet PO (01:56)
[2021-12-08] MEDS: Levothyroxine 125 MCG Tablet PO (05:44)
[2021-12-08 06:15] LABS: Bedside Glucose 172 mg/dL (74-106)
[2021-12-08 06:41] LABS: Cholesterol 232 mg/dL (200); High Density Lipoprotein 74 mg/dL; Triglycerides 222 mg/dL; Very Low Density Lipoprotein 44 mg/dL (5-40)
[2021-12-08 06:51] LABS: Amphetamine Urine VISTA NEGATIVE (<1000 ng/mL); Barbiturate Urine VISTA NEGATIVE (< 200 ng/mL); Benzodiazepine Urine VISTA NEGATIVE (< 200 ng/mL); Cocaine Urine VISTA NEGATIVE (< 300 ng/mL); Ecstacy Urine VISTA NEGATIVE (< 500 ng/mL); Methadone Urine VISTA NEGATIVE (< 300 ng/mL); PCP Urine VISTA NEGATIVE (< 25 ng/mL); THC Urine VISTA NEGATIVE (< 50 ng/mL); Vista UDS pH Range 6
--- NOTE | 2021-12-08 07:27 | PN.HOSP_ITS ---
Subjective Subjective Patient is a 56-year-old gentleman with history of chronic alcohol dependence admitted with acute alcohol intoxication at high risk for alcohol withdrawal admitted to regular nursing floor for further management Objective Data Objective Data Vital Signs: Vital Signs Temp Pulse Resp BP Pulse Ox O2 Del Method 98 F 117 H 18 114/72 95 Room Air 12/08/21 05:41 12/08/21 05:41 12/08/21 05:41 12/08/21 05:41 12/08/21 05:41 12/08/21 05:41 Oxygen Delivery Method Room Air Weight: 67.3 kg Body Mass Index (BMI) 22.5 Lab / Micro Data Result Diagrams: 12/07/21 22:26 12/07/21 22:26 Labs: Laboratory Results - last 24 hr 12/07/21 22:26: WBC 14.0 H, RBC 5.10, Hgb 17.1 H, Hct 48.6, MCV 95.3 H, MCH 33.5 H, MCHC 35.2, RDW Std Deviation 45.1 H, RDW Coeff of Gabrielle 12.8, Plt Count 244, MPV 9.7, Immature Gran % (Auto) 0.400, Neut % (Auto) 71.7 H, Lymph % (Auto) 19.0, [place] % (Auto) 6.5, Eos % (Auto) 1.8, Baso % (Auto) 0.6, Absolute Neuts (auto) 10.0 H, Absolute Lymphs (auto) 2.65, Nucleated RBC % 0 12/07/21 22:26: PT 11.6 L, INR 0.9 12/07/21 22:26: Sodium 133 L, Potassium 4.0, Chloride 95 L, Carbon Dioxide 28.0, Anion Gap 10, BUN 20 H, Creatinine 1.19, Estim Creat Clear Calc 65.58, Est GFR (MDRD) Af Amer 81, Est GFR (MDRD) Non-Af 67, BUN/Creatinine Ratio 16.8, Glucose 328 H, Calcium 9.0, Total Bilirubin 0.40, AST 36, ALT 37, Alkaline Phosphatase 76, Total Protein 7.0, Albumin 3.6, Globulin 3.4, Albumin/Globulin Ratio 1.1 12/07/21 22:26: Ethyl Alcohol 222.0 12/07/21 22:56: Phosphorus 4.2, Magnesium 1.9 12/08/21 01:20: POC Glucose 235 H 12/08/21 05:36: Triglycerides 222 H, Cholesterol 232 H, LDL Cholesterol 114, VLDL Cholesterol 44 H, HDL Cholesterol 74 12/08/21 05:50: Urine Opiates Screen NEGATIVE, Urine Methadone Screen NEGATIVE, Ur Barbiturates Screen NEGATIVE, Ur Phencyclidine Scrn NEGATIVE, Ur Amphetamines Screen NEGATIVE, MDMA (Ecstasy) Screen NEGATIVE, U Benzodiazepines Scrn NEGATIVE, Urine Cocaine Screen NEGATIVE, U Cannabinoids Screen NEGATIVE, Ur Drug Screen Comment 12/08/21 05:51: POC Glucose 172 H Radiography Diagnostic Testing: Radiology Impression Brain CT 12/07/21 22:08 IMPRESSION: Right temporal lobe encephalomalacia, chronic. No evidence of acute intracranial pathology. Stigmata of chronic right maxillary sinus disease. Electronically Signed: Yung Cueva DO at 23:17 EDT , Physical Exam Narrative GENERAL: cooperative HEENT: Atraumatic; EYES; Anicteric, Normal Conjunctiva NECK; supple, normal thyroid, RESPIRATORY: Diminished to auscultation CARDIOVASCULAR: Regular S1 S2, GI: soft, normoactive bowel sounds, : No Renal angle tenderness; EXTREMITIES: No edema, no clubbing, MUSCULOSKELETAL: no muscle wasting NEURO: Awake; no lateralizing signs. SKIN: No Rash PSYCH; Flat affect Assessment & Plan Assessment/Plan (1) Alcohol withdrawal seizure: (2) Acute hyperactive alcohol withdrawal delirium: PLAN: Patient is a 56-year-old gentleman with history of chronic alcohol dependence admitted with acute alcohol intoxication at high risk for alcohol withdrawal admitted to regular nursing floor for further management 1. Acute alcohol intoxication at high risk for alcohol withdrawal ?Patient has been admitted to a monitored bed managed with phenobarb taper 2. Diabetes mellitus type 1 ? Patient is on insulin pump; patient however presented with hypoglycemia glucose as of this a.m. is 328. Did order Accu-Cheks before meals and at bedtime 3. Coronary artery disease ? 3 previous stent placement 4. Hypertension - Blood pressure controlled, home medications continued with dose adjustment as needed 5. Hypothyroidism - Patient is on levothyroxine home dose continued 6. Tobacco dependence - Counseled on cessation, offered nicotine patch for tobacco cravings 7. History of recurrent falls ? With multiple injuries in the past including vocal cord injury with subsequent tracheostomy. An order was placed for PT OT eval 8. DVT prophylaxis ? Placed on apixaban on admission Charges/Coding Visit Charges Inpatient E&M: 03002 Subs Hosp L2
[2021-12-08] MEDS: Thiamine Hydrochloride 100 MG Tablet PO (07:55)
[2021-12-08] MEDS: Multivitamins,Therapeutic Tablet 1 TABLET PO (07:56)
[2021-12-08] MEDS: Folic Acid 1 MG Tablet PO (07:56)
[2021-12-08] MEDS: Potassium Chloride Oral Tablet 20 MEQ PO (10:44)
[2021-12-08] MEDS: Citalopram 40 MG TABLET PO (10:44)
[2021-12-08] MEDS: APIXABAN 2.5 MG TABLET PO ×2 (10:44→21:30)
[2021-12-08] MEDS: Metoprolol(XL)Succ 50 MG Tablet PO (10:45)
[2021-12-08] MEDS: Glucerna Shake 120 ML LIQUID PO ×3 (10:47→18:03)
[2021-12-08] MEDS: Insulin Bolus Pump 1.1 UNIT SC (11:59)
[2021-12-08 12:05] LABS: Bedside Glucose 296 mg/dL (74-106)
[2021-12-08] MEDS: Acetaminophen 500 MG Tablet PO ×2 (13:20→21:30)
[2021-12-08] MEDS: hydrOXYzine PAM 25 MG Capsule 50 MG PO (14:23)
[2021-12-08 17:21] LABS: Bedside Glucose 279 mg/dL (74-106)
--- NOTE | 2021-12-08 21:25 | NURSING ---
pts Blood glucose is 334 at this time. pt states he gave himself 5 units through his insulin pump at this time
[2021-12-08] MEDS: Lisinopril 5 MG Tablet PO (21:30)
[2021-12-08 22:15] LABS: Bedside Glucose 334 mg/dL (74-106)
[2021-12-09 02:31] VITALS: BP 113/61; PULSE 75; RESP 18; TEMP 36.3; O2SAT 96
[2021-12-09] MEDS: Phenobarbital 32.4 MG Tablet 64.8 MG PO ×5 (02:33→17:04)
[2021-12-09] MEDS: Levothyroxine 125 MCG Tablet PO (06:03)
[2021-12-09 06:35] LABS: Bedside Glucose 76 mg/dL (74-106)
[2021-12-09 08:30] VITALS: BP 117/61; PULSE 80; RESP 18; TEMP 36.3; O2SAT 97
[2021-12-09] MEDS: Glucerna Shake 120 ML LIQUID PO ×2 (09:50→13:36)
[2021-12-09] MEDS: hydrOXYzine PAM 25 MG Capsule 50 MG PO (09:50)
[2021-12-09] MEDS: Folic Acid 1 MG Tablet PO (09:53)
[2021-12-09] MEDS: Potassium Chloride Oral Tablet 20 MEQ PO (09:53)
[2021-12-09] MEDS: APIXABAN 2.5 MG TABLET PO (09:53)
[2021-12-09 09:54] VITALS: PULSE 80
[2021-12-09] MEDS: Metoprolol(XL)Succ 50 MG Tablet PO (09:54)
[2021-12-09] MEDS: Thiamine Hydrochloride 100 MG Tablet PO (09:54)
[2021-12-09] MEDS: Citalopram 40 MG TABLET PO (09:54)
[2021-12-09] MEDS: Multivitamins,Therapeutic Tablet 1 TABLET PO (09:54)
[2021-12-09] MEDS: Insulin Bolus Pump 1.1 UNIT SC (11:44)
[2021-12-09 12:01] LABS: Bedside Glucose 395 mg/dL (74-106)
[2021-12-09 14:30] VITALS: BP 117/66; PULSE 87; RESP 16; TEMP 36.3; O2SAT 94
--- NOTE | 2021-12-09 16:34 | DCINST_ITS ---
Discharge Instructions Diet Discharge Diet: - (Resume present home diet) Activity Discharge Activity: Return to Normal Activity Weight Bearing Status: Full weight bearing Follow Up Care Test Results: Test results from this visit will be discussed in further detail at your follow- up appointment, if applicable. Discharge Plan Admission Admit Date/Time: 12/07/21 23:43 Primary Reason for Your Visit: Alcohol detox Attending Provider: Fredi Anderson Primary Care Provider: Yassine Bui Consulting Providers: Jesus Mullins ; Kole Bowman Discharge Orders/Prescriptions Prescriptions: New potassium chloride [Klor-Con M20] 20 mEq Tablet,Er Particles/Crystals 20 meq PO DAILY Qty: 0 0RF lisinopril 5 mg Tablet 5 mg PO QHS Qty: 0 0RF phenobarbital 32.4 mg tablet 32.4 mg PO .QID Qty: 10 0RF Rx Instructions: 1 tablet 4 times a day, may decrease dose to 1 tablet 3 times a day if sleepy Continued levothyroxine 125 mcg tablet 125 mcg PO DAILY Label Comments: TAKE 1 TABLET BY MOUTH ONCE DAILY nortriptyline 50 mg capsule 100 mg PO QHS quetiapine [Seroquel XR] 200 mg tablet extended release 24 hr 200 mg PO QPM multivitamin [Daily Multi-Vitamin] Tablet 1 tablet PO DAILY nitroglycerin 0.4 mg tablet, sublingual 0.4 mg SUBLINGUAL Q5M PRN (Reason: Cardiac/Chest Pain) Qty: 25 3RF thiamine HCl (vitamin B1) 100 mg tablet 100 mg PO DAILY Label Comments: TAKE 1 TABLET BY MOUTH ONCE DAILY cholecalciferol (vitamin D3) 10 mcg (400 unit) capsule 10 mcg PO DAILY alendronate 70 mg tablet 70 mg PO WE citalopram 40 MG tablet 40 mg PO DAILY Label Comments: DEPRESSION insulin aspart U-100 100 UNIT/ML solution 1.1 unit Continuous Subcutaneous Infusion UD Label Comments: 1 UNIT PER HOUR AND THEN SLIDING SCALE PER INTAKE OF CARBS metoprolol tartrate [Lopressor] 50 mg Tablet 50 mg PO DAILY aspirin 81 mg Capsule 81 mg PO QHS lisinopril 5 mg tablet 5 mg PO QPM potassium chloride [K-Tab] 20 mEq tablet extended release 20 meq PO DAILY Humalog Pen Referrals / Follow Up: Yassine Bui MD [Primary Care Provider] - Disposition Disposition (needs filled in before D/C Order can be placed): Home, Self Care
--- NOTE | 2021-12-09 16:44 | PCM.DC.SUM ---
Providers Date of Admission: 12/07/21 Date of Discharge: 12/09/21 Primary Care Physician: Dr. Yassine Bui MD Reason For Visit: ACUTE ALCOHOL INTOXICATION Diagnosis Discharge Diagnosis (1) Alcohol withdrawal seizure: Status: Acute Code(s): F10.939 - Alcohol use, unspecified with withdrawal, unspecified; R56.9 - Unspecified convulsions (2) Acute hyperactive alcohol withdrawal delirium: Status: Acute Code(s): F10.931 - Alcohol use, unspecified with withdrawal delirium Plan Final diagnosis #1 acute alcohol withdrawal #2 alcohol withdrawal seizure #3 chronic alcoholism #4 type 1 diabetes #5 hypothyroidism #6 essential hypertension #7 bipolar disorder-type unknown Medications at Discharge Home Medications citalopram 40 mg tablet 40 mg PO DAILY depression 03/18/13 insulin aspart U-100 100 unit/mL subcutaneous solution 1.1 unit continuous subcutaneous infusion UD diabetes 06/07/17 nortriptyline 50 mg capsule 100 mg PO QHS depression 01/28/19 quetiapine 200 mg tablet,extended release 24 hr (Seroquel XR) 200 mg PO QPM bipolar 01/28/19 levothyroxine 125 mcg tablet 125 mcg PO DAILY hypothyroid 07/28/19 multivitamin (Daily Multi-Vitamin tablet) 1 tablet PO DAILY health 08/10/20 nitroglycerin 0.4 mg sublingual tablet 0.4 mg sublingual Q5M PRN Cardiac/Chest Pain #25 tabs 08/10/20 alendronate 70 mg tablet 70 mg PO WE osteoporosis 05/15/21 cholecalciferol (vitamin D3) 10 mcg (400 unit) capsule 10 mcg PO DAILY supplement 05/15/21 thiamine HCl (vitamin B1) 100 mg tablet 100 mg PO DAILY supplement 05/15/21 aspirin 81 mg capsule 81 mg PO QHS heart health 12/08/21 lisinopril 5 mg tablet 5 mg PO QPM BP 12/08/21 metoprolol tartrate 50 mg tablet (Lopressor) 50 mg PO DAILY BP 12/08/21 potassium chloride 20 mEq tablet,extended release (K-Tab) 20 meq PO DAILY supplement 12/08/21 Humalog Pen DM 12/09/21 lisinopril 5 mg tablet 5 mg PO QHS #0 tabs 12/09/21 phenobarbital 32.4 mg tablet 32.4 mg PO .QID #10 tabs 12/09/21 potassium chloride 20 mEq tablet,extended release(part/cryst) (Klor-Con M) 20 meq PO DAILY #0 tabs 12/09/21 Hospital Course Operations None Procedures None Summary of Care Provided Minutes Spent on Discharge: 31 Hospital Course: This 56-year-old white male was seen in the emergency room at [facility] requesting services for alcohol detox, patient reported having a seizure at home earlier in the day after he had stopped drinking. Labs obtained showed an elevated white blood cell count of 14,000, chemistry profile was unremarkable except for glucose of 328. Patient was admitted to [place] [address], orders were entered using the alcohol detox order set, patient was maintained on his home medications. Patient was seen by addiction healthcare social worker, arrangements were made for him to follow-up with 180 on 12/11/2021. Patient had no untoward events during his hospitalization there is no signs of DTs and he did not have a seizure while hospitalized. On 12/09/2021, patient was seen and examined: On examination he appeared in good health and spirits. Vital signs as documented. Skin warm and dry and without overt rashes. Neck without JVD, neck was supple, trachea midline, thyroid was normal. Lungs clear bilaterally, normal air movement was noted. Heart exam notable for regular rhythm, normal sounds and absence of murmurs, rubs or gallops. Abdomen unremarkable and without evidence of organomegaly, masses, or abdominal aortic enlargement. Bowel sounds are present, abdomen is not distended. Extremities nonedematous, no cyanosis was noted, no clubbing was noted. Neuro: Cranial nerves II through XII are grossly intact, no focal motor deficits were noted, sensation to light touch and pinprick intact, motor exam 5/5 throughout. Psych: Patient is alert and oriented x3, he does not appear anxious or depressed, he does not appear agitated. After talking with the patient on 12/09/2021, he agreed with the medical plan to discharge to home on home phenobarbital for 2 days and follow-up with 180 on 12/11/2021. I felt that this was an adequate plan and the patient's spouse was in favor of this also. Medical Records Data Medical Nutrition Assessment Dietitian: Malnutrition Criteria Met Start: 12/08/21 09:52 Freq: Status: Active Protocol: Document 12/08/21 09:52 AG (Rec: 12/08/21 09:52 [id number]) Nutrition Malnutrition Evidence of Malnutrition Exists Yes Malnutrition (moderate): Chronic Evidenced By Suboptimal Energy Intake ( Moderate),Weight Loss ( Moderate) Clinical Problem Chronic Disease or Condition Related Malnutrition Etiology chronic, moderate malnutrition related to inadequate protein -energy intake in context of alcohol abuse Signs/Symptoms as evidenced by estimated PO intake meeting <75% of estimated energy needs >3 months, NFPA suggesting mild muscle wasting, fat loss in upper extremities, acromion and clavicle areas. Status Active Problem Recommendation Dietitian Recommendations/Changes will adjust diet to carbohydrate controlled, cardiac; will adjust Glucerna to 4x/day w/ medpass for additional calories/protein if consumed given evidenced of moderate malnutrition. Weight / BMI Weight Weight: 67.3 kg Body Mass Index (BMI) 22.5 ABG / Lab / Microbiology Data Result Diagrams: 12/07/21 22:26 12/07/21 22:26 Laboratory: Laboratory Results - last 24 hr 12/08/21 17:00: POC Glucose 279 H 12/08/21 21:23: POC Glucose 334 H 12/09/21 06:02: POC Glucose 76 12/09/21 11:40: POC Glucose 395 H D/C Instructions Discharge Diet: - (Resume present home diet) Weight Bearing Status: Full weight bearing Meaningful Use Info Meaningful Use Diagnoses (Choose all that apply): None applicable Discharge Plan Admission Admit Date/Time: 12/07/21 23:43 Primary Reason for Your Visit: Alcohol detox Attending Provider: Fredi Anderson Primary Care Provider: Yassine Bui Consulting Providers: Jesus Mullins ; Kole Bowman Discharge Orders/Prescriptions Prescriptions: New potassium chloride [Klor-Con M20] 20 mEq Tablet,Er Particles/Crystals 20 meq PO DAILY Qty: 0 0RF lisinopril 5 mg Tablet 5 mg PO QHS Qty: 0 0RF phenobarbital 32.4 mg tablet 32.4 mg PO .QID Qty: 10 0RF Rx Instructions: 1 tablet 4 times a day, may decrease dose to 1 tablet 3 times a day if sleepy Continued levothyroxine 125 mcg tablet 125 mcg PO DAILY Label Comments: TAKE 1 TABLET BY MOUTH ONCE DAILY nortriptyline 50 mg capsule 100 mg PO QHS quetiapine [Seroquel XR] 200 mg tablet extended release 24 hr 200 mg PO QPM multivitamin [Daily Multi-Vitamin] Tablet 1 tablet PO DAILY nitroglycerin 0.4 mg tablet, sublingual 0.4 mg SUBLINGUAL Q5M PRN (Reason: Cardiac/Chest Pain) Qty: 25 3RF thiamine HCl (vitamin B1) 100 mg tablet 100 mg PO DAILY Label Comments: TAKE 1 TABLET BY MOUTH ONCE DAILY cholecalciferol (vitamin D3) 10 mcg (400 unit) capsule 10 mcg PO DAILY alendronate 70 mg tablet 70 mg PO WE citalopram 40 MG tablet 40 mg PO DAILY Label Comments: DEPRESSION insulin aspart U-100 100 UNIT/ML solution 1.1 unit Continuous Subcutaneous Infusion UD Label Comments: 1 UNIT PER HOUR AND THEN SLIDING SCALE PER INTAKE OF CARBS metoprolol tartrate [Lopressor] 50 mg Tablet 50 mg PO DAILY aspirin 81 mg Capsule 81 mg PO QHS lisinopril 5 mg tablet 5 mg PO QPM potassium chloride [K-Tab] 20 mEq tablet extended release 20 meq PO DAILY Humalog Pen Referrals / Follow Up: Yassine Bui MD [Primary Care Provider] - Disposition Disposition (needs filled in before D/C Order can be placed): Home, Self Care Charges/Coding Visit Charges Inpatient E&M: 86466 Disch Hosp
[2021-12-09 17:25] LABS: Bedside Glucose 255 mg/dL (74-106)
== END 2021-12-09 19:30 | disposition home or self-care (01) | DRG 897 ==
LOC: ED 23:31 → MS3 12-08 00:05
PROVIDERS: Internal Medicine; Admitting Provider Family Medicine; Emergency Provider Emergency Medicine; PCP Family Medicine; Visit Provider Internal Medicine
DX: F10.231 Alcohol dependence with withdrawal delirium (principal); I50.32 Chronic diastolic (congestive) heart failure; F31.9 Bipolar disorder, unspecified; I11.0 Hypertensive heart disease with heart failure; R56.9 Unspecified convulsions; E10.65 Type 1 diabetes mellitus with hyperglycemia; F17.210 Nicotine dependence, cigarettes, uncomplicated; I25.5 Ischemic cardiomyopathy; E03.9 Hypothyroidism, unspecified; I95.1 Orthostatic hypotension; I25.10 Atherosclerotic heart disease of native coronary artery without angina pectoris; E78.5 Hyperlipidemia, unspecified; I25.2 Old myocardial infarction; Z66 Do not resuscitate; Z51.5 Encounter for palliative care; Z79.83 Long term (current) use of bisphosphonates; G89.29 Other chronic pain; Y90.7 Blood alcohol level of 200-239 mg/100 ml; Z86.73 Personal history of transient ischemic attack (TIA), and cerebral infarction without residual deficits; Z96.41 Presence of insulin pump (external) (internal)
CPT/HCPCS: 36415; 70450; 80053; 80061; 80307; 82077; 82962; 83735; 84100; 85025; 85610; 97161; 97165; 97802; 99284; 99406; A4216

== ENCOUNTER → 2021-12-14 | Outpatient (CLI) | payer MEDICARE, SELFPAY ==
[2021-12-14 12:48] LABS: Anion Gap 5 (5-15); BUN 9 mg/dL (7-18); BUN/Creat Ratio 9.5 RATIO (10-20); Chloride 100 mmol/L (98-107); Creatinine, Serum 0.95 mg/dL (0.70-1.30); EST Glomerular Filtration Rate 88 mL/min (>60); Est Glom Filt Rate - Afr Amer 106 mL/min (>60); Free T3 1.5 pg/mL (2.18-3.98); Glucose 225 mg/dL (74-106); Potassium 4.1 mmol/L (3.5-5.1); Sodium Level 135 mmol/L (136-145); T4 Free Direct 0.72 ng/dL (0.76-1.46)
== END | disposition home or self-care (01) ==
LOC: MFPLAB 09:47
PROVIDERS: PCP Family Medicine; Referring Provider Family Medicine; Visit Provider Family Medicine
DX: I10 Essential (primary) hypertension (principal); E03.9 Hypothyroidism, unspecified
CPT/HCPCS: 36415; 80048; 84439; 84443; 84481

== ENCOUNTER 2022-05-09 18:48 | Inpatient (IN) | payer MEDICARE, SELFPAY ==
[2022-05-09] VITALS (7 sets, daily range): BP systolic 81–100; BP diastolic 47–65; PULSE 67–74; RESP 15–16; TEMP 36.7; O2SAT 98; BMI 24.2
--- NOTE | 2022-05-09 19:18 | CT_ITS ---
Field comparison 12/07/2021. STUDY: CT BRAIN WITHOUT CONTRAST REASON FOR EXAM: Male, 57 years old. Trauma RADIATION DOSAGE (If Supplied By Facility): CTDIvol = ( 44.99 ) mGy, DLP = ( 846.73 ) mGycm TECHNIQUE: Transaxial CT imaging of the brain was performed without administration of intravenous contrast material. Individualized dose optimization techniques were used for this CT. COMPARISON: 12/07/2021. FINDINGS: Normal soft tissue structures. Normal calvarium. Normal size ventricles and extra-axial spaces for the patient''s age. Normal white matter tracts of the cerebral hemispheres. There is no intracranial hemorrhage. No acute territorial infarct. Right temporal encephalomalacia consistent with prior infarct or remote trauma. Normal visualized paranasal sinuses. CT/Brain/Head without Contrast IMPRESSION: No acute findings. Chronic right temporal encephalomalacia. Electronically Signed: Tete Woods MD at 19:45 EST Reading Location ID and State: [id number] / Tel , Service support ,
--- NOTE | 2022-05-09 19:19 | EDS_ITS ---
HPI HPI - Fall History of Present Illness Chief Complaint: Fall Narrative Narrative: 57-year-old male presents via EMS with alcohol intoxication and fall. According to EMS, he started drinking at 1 PM today. He states that he was recently through detox and rehab last month but started drinking again. Supposedly he has not drank a week, but decided to drink today. He states that his told him that he fell and has had to hit the floor. He denies loss of consciousness, no neck pain but states he has left knee pain. He states he broke his back before but is not complaining of any back pain. He states that he does not want detox currently. He is here because of the fall. He is unsure if he takes blood thinners, but states he has coronary artery disease with only 1 vessel open, and that surgery is not possible. He has past medical history of diabetes, on insulin pump, and hypertension. 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 Alcohol abuse Atherosclerotic heart disease of [place] coronary artery without angina pectoris Bipolar disorder Chronic pain due to injury Congestive heart failure (CHF) CVA (cerebral vascular accident) Degenerative joint disease (DJD) of lumbar spine Depression Desire for detoxification Diabetes mellitus type I Dizziness and giddiness Dyspnea on exertion Essential (primary) hypertension Family history of hyperlipidemia Family history of hypertension GERD (gastroesophageal reflux disease) History lymph node removal History of vocal cord surgery Hoarseness Hyperglycemia Hyperlipemia Hypertension Hypothyroidism Ischemic cardiomyopathy Lymphadenopathy, axillary Nicotine dependence Obstructive sleep apnea Old myocardial infarction 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 Palpitations Smoker Syncope TIA (transient ischemic attack) TIA (transient ischemic attack) Type I diabetes with insulin pump usage Home Medications citalopram 40 mg tablet 40 mg PO DAILY depression 03/18/13 [History Last Taken 12/07/21] insulin aspart U-100 100 unit/mL subcutaneous solution 1.1 unit continuous dior bcutaneous infusion UD diabetes 06/07/17 [History Last Taken 12/08/21] nortriptyline 50 mg capsule 100 mg PO QHS depression 01/28/19 [History Last Taken 12/06/21] quetiapine 200 mg tablet,extended release 24 hr (Seroquel XR) 200 mg PO QPM bipolar 01/28/19 [History Last Taken 12/06/21] levothyroxine 125 mcg tablet 125 mcg PO DAILY hypothyroid 07/28/19 [History Last Taken 12/07/21] multivitamin (Daily Multi-Vitamin tablet) 1 tablet PO DAILY health 08/10/20 [History Last Taken 12/07/21] nitroglycerin 0.4 mg sublingual tablet 0.4 mg sublingual Q5M PRN Cardiac/Chest Pain #25 tabs 08/10/20 [Rx Last Taken Unknown] alendronate 70 mg tablet 70 mg PO WE osteoporosis 05/15/21 [History Last Taken 11/29/21] cholecalciferol (vitamin D3) 10 mcg (400 unit) capsule 10 mcg PO DAILY supplement 05/15/21 [History Last Taken 12/07/21] thiamine HCl (vitamin B1) 100 mg tablet 100 mg PO DAILY supplement 05/15/21 [History Last Taken 12/07/21] aspirin 81 mg capsule 81 mg PO QHS heart health 12/08/21 [History Last Taken 12/06/21] lisinopril 5 mg tablet 5 mg PO QPM BP 12/08/21 [History Last Taken 12/07/21] metoprolol tartrate 50 mg tablet (Lopressor) 50 mg PO DAILY BP 12/08/21 [History Last Taken 12/07/21] potassium chloride 20 mEq tablet,extended release (K-Tab) 20 meq PO DAILY supplement 12/08/21 [History Last Taken 12/07/21] Humalog Pen DM 12/09/21 [History Last Taken Unknown] buspirone 7.5 mg tablet 7.5 mg PO BID 05/09/22 [History Last Taken Unknown] famotidine 20 mg tablet 20 mg PO DAILY 05/09/22 [History Last Taken Unknown] folic acid 400 mcg tablet 0.4 mg PO DAILY 05/09/22 [History Last Taken Unknown] lorazepam 0.5 mg tablet 0.5 mg PO TID PRN Anxiety 05/09/22 [History Last Taken Unknown] Allergy/AdvReac Type Severity Reaction Status Date / Time No Known Allergies Allergy Verified 05/09/22 18:54 Family History Unknown No problems noted. Father Heart disease CVA (cerebral vascular accident) Mother CAD (coronary artery disease) Grandfather Cancer Surgical History History of appendectomy History of cataract extraction History of cholecystectomy History of coronary artery stent placement (02/04/10) History of left heart catheterization (06/2017) History of open reduction and internal fixation (ORIF) procedure History of prosthetic vocal cord History of tonsillectomy and adenoidectomy Social History Smoking Status: Current every day smoker tobacco type: cigarettes alcohol intake: current alcohol intake frequency: a few times a week caffeine: Yes Type: carbonated beverages Number of servings: 6 and coffee Number of servings: 2 ROS ROS ED ROS Narrative Constitutional: No fever, no chills. HEENT: No sore throat. No neck pain. No loss of vision. No rhinorrhea. Cardiovascular: No chest pain. No palpitations. No pedal edema. Respiratory: No cough, no shortness of breath. Abdominal: No abdominal pain. No nausea. No vomiting. Genitourinary: No dysuria. No hematuria. Musculoskeletal: No myalgias. Left knee pain. Neurologic: No headaches. No dizziness. No lightheadedness. Skin: No rash. No change in color. Psychiatric: No depression. No anxiety. EXAM Physical Exam Narrative Exam Narrative: Afebrile. Vital signs noted. GCS 15. ABCs intact. HEENT: Normocephalic. Atraumatic. PERRL, EOMI. Neck soft and supple. No point tenderness or step off. Full range of motion without pain. Cardiovascular: Regular rate and rhythm. No murmurs, rubs, or gallops appreciated. Respiratory: No tachypnea. Lungs clear to auscultation bilaterally. Gastrointestinal: Abdomen soft, nontender, with normoactive bowel sounds. No rebound or guarding. Neurological: Awake. Alert. Nonfocal, nonlateralizing. Skin: No rash. Normal color. No pallor. Musculoskeletal: No pedal edema. Full range of motion extremities. Extension and flexion mechanism of left knee intact. Able to lift leg off bed without difficulty. Palpable dorsalis pedis pulse. Const Vital Signs: 05/09/22 18:49 05/09/22 18:49 05/09/22 20:49 Temperature 98.1 F Temperature Source Oral Pulse Rate 72 73 Pulse Rate [Lying] Pulse Rate [Sitting (for 1 minute prior to obtaining)] Respiratory Rate 15 Blood Pressure 81/56 L 90/48 L Blood Pressure [Lying] Blood Pressure [Sitting (for 1 minute prior to obtaining)] Blood Pressure Mean 64 62 Blood Pressure Mean [Lying] Blood Pressure Mean [Sitting (for 1 minute prior to obtaining)] Pulse Ox 98 Oxygen Delivery Method Room Air 05/09/22 21:22 05/09/22 22:36 05/09/22 23:10 Temperature Temperature Source Pulse Rate 74 Pulse Rate [Lying] 68 Pulse Rate [Sitting (for 1 minute prior to obtaining)] 69 Respiratory Rate 16 Blood Pressure 88/47 L 91/54 L Blood Pressure [Lying] 92/49 L Blood Pressure [Sitting (for 1 minute prior to obtaining)] 88/52 L Blood Pressure Mean 60 66 Blood Pressure Mean [Lying] 63 Blood Pressure Mean [Sitting (for 1 minute prior to obtaining)] 64 Pulse Ox 98 Oxygen Delivery Method Room Air MDM MDM MDM Narrative Medical decision making narrative: Patient was hypotensive here at 81/56. He was bolused normal saline intravenously and placed on a equipment monitor phototypesetting. I will obtain a CT of the brain and left knee x-ray, and obtain an alcohol level. He is awake and alert, and oriented x3 currently. He is declining detox currently. Initially, I obtained his blood alcohol level and it is elevated 219. I reviewed his EMR and he has had problems with low blood pressure that is usually fluid responsive. He was bolused normal saline 1 L intravenously with no significant change in his blood pressure. He was bolused a second liter. His is at the bedside who states that the reason he is here is for detox, but the patient still declines detox. It was found that his blood sugar was low at 36. He was able to eat crackers and drink orange juice but still had a low blood sugar of 36 even with his insulin pump off. He was administered dextrose 50 intravenously with resultant blood sugar elevated appropriately. I sent off other laboratory work including CBC and CMP because of his persistent hypotension, lactic acid. I did obtain CT imaging of his brain and reviewed/interpreted the images. Radiology confirms my interpretation that there is no acute process or acute hemorrhage. They do note chronic right temporal encephalomalacia that is stable. X-ray of the knee interpreted by myself in 4 view shows no acute fracture. I obtained and reviewed his CBC which shows normal white count of 8.6, hemoglobin normal at 15.8, hematocrit 46.4, normal platelet count of 307. CMP, and lactic acid are currently pending. Although he is still mentating well, given his persistent hypotension, he may need observation on telemetry. His lactic acid is currently normal. Blood pressure is 91/54 with a mean arterial pressure of 66. He already received 2 L of IV fluids. While he has hypotensive, he is still mentating well. He is awake, and alert. I discussed the patient with Dr. Chung for observation in the PCU. He has a normal lactic acid of 1.6. CMP is still pending. Regardless, he is still declining detox, but given his acute alcohol intoxication, I do not feel that he has a capacity to sign out AMA. He was told this. He will be placed on observation in the PCU. Patient is in stable condition. Lab Data Attestation: I reviewed the patient's lab results. Labs: Laboratory Results - last 24 hr 05/09/22 05/09/22 05/09/22 19:00 21:47 22:13 WBC RBC Hgb Hct MCV MCH MCHC RDW Std Deviation RDW Coeff of Gabrielle Plt Count MPV Immature Gran % (Auto) Neut % (Auto) Lymph % (Auto) [place] % (Auto) Eos % (Auto) Baso % (Auto) Absolute Neuts (auto) Absolute Lymphs (auto) Nucleated RBC % Lactic Acid Ethyl Alcohol 219.0 POC Glucose 36 L* 36 L* 05/09/22 05/09/22 05/09/22 22:19 22:19 22:46 WBC 8.6 RBC 4.69 Hgb 15.8 Hct 46.4 MCV 98.9 H MCH 33.7 H MCHC 34.1 RDW Std Deviation 49.2 H RDW Coeff of Gabrielle 13.6 Plt Count 307 MPV 10.2 Immature Gran % (Auto) 0.200 Neut % (Auto) 40.0 L Lymph % (Auto) 45.3 H [place] % (Auto) 9.4 Eos % (Auto) 4.4 Baso % (Auto) 0.7 Absolute Neuts (auto) 3.5 Absolute Lymphs (auto) 3.91 Nucleated RBC % 0 Lactic Acid 1.6 Ethyl Alcohol POC Glucose 171 H Radiography Diagnostic Testing: Clinical Impression(s) from Imaging Studies Brain CT 05/09/22 19:18 IMPRESSION: No acute findings. Chronic right temporal encephalomalacia. Electronically Signed: Tete Woods MD at 19:45 EST Reading Location ID and State: Andrez Chavez MD Tel , Service support , Knee X-Ray 05/09/22 19:27 IMPRESSION: No acute findings. Electronically Signed: Tete Woods MD at 20:07 EST Reading Location ID and State: Andrez Chavez MD Tel , Service support , Discharge Plan Dx/Rx/DC Orders Clinical Impression: Fall, Acute alcohol intoxication, Hypoglycemia, Hypotension Disposition Disposition: Acute Care [facility]
[2022-05-09] MEDS: 0.9% Normal Saline 1,000 ML 999 ML IV ×2 (19:23→21:21)
--- NOTE | 2022-05-09 19:27 | RAD_ITS ---
INDICATION: pain EXAMINATION/TECHNIQUE: X-RAY - LEFT XR Knee Complete 4 Views or More 4 VIEWS COMPARISON: 12/12/2016. FINDINGS: No acute fracture or dislocation. Minimal lateral patellar subluxation. Joint spaces are well-maintained. Normal alignment. Soft tissues are unremarkable. No radiopaque foreign body or soft tissue gas. RAD/Knee 4 or More Views IMPRESSION: No acute findings. Electronically Signed: Tete Woods MD at 20:07 EST Reading Location ID and State: [id number] / Tel , Service support ,
--- NOTE | 2022-05-09 21:54 | ED.RN ---
Pt blood sugar 36. Pt stating Oh yea I forgot to disconnect that earlier. pt asymptomatic. A&Ox4. zarina crackers with peanut butter, OJ and cheese sticks given.
[2022-05-09 22:10] LABS: Bedside Glucose 36 mg/dL (74-106)
[2022-05-09] MEDS: Dextrose 50%-Water 25 GM/50 ML DISP.SYRIN IV (22:23)
[2022-05-09 22:35] LABS: Bedside Glucose 36 mg/dL (74-106)
[2022-05-09 22:45] LABS: Absolute Lymphocyte Count 3.91 X10^3/uL (0.83-4.51); Absolute Neutrophil Count 3.5 X10^3/uL (2.0-7.7); Basophil# 0.06 X10^3/uL; Basophil% 0.7 % (0-1); Eosinophil# 0.38 X10^3/uL; Eosinophils% 4.4 % (0-5); Hematocrit 46.4 % (40-54); Hemoglobin 15.8 g/dL (13.0-16.5); Lymphocyte # 3.91 X10^3/ul (0.83-4.51); Lymphocyte % 45.3 % (19-41); Mean Corp Hgb Conc 34.1 g/dL (32-36); Mean Corpuscular Hgb 33.7 pg (27.0-32.0); Mean Corpuscular Volume 98.9 fL (80-94); Mean Platelet Vol. 10.2 fl (6.2-12.0); Monocyte# 0.81 X10^3/uL; Monocyte% 9.4 % (0-10); NRBC Flagged by Analyzer 0 % (0-5); Neutrophil # 3.45 X10^3/uL (2.7-7.7); Platelet Count 307 K/mm3 (150-450); RBC Distribution Width CV 13.6 % (11.6-14.6); RBC Distribution Width SD 49.2 fl (35.1-43.9); Red Blood Count 4.69 M/mm3 (4.6-6.2); White Blood Count 8.6 K/mm3 (4.4-11.0)
[2022-05-09 22:57] LABS: Lactic Acid 1.6 mmol/L (0.4-1.9)
[2022-05-09 23:05] LABS: Bedside Glucose 171 mg/dL (74-106)
--- NOTE | 2022-05-09 23:10 | HP.PCM.HOS_ITS ---
HPI - General General Date of Admission: 05/09/22 Date of Service: 05/09/22 Chief Complaint: mechanical fall, alcohol withdrawal HPI Narrative VERÓNICA ENGLE, is a 57 M with a PMH as outlined who presents via the ED on 05/09/2022 with a complaint of mechanical fall. He has a history of alcohol use disorder, and recently went through detox and rehab. He however started drinking again today after not drinking for ~ one week. He says he was told by his that he fell at home and hit his head. He denied any headache, slurred speech, neck pain, any dizziness or lightheadedness. He has a history of diabetes on insulin pump, and was hypoglycemic when he came in to the ED, with blood sugar being 37. His insulin pump was turned off and he was given IV dextrose. Vitals in the ED were BP of 81/56 initially on admission, with NV of 74 and temp of 98.1F, RR of 16 and he was saturating at 98% on room air. CBC was unremarkable, and CMP was till pending. He was hydrated with IVF and BP came up to 92/49. He is being admitted to be managed for debility due to mechanical fall, which was likely due to alcohol intoxication, as well as hypotension and hypoglycemia. [facility] Medical History Acute ischemic left posterior cerebral artery (SPORT PSYCHOLOGIST) stroke Alcohol abuse Atherosclerotic heart disease of [place] coronary artery without angina pectoris Bipolar disorder Chronic pain due to injury Congestive heart failure (CHF) CVA (cerebral vascular accident) Degenerative joint disease (DJD) of lumbar spine Depression Desire for detoxification Diabetes mellitus type I Dizziness and giddiness Dyspnea on exertion Essential (primary) hypertension Family history of hyperlipidemia Family history of hypertension GERD (gastroesophageal reflux disease) History lymph node removal History of vocal cord surgery Hoarseness Hyperglycemia Hyperlipemia Hypertension Hypothyroidism Ischemic cardiomyopathy Lymphadenopathy, axillary Nicotine dependence Obstructive sleep apnea Old myocardial infarction 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 Palpitations Smoker Syncope TIA (transient ischemic attack) TIA (transient ischemic attack) Type I diabetes with insulin pump usage Home Medications citalopram 40 mg tablet 40 mg PO DAILY depression 03/18/13 [History Last Taken 12/07/21] insulin aspart U-100 100 unit/mL subcutaneous solution 1.1 unit continuous subcutaneous infusion UD diabetes 06/07/17 [History Last Taken 12/08/21] nortriptyline 50 mg capsule 100 mg PO QHS depression 01/28/19 [History Last Take n 12/06/21] quetiapine 200 mg tablet,extended release 24 hr (Seroquel XR) 200 mg PO QPM bipolar 01/28/19 [History Last Taken 12/06/21] levothyroxine 125 mcg tablet 125 mcg PO DAILY hypothyroid 07/28/19 [History Last Taken 12/07/21] multivitamin (Daily Multi-Vitamin tablet) 1 tablet PO DAILY health 08/10/20 [History Last Taken 12/07/21] nitroglycerin 0.4 mg sublingual tablet 0.4 mg sublingual Q5M PRN Cardiac/Chest Pain #25 tabs 08/10/20 [Rx Last Taken Unknown] alendronate 70 mg tablet 70 mg PO WE osteoporosis 05/15/21 [History Last Taken 11/29/21] cholecalciferol (vitamin D3) 10 mcg (400 unit) capsule 10 mcg PO DAILY supplement 05/15/21 [History Last Taken 12/07/21] thiamine HCl (vitamin B1) 100 mg tablet 100 mg PO DAILY supplement 05/15/21 [History Last Taken 12/07/21] aspirin 81 mg capsule 81 mg PO QHS heart health 12/08/21 [History Last Taken 12/06/21] lisinopril 5 mg tablet 5 mg PO QPM BP 12/08/21 [History Last Taken 12/07/21] metoprolol tartrate 50 mg tablet (Lopressor) 50 mg PO DAILY BP 12/08/21 [History Last Taken 12/07/21] potassium chloride 20 mEq tablet,extended release (K-Tab) 20 meq PO DAILY supplement 12/08/21 [History Last Taken 12/07/21] Humalog Pen DM 12/09/21 [History Last Taken Unknown] buspirone 7.5 mg tablet 7.5 mg PO BID 05/09/22 [History Last Taken Unknown] famotidine 20 mg tablet 20 mg PO DAILY 05/09/22 [History Last Taken Unknown] folic acid 400 mcg tablet 0.4 mg PO DAILY 05/09/22 [History Last Taken Unknown] lorazepam 0.5 mg tablet 0.5 mg PO TID PRN Anxiety 05/09/22 [History Last Taken Unknown] Allergy/AdvReac Type Severity Reaction Status Date / Time No Known Allergies Allergy Verified 05/09/22 18:54 Family History Unknown No problems noted. Father Heart disease CVA (cerebral vascular accident) Mother CAD (coronary artery disease) Grandfather Cancer Surgical History History of appendectomy History of cataract extraction History of cholecystectomy History of coronary artery stent placement (02/04/10) History of left heart catheterization (06/2017) History of open reduction and internal fixation (ORIF) procedure History of prosthetic vocal cord History of tonsillectomy and adenoidectomy Social History Smoking Status: Current every day smoker tobacco type: cigarettes alcohol intake: current alcohol intake frequency: a few times a week caffeine: Yes Type: carbonated beverages Number of servings: 6 and coffee Number of servings: 2 ROS Review of Systems ROS Unobtainable: Denies due to encephalopathy Constitutional Constitutional: Reports malaise and weakness; Denies anorexia, chills, fatigue or fever(s) Eyes Eyes: Denies change in vision ENT HEENT: Reports epistaxis; Denies dysphagia, headache(s), nasal congestion or sore throat Cardiovascular Cardiovascular: Denies chest pain, dyspnea on exertion, edema, lightheadedness, orthopnea, palpitations, paroxysmal nocturnal dyspnea, rapid heart rate or syncope Respiratory/Chest Respiratory/Chest: Denies cough, dyspnea, productive cough, shortness of breath at rest or shortness of breath with exertion Gastrointestinal Gastrointestinal: Denies abdominal pain, coffee ground emesis, diarrhea, nausea or vomiting Genitourinary Genitourinary: Denies burning urination Musculoskeletal Musculoskeletal: Denies arthralgias or back pain Neurologic Neurologic: Denies confusion, disequilibrium, dizziness, focal weakness, headache(s), seizures or syncope Psychiatric Psychiatric: Denies anxiety or depression Endocrine Endocrinology: Denies change in body appearance Hematologic/Lymphatic Hematologic/Lymphatic: Denies anemia Vital Signs Vital Signs Vital Signs: 05/09/22 18:49 05/09/22 18:49 05/09/22 20:49 Temperature 98.1 F Temperature Source Oral Pulse Rate 72 73 Respiratory Rate 15 Blood Pressure 81/56 L 90/48 L Blood Pressure Mean 64 62 Pulse Ox 98 Oxygen Delivery Method Room Air 05/09/22 21:22 05/09/22 22:36 Temperature Temperature Source Pulse Rate 74 Respiratory Rate 16 Blood Pressure 88/47 L 91/54 L Blood Pressure Mean 60 66 Pulse Ox 98 Oxygen Delivery Method Room Air Weight Weight: 154 lb 8.705 oz Body Mass Index (BMI) 24.2 Physical Exam Const alert, oriented x3 and no apparent distress HEENT normocephalic, head/scalp atraumatic, hearing grossly normal bilaterally and moist oral mucous membranes Mouth: oral and palatal mucosa normal Neck no lymphadenopathy and supple Resp normal respiratory effort Cardio regular rate, regular rhythm, S1 normal heart sound and S2 normal heart sound GI normal to inspection, nondistended, normoactive bowel sounds, soft to palpation and non-tender Extremity normal to inspection, full ROM and no clubbing, cyanosis or edema Neuro oriented x3, CN's II-XII intact bilaterally, moves all extremities and no focal motor deficits Sensorium / Orientation: awake, alert and oriented to person Speech: speech normal Motor Exam: strength 5/5 throughout Psych affect normal Results Lab / Micro Data Result Diagrams: 05/09/22 22:19 05/09/22 22:19 Labs: Laboratory Results - last 24 hr 05/09/22 19:00: Ethyl Alcohol 219.0 05/09/22 21:47: POC Glucose 36 L* 05/09/22 22:13: POC Glucose 36 L* 05/09/22 22:19: WBC 8.6, RBC 4.69, Hgb 15.8, Hct 46.4, MCV 98.9 H, MCH 33.7 H, MCHC 34.1, RDW Std Deviation 49.2 H, RDW Coeff of Gabrielle 13.6, Plt Count 307, MPV 10.2, Immature Gran % (Auto) 0.200, Neut % (Auto) 40.0 L, Lymph % (Auto) 45.3 H, [place] % (Auto) 9.4, Eos % (Auto) 4.4, Baso % (Auto) 0.7, Absolute Neuts (auto) 3.5, Absolute Lymphs (auto) 3.91, Nucleated RBC % 0 05/09/22 22:19: Lactic Acid 1.6 05/09/22 22:46: POC Glucose 171 H Radiology Impression Brain CT 05/09/22 19:18 IMPRESSION: No acute findings. Chronic right temporal encephalomalacia. Electronically Signed: Tete Woods MD at 19:45 EST Reading Location ID and State: [place] / Tel , Service support , Knee X-Ray 05/09/22 19:27 IMPRESSION: No acute findings. Electronically Signed: Tete Woods MD at 20:07 EST Reading Location ID and State: [place] Tel , Service support , Assessment & Plan Assessment/Plan (1) Fall: (2) Acute alcohol intoxication: (3) Hypoglycemia: (4) Hypotension: PLAN: Plan #Debility due to mechanical fall * admit to PCU o/'a of hypotension * PT/OT consult * hydrate gently with IVF * fall precautions * #Acute alcohol withdrawal * patient was recently in rehab for alcohol, and said he hadnt drank alcohol for about a week * started drinking today * check serum alcohol level * start on alcohol withdrawal protocol with phenobarbital * monitor CIWA score * thiamine, multivite and folic acid * #Hypotension * etiology is not clear; may be due to decreased intake as he had recently started drinking alcohol again * Check orthostatics. * Responded initially to IV fluids. We will continue gentle hydration with IV fluids normal saline. * #Hypoglycemia in the setting of type 2 diabetes mellitus * On insulin drip. Blood sugars were in the 30s on admission. Insulin drip turned off and patient given IV dextrose. * Continue holding insulin. Insulin sliding scale. Accu-Cheks ACH S. * #Hypertension: On lisinopril and metoprolol #Hypothyroidism: * On Synthroid. Last TSH per records was in November 2021 and TSH was 27.6 with free T4 was 0.72. * Will check TSH. * #Depression; on buspirone and nortryptiline, as well as seroquel DVT prophylaxis: SCDs Charges/Coding Visit Charges Inpatient E&M: 79838 Init Hosp L3
--- NOTE | 2022-05-09 23:24 | ED.RN ---
Pt stating I am going to hook my insulin pump back up. This nurse educated pt on importance of holding off for now d/t it being low earlier. Pt in agreement.
[2022-05-09 23:32] LABS: ALB/GLOB Ratio 1.3 RATIO (0.9-2.4); AST(SGOT) 21 U/L (15-37); Alanine Aminotransfer ALT/SGPT 32 U/L (16-61); Albumin, Serum 3.1 g/dL (3.2-5.0); Alkaline Phosphatase 45 U/L (45-117); Anion Gap 4 (5-15); BUN 8 mg/dL (7-18); BUN/Creat Ratio 7.3 RATIO (10-20); Calcium,Total 7.8 mg/dL (8.5-10.1); Chloride 113 mmol/L (98-107); Creatinine, Serum 1.09 mg/dL (0.70-1.30); EST Glomerular Filtration Rate 74 mL/min (>60); Est Glom Filt Rate - Afr Amer 90 mL/min (>60); Estimated Creatinine Clearance 70.75 ml/min; Globulin 2.4 g/dL (2.2-4.2); Glucose 182 mg/dL (74-106); Potassium 4.1 mmol/L (3.5-5.1); Protein, Total 5.5 g/dL (6.4-8.2); Sodium Level 144 mmol/L (136-145)
[2022-05-10] VITALS (10 sets, daily range): BP systolic 108–148; BP diastolic 45–82; PULSE 67–95; RESP 16–18; TEMP 36.5–37.3; O2SAT 96–99; BMI 25.1
[2022-05-10] MEDS: 0.9% Normal Saline 1,000 ML 150 ML IV ×2 (00:40→06:44)
[2022-05-10] MEDS: Phenobarbital 32.4 MG Tablet 64.8 MG PO ×6 (00:42→20:07)
--- NOTE | 2022-05-10 02:03 | RAD_ITS ---
STUDY: X-RAY - BILATERAL FEET CLINICAL: Male, 57 years old. Pain TECHNIQUE - RIGHT: 3 view(s) of the right foot. TECHNIQUE - LEFT: 3 view(s) of the left foot. COMPARISON: August 19, 2020 ankle x-ray, left foot x-ray June 04, 2015 FINDINGS - RIGHT: There is demineralization of the rear and midfoot bones. As seen on the prior studies there is visualized hardware within the distal tibia and fibula. Normal visualized subtalar, talonavicular, calcaneocuboid, tarsal and tarsometatarsal articulations. Generalized metatarsals. Normal metatarsophalangeal joint of the great toe. Normal tibial and fibular sesamoid bones. Normal interphalangeal joint of the great toe. Normal phalanges of the great toe. Normal second through fifth metatarsophalangeal joints. Normal interphalangeal joints and phalanges of the lesser toes. The visualized vascular calcifications. FINDINGS - LEFT: There is demineralization of the rear and midfoot bones. Normal visualized subtalar, talonavicular, calcaneocuboid, tarsal and tarsometatarsal articulations. There is a visualized small os naviculare are stable since prior study. There is demineralization of the metatarsi. Normal metatarsophalangeal joint of the great toe. Normal tibial and fibular sesamoid bones. Normal interphalangeal joint of the great toe. Normal phalanges of the great toe. Normal second through fifth metatarsophalangeal joints. Normal interphalangeal joints and phalanges of the lesser toes. The soft tissue structures are unremarkable. RAD/Foot min 3 Views IMPRESSION: Bilateral bony demineralization without visualized fracture. Partially visualized hardware within the tibia and fibula of the right ankle. No visualized acute fracture. Normal x-ray examination of the left foot. Electronically Signed: María Tran MD at 2:33 EST Reading Location ID and State: [facility] / [place] Tel , Service support ,
[2022-05-10] MEDS: Acetaminophen 325 MG Tablet 650 MG PO ×2 (02:09→18:34)
[2022-05-10] MEDS: Levothyroxine 125 MCG Tablet PO (05:32)
[2022-05-10] MEDS: Insulin Lispro 100 UNIT/ML INSULN.PEN SC ×4 (06:51→22:09)
[2022-05-10 07:20] LABS: Bedside Glucose 373 mg/dL (74-106)
[2022-05-10] MEDS: Thiamine Hydrochloride 100 MG Tablet PO (08:04)
[2022-05-10] MEDS: Citalopram 40 MG TABLET PO (08:05)
[2022-05-10] MEDS: Folic Acid 1 MG Tablet 0.5 MG PO (08:05)
[2022-05-10] MEDS: busPIRone 5 MG Tablet 7.5 MG PO ×2 (08:05→22:09)
[2022-05-10] MEDS: Multivitamins,Therapeutic Tablet 1 TABLET PO (08:05)
[2022-05-10] MEDS: Famotidine 20 MG Tablet PO (08:05)
[2022-05-10] MEDS: oxyCODONE 5 MG Tablet PO ×3 (08:05→20:07)
[2022-05-10] MEDS: QUEtiapine 100 MG Tablet PO ×2 (08:05→22:08)
[2022-05-10] MEDS: Folic Acid 1 MG Tablet PO (08:06)
[2022-05-10] MEDS: Potassium Chloride Oral Tablet 20 MEQ PO (08:06)
--- NOTE | 2022-05-10 09:50 | PN.HOSP_ITS ---
Subjective Subjective Follow-up acute alcohol withdrawal Patient is a 58-year-old gentleman with history of chronic alcohol dependence pr esented to the emergency department following a mechanical fall. He was found to be hypotensive on admission admitted to monitored bed resuscitated with IV fluid. Patient was also started on alcohol withdrawal protocol using phenobarb Objective Data Objective Data Vital Signs: Vital Signs Temp Pulse Resp BP Pulse Ox O2 Del Method 99.0 F 91 18 138/69 H 97 Room Air 05/10/22 08:00 05/10/22 08:00 05/10/22 08:00 05/10/22 08:00 05/10/22 08:00 05/10/22 08:00 Oxygen Delivery Method Room Air Weight: 72.8 kg Body Mass Index (BMI) 25.1 Intake & Output: Intake and Output for Last 24 Hours 05/08/22 05/09/22 05/10/22 23:59 23:59 23:59 Intake Total 1999 910 / 910 Balance 1999 910 / 910 Lab / Micro Data Result Diagrams: 05/09/22 22:19 05/09/22 23:07 Labs: Laboratory Results - last 24 hr 05/09/22 19:00: Ethyl Alcohol 219.0 05/09/22 21:47: POC Glucose 36 L* 05/09/22 22:13: POC Glucose 36 L* 05/09/22 22:19: WBC 8.6, RBC 4.69, Hgb 15.8, Hct 46.4, MCV 98.9 H, MCH 33.7 H, MCHC 34.1, RDW Std Deviation 49.2 H, RDW Coeff of Gabrielle 13.6, Plt Count 307, MPV 10.2, Immature Gran % (Auto) 0.200, Neut % (Auto) 40.0 L, Lymph % (Auto) 45.3 H, [place] % (Auto) 9.4, Eos % (Auto) 4.4, Baso % (Auto) 0.7, Absolute Neuts (auto) 3.5, Absolute Lymphs (auto) 3.91, Nucleated RBC % 0 05/09/22 22:19: Lactic Acid 1.6 05/09/22 22:46: POC Glucose 171 H 05/09/22 23:07: Sodium 144, Potassium 4.1, Chloride 113 H, Carbon Dioxide 27.0, Anion Gap 4 L, BUN 8, Creatinine 1.09, Estim Creat Clear Calc 70.75, Est GFR (MDRD) Af Amer 90, Est GFR (MDRD) Non-Af 74, BUN/Creatinine Ratio 7.3 L, Glucose 182 H, Calcium 7.8 L, Total Bilirubin 0.20, AST 21, ALT 32, Alkaline Phosphatase 45, Total Protein 5.5 L, Albumin 3.1 L, Globulin 2.4, Albumin/Globulin Ratio 1.3 05/10/22 05:30: TSH 11.10 H 05/10/22 06:46: POC Glucose 373 H Radiography Diagnostic Testing: Radiology Impression Brain CT 05/09/22 19:18 IMPRESSION: No acute findings. Chronic right temporal encephalomalacia. Electronically Signed: Tete Woods MD at 19:45 EST Reading Location ID and State: [place] / Tel , Service support , Knee X-Ray 05/09/22 19:27 IMPRESSION: No acute findings. Electronically Signed: Tete Woods MD at 20:07 EST Reading Location ID and State: [id number] / Tel , Service support , Foot X-Ray 05/10/22 02:03 IMPRESSION: Bilateral bony demineralization without visualized fracture. Partially visualized hardware within the tibia and fibula of the right ankle. No visualized acute fracture. Normal x-ray examination of the left foot. Electronically Signed: María Tran MD at 2:33 EST , Physical Exam Narrative GENERAL: cooperative HEENT: Atraumatic; normocephalic EYES; Anicteric, Normal Conjunctiva NECK; supple, normal thyroid, RESPIRATORY: Diminished to auscultation CARDIOVASCULAR: Regular S1 S2, GI: soft, normoactive bowel sounds, : No Renal angle tenderness; EXTREMITIES: No edema, no clubbing, MUSCULOSKELETAL: no muscle wasting NEURO: Awake; no lateralizing signs. SKIN: No Rash PSYCH; Flat affect Assessment & Plan Assessment/Plan (1) Fall: (2) Acute alcohol intoxication: (3) Hypoglycemia: (4) Hypotension: PLAN: Plan Patient is a 58-year-old gentleman with history of chronic alcohol dependence presented to the emergency department following a mechanical fall. He was found to be hypotensive on admission admitted to monitored bed resuscitated with IV fluid. Patient was also started on alcohol withdrawal protocol using phenobarb 1. Acute mechanical fall ? Admitted to regular nursing floor managed with pain meds and PT OT as tolerated 2. Hypotension ? Patient antihypertensives including metoprolol held on admission resuscitated with IV fluid blood pressure has since stabilized 3. Chronic alcohol dependence with mild withdrawal ? Patient placed on phenobarb taper 4. Hypothyroidism - Patient is on levothyroxine home dose continued 5. Diabetes mellitus type II ? Patient is on insulin pump held in view of hypotension. Ordered Accu-Cheks before meals and at bedtime with sliding scale coverage 6. Depression with anxiety ? Patient is on nortriptyline as well as buspirone did continue 7. DVT prophylaxis ? Bilateral SCDs Time spent in the patient's overall evaluation,decision-making process, review of diagnostic data, adjustment of management, discussion with other providers, nursing nursing and ancillary staff involved in patient's care documentation, 38 Minutes Charges/Coding Visit Charges Inpatient E&M: 43779 Subs Hosp L2
--- NOTE | 2022-05-10 11:15 | CASEMGMT ---
NEELAM JAQUEZ Face to Face with patient for initial transition planning/care coordination assessment. NEELAM JAQUEZ introduced self and role at [facility]. Patient lying in bed, alert and oriented. Patient willing to participate in assessment and is able to answer all questions appropriately. Care providers, pharmacy, and demographics verified. Patient wishes to discharge home, denies need for home health at this time. Patient states he has no further needs or concerns at this time. CM to follow for discharge planning needs that may arise. 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 Patient is independent and able to ambulate stairs Transportation: self, DME/HHC: Patient states he has raised toilet, cane, crutches, walker, glucometer with supplies, and insulin pump with supplies. Patient denies previous HHC and SNF. Patient states he smokes 2ppd of cigarettes and drinks a fifth of 90 proof vodka daily. NEELAM JAQUEZ offered resources for alcohol cessation, patient denied resources. Disposition Plan: Patient to discharge home with family support and follow-up plans in place. Meri FINNEY, RN, CM
[2022-05-10] MEDS: hydrOXYzine PAM 25 MG Capsule 50 MG PO (11:57)
[2022-05-10 12:06] LABS: Bedside Glucose 435 mg/dL (74-106)
[2022-05-10 16:30] LABS: Bedside Glucose 298 mg/dL (74-106)
[2022-05-10] MEDS: Nortriptyline 25 MG Capsule 100 MG PO (22:08)
[2022-05-10] MEDS: Aspirin 81 MG TAB.CHEW PO (22:09)
[2022-05-10 22:30] LABS: Bedside Glucose 177 mg/dL (74-106)
[2022-05-11] VITALS: BP 132/66; PULSE 81; RESP 16; TEMP 36.5; O2SAT 94
[2022-05-11] MEDS: Phenobarbital 32.4 MG Tablet 64.8 MG PO ×3 (00:07→08:15)
[2022-05-11 04:00] VITALS: BP 134/71; PULSE 90; RESP 16; TEMP 36.4; O2SAT 97
[2022-05-11] MEDS: Levothyroxine 125 MCG Tablet PO (06:23)
[2022-05-11 06:45] LABS: Bedside Glucose 142 mg/dL (74-106)
--- NOTE | 2022-05-11 07:27 | PCM.DC.SUM ---
Providers Date of Admission: 05/09/22 Date of Discharge: 05/11/22 Primary Care Physician: Dr. Yassine Bui MD Reason For Visit: HYPOTENSION,ALCOHOL WITHDRAWAL Diagnosis Discharge Diagnosis (1) Fall: Status: Acute Code(s): W19.XXXA - Unspecified fall, initial encounter (2) Acute alcohol intoxication: Status: Acute Code(s): F10.929 - Alcohol use, unspecified with intoxication, unspecified (3) Hypoglycemia: Status: Acute Code(s): E16.2 - Hypoglycemia, unspecified (4) Hypotension: Status: Acute Code(s): I95.9 - Hypotension, unspecified Plan Patient is a 58-year-old gentleman with history of chronic alcohol dependence presented to the emergency department following a mechanical fall. He was found to be hypotensive on admission admitted to monitored bed resuscitated with IV fluid. Patient was also started on alcohol withdrawal protocol using phenobarb 1. Acute mechanical fall ? Admitted to regular nursing floor managed with pain meds and PT OT as tolerated ? Pain meds written on discharge 2. Hypotension ? Patient antihypertensives including metoprolol held on admission resuscitated with IV fluid blood pressure has since stabilized ? 05/11/2022; blood pressure medications adjusted on discharge discontinued lisinopril was on metoprolol 50 mg daily dose decreased to 25 mg 3. Chronic alcohol dependence with mild withdrawal ? Patient placed on phenobarb taper 4. Hypothyroidism - Patient is on levothyroxine home dose continued 5. Diabetes mellitus type II ? Patient is on insulin pump held in view of hypotension. Ordered Accu-Cheks before meals and at bedtime with sliding scale coverage 6. Depression with anxiety ? Patient is on nortriptyline as well as buspirone did continue 7. DVT prophylaxis ? Bilateral SCDs Medications at Discharge Home Medications citalopram 40 mg tablet 40 mg PO DAILY depression 03/18/13 insulin aspart U-100 100 unit/mL subcutaneous solution 1.1 unit continuous subcutaneous infusion UD diabetes 06/07/17 nortriptyline 50 mg capsule 100 mg PO QHS depression 01/28/19 quetiapine 200 mg tablet,extended release 24 hr (Seroquel XR) 200 mg PO QPM bipolar 01/28/19 levothyroxine 125 mcg tablet 125 mcg PO DAILY hypothyroid 07/28/19 multivitamin (Daily Multi-Vitamin tablet) 1 tablet PO DAILY health 08/10/20 nitroglycerin 0.4 mg sublingual tablet 0.4 mg sublingual Q5M PRN Cardiac/Chest Pain #25 tabs 08/10/20 alendronate 70 mg tablet 70 mg PO WE osteoporosis 05/15/21 cholecalciferol (vitamin D3) 10 mcg (400 unit) capsule 10 mcg PO DAILY supplement 05/15/21 thiamine HCl (vitamin B1) 100 mg tablet 100 mg PO DAILY supplement 05/15/21 aspirin 81 mg capsule 81 mg PO QHS heart health 12/08/21 potassium chloride 20 mEq tablet,extended release (K-Tab) 20 meq PO DAILY supplement 12/08/21 Humalog Pen DM 12/09/21 buspirone 7.5 mg tablet 7.5 mg PO BID 05/09/22 famotidine 20 mg tablet 20 mg PO DAILY 05/09/22 folic acid 400 mcg tablet 0.4 mg PO DAILY 05/09/22 lorazepam 0.5 mg tablet 0.5 mg PO TID PRN Anxiety 05/09/22 metoprolol tartrate 50 mg tablet (Lopressor) 25 mg PO DAILY BP #30 tabs 05/11/22 oxycodone 5 mg tablet 5 mg PO Q4H PRN PRN Pain Score 4-10 3 days #15 tabs 05/11/22 Hospital Course Summary of Care Provided Minutes Spent on Discharge: 35 Physical Exam Narrative GENERAL: cooperative HEENT: Atraumatic; normocephalic EYES; Anicteric, Normal Conjunctiva NECK; supple, normal thyroid, RESPIRATORY: Diminished to auscultation CARDIOVASCULAR: Regular S1 S2, GI: soft, normoactive bowel sounds, : No Renal angle tenderness; EXTREMITIES: No edema, no clubbing, MUSCULOSKELETAL: no muscle wasting NEURO: Awake; no lateralizing signs. SKIN: No Rash PSYCH; Flat affect Weight / BMI Weight Weight: 72.8 kg Body Mass Index (BMI) 25.1 ABG / Lab / Microbiology Data Result Diagrams: 05/09/22 22:19 05/09/22 23:07 Laboratory: Laboratory Results - last 24 hr 05/10/22 11:39: POC Glucose 435 H 05/10/22 16:06: POC Glucose 298 H 05/10/22 22:05: POC Glucose 177 H 05/11/22 04:11: TSH 12.20 H 05/11/22 06:25: POC Glucose 142 H D/C Instructions Discharge Diet: 1800 Calorie Control Diet Discharge Activity: Return to Normal Activity Call your doctor if you observe: Fever of 101 or Higher, Shortness of breath, Fainting spells and Chest pain Meaningful Use Info Meaningful Use Diagnoses (Choose all that apply): None applicable Discharge Plan Admission Admit Date/Time: 05/09/22 23:27 Attending Provider: Kole Bowman Primary Care Provider: Yassine Bui Consulting Providers: Carolina Chung Discharge Orders/Prescriptions Prescriptions: New oxycodone 5 mg Tablet 5 mg PO Q4H PRN PRN (Reason: Pain Score 4-10) 3 Days Qty: 15 0RF Continued levothyroxine 125 mcg tablet 125 mcg PO DAILY Label Comments: TAKE 1 TABLET BY MOUTH ONCE DAILY nortriptyline 50 mg capsule 100 mg PO QHS quetiapine [Seroquel XR] 200 mg tablet extended release 24 hr 200 mg PO QPM multivitamin [Daily Multi-Vitamin] Tablet 1 tablet PO DAILY nitroglycerin 0.4 mg tablet, sublingual 0.4 mg SUBLINGUAL Q5M PRN (Reason: Cardiac/Chest Pain) Qty: 25 3RF thiamine HCl (vitamin B1) 100 mg tablet 100 mg PO DAILY Label Comments: TAKE 1 TABLET BY MOUTH ONCE DAILY cholecalciferol (vitamin D3) 10 mcg (400 unit) capsule 10 mcg PO DAILY alendronate 70 mg tablet 70 mg PO WE citalopram 40 MG tablet 40 mg PO DAILY Label Comments: DEPRESSION insulin aspart U-100 100 UNIT/ML solution 1.1 unit Continuous Subcutaneous Infusion UD Label Comments: 1 UNIT PER HOUR AND THEN SLIDING SCALE PER INTAKE OF CARBS aspirin 81 mg Capsule 81 mg PO QHS potassium chloride [K-Tab] 20 mEq tablet extended release 20 meq PO DAILY Humalog Pen folic acid 400 mcg Tablet 0.4 mg PO DAILY famotidine 20 mg Tablet 20 mg PO DAILY lorazepam 0.5 mg Tablet 0.5 mg PO TID PRN (Reason: Anxiety) buspirone 7.5 mg Tablet 7.5 mg PO BID Changed metoprolol tartrate [Lopressor] 50 mg Tablet 25 mg PO DAILY Qty: 30 0RF Discontinued lisinopril 5 mg tablet 5 mg PO QPM Referrals / Follow Up: Yassine Bui MD [Primary Care Provider] - Within 1 Week Disposition Disposition (needs filled in before D/C Order can be placed): Home, Self Care Charges/Coding Visit Charges Inpatient E&M: 07594 Disch Hosp >30min
[2022-05-11] MEDS: oxyCODONE 5 MG Tablet PO (08:15)
[2022-05-11] MEDS: Famotidine 20 MG Tablet PO (08:15)
[2022-05-11] MEDS: Potassium Chloride Oral Tablet 20 MEQ PO (08:15)
[2022-05-11] MEDS: Folic Acid 1 MG Tablet PO (08:16)
[2022-05-11] MEDS: Citalopram 40 MG TABLET PO (08:16)
[2022-05-11] MEDS: Folic Acid 1 MG Tablet 0.5 MG PO (08:16)
[2022-05-11] MEDS: Thiamine Hydrochloride 100 MG Tablet PO (08:16)
[2022-05-11] MEDS: Multivitamins,Therapeutic Tablet 1 TABLET PO (08:16)
[2022-05-11] MEDS: busPIRone 5 MG Tablet 7.5 MG PO (08:16)
[2022-05-11] MEDS: QUEtiapine 100 MG Tablet PO (08:16)
[2022-05-11 09:44] VITALS: BP 120/68; PULSE 107; RESP 18; TEMP 36.6; O2SAT 95
--- NOTE | 2022-05-11 10:26 | NURSING ---
Patient is unable to walk without pain, but refusing to see physical and occupational therapy. Patient also states that he has a walker and other equipment at home and is not concerned about going home. Patient is being discharged home with oral pain medicine for the foot pain.
== END 2022-05-11 10:24 | disposition home or self-care (01) | DRG 315 ==
LOC: ED 23:06 → PCU 23:57
PROVIDERS: Admitting Provider Student in an Organized Health Care Education/Training Program; Emergency Provider Emergency Medicine; PCP Family Medicine; Visit Provider Internal Medicine
DX: I95.9 Hypotension, unspecified (principal); F10.239 Alcohol dependence with withdrawal, unspecified; E10.649 Type 1 diabetes mellitus with hypoglycemia without coma; G93.89 Other specified disorders of brain; F31.9 Bipolar disorder, unspecified; F10.229 Alcohol dependence with intoxication, unspecified; I25.10 Atherosclerotic heart disease of native coronary artery without angina pectoris; F17.210 Nicotine dependence, cigarettes, uncomplicated; E03.9 Hypothyroidism, unspecified; M17.12 Unilateral primary osteoarthritis, left knee; F41.8 Other specified anxiety disorders; I10 Essential (primary) hypertension; W19.XXXA Unspecified fall, initial encounter; Z82.3 Family history of stroke; Z79.83 Long term (current) use of bisphosphonates; Z95.5 Presence of coronary angioplasty implant and graft; R53.81 Other malaise; Z96.41 Presence of insulin pump (external) (internal); Z79.82 Long term (current) use of aspirin; Z86.73 Personal history of transient ischemic attack (TIA), and cerebral infarction without residual deficits; Y90.9 Presence of alcohol in blood, level not specified
CPT/HCPCS: 36415; 70450; 73564; 73630; 80053; 82077; 82962; 83605; 84443; 85025; 99285; J7030; A4216

== ENCOUNTER 2022-05-26 17:52 | Inpatient (IN) | payer MEDICARE, SELFPAY ==
[2022-05-26] VITALS (18 sets, daily range): BP systolic 88–142; BP diastolic 51–82; PULSE 64–165; RESP 13–17; TEMP 35–36.4; O2SAT 95–100; BMI 27.8; BMI 24.7
[2022-05-26] MEDS: Naloxone 2 MG/2 ML Syringe 4 MG IV (17:52)
[2022-05-26] MEDS: Dextrose 50%-Water 25 GM/50 ML DISP.SYRIN IV (17:56)
[2022-05-26] MEDS: Etomidate 20 MG/10 ML Vial 30 MG IV (17:58)
--- NOTE | 2022-05-26 18:18 | CT_ITS ---
STUDY: CT BRAIN WITHOUT CONTRAST REASON FOR EXAM: Male, 57 years old. Altered mental status. Grand mal seizure lasting 30 to 60 minutes. History of prior alcohol-induced seizure. History of CVA. RADIATION DOSAGE (If Supplied By Facility): CTDIvol = ( 44.99 ) mGy, DLP = ( 914.22 ) mGycm TECHNIQUE: Transaxial CT imaging of the brain was performed without administration of intravenous contrast material. Individualized dose optimization techniques were used for this CT. COMPARISON: May 09, 2022 FINDINGS: Normal soft tissue structures. Normal calvarium. There is mild cerebral atrophy with widening of the extra-axial spaces and ventricular dilatation. Area of encephalomalacia involving the lateral right temporal lobe suggesting remote infarct. Otherwise normal white matter tracts of the cerebral hemispheres. Normal basal ganglia and thalami. Normal brainstem. Normal cerebellum. There is no intracranial hemorrhage. There are no findings of an acute ischemic infarction. Normal visualized paranasal sinuses. CT/Brain/Head without Contrast IMPRESSION: No acute intracranial or calvarial abnormality. No interval change. Electronically Signed: Marvel Damon DO at 19:50 EST Reading Location ID and State: [address] [place] [address] Tel [phone], Service support ,
[2022-05-26] MEDS: Propofol 10MG/Ml 1,000 MG/100 ML Bottle 4.8 MG CONT INF (18:22)
[2022-05-26] MEDS: 0.9% Normal Saline 1,000 ML 200 ML IV (18:23)
[2022-05-26 18:29] LABS: Bacteria 0 SEEN /hpf (None Seen); Mucous, Urine 0 SEEN /hpf (<or=2+); Red Blood Cells-Urine 0 SEEN /hpf (0-5); Squamous Epithelial Cells - UA 0 SEEN /hpf (0-5); White Blood Cells 0 SEEN /hpf (0-5)
[2022-05-26 18:30] LABS: Color, Urine Yellow (Yellow); Glucose, Dipstick Normal (Normal); Ketone-Dipstick Negative (Negative); Leukocyte Esterase-Dipstick Negative /ul (Negative); Nitrite-Dipstick Negative (Negative); Occult Blood-Urine Negative /ul (Negative); Protein-Dipstick Negative (Negative); Urine Bilirubin Dipstick Negative (Negative); Urine Clarity Clear (Clear); Urine Urobilinogen Normal (Normal)
[2022-05-26] MEDS: levETIRAcetam IV 1,000 MG/100 ML BAG 400 MG IV (18:31)
[2022-05-26 18:32] LABS: Absolute Lymphocyte Count 1.58 X10^3/uL (0.83-4.51); Absolute Neutrophil Count 6.1 X10^3/uL (2.0-7.7); Basophil# 0.07 X10^3/uL; Basophil% 0.8 % (0-1); Eosinophil# 0.32 X10^3/uL; Eosinophils% 3.7 % (0-5); Hematocrit 39.9 % (40-54); Hemoglobin 13.1 g/dL (13.0-16.5); Lymphocyte # 1.58 X10^3/ul (0.83-4.51); Lymphocyte % 18.4 % (19-41); Mean Corp Hgb Conc 32.8 g/dL (32-36); Mean Corpuscular Hgb 32.9 pg (27.0-32.0); Mean Corpuscular Volume 100.3 fL (80-94); Mean Platelet Vol. 10.2 fl (6.2-12.0); Monocyte# 0.52 X10^3/uL; NRBC Flagged by Analyzer 0 % (0-5); Neutrophil # 6.08 X10^3/uL (2.7-7.7); Neutrophil % 70.6 % (47-70); Platelet Count 229 K/mm3 (150-450); RBC Distribution Width CV 13.3 % (11.6-14.6); Red Blood Count 3.98 M/mm3 (4.6-6.2); White Blood Count 8.6 K/mm3 (4.4-11.0)
[2022-05-26 18:41] LABS: Bedside Glucose 178 mg/dL (74-106)
--- NOTE | 2022-05-26 18:42 | EX.ED.DYSGE1 ---
HPI History of Present Illness Chief Complaint: Seizure Narrative Narrative: 57-year-old male here for concern for seizure. Per EMS patient was having an active tonic-clonic seizure for about 30 to 60 minutes. They noted his blood sugar was 63. They state patient has had a history of alcohol use. They gave the patient two separate 5 mg doses of Versed with cessation of seizure. Patient presented with altered mental status and does not participate in history. Per his patient has not had any alcohol for the past 2 weeks. States she spoke to him approximate 2 hours prior to arrival and he was speaking normally and has had no complaints of chest pain headache abdominal pain. States she came home he was flailing around. [facility] Medical History (Updated 05/27/22 @ 00:[address] 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 Alcohol abuse Anxiety and depression Atherosclerotic heart disease of [place] coronary artery without angina pectoris Bipolar disorder Chronic pain due to injury Congestive heart failure (CHF) CVA (cerebral vascular accident) Degenerative joint disease (DJD) of lumbar spine GERD (gastroesophageal reflux disease) History lymph node removal History of vocal cord surgery Hoarseness Hyperlipemia Hypertension Hypothyroidism Ischemic cardiomyopathy Nicotine dependence Obstructive sleep apnea Old myocardial infarction Smoker TIA (transient ischemic attack) Type I diabetes with insulin pump usage Home Medications citalopram 40 mg tablet 40 mg PO DAILY depression 03/18/13 [History Last Taken 05/09/22] insulin aspart U-100 100 unit/mL subcutaneous solution 1.1 unit continuous subcutaneous infusion UD diabetes 06/07/17 [History Last Taken 12/08/21] nortriptyline 50 mg capsule 100 mg PO QHS depression 01/28/19 [History Last Taken 05/08/22] quetiapine 200 mg tablet,extended release 24 hr (Seroquel XR) 200 mg PO QPM bipolar 01/28/19 [History Last Taken 05/08/22] levothyroxine 125 mcg tablet 150 mcg PO DAILY hypothyroid 07/28/19 [History Last Taken 05/09/22] multivitamin (Daily Multi-Vitamin tablet) 1 tablet PO DAILY health 08/10/20 [History Last Taken 05/09/22] nitroglycerin 0.4 mg sublingual tablet 0.4 mg sublingual Q5M PRN Cardiac/Chest Pain #25 tabs 08/10/20 [Rx Last Taken Unknown] cholecalciferol (vitamin D3) 10 mcg (400 unit) capsule 10 mcg PO DAILY supplement 05/15/21 [History Last Taken 05/09/22] thiamine HCl (vitamin B1) 100 mg tablet 100 mg PO DAILY supplement 05/15/21 [History Last Taken 05/09/22] aspirin 81 mg capsule 81 mg PO QHS heart health 12/08/21 [History Last Taken 05/08/22] potassium chloride 20 mEq tablet,extended release (K-Tab) 20 meq PO DAILY supplement 12/08/21 [History Last Taken 05/09/22] Humalog Pen DM 12/09/21 [History Last Taken Unknown] famotidine 20 mg tablet 20 mg PO DAILY 05/09/22 [History Last Taken 05/09/22] folic acid 400 mcg tablet 0.4 mg PO DAILY 05/09/22 [History Last Taken 05/09/22] metoprolol tartrate 50 mg tablet (Lopressor) 25 mg PO DAILY BP #30 tabs 05/11/22 [Rx Last Taken 05/09/22] meloxicam 15 mg tablet 15 mg PO DAILY 05/26/22 [History Last Taken Unknown] Allergy/AdvReac Type Severity Reaction Status Date / Time No Known Allergies Allergy Verified 05/09/22 18:54 Family History (Updated 05/26/22 @ 19:[address] Louise Veras MD) Father Heart disease CVA (cerebral vascular accident) Mother CAD (coronary artery disease) Grandfather Cancer Surgical History History of appendectomy History of cataract extraction History of cholecystectomy History of coronary artery stent placement (02/04/10) History of left heart catheterization (06/2017) History of open reduction and internal fixation (ORIF) procedure History of prosthetic vocal cord History of tonsillectomy and adenoidectomy Social History (Updated 05/26/22 @ 19:[address] Louise Veras MD) household members: spouse Smoking Status: Current every day smoker tobacco type: cigarettes alcohol intake: current alcohol intake frequency: a few times a week substance use type: does not use caffeine: Yes Type: carbonated beverages Number of servings: 6 and coffee Number of servings: 2 ROS ROS ED ROS Narrative Cannot be obtained secondary to encephalopathy EXAM Physical Exam Narrative Exam Narrative: Nursing triage notes reviewed, Vital signs reviewed Constitutional: please see mdm HENT: Dry oral mucosa Eyes: Pupils are midline, 3 mm, not pinpoint Neck: No stridor, no JVD, , former tracheostomy scar noted Lungs: Clear to auscultation, sonorous respirations Heart: Regular rate and rhythm Abdomen: Soft, : Normal-appearing genitalia Extremities: No edema Neuro: Altered, unclear if he moves all 4 extremities, unable to test sensation, pupils were 3 mm and reactive bilaterally, intact cough reflex Skin: No rash or lesions noted Const Vital Signs: 05/26/22 17:53 05/26/22 18:00 05/26/22 18:19 Temperature 97.6 F L Temperature Source Temporal Pulse Rate 99 98 89 Respiratory Rate 14 16 14 Respiratory Pattern Blood Pressure 140/76 H 126/64 H 133/71 H Blood Pressure Mean 97 84 91 Pulse Ox 98 99 99 Oxygen Delivery Method Ambu-Bag Ambu-Bag Mechanical Ventilator Fraction of Inspired Oxygen (FIO2) 05/26/22 18:32 05/26/22 18:25 05/26/22 19:00 Temperature 96.8 F L Temperature Source Temporal Pulse Rate 84 165 H 80 Respiratory Rate 14 14 15 Respiratory Pattern Normal Blood Pressure 106/61 105/61 Blood Pressure Mean 76 75 Pulse Ox 100 100 99 Oxygen Delivery Method Mechanical Ventilator Mechanical Ventilator Fraction of Inspired Oxygen (FIO2) 100 05/26/22 19:30 05/26/22 20:00 Temperature 96.9 F L Temperature Source Temporal Pulse Rate 80 75 Respiratory Rate 13 14 Respiratory Pattern Blood Pressure 142/82 H 101/58 L Blood Pressure Mean 102 72 Pulse Ox 100 100 Oxygen Delivery Method Mechanical Ventilator Mechanical Ventilator Fraction of Inspired Oxygen (FIO2) [facility] Narrative Medical decision making narrative: Chief Complaint: Altered mental status, seizure External records reviewed: Seen for fall and alcohol intoxication on May 09, 2022 I considered: Seizure, hypoglycemia, drug intoxication, intracranial abnormality such as ICH, subarachnoid hemorrhage or mass, new onset seizure disorder, infectious etiologies, Upon arrival the patient was diaphoretic, altered not responding to painful stimuli had sonorous respirations. He was HDS, afebrile. Patient did have hypoglycemia noted by EMS and insulin pump. Insulin pump was removed. Blood sugar was in the 50s here did give D50 with no improvement in mental status. Also gave 4 mg of IV Narcan with no improvement. I did intubate the patient for expected clinical course and airway protection given report of status epilepticus. Intubation was difficult requiring repositioning and multiple attempts however airway was eventually secured. Please see procedure note. OG, Rao placed. Patient was sedated with propofol and Versed to treat possible status epilepticus as well as alcohol withdrawal. I obtained a broad lab and imaging work-up including a CT scan of patient's head to rule out ICH or other intracranial normalities. CT scan was negative. Chest x-ray showed no evidence of pneumonia, pulmonary edema. Did show proper position of OG tube and ET tube. Labs without evidence of myocardial ischemia, significant endorgan hypoperfusion. Patient's lactate was negative. This was puzzling in the setting of suppose it 30 minutes to 60-minute tonic-clonic seizure. Did add on a prolactin level to further elucidate this etiology. CK was unremarkable for evidence of rhabdomyolysis no significant electrolyte abnormalities, signs of dehydration,. There is no significant leukocytosis to suggest systemic inflammation or infection. Patient's urine tox screen was positive for barbiturates this was likely secondary to recent phenobarbital treatment for alcohol withdrawal 2 weeks ago. Alcohol level is negative which is more concerning for alcohol withdrawal seizure. There is no clear etiology could explain the patient's symptoms today. He remained intubated, ventilated and admitted to the intensive care unit under Dr. Veras's care for ongoing evaluation and treatment. Family updated. Factors affecting care: History of CVA, alcohol abuse, bipolar disorder, hypertension, hyperlipidemia, hypothyroidism, ischemic cardiomyopathy, tobacco abuse, type 1 diabetes Social determinants of health: Alcohol abuse Shared decision making: I will have a discussion with the patient and or visitors regarding risk/benefits of further testing or admission. They will be made aware of of the risk/benefits inherent in this decision they will be given the opportunity to voice understanding. Consults: Internal medicine (Dr. Veras) excepted the patient's case recommend admitting to the intensive care unit. Lab Data Attestation: I reviewed the patient's lab results. Lab results narrative: CBC with no leukocytosis, significant anemia or thrombocytopenia CK not elevated, no evidence of rhabdomyolysis Repeat [id number] glucose 178 Lactate within normal limits making seizure less likely Urine tox screen is positive for benzos likely phenobarbital from his recent alcohol detoxification stay Urinalysis without evidence of infection Labs: Laboratory Results - last 24 hr 05/26/22 05/26/22 05/26/22 18:05 18:05 18:05 WBC 8.6 RBC 3.98 L Hgb 13.1 Hct 39.9 L MCV 100.3 H MCH 32.9 H MCHC 32.8 RDW Std Deviation 49.0 H RDW Coeff of Gabrielle 13.3 Plt Count 229 MPV 10.2 Immature Gran % (Auto) 0.500 Neut % (Auto) 70.6 H Lymph % (Auto) 18.4 L Coffee % (Auto) 6.0 Eos % (Auto) 3.7 Baso % (Auto) 0.8 Absolute Neuts (auto) 6.1 Absolute Lymphs (auto) 1.58 Nucleated RBC % 0 Sodium 138 Potassium 3.6 Chloride 105 Carbon Dioxide 26.0 Anion Gap 7 BUN 9 Creatinine 1.10 Estim Creat Clear Calc 70.11 Est GFR (MDRD) Af Amer 90 Est GFR (MDRD) Non-Af 74 BUN/Creatinine Ratio 8.2 L Glucose 218 H Lactic Acid Calcium 8.3 L Phosphorus Magnesium Total Bilirubin Direct Bilirubin AST ALT Alkaline Phosphatase Total Creatine Kinase Troponin I High Sens 9 Total Protein Albumin Globulin Prolactin Urine Color Urine Clarity Urine pH Ur Specific [place] Urine Protein Urine Glucose (UA) Urine Ketones Urine Occult Blood Urine Nitrite Urine Bilirubin Urine Urobilinogen Ur Leukocyte Esterase Urine RBC Urine WBC Ur Squamous Epith Cells Urine Bacteria Urine Mucus Urine Opiates Screen Urine Methadone Screen Ur Barbiturates Screen Ur Phencyclidine Scrn Ur Amphetamines Screen MDMA (Ecstasy) Screen U Benzodiazepines Scrn Urine Cocaine Screen U Cannabinoids Screen Ur Drug Screen Comment Ethyl Alcohol < 3.0 POC Glucose 05/26/22 05/26/22 05/26/22 18:05 18:05 18:22 WBC RBC Hgb Hct MCV MCH MCHC RDW Std Deviation RDW Coeff of Gabrielle Plt Count MPV Immature Gran % (Auto) Neut % (Auto) Lymph % (Auto) Coffee % (Auto) Eos % (Auto) Baso % (Auto) Absolute Neuts (auto) Absolute Lymphs (auto) Nucleated RBC % Sodium Potassium Chloride Carbon Dioxide Anion Gap BUN Creatinine Estim Creat Clear Calc Est GFR (MDRD) Af Amer Est GFR (MDRD) Non-Af BUN/Creatinine Ratio Glucose Lactic Acid Calcium Phosphorus 3.1 Magnesium 1.5 L Total Bilirubin 0.30 Direct Bilirubin 0.12 AST 22 ALT 25 Alkaline Phosphatase 55 Total Creatine Kinase 91 Troponin I High Sens Total Protein 6.0 L Albumin 3.4 Globulin 2.6 Prolactin 16.3 Urine Color Urine Clarity Urine pH Ur Specific [place] Urine Protein Urine Glucose (UA) Urine Ketones Urine Occult Blood Urine Nitrite Urine Bilirubin Urine Urobilinogen Ur Leukocyte Esterase Urine RBC Urine WBC Ur Squamous Epith Cells Urine Bacteria Urine Mucus Urine Opiates Screen Urine Methadone Screen Ur Barbiturates Screen Ur Phencyclidine Scrn Ur Amphetamines Screen MDMA (Ecstasy) Screen U Benzodiazepines Scrn Urine Cocaine Screen U Cannabinoids Screen Ur Drug Screen Comment Ethyl Alcohol POC Glucose 178 H 05/26/22 05/26/22 05/26/22 18:25 18:25 18:30 WBC RBC Hgb Hct MCV MCH MCHC RDW Std Deviation RDW Coeff of Gabrielle Plt Count MPV Immature Gran % (Auto) Neut % (Auto) Lymph % (Auto) Coffee % (Auto) Eos % (Auto) Baso % (Auto) Absolute Neuts (auto) Absolute Lymphs (auto) Nucleated RBC % Sodium Potassium Chloride Carbon Dioxide Anion Gap BUN Creatinine Estim Creat Clear Calc Est GFR (MDRD) Af Amer Est GFR (MDRD) Non-Af BUN/Creatinine Ratio Glucose Lactic Acid 0.8 Calcium Phosphorus Magnesium Total Bilirubin Direct Bilirubin AST ALT Alkaline Phosphatase Total Creatine Kinase Troponin I High Sens Total Protein Albumin Globulin Prolactin Urine Color Yellow Urine Clarity Clear Urine pH 7.0 Ur Specific [place] 1.010 Urine Protein Negative Urine Glucose (UA) Normal Urine Ketones Negative Urine Occult Blood Negative Urine Nitrite Negative Urine Bilirubin Negative Urine Urobilinogen Normal Ur Leukocyte Esterase Negative Urine RBC 0 SEEN Urine WBC 0 SEEN Ur Squamous Epith Cells 0 SEEN Urine Bacteria 0 SEEN Urine Mucus 0 SEEN Urine Opiates Screen NEGATIVE Urine Methadone Screen NEGATIVE Ur Barbiturates Screen POSITIVE H Ur Phencyclidine Scrn NEGATIVE Ur Amphetamines Screen NEGATIVE MDMA (Ecstasy) Screen NEGATIVE U Benzodiazepines Scrn NEGATIVE Urine Cocaine Screen NEGATIVE U Cannabinoids Screen NEGATIVE Ur Drug Screen Comment Ethyl Alcohol POC Glucose 05/26/22 19:44 WBC RBC Hgb Hct MCV MCH MCHC RDW Std Deviation RDW Coeff of Gabrielle Plt Count MPV Immature Gran % (Auto) Neut % (Auto) Lymph % (Auto) Coffee % (Auto) Eos % (Auto) Baso % (Auto) Absolute Neuts (auto) Absolute Lymphs (auto) Nucleated RBC % Sodium Potassium Chloride Carbon Dioxide Anion Gap BUN Creatinine Estim Creat Clear Calc Est GFR (MDRD) Af Amer Est GFR (MDRD) Non-Af BUN/Creatinine Ratio Glucose Lactic Acid Calcium Phosphorus Magnesium Total Bilirubin Direct Bilirubin AST ALT Alkaline Phosphatase Total Creatine Kinase Troponin I High Sens Total Protein Albumin Globulin Prolactin Urine Color Urine Clarity Urine pH Ur Specific [place] Urine Protein Urine Glucose (UA) Urine Ketones Urine Occult Blood Urine Nitrite Urine Bilirubin Urine Urobilinogen Ur Leukocyte Esterase Urine RBC Urine WBC Ur Squamous Epith Cells Urine Bacteria Urine Mucus Urine Opiates Screen Urine Methadone Screen Ur Barbiturates Screen Ur Phencyclidine Scrn Ur Amphetamines Screen MDMA (Ecstasy) Screen U Benzodiazepines Scrn Urine Cocaine Screen U Cannabinoids Screen Ur Drug Screen Comment Ethyl Alcohol POC Glucose 179 H Radiography Diagnostic Testing: Clinical Impression(s) from Imaging Studies Brain CT 05/26/22 18:18 IMPRESSION: No acute intracranial or calvarial abnormality. No interval change. Electronically Signed: Marvel Damon DO at 19:50 EST Reading Location ID and State: [facility] / [place] Tel [phone], Service support , Chest X-Ray 05/26/22 18:45 IMPRESSION: 1. Tubes and catheters as described. 2. No acute cardiopulmonary disease. Electronically Signed: Marvel Damon DO at 18:57 EST Reading Location ID and State: [facility] / [place] Tel [phone], Service support , I have personally reviewed the patient's chest x-ray. Chest x-ray is unremarkable for pulmonary edema, pneumothorax, pneumonia or focal cardiopulmonary abnormality. Procedures Intubations Intubation Method: orotracheal Intubation Verification: Positive color change and Bilateral breath sounds confirmed Intubation Complications: oral-unsuccessful attempt (The patient had a very anterior larynx, very small airway which required a total of 4 attempts. Required trendelenburg, bougie etc) Critical Care Time Critical Care Time: Yes Critical care time (excluding procedures): 30-74 minutes, Discussing w/Patient &/or Family/Purse Seiner, Discussing w/Consultants and Performing Direct Patient Care at Bedside Discharge Plan Dx/Rx/DC Orders Clinical Impression: Alcohol abuse, Acute alteration in mental status Disposition Disposition: [facility] Discharge Date/Time: 05/26/22 21:24
--- NOTE | 2022-05-26 18:45 | EKG12_ITS ---
Test Reason : SEIZURES Blood Pressure : / mmHG Vent. Rate : 082 BPM Atrial Rate : 082 BPM P-R Int : 252 ms QRS Dur : 124 ms QT Int : 452 ms P-R-T Axes : 080 157 078 degrees QTc Int : 528 ms Sinus rhythm with 1st degree A-V block with occasional Premature ventricular complexes Right axis deviation Anteroseptal infarct , age undetermined Abnormal ECG Confirmed by MONA SEO, KIRK ([id number]), editorial project manager JAIMIE MENDOZA ([id number]) on 05/28/2022 10:05:12 AM Referred By: FLAQUITO Confirmed By:KIRK DUNN MD
--- NOTE | 2022-05-26 18:45 | RAD_ITS ---
STUDY: X-RAY CHEST REASON FOR EXAM: Male, 57 years old. Intubation. TECHNIQUE: Single AP portable view of the chest. COMPARISON: December 09, 2019 FINDINGS: There is an endotracheal tube with its tip 4.5 cm above the sully. There is an enteric tube with its tip in the left upper quadrant of the abdomen. The lungs are clear and expanded. There is no demonstrated pleural abnormality. Normal size heart. Normal mediastinum and beverley. Normal visualized pulmonary arteries. Normal visualized aortic arch and descending thoracic aorta. The thoracic spine is obscured by the mediastinum. Remote left rib fractures unchanged from prior exam. There is no demonstrated abnormality of the visualized soft tissue structures of the upper abdomen. RAD/Chest 1 View (Portable) IMPRESSION: 1. Tubes and catheters as described. 2. No acute cardiopulmonary disease. Electronically Signed: Marvel Damon DO at 18:57 EST ,
[2022-05-26] MEDS: Dextrose 5%/0.9% NaCl 1,000 ML 125 ML IV (18:48)
[2022-05-26 18:53] LABS: Vista UDS pH Range 6
[2022-05-26 19:02] LABS: Amphetamine Urine VISTA NEGATIVE (<1000 ng/mL); Barbiturate Urine VISTA POSITIVE (< 200 ng/mL); Benzodiazepine Urine VISTA NEGATIVE (< 200 ng/mL); Cocaine Urine VISTA NEGATIVE (< 300 ng/mL); Ecstacy Urine VISTA NEGATIVE (< 500 ng/mL); Methadone Urine VISTA NEGATIVE (< 300 ng/mL); PCP Urine VISTA NEGATIVE (< 25 ng/mL); THC Urine VISTA NEGATIVE (< 50 ng/mL)
--- NOTE | 2022-05-26 19:11 | ED.RN ---
1830 PT PLACED IN SOFT RESTRAINTS TO MAINTAIN TUBE PLACEMENT AND PROTECT AIRWAY.
[2022-05-26 19:13] LABS: Lactic Acid 0.8 mmol/L (0.4-1.9)
[2022-05-26 19:20] LABS: CPK Total, Creatine Kinase 91 U/L (39-308)
[2022-05-26 20:06] LABS: Anion Gap 7 (5-15); BUN 9 mg/dL (7-18); BUN/Creat Ratio 8.2 RATIO (10-20); Calcium,Total 8.3 mg/dL (8.5-10.1); Chloride 105 mmol/L (98-107); EST Glomerular Filtration Rate 74 mL/min (>60); Est Glom Filt Rate - Afr Amer 90 mL/min (>60); Estimated Creatinine Clearance 70.11 ml/min; Glucose 218 mg/dL (74-106); Potassium 3.6 mmol/L (3.5-5.1); Sodium Level 138 mmol/L (136-145); Troponin-I HS 9 pg/mL (3.0-78.0)
[2022-05-26 20:06] LABS: Bedside Glucose 179 mg/dL (74-106)
[2022-05-26 20:07] LABS: Alcohol, Blood (Medical)-Serum < 3.0 mg/dL
[2022-05-26 20:46] LABS: Base Excess -3 mmol/L (-2 to +2); Bicarbonate 22.4 mmol/L (22-26); Blood Gas Specimen Type ART; FI02 50; Mode AC; O2 Delivery Device Adult Vent; PEEP 5; PO2 96 mmHG (75-100); RR 14; SITE L Radial; SO2 97 % (95-99); Total Carbon Dioxide 24 mmol/L; Vt 450; pCO2 38.3 mmHg (35-45); pH 7.38 (7.35-7.45)
--- NOTE | 2022-05-26 21:07 | HP.PCM.HOS_ITS ---
HPI - General General Date of Admission: 05/26/22 Date of Service: 05/26/22 Chief Complaint: Seizure HPI Narrative The patient is a 57 y/o M w/ PMHx: IDDM with autonomic dysfunction and chronic neuropathy w/ insulin pump, CAD s/p PCI, Ischemic cardiomyopathy, HTN, HLD, Hypothyroidism, ZIA, Tobacco use, Hx Acute L Posterior cerebral artery CVA, Anxiety and Depression/Bipolar disorder, recent admitted 05/09/22-05/11/22 secondary to fall associated with EtOH intoxication, hypotension with BP regimen adjusted w/ d/c ACEI and decrease BB who now re-presents to the [facility] ED on 05/26/22 reportedly still sober from this prior discharge date with onset tonic clonic seizures reported per EMS as witnessed lasting 30-60 minutes with BS 63 with administration versed 5 mg x 2 doses prompting transition to the ED. Patient per spouse has history of prior EtOH withdrawal seizure ~ 1 year prior to current presentation. While en route to the hospital per EMS patient had onset agonal breathing prompting respiratory interventions. Again discussed cur rent situation very frankly with significant and she is adamant that he is remained completely sober. She does state that at home she is absolutely sure his blood sugars have not been notably low. Work-up in the ED included T97.6, heart rate 98, BP 140/76, respiratory rate 14, 98% being oxygenated with an Ambu bag eventually intubated with most recent vital signs T96.8, heart rate 84, BP 106/61, respiratory rate 14, 100% on room air, CBC with WBC 8.6, hemoglobin 13.1, platelet 229 without marked shift, BMP not marked appearing with glucose 218, lactic acid 0.8, total creatinine kinase 91, troponin 9, urinalysis with no obvious evidence of UTI or significant dehydration, UDS with positive b arbiturates, ethyl alcohol less than 3, initial POC glucose upon ED arrival 52-->improved with interventions as noted with most recent POC glucose 176, chest x-ray with no acute cardiopulmonary finding status post OG and ET tube placements, blood culture x2 pending per ED, urine culture pending per ED, CT head with no acute intracranial findings. In the ED patient administered rocuronium, etomidate for intubation then transitioned to propofol and Versed drips as well as administered loading dose of Keppra, dextrose amps also administered as well as Narcan 4 mg IV x1. [facility] Medical History (Updated 05/26/22 @ 21:[address] Louise Veras MD) Acute ischemic left posterior cerebral artery ([employer]) stroke Alcohol abuse Anxiety and depression Atherosclerotic heart disease of [place] coronary artery without angina pectoris Bipolar disorder Chronic pain due to injury Congestive heart failure (CHF) CVA (cerebral vascular accident) Degenerative joint disease (DJD) of lumbar spine GERD (gastroesophageal reflux disease) History lymph node removal History of vocal cord surgery Hoarseness Hyperlipemia Hypertension Hypothyroidism Ischemic cardiomyopathy Nicotine dependence Obstructive sleep apnea Old myocardial infarction Smoker TIA (transient ischemic attack) Type I diabetes with insulin pump usage Home Medications citalopram 40 mg tablet 40 mg PO DAILY depression 03/18/13 [History Last Taken 05/09/22] insulin aspart U-100 100 unit/mL subcutaneous solution 1.1 unit continuous subcutaneous infusion UD diabetes 06/07/17 [History Last Taken 12/08/21] nortriptyline 50 mg capsule 100 mg PO QHS depression 01/28/19 [History Last Taken 05/08/22] quetiapine 200 mg tablet,extended release 24 hr (Seroquel XR) 200 mg PO QPM bipolar 01/28/19 [History Last Taken 05/08/22] levothyroxine 125 mcg tablet 150 mcg PO DAILY hypothyroid 07/28/19 [History Last Taken 05/09/22] multivitamin (Daily Multi-Vitamin tablet) 1 tablet PO DAILY health 08/10/20 [History Last Taken 05/09/22] nitroglycerin 0.4 mg sublingual tablet 0.4 mg sublingual Q5M PRN Cardiac/Chest Pain #25 tabs 08/10/20 [Rx Last Taken Unknown] cholecalciferol (vitamin D3) 10 mcg (400 unit) capsule 10 mcg PO DAILY supplement 05/15/21 [History Last Taken 05/09/22] thiamine HCl (vitamin B1) 100 mg tablet 100 mg PO DAILY supplement 05/15/21 [History Last Taken 05/09/22] aspirin 81 mg capsule 81 mg PO QHS heart health 12/08/21 [History Last Taken 05/08/22] potassium chloride 20 mEq tablet,extended release (K-Tab) 20 meq PO DAILY suppl ement 12/08/21 [History Last Taken 05/09/22] Humalog Pen DM 12/09/21 [History Last Taken Unknown] famotidine 20 mg tablet 20 mg PO DAILY 05/09/22 [History Last Taken 05/09/22] folic acid 400 mcg tablet 0.4 mg PO DAILY 05/09/22 [History Last Taken 05/09/22] metoprolol tartrate 50 mg tablet (Lopressor) 25 mg PO DAILY BP #30 tabs 05/11/22 [Rx Last Taken 05/09/22] meloxicam 15 mg tablet 15 mg PO DAILY 05/26/22 [History Last Taken Unknown] Allergy/AdvReac Type Severity Reaction Status Date / Time No Known Allergies Allergy Verified 05/09/22 18:54 Family History (Updated 05/26/22 @ 19:[address] Louise Veras MD) Father Heart disease CVA (cerebral vascular accident) Mother CAD (coronary artery disease) Grandfather Cancer Surgical History History of appendectomy History of cataract extraction History of cholecystectomy History of coronary artery stent placement (02/04/10) History of left heart catheterization (06/2017) History of open reduction and internal fixation (ORIF) procedure History of prosthetic vocal cord History of tonsillectomy and adenoidectomy Social History (Updated 05/26/22 @ 19:[address] Louise Veras MD) household members: spouse Smoking Status: Current every day smoker tobacco type: cigarettes alcohol intake: current alcohol intake frequency: a few times a week substance use type: does not use caffeine: Yes Type: carbonated beverages Number of servings: 6 and coffee Number of servings: 2 ROS Review of Systems ROS Unobtainable: due to encephalopathy and due to endotracheal tube Vital Signs Vital Signs Vital Signs: 05/26/22 17:53 05/26/22 18:00 05/26/22 18:19 Temperature 97.6 F L Temperature Source Temporal Pulse Rate 99 98 89 Respiratory Rate 14 16 14 Respiratory Pattern Blood Pressure 140/76 H 126/64 H 133/71 H Blood Pressure Mean 97 84 91 Pulse Ox 98 99 99 Oxygen Delivery Method Ambu-Bag Ambu-Bag Mechanical Ventilator Fraction of Inspired Oxygen (FIO2) 05/26/22 18:32 05/26/22 18:25 05/26/22 19:00 Temperature 96.8 F L Temperature Source Temporal Pulse Rate 84 165 H 80 Respiratory Rate 14 14 15 Respiratory Pattern Normal Blood Pressure 106/61 105/61 Blood Pressure Mean 76 75 Pulse Ox 100 100 99 Oxygen Delivery Method Mechanical Ventilator Mechanical Ventilator Fraction of Inspired Oxygen (FIO2) 100 05/26/22 19:30 05/26/22 20:00 Temperature 96.9 F L Temperature Source Temporal Pulse Rate 80 75 Respiratory Rate 13 14 Respiratory Pattern Blood Pressure 142/82 H 101/58 L Blood Pressure Mean 102 72 Pulse Ox 100 100 Oxygen Delivery Method Mechanical Ventilator Mechanical Ventilator Fraction of Inspired Oxygen (FIO2) Weight Weight: 177 lb 14.609 oz Body Mass Index (BMI) 27.8 Physical Exam Narrative Physical Examination: General: Patient intubated and sedated although currently waking up some, altering sedation, given this patient is not alert or oriented, maintained in the ICU bed. Skin: Normal color, normal turgor, no icterus, no cyanosis except occasional abrasion, scratch with recent seizure and staged ecchymoses. HEENT: AT/NC, EOM unable to be assessed given intubated and sedated status, PERRLA, dry MM, no carotid bruits or JVD noted. Lungs: Mildly coarse bilaterally, diminished bases, symmetric rise, intubated and sedated, no rales or wheezing. Heart: Currently regular rate and rhythm; no gallop, rub audible. Abdomen: Soft, overweight, NTTP, ND, normal BS, positive HM. Extremities: No cyanosis, no clubbing, no edema, mild abrasions secondary to recent seizure activity. Neurological: Patient intubated and sedated although currently waking up some, altering sedation, given this patient is not alert or oriented, maintained in the ICU bed, cognitive function intact; pupils equally reactive to light and accommodation, cranial nerves difficult to assess given intubated and sedated status, moving extremities to stimuli given sudden mild agitation, appears to be waking up some, altering sedation, strength accordingly severely global decreased Psychiatric: Affect appears currently mildly agitated is awakening, altering sedation, does have underlying history of depressive or anxiety feelings. Results Lab / Micro Data Result Diagrams: 05/26/22 18:05 05/26/22 18:05 Labs: Laboratory Results - last 24 hr 05/26/22 18:05: WBC 8.6, RBC 3.98 L, Hgb 13.1, Hct 39.9 L, MCV 100.3 H, MCH 32.9 H, MCHC 32.8, RDW Std Deviation 49.0 H, RDW Coeff of Gabrielle 13.3, Plt Count 229, MPV 10.2, Immature Gran % (Auto) 0.500, Neut % (Auto) 70.6 H, Lymph % (Auto) 18.4 L, [place] % (Auto) 6.0, Eos % (Auto) 3.7, Baso % (Auto) 0.8, Absolute Neuts (auto) 6.1, Absolute Lymphs (auto) 1.58, Nucleated RBC % 0 05/26/22 18:05: Sodium 138, Potassium 3.6, Chloride 105, Carbon Dioxide 26.0, Anion Gap 7, BUN 9, Creatinine 1.10, Estim Creat Clear Calc 70.11, Est GFR (MDRD) Af Amer 90, Est GFR (MDRD) Non-Af 74, BUN/Creatinine Ratio 8.2 L, Glucose 218 H, Calcium 8.3 L, Troponin I High Sens 9 05/26/22 18:05: Ethyl Alcohol < 3.0 05/26/22 18:05: Total Creatine Kinase 91 05/26/22 18:22: POC Glucose 178 H 05/26/22 18:25: Urine Opiates Screen NEGATIVE, Urine Methadone Screen NEGATIVE, Ur Barbiturates Screen POSITIVE H, Ur Phencyclidine Scrn NEGATIVE, Ur Amphetamines Screen NEGATIVE, MDMA (Ecstasy) Screen NEGATIVE, U Benzodiazepines Scrn NEGATIVE, Urine Cocaine Screen NEGATIVE, U Cannabinoids Screen NEGATIVE, Ur Drug Screen Comment 05/26/22 18:25: Urine Color Yellow, Urine Clarity Clear, Urine pH 7.0, Ur Specific [place] 1.010, Urine Protein Negative, Urine Glucose (UA) Normal, Urine Ketones Negative, Urine Occult Blood Negative, Urine Nitrite Negative, Urine Bilirubin Negative, Urine Urobilinogen Normal, Ur Leukocyte Esterase Negative, Urine RBC 0 SEEN, Urine WBC 0 SEEN, Ur Squamous Epith Cells 0 SEEN, Urine Bacteria 0 SEEN, Urine Mucus 0 SEEN 05/26/22 18:30: Lactic Acid 0.8 05/26/22 19:44: POC Glucose 179 H Radiology Impression Brain CT 05/26/22 18:18 IMPRESSION: No acute intracranial or calvarial abnormality. No interval change. Electronically Signed: Marvel Damon DO at 19:50 EST Reading Location ID and State: [facility] / [place] Tel [phone], Service support , Chest X-Ray 05/26/22 18:45 IMPRESSION: 1. Tubes and catheters as described. 2. No acute cardiopulmonary disease. Electronically Signed: Marvel Damon, DO at 18:57 EST Reading Location ID and State: [address] [place] [address] Tel [phone], Service support , Assessment & Plan Assessment/Plan (1) Seizure: PLAN: Plan The patient is a 57 y/o M w/ PMHx: IDDM with autonomic dysfunction and chronic neuropathy w/ insulin pump, CAD s/p PCI, Ischemic cardiomyopathy, HTN, HLD, Hypothyroidism, ZIA, Tobacco use, Hx Acute L Posterior cerebral artery CVA, Anxiety and Depression/Bipolar disorder, recent admitted 05/09/22-05/11/22 secondary to fall associated with EtOH intoxication, hypotension with BP regimen adjusted w/ d/c ACEI and decrease BB who now re-presents to the [facility] ED on 05/26/22 reportedly still sober from this prior discharge date with onset tonic clonic seizures reported per EMS as witnessed lasting 30-60 minutes with BS 63 with administration versed 5 mg x 2 doses prompting transition to the ED. #1. Acute Hypoxic Respiratory Failure and Acute Encephalopathy secondary to Acute Seizure, Tonic-clonic suspected secondary to Potentially Primarily Electrolyte disturbances with Acute Hypoglycemia (potentially from EtOH withdrawal and ongoing insulin pump based of elevated BS with his EtOH intake and potentially Recurrent Acute EtOH Withdrawal (although spouse reports off EtOH since 05/11/22, still concerns given history as could have had EtOH intake in the interim also) w/ prior history of DT/Withdrawal Seizure: Seizure witnessed with postictal state and eventual agonal breathing requiring intubation and treatment of severe hypoglycemia. Will admit to the ICU, continue patient intubated and sedated status, continue ICU physician consultation per protocol, maintain on telemetry on seizure precautions, obtain EEG, obtain brain MRI to be cautious given timeline, obtain TSH, mag and phos levels, continue patient on dextrose drip with serial accu checks until assure stable BS, administered keppra load in the ED and will continue 500 mg IV BID, requesting Neurology consultation, maintain on IV phenobarbital 10 mg/kg divided TID x 3 initial doses with re-assessment following completion as well as concurrent usage of propofol given severity of presentation and DT refractory history from prior with PRN ativan. Will request also addition of hepatic panel. Will m priyankaain on thiamine as well as folic acid IV. Given timeline prolonged seizure activity certainly concerns about patient functional prognosis. #2. IDDM with autonomic dysfunction and chronic neuropathy w/ insulin pump with Hypoglycemia: Given history, patient likely with hypoglycemia since EtOH s obriety, will continue dextrose drip with aggressive accu check trending and transition once assure improving clinical presentation and stable BS. Patient insulin pump on hold given this plan. Mag and Phos pending. #3. Hx Acute L Posterior cerebral artery CVA: We will continue aspirin, temporally holding hypertensive regimen given low BP upon presentation as noted, not on statin therapy, temporally holding insulin pump as noted given hyperglycemia as well. #4. CAD: Patient s/p PCI, Ischemic cardiomyopathy, will continue aspirin, not on statin therapy, temporarily holding patient home beta-rolando therapy which had recently been decreased secondary to low normal BP upon presentation, prior admission also with discontinuation of MARIYA inhibitor given hypotension also at that time. #5. Hypertension: BP low normal upon presentation, will temporarily hold patient hypertensive regimen with 3 addition once appropriate #6. Hyperlipidemia: Not on statin therapy, defer. #7. Hypothyroidism: We will continue patient home levothyroxine regimen. #8. Anxiety and Depression/Bipolar disorder: To avoid postextubation difficulties we will continue patient home psychiatric regimen. #9. Tobacco Abuse: Once patient is extubated and mental status improved will encourage tobacco cessation, inpatient consultation per RT, NR if desired. #10. ZIA: Given current status patient is intubated and sedated, transition to CPAP nightly once extubated. #11. History of prior prolonged intubation, tracheostomy: Patient with history of prior prolonged intubation with eventual tracheostomy and vocal cord dysfunction with reported history of prosthetic vocal cord intervention. Complicates current presentation given #1. #12. GERD: We will maintain on IV PPI. #13. DVT prophylaxis: SCDs, Lovenox. #14. CODE STATUS: Full code. Critical Care Time: 120 minutes, time from 7:00-9:00, were spent addressing patients acute presentation, review of all data in collaboration with care team in addition to discussion with family and review of his prior admissions. Charges/Coding Procedures Hospitalists Procedures: Other Procedure - See Report (Billing Codes: 85437 x 1, 30562 x 2 (evaluation 120 minutes))
--- NOTE | 2022-05-26 21:29 | TELEMED_ITS ---
[facility] Telemed has confirmed receipt of a request for visit. This document confirms receipt of the order initiating the consult. To find the results of the consultation, please view the patient's reports for the scanned Telemed Consult.
[2022-05-26] MEDS: Aspirin 81 MG TAB.CHEW PO ×2 (21:55→22:52)
[2022-05-26] MEDS: Phenobarbital Sodium 130 MG/ML Vial 250 MG IV (22:04)
[2022-05-26 22:21] LABS: AST(SGOT) 22 U/L (15-37); Alanine Aminotransfer ALT/SGPT 25 U/L (16-61); Albumin, Serum 3.4 g/dL (3.2-5.0); Alkaline Phosphatase 55 U/L (45-117); Bilirubin, Direct 0.12 mg/dL (0.00-0.30); Globulin 2.6 g/dL (2.2-4.2); Magnesium 1.5 mg/dL (1.6-2.6); Phosphorus 3.1 mg/dL (2.5-4.9); Prolactin 16.3 ng/mL
[2022-05-26] MEDS: 0.9% Saline Lock 10 ML Syringe IV (22:26)
[2022-05-26] MEDS: 0.9% Normal Saline 1,000 ML 100 ML IV (22:26)
[2022-05-26] MEDS: TITRATION PARAMETER CHANGE 1 EACH IV (22:47)
[2022-05-26] MEDS: Chlorhexidine 15 ML PO (22:50)
[2022-05-26] MEDS: Nortriptyline 25 MG Capsule 100 MG PO (22:52)
[2022-05-26] MEDS: QUEtiapine 100 MG Tablet PO (22:52)
[2022-05-26 23:25] LABS: Bedside Glucose 241 mg/dL (74-106)
[2022-05-27] VITALS (33 sets, daily range): BP systolic 81–122; BP diastolic 41–78; PULSE 64–108; RESP 14–21; TEMP 35.3–37.6; O2SAT 95–100
[2022-05-27] MEDS: Insulin Lispro 100 UNIT/ML INSULN.PEN SC ×6 (00:26→21:58)
[2022-05-27 00:46] LABS: Bedside Glucose 266 mg/dL (74-106)
--- NOTE | 2022-05-27 02:08 | PCM.HOSP.N ---
Hospitalist Note Neurology assessment performed and he believes the seizure likely secondary to significant prior CVA history and findings exacerbated by the electrolyte disturbances with hypoglycemia and potentially EtOH withdrawal. He recommended d/c phenopharbital at this time and increase keppra to 750 mg BID which he noted would have to be continued at discharge with follow-up with outpatient Neurology. Discussed EEG and MRI are pending with planned likely AM extubation pending SBT.
[2022-05-27] MEDS: 0.9% Normal Saline 1,000 ML 100 ML IV ×3 (02:24→22:02)
[2022-05-27 04:43] LABS: Absolute Lymphocyte Count 1.75 X10^3/uL (0.83-4.51); Absolute Neutrophil Count 6.5 X10^3/uL (2.0-7.7); Basophil# 0.07 X10^3/uL; Basophil% 0.7 % (0-1); Eosinophil# 0.36 X10^3/uL; Eosinophils% 3.8 % (0-5); Hemoglobin 13.1 g/dL (13.0-16.5); Lymphocyte # 1.75 X10^3/ul (0.83-4.51); Lymphocyte % 18.6 % (19-41); Mean Corp Hgb Conc 32.8 g/dL (32-36); Mean Corpuscular Hgb 32.6 pg (27.0-32.0); Mean Corpuscular Volume 99.5 fL (80-94); Mean Platelet Vol. 9.7 fl (6.2-12.0); Monocyte# 0.68 X10^3/uL; Monocyte% 7.2 % (0-10); NRBC Flagged by Analyzer 0 % (0-5); Neutrophil # 6.53 X10^3/uL (2.7-7.7); Neutrophil % 69.4 % (47-70); Platelet Count 188 K/mm3 (150-450); RBC Distribution Width CV 13.4 % (11.6-14.6); RBC Distribution Width SD 49.4 fl (35.1-43.9); Red Blood Count 4.02 M/mm3 (4.6-6.2); White Blood Count 9.4 K/mm3 (4.4-11.0)
[2022-05-27 05:08] LABS: ALB/GLOB Ratio 1.2 RATIO (0.9-2.4); AST(SGOT) 23 U/L (15-37); Alanine Aminotransfer ALT/SGPT 24 U/L (16-61); Alkaline Phosphatase 59 U/L (45-117); Anion Gap 11 (5-15); BUN 13 mg/dL (7-18); BUN/Creat Ratio 13.8 RATIO (10-20); Calcium,Total 7.6 mg/dL (8.5-10.1); Chloride 107 mmol/L (98-107); Creatinine, Serum 0.94 mg/dL (0.70-1.30); EST Glomerular Filtration Rate 88 mL/min (>60); Est Glom Filt Rate - Afr Amer 107 mL/min (>60); Estimated Creatinine Clearance 82.04 ml/min; Globulin 2.5 g/dL (2.2-4.2); Glucose 318 mg/dL (74-106); Potassium 4.3 mmol/L (3.5-5.1); Protein, Total 5.5 g/dL (6.4-8.2); Sodium Level 137 mmol/L (136-145)
--- NOTE | 2022-05-27 05:55 | MRI_ITS ---
EXAM: MR HEAD WITHOUT INTRAVENOUS CONTRAST CLINICAL INDICATION: seizure- alcohol withdraw TECHNIQUE: Multiplanar and multisequence MR images of the brain were obtained without intravenous contrast. This report was created using [employer] report generation technology. COMPARISON: CT head without contrast 05/18/2022. FINDINGS: BRAIN AND EXTRA-AXIAL SPACES: Old cortical-based ischemic infarct with cystic encephalomalacia and atrophy involving the right middle temporal gyrus and right inferior temporal gyrus. Few subcortical white matter T2 FLAIR hyperintensity foci in the left frontal lobe. No intra- or extra-axial hemorrhage. No intracranial mass or mass effect. Posterior fossa structures are unremarkable. No hydrocephalus. Basal cisterns are patent. No diffusion restriction to suspect acute or subacute ischemic infarct. SELLA: Unremarkable. Normal sella turcica, pituitary gland, infundibular stalk, optic chiasm and hypothalamus. AUDITORY SYSTEM: Unremarkable. The internal auditory canals are patent. BONES/JOINTS: Unremarkable. No discrete lytic or blastic abnormalities. SINUSES: Mucous retention cyst retropharyngeal space of the nasopharynx. MASTOID AIR CELLS: Unremarkable as visualized. Clear. ORBITS: Unremarkable as visualized. Both globes, extraocular muscles, optic nerves and retrobulbar fat appear unremarkable. VASCULATURE: Unremarkable as visualized. Normal flow voids in the major intracranial circulation. MRI/Brain without Contrast IMPRESSION: 1. No MRI evidence of acute or subacute ischemic infarct, intracranial mass or acute intracranial abnormality. 2. Old cortical-based ischemic infarct with cystic encephalomalacia and atrophy involving the right middle temporal gyrus and right inferior temporal gyrus. 3. Incidental small benign mucous retention cysts in the retropharyngeal space of the nasopharynx. Electronically Signed: Arnold Goldberg MD at 12:29 EST ,
--- NOTE | 2022-05-27 05:55 | RAD_ITS ---
INDICATION: Dyspnea EXAMINATION/TECHNIQUE: X-RAY - XR Chest 1 View COMPARISON: Chest x-ray from one day prior FINDINGS: LINES/DEVICES: ET tube tip at level of clavicular heads. Enteric tube tip below diaphragm and [id number]. LUNGS: Slightly decreased lung volumes with more prominent bibasilar opacities. No sizable pleural effusion. No pneumothorax detected. MEDIASTINUM AND CARDIOVASCULAR STRUCTURES: Heart size within normal limits. Mediastinal contours unremarkable. BONES AND SOFT TISSUES: No acute findings. Small metallic clips within left chest wall. RAD/Chest 1 View (Portable) IMPRESSION: Slightly decreased lung volumes with worsening bibasilar atelectasis versus infiltrate. Electronically Signed: Fredi Llamas MD at 7:39 EST ,
--- NOTE | 2022-05-27 06:03 | EX.PCM.CONCC ---
Assessment & Plan Assessment/Plan (1) Seizure: PLAN: Plan RECOMMENDATIONS: 1. Continue assist-control mode mechanical ventilation. Wean FiO2 and PEEP for saturations greater than 90%. 2. Continue Keppra per neurology recommendations. 3. Continue propofol and fentanyl for sedation. 4. Obtain EEG and MRI. 5. Continue appropriate ICU prophylaxis. 6. Plan for daily paired spontaneous awakening and breathing trials beginning tomorrow. 7. Given elevated TSH, check free T4. IMPRESSIONS: 1. Acute hypoxemic respiratory failure The patient was initially intubated in the emergency department over concerns for airway protection in the setting of witnessed tonic-clonic seizure activity and postictal state. The patient is doing well from a respiratory perspective. Plan to continue assist-control mode of mechanical ventilation. Wean FiO2 and PEEP, as tolerated, to maintain saturations at or above 90%. Plan for daily paired spontaneous awakening and breathing trials beginning tomorrow. 2. Encephalopathy Clinical concern for postictal state, given presentation. The patient appears improved from a neurological perspective. No further seizure activity has been noted. Plan to continue supportive care per neurology recommendations with Keppra and seizure precautions. MRI and EEG are pending. 3. History of diabetes mellitus/history of CVA/coronary artery disease/hypothyroidism/hypertension/hyperlipidemia Complicates care, management, recovery and prognosis. Continue home medications as indicated. Given elevated TSH, check free T4 level. TIME: 32 minutes of critical care time, independent of procedures, was spent addressing the patient's acute hypoxemic respiratory failure, encephalopathy, tonic-clonic seizure activity, review of all data and collaboration with the care team. HPI Consult Data Date of Consult: 05/27/22 HPI Narrative Reason for Consultation: Acute respiratory failure HPI Narrative: The patient is a 57-year-old male, with a history as outlined below, who presented to the emergency department via EMS on May 26 with generalized tonic-clonic seizure activity. The patient was just discharged from the hospital on May 11 after having been admitted for acute alcohol withdrawal and an acute mechanical fall. The patient's last alcohol intake was approximately 2 weeks ago according to his . The patient's medical history is also significant for insulin-dependent diabetes mellitus, coronary artery disease, hypothyroidism, bipolar disorder and history of CVA. On presentation to the emergency department, the patient was noted to be afebrile hemodynamically stable. Initial laboratory evaluation revealed no evidence of a leukocytosis. Chemistry profile was unremarkable. Lactate was within normal limits. Liver function profile was unremarkable. TSH was elevated at 9.9. Urine analysis was unremarkable. Head CT revealed no acute intracranial findings. The patient was noted to be hypoglycemic on presentation to the emergency department. He was treated with D50 without any improvement in his mental status. The patient was subsequently intubated for airway protection. Neurology consultation was obtained. They recommended discontinuation of his phenobarbital and continuation of Keppra. [facility] Medical History (Updated 05/27/22 @ 02:[address] Louise Veras MD) Alcohol abuse Anxiety and depression Atherosclerotic heart disease of [place] coronary artery without angina pectoris Bipolar disorder Chronic pain due to injury Congestive heart failure (CHF) CVA (cerebral vascular accident) Degenerative joint disease (DJD) of lumbar spine GERD (gastroesophageal reflux disease) History lymph node removal History of stroke History of vocal cord surgery Hoarseness Hyperlipemia Hypertension Hypothyroidism Ischemic cardiomyopathy Nicotine dependence Obstructive sleep apnea Old myocardial infarction Smoker TIA (transient ischemic attack) Type I diabetes with insulin pump usage Home Medications citalopram 40 mg tablet 40 mg PO DAILY depression 03/18/13 [History Last Taken 05/09/22] insulin aspart U-100 100 unit/mL subcutaneous solution 1.1 unit continuous subcutaneous infusion UD diabetes 06/07/17 [History Last Taken 12/08/21] nortriptyline 50 mg capsule 100 mg PO QHS depression 01/28/19 [History Last Taken 05/08/22] quetiapine 200 mg tablet,extended release 24 hr (Seroquel XR) 200 mg PO QPM bipolar 01/28/19 [History Last Taken 05/08/22] levothyroxine 125 mcg tablet 150 mcg PO DAILY hypothyroid 07/28/19 [History Last Taken 05/09/22] multivitamin (Daily Multi-Vitamin tablet) 1 tablet PO DAILY health 08/10/20 [History Last Taken 05/09/22] nitroglycerin 0.4 mg sublingual tablet 0.4 mg sublingual Q5M PRN Cardiac/Chest Pain #25 tabs 08/10/20 [Rx Last Taken Unknown] cholecalciferol (vitamin D3) 10 mcg (400 unit) capsule 10 mcg PO DAILY supplement 05/15/21 [History Last Taken 05/09/22] thiamine HCl (vitamin B1) 100 mg tablet 100 mg PO DAILY supplement 05/15/21 [History Last Taken 05/09/22] aspirin 81 mg capsule 81 mg PO QHS heart [facility] 12/08/21 [History Last Taken 05/08/22] potassium chloride 20 mEq tablet,extended release (K-Tab) 20 meq PO DAILY supplement 12/08/21 [History Last Taken 05/09/22] Humalog Pen DM 12/09/21 [History Last Taken Unknown] famotidine 20 mg tablet 20 mg PO DAILY 05/09/22 [History Last Taken 05/09/22] folic acid 400 mcg tablet 0.4 mg PO DAILY 05/09/22 [History Last Taken 05/09/22] metoprolol tartrate 50 mg tablet (Lopressor) 25 mg PO DAILY BP #30 tabs 05/11/22 [Rx Last Taken 05/09/22] meloxicam 15 mg tablet 15 mg PO DAILY 05/26/22 [History Last Taken Unknown] Allergy/AdvReac Type Severity Reaction Status Date / Time No Known Allergies Allergy Verified 05/09/22 18:54 Family History (Updated 05/26/22 @ 19:[address] Louise Veras MD) Father Heart disease CVA (cerebral vascular accident) Mother CAD (coronary artery disease) Grandfather Cancer Surgical History History of appendectomy History of cataract extraction History of cholecystectomy History of coronary artery stent placement (02/04/10) History of left heart catheterization (06/2017) History of open reduction and internal fixation (ORIF) procedure History of prosthetic vocal cord History of tonsillectomy and adenoidectomy Social History (Updated 05/26/22 @ 19:[address] Louise Veras MD) household members: spouse Smoking Status: Current every day smoker tobacco type: cigarettes alcohol intake: current alcohol intake frequency: a few times a week substance use type: does not use caffeine: Yes Type: carbonated beverages Number of servings: 6 and coffee Number of servings: 2 ROS Review of Systems ROS Unobtainable: due to endotracheal tube and due to mental status Physical Exam Const no apparent distress General Appearance: intubated and patient mechanically ventilated HEENT normocephalic and head/scalp atraumatic Mouth: endotracheal tube in place and OG tube in place Eyes PERRL and EOMs intact bilaterally Neck supple General: trachea midline Chest inspection of chest normal Resp normal respiratory effort Auscultation: Negative for rales, rhonchi or wheezes Cardio regular rate and regular rhythm GI normal to inspection, nondistended, normoactive bowel sounds Extremity no clubbing, cyanosis or edema Skin no rashes or lesions noted Neuro Sensorium / Orientation: sedated on vent Lab / Micro Data Result Diagrams: 05/27/22 04:35 05/27/22 04:35 Labs: Laboratory Results - last 24 hr 05/26/22 18:05: WBC 8.6, RBC 3.98 L, Hgb 13.1, Hct 39.9 L, MCV 100.3 H, MCH 32.9 H, MCHC 32.8, RDW Std Deviation 49.0 H, RDW Coeff of Gabrielle 13.3, Plt Count 229, MPV 10.2, Immature Gran % (Auto) 0.500, Neut % (Auto) 70.6 H, Lymph % (Auto) 18.4 L, [place] % (Auto) 6.0, Eos % (Auto) 3.7, Baso % (Auto) 0.8, Absolute Neuts (auto) 6.1, Absolute Lymphs (auto) 1.58, Nucleated RBC % 0 05/26/22 18:05: Sodium 138, Potassium 3.6, Chloride 105, Carbon Dioxide 26.0, Anion Gap 7, BUN 9, Creatinine 1.10, Estim Creat Clear Calc 70.11, Est GFR (MDRD) Af Amer 90, Est GFR (MDRD) Non-Af 74, BUN/Creatinine Ratio 8.2 L, Glucose 218 H, Calcium 8.3 L, Troponin I High Sens 9 05/26/22 18:05: Ethyl Alcohol < 3.0 05/26/22 18:05: Total Creatine Kinase 91 05/26/22 18:05: Phosphorus 3.1, Magnesium 1.5 L, Total Bilirubin 0.30, Direct Bilirubin 0.12, AST 22, ALT 25, Alkaline Phosphatase 55, Total Protein 6.0 L, Albumin 3.4, Globulin 2.6, Prolactin 16.3 05/26/22 18:22: POC Glucose 178 H 05/26/22 18:25: Urine Opiates Screen NEGATIVE, Urine Methadone Screen NEGATIVE, Ur Barbiturates Screen POSITIVE H, Ur Phencyclidine Scrn NEGATIVE, Ur Amphetamines Screen NEGATIVE, MDMA (Ecstasy) Screen NEGATIVE, U Benzodiazepines Scrn NEGATIVE, Urine Cocaine Screen NEGATIVE, U Cannabinoids Screen NEGATIVE, Ur Drug Screen Comment 05/26/22 18:25: Urine Color Yellow, Urine Clarity Clear, Urine pH 7.0, Ur Specific [place] 1.010, Urine Protein Negative, Urine Glucose (UA) Normal, Urine Ketones Negative, Urine Occult Blood Negative, Urine Nitrite Negative, Urine Bilirubin Negative, Urine Urobilinogen Normal, Ur Leukocyte Esterase Negative, Urine RBC 0 SEEN, Urine WBC 0 SEEN, Ur Squamous Epith Cells 0 SEEN, Urine Bacteria 0 SEEN, Urine Mucus 0 SEEN 05/26/22 18:30: Lactic Acid 0.8 05/26/22 19:44: POC Glucose 179 H 05/26/22 22:00: POC Glucose 241 H 05/27/22 00:24: POC Glucose 266 H 05/27/22 04:35: WBC 9.4, RBC 4.02 L, Hgb 13.1, Hct 40.0, MCV 99.5 H, MCH 32.6 H, MCHC 32.8, RDW Std Deviation 49.4 H, RDW Coeff of Gabrielle 13.4, Plt Count 188, MPV 9.7, Immature Gran % (Auto) 0.300, Neut % (Auto) 69.4, Lymph % (Auto) 18.6 L, [place] % (Auto) 7.2, Eos % (Auto) 3.8, Baso % (Auto) 0.7, Absolute Neuts (auto) 6.5, Absolute Lymphs (auto) 1.75, Nucleated RBC % 0 05/27/22 04:35: Sodium 137, Potassium 4.3, Chloride 107, Carbon Dioxide 19.0 L, Anion Gap 11, BUN 13, Creatinine 0.94, Estim Creat Clear Calc 82.04, Est GFR (MDRD) Af Amer 107, Est GFR (MDRD) Non-Af 88, BUN/Creatinine Ratio 13.8, Glucose 318 H, Calcium 7.6 L, Total Bilirubin 0.60, AST 23, ALT 24, Alkaline Phosphatase 59, Total Protein 5.5 L, Albumin 3.0 L, Globulin 2.5, Albumin/Globulin Ratio 1.2, TSH 9.90 H ABG Data ABG results: ABG 05/26/22 20:41 Specimen Type ART Sample Site L Radial pH 7.38 Bicarbonate Actual 22.4 Total CO2 24 Base Excess -3 L O2 Saturation 97 O2 % 50 ABG pCO2 38.3 ABG pO2 96 Bruce Test N/A Respiration Rate 14 O2 Delivery Device Adult Vent Vent Mode AC Tidal Volume 450 POC PEEP [address] 05/26/22 18:18 IMPRESSION: No acute intracranial or calvarial abnormality. No interval change. Electronically Signed: Marvel Damon DO at 19:50 EST Reading Location ID and State: [employer] / [place] Tel [phone], Service support , Chest X-Ray 05/26/22 18:45 IMPRESSION: 1. Tubes and catheters as described. 2. No acute cardiopulmonary disease. Electronically Signed: Marvel Damon DO at 18:57 EST Reading Location ID and State: [place] / [place] Tel [phone], Service support , Charges/Coding Procedures Hospitalists Procedures: [id number] Critial Care 1st Hr
[2022-05-27 06:19] LABS: Magnesium 2.3 mg/dL (1.6-2.6)
[2022-05-27] MEDS: Levothyroxine 150 MCG Tablet PO (06:20)
[2022-05-27 06:28] LABS: T4 Free Direct 1.07 ng/dL (0.76-1.46)
[2022-05-27 06:46] LABS: Bedside Glucose 332 mg/dL (74-106)
--- NOTE | 2022-05-27 06:59 | PCM.PN.HOSP ---
Subjective Subjective Patient was seen and examined today, he is sedated on the ventilator, he appears in no distress. I talked briefly with pulmonary medicine about his care. Objective Data Objective Data Vital Signs: Vital Signs Temp Pulse Resp BP Pulse Ox O2 Del Method FiO2 98.7 F 90 14 117/52 L 98 Mechanical Ventilator 30 05/27/22 06:00 05/27/22 06:00 05/27/22 06:00 05/27/22 06:00 05/27/22 06:00 05/27/22 06:00 05/27/22 06:00 Oxygen Delivery Method Mechanical Ventilator Weight: 71.1 kg Body Mass Index (BMI) 24.7 Intake & Output: Intake and Output for Last 24 Hours 05/25/22 05/26/22 05/27/22 23:59 23:59 23:59 Intake Total 1080.79 / 1086.94 746.40 / 746.40 Output Total 1950 / 1950 Balance 1080.79 / 336.94 -1203.60 / -1203.60 Lab / Micro Data Result Diagrams: 05/27/22 04:35 05/27/22 04:35 Labs: Laboratory Results - last 24 hr 05/26/22 18:05: WBC 8.6, RBC 3.98 L, Hgb 13.1, Hct 39.9 L, MCV 100.3 H, MCH 32.9 H, MCHC 32.8, RDW Std Deviation 49.0 H, RDW Coeff of Gabrielle 13.3, Plt Count 229, MPV 10.2, Immature Gran % (Auto) 0.500, Neut % (Auto) 70.6 H, Lymph % (Auto) 18.4 L, [place] % (Auto) 6.0, Eos % (Auto) 3.7, Baso % (Auto) 0.8, Absolute Neuts (auto) 6.1, Absolute Lymphs (auto) 1.58, Nucleated RBC % 0 05/26/22 18:05: Sodium 138, Potassium 3.6, Chloride 105, Carbon Dioxide 26.0, Anion Gap 7, BUN 9, Creatinine 1.10, Estim Creat Clear Calc 70.11, Est GFR (MDRD) Af Amer 90, Est GFR (MDRD) Non-Af 74, BUN/Creatinine Ratio 8.2 L, Glucose 218 H, Calcium 8.3 L, Troponin I High Sens 9 05/26/22 18:05: Ethyl Alcohol < 3.0 05/26/22 18:05: Total Creatine Kinase 91 05/26/22 18:05: Phosphorus 3.1, Magnesium 1.5 L, Total Bilirubin 0.30, Direct Bilirubin 0.12, AST 22, ALT 25, Alkaline Phosphatase 55, Total Protein 6.0 L, Albumin 3.4, Globulin 2.6, Prolactin 16.3 05/26/22 18:22: POC Glucose 178 H 05/26/22 18:25: Urine Opiates Screen NEGATIVE, Urine Methadone Screen NEGATIVE, Ur Barbiturates Screen POSITIVE H, Ur Phencyclidine Scrn NEGATIVE, Ur Amphetamines Screen NEGATIVE, MDMA (Ecstasy) Screen NEGATIVE, U Benzodiazepines Scrn NEGATIVE, Urine Cocaine Screen NEGATIVE, U Cannabinoids Screen NEGATIVE, Ur Drug Screen Comment 05/26/22 18:25: Urine Color Yellow, Urine Clarity Clear, Urine pH 7.0, Ur Specific [place] 1.010, Urine Protein Negative, Urine Glucose (UA) Normal, Urine Ketones Negative, Urine Occult Blood Negative, Urine Nitrite Negative, Urine Bilirubin Negative, Urine Urobilinogen Normal, Ur Leukocyte Esterase Negative, Urine RBC 0 SEEN, Urine WBC 0 SEEN, Ur Squamous Epith Cells 0 SEEN, Urine Bacteria 0 SEEN, Urine Mucus 0 SEEN 05/26/22 18:30: Lactic Acid 0.8 05/26/22 19:44: POC Glucose 179 H 05/26/22 22:00: POC Glucose 241 H 05/27/22 00:24: POC Glucose 266 H 05/27/22 04:35: WBC 9.4, RBC 4.02 L, Hgb 13.1, Hct 40.0, MCV 99.5 H, MCH 32.6 H, MCHC 32.8, RDW Std Deviation 49.4 H, RDW Coeff of Gabrielle 13.4, Plt Count 188, MPV 9.7, Immature Gran % (Auto) 0.300, Neut % (Auto) 69.4, Lymph % (Auto) 18.6 L, [place] % (Auto) 7.2, Eos % (Auto) 3.8, Baso % (Auto) 0.7, Absolute Neuts (auto) 6.5, Absolute Lymphs (auto) 1.75, Nucleated RBC % 0 05/27/22 04:35: Sodium 137, Potassium 4.3, Chloride 107, Carbon Dioxide 19.0 L, Anion Gap 11, BUN 13, Creatinine 0.94, Estim Creat Clear Calc 82.04, Est GFR (MDRD) Af Amer 107, Est GFR (MDRD) Non-Af 88, BUN/Creatinine Ratio 13.8, Glucose 318 H, Calcium 7.6 L, Total Bilirubin 0.60, AST 23, ALT 24, Alkaline Phosphatase 59, Total Protein 5.5 L, Albumin 3.0 L, Globulin 2.5, Albumin/Globulin Ratio 1.2, TSH 9.90 H 05/27/22 04:35: Magnesium 2.3 05/27/22 04:35: Free T4 1.07 05/27/22 06:19: POC Glucose 332 H ABG Data ABG results: ABG 05/26/22 20:41 Specimen Type ART Sample Site L Radial pH 7.38 Bicarbonate Actual 22.4 Total CO2 24 Base Excess -3 L O2 Saturation 97 O2 % 50 ABG pCO2 38.3 ABG pO2 96 Bruce Test N/A Respiration Rate 14 O2 Delivery Device Adult Vent Vent Mode AC Tidal Volume 450 POC PEEP 5 Radiography Diagnostic Testing: Radiology Impression Brain CT 05/26/22 18:18 IMPRESSION: No acute intracranial or calvarial abnormality. No interval change. Electronically Signed: Marvel EdwardsDO nathalie at 19:50 EST Reading Location ID and State: [address] [place] [address] Tel [phone], Service support , Chest X-Ray 05/26/22 18:45 IMPRESSION: 1. Tubes and catheters as described. 2. No acute cardiopulmonary disease. Electronically Signed: Marvel Damon DO at 18:57 EST Reading Location ID and State: [facility] / [place] Tel [phone], Service support , Physical Exam Narrative Patient is sedated and on the ventilator Const no apparent distress HEENT head/scalp atraumatic and moist oral mucous membranes Eyes conjunctivae normal Neck no JVD Resp normal respiratory effort, no retractions, no use of accessory muscles and clear to auscultation bilaterally Cardio regular rate, regular rhythm, S1 normal heart sound and S2 normal heart sound Cardio Narrative: Patient is tachycardic GI normal to inspection, nondistended, normoactive bowel sounds and non-distended Extremity normal to inspection and no clubbing, cyanosis or edema Neuro Neuro Narrative: Patient sedated and on the ventilator Psych Psych Narrative: Patient is sedated and on the ventilator Assessment & Plan Assessment/Plan (1) Seizure: PLAN: Plan 1. Acute hypoxic respiratory failure secondary to acute seizure-patient remains on the ventilator at this time, pulmonary medicine is participating in his care #2 seizure disorder-exact etiology unclear at this point, patient has had a past history of seizures believed to be associated with alcohol withdrawal, he is also had a past history of a stroke, according to teleneurology and the documentation in the chart, she is you could have been precipitated by multi factors including his previous stroke and possible alcohol withdrawal. Patient is on Keppra at this time #3 cerebrovascular disease-patient has a past history of a left posterior cerebral artery CVA, complicates care, medical course, recovery, and prognosis #4 coronary artery disease-patient's beta-rolando therapy is being held right now secondary to a low normal blood pressure upon presentation, aspirin therapy is being continued #5 essential hypertension-patient's blood pressure medicines are being held at this time due to a low normal blood pressure, blood pressure will be monitored #6 type 1 diabetes requiring insulin-patient is currently on a dextrose drip, Accu-Cheks are being performed, patient's insulin pump is on hold #7 bipolar disorder-complicates care, medical course, recovery, and prognosis #8 hypothyroidism-patient will remain on Synthroid Total clinical time spent by myself addressing patient's medical issues, reviewing all the data, and collaborating with patient's care team: 50 minutes Charges/Coding Visit Charges Inpatient E&M: [id number] [facility] L3
[2022-05-27] MEDS: Citalopram 40 MG TABLET PO (09:05)
[2022-05-27] MEDS: Chlorhexidine 15 ML PO ×2 (09:05→21:43)
[2022-05-27] MEDS: Propofol 10MG/Ml 1,000 MG/100 ML Bottle 10.7 MG CONT INF (09:05)
[2022-05-27] MEDS: QUEtiapine 100 MG Tablet PO ×2 (09:06→21:42)
[2022-05-27] MEDS: Enoxaparin 40 MG/0.4 ML Syringe SC (09:06)
[2022-05-27] MEDS: CHLORHEXIDINE GLUC 2% CLOTH 1 EACH TOWELETTE TOPICAL (09:06)
[2022-05-27 09:22] LABS: Hemoglobin A1c 7.1 % (3.8-5.6)
[2022-05-27 09:56] LABS: Bedside Glucose 221 mg/dL (74-106)
[2022-05-27] MEDS: Propofol 10MG/Ml 1,000 MG/100 ML Bottle 8.6 MG CONT INF (12:23)
[2022-05-27 13:35] LABS: Bedside Glucose 186 mg/dL (74-106)
[2022-05-27] MEDS: 0.9% Normal Saline 1,000 ML 999 ML IV (16:22)
[2022-05-27 19:10] LABS: Bedside Glucose 223 mg/dL (74-106)
[2022-05-27] MEDS: Nortriptyline 25 MG Capsule 100 MG PO (21:41)
[2022-05-27] MEDS: 0.9% Saline Lock 10 ML Syringe IV (21:42)
[2022-05-27 22:21] LABS: Bedside Glucose 170 mg/dL (74-106)
[2022-05-28] VITALS (28 sets, daily range): BP systolic 96–163; BP diastolic 49–73; PULSE 82–105; RESP 10–30; TEMP 37.2–38; O2SAT 95–100
[2022-05-28] MEDS: Propofol 10MG/Ml 1,000 MG/100 ML Bottle 4.3 MG CONT INF (02:23)
[2022-05-28] MEDS: Insulin Lispro 100 UNIT/ML INSULN.PEN SC ×5 (02:26→21:39)
[2022-05-28] MEDS: Levothyroxine 150 MCG Tablet PO (05:46)
[2022-05-28 05:56] LABS: Allen Test Positive; Base Excess -10 mmol/L (-2 to +2); Bicarbonate 15.8 mmol/L (22-26); Blood Gas Specimen Type ART; FI02 25; Mode CPAP/PS; O2 Delivery Device ET Tube; PEEP 5; PO2 57 mmHG (75-100); PS 5; SITE R Radial; SO2 88 % (95-99); Total Carbon Dioxide 17 mmol/L; pCO2 29.5 mmHg (35-45); pH 7.34 (7.35-7.45)
[2022-05-28 05:56] LABS: Absolute Lymphocyte Count 1.73 X10^3/uL (0.83-4.51); Absolute Neutrophil Count 6.2 X10^3/uL (2.0-7.7); Basophil# 0.05 X10^3/uL; Basophil% 0.5 % (0-1); Eosinophil# 0.38 X10^3/uL; Eosinophils% 4.1 % (0-5); Hematocrit 40.4 % (40-54); Lymphocyte # 1.73 X10^3/ul (0.83-4.51); Lymphocyte % 18.5 % (19-41); Mean Corp Hgb Conc 32.2 g/dL (32-36); Mean Corpuscular Hgb 32.6 pg (27.0-32.0); Mean Corpuscular Volume 101.3 fL (80-94); Mean Platelet Vol. 10.3 fl (6.2-12.0); Monocyte# 0.89 X10^3/uL; Monocyte% 9.5 % (0-10); NRBC Flagged by Analyzer 0 % (0-5); Neutrophil # 6.24 X10^3/uL (2.7-7.7); Platelet Count 198 K/mm3 (150-450); RBC Distribution Width CV 13.5 % (11.6-14.6); RBC Distribution Width SD 51.3 fl (35.1-43.9); Red Blood Count 3.99 M/mm3 (4.6-6.2); White Blood Count 9.3 K/mm3 (4.4-11.0)
[2022-05-28 06:06] LABS: Bedside Glucose 154 mg/dL (74-106)
[2022-05-28 06:06] LABS: Bedside Glucose 170 mg/dL (74-106)
[2022-05-28 06:25] LABS: Anion Gap 13 (5-15); BUN 13 mg/dL (7-18); BUN/Creat Ratio 14.6 RATIO (10-20); Calcium,Total 7.7 mg/dL (8.5-10.1); Chloride 108 mmol/L (98-107); Creatinine, Serum 0.89 mg/dL (0.70-1.30); EST Glomerular Filtration Rate 94 mL/min (>60); Est Glom Filt Rate - Afr Amer 113 mL/min (>60); Estimated Creatinine Clearance 86.65 ml/min; Glucose 199 mg/dL (74-106); Magnesium 1.9 mg/dL (1.6-2.6); Phosphorus 1.5 mg/dL (2.5-4.9); Potassium 4.4 mmol/L (3.5-5.1); Sodium Level 139 mmol/L (136-145)
--- NOTE | 2022-05-28 07:16 | NURSING ---
pt extubated to ra, tolerated well
--- NOTE | 2022-05-28 07:22 | PN.CC_ITS ---
Assessment & Plan Assessment/Plan (1) Seizure: PLAN: Plan RECOMMENDATIONS: 1. Proceed with trial of extubation. Wean FiO2 and PEEP for saturations greater than 90%. 2. Continue Keppra per neurology recommendations. 3. Discontinue propofol and fentanyl for sedation. 4. Await EEG 5. Continue appropriate ICU prophylaxis. 6. Plan for daily paired spontaneous awakening and breathing trials beginning tomorrow. 7. Initiate basal insulin IMPRESSIONS: 1. Acute hypoxemic respiratory failure The patient was initially intubated in the emergency department over concerns for airway protection in the setting of witnessed tonic-clonic seizure activity and postictal state. The patient is doing well from a respiratory perspective. Plan to continue assist-control mode of mechanical ventilation. Wean FiO2 and PEEP, as tolerated, to maintain saturations at or above 90%. Patient can be successfully extubated. Await EEG results. 2. Encephalopathy Clinical concern for postictal state, given presentation. The patient appears improved from a neurological perspective. No further seizure activity has been noted. Plan to continue supportive care per neurology recommendations with Keppra and seizure precautions. MRI shows nothing acute. EEG still pending. 3. History of diabetes mellitus/history of CVA/coronary artery disease/hypothyroidism/hypertension/hyperlipidemia Complicates care, management, recovery and prognosis. Continue home medications as indicated. Patient appears to be developing potential complications with diabetes with lowering bicarb. Patient has not developed a gap. Will be placed on basal insulin. TIME: 34 minutes of critical care time, independent of procedures, was spent ad dressing the patient's acute hypoxemic respiratory failure, encephalopathy, tonic-clonic seizure activity, review of all data and collaboration with the care team. Subjective Subjective Patient did well overnight. No acute issues were reported. Patient able to pass a spontaneous breathing trial this morning. Patient was reporting some sore throat prior to extubation. No seizure activity has been noted. Objective Data Objective Data EEG results are still pending. Vital Signs: Vital Signs Temp Pulse Resp BP Pulse Ox O2 Del Method FiO2 37.6 C H 99 19 H 131/60 H 99 Mechanical Ventilator 25 05/28/22 07:00 05/28/22 07:00 05/28/22 07:00 05/28/22 07:00 05/28/22 07:00 05/28/22 07:00 05/28/22 07:00 Oxygen Delivery Method Mechanical Ventilator Weight: 75.6 kg Body Mass Index (BMI) 24.7 Intake & Output: Intake and Output for Last 24 Hours 05/26/22 05/27/22 05/28/22 23:59 23:59 23:59 Intake Total 1080.79 / 1086.94 4094.31 / 4258.61 438.87 / 438.87 Output Total 2550 / 2850 500 / 500 Balance 1080.79 / 336.94 1544.31 / 1408.61 -61.13 / -61.13 Lab / Micro Data Attestation: I reviewed the patient's lab results. Result Diagrams: 05/28/22 05:40 05/28/22 05:40 Labs: Laboratory Results - last 24 hr 05/27/22 04:35: Hemoglobin A1c 7.1 H 05/27/22 09:19: POC Glucose 221 H 05/27/22 13:13: POC Glucose 186 H 05/27/22 18:52: POC Glucose 223 H 05/27/22 21:57: POC Glucose 170 H 05/28/22 02:19: POC Glucose 154 H 05/28/22 05:40: WBC 9.3, RBC 3.99 L, Hgb 13.0, Hct 40.4, MCV 101.3 H, MCH 32.6 H , MCHC 32.2, RDW Std Deviation 51.3 H, RDW Coeff of Gabrielle 13.5, Plt Count 198, MPV 10.3, Immature Gran % (Auto) 0.400, Neut % (Auto) 67.0, Lymph % (Auto) 18.5 L, [place] % (Auto) 9.5, Eos % (Auto) 4.1, Baso % (Auto) 0.5, Absolute Neuts (auto) 6.2, Absolute Lymphs (auto) 1.73, Nucleated RBC % 0 05/28/22 05:40: Sodium 139, Potassium 4.4, Chloride 108 H, Carbon Dioxide 18.0 L , Anion Gap 13, BUN 13, Creatinine 0.89, Estim Creat Clear Calc 86.65, Est GFR (MDRD) Af Amer 113, Est GFR (MDRD) Non-Af 94, BUN/Creatinine Ratio 14.6, Glucose 199 H, Calcium 7.7 L, Phosphorus 1.5 L, Magnesium 1.9 05/28/22 05:45: POC Glucose 170 H Micro: Microbiology 05/26/22 21:55 Sputum, Induced/Lukens Gram Stain - Final ABG Data ABG results: ABG 05/28/22 05:49 Specimen Type ART Sample Site R Radial pH 7.34 L Bicarbonate Actual 15.8 L Total CO2 17 Base Excess -10 L O2 Saturation 88 L O2 % 25 ABG pCO2 29.5 L ABG pO2 57 L Bruce Test Positive O2 Delivery Device ET Tube Vent Mode CPAP/PS POC PEEP 5 POC Pressure Suppt 5 Radiography Diagnostic Testing: Radiology Impression Brain MRI 05/27/22 05:55 IMPRESSION: 1. No MRI evidence of acute or subacute ischemic infarct, intracranial mass or acute intracranial abnormality. 2. Old cortical-based ischemic infarct with cystic encephalomalacia and atrophy involving the right middle temporal gyrus and right inferior temporal gyrus. 3. Incidental small benign mucous retention cysts in the retropharyngeal space of the nasopharynx. Electronically Signed: Arnold Goldberg MD at 12:29 EST , Chest X-Ray 05/27/22 05:55 IMPRESSION: Slightly decreased lung volumes with worsening bibasilar atelectasis versus infiltrate. Electronically Signed: Fredi Llamas MD at 7:39 EST , Physical Exam Const no apparent distress General Appearance: cooperative, intubated and patient mechanically ventilated HEENT normocephalic and head/scalp atraumatic Eyes PERRL and EOMs intact bilaterally Neck supple General: trachea midline Chest inspection of chest normal Resp normal respiratory effort Auscultation: Negative for rales, rhonchi or wheezes Cardio regular rate, regular rhythm, S1 normal heart sound, S2 normal heart sound, no murmurs, no rub and no gallops GI normal to inspection, nondistended, normoactive bowel sounds Extremity no clubbing, cyanosis or edema Skin no rashes or lesions noted Neuro Sensorium / Orientation: sedated on vent Charges/Coding Procedures Hospitalists Procedures: [id number] Critial Care 1st Hr
[2022-05-28] MEDS: Insulin Glargine-YFGN 100 UNIT/ML Pen 10 UNIT SC (07:57)
[2022-05-28 08:20] LABS: Bedside Glucose 202 mg/dL (74-106)
[2022-05-28] MEDS: Enoxaparin 40 MG/0.4 ML Syringe SC (09:41)
[2022-05-28] MEDS: Citalopram 40 MG TABLET PO (09:41)
[2022-05-28] MEDS: Na Biphos/Potassium Phosphate PACKET 1 PACKET PO (09:42)
[2022-05-28] MEDS: 0.9% Normal Saline 1,000 ML 100 ML IV (09:42)
--- NOTE | 2022-05-28 10:05 | CASEMGMT ---
RN GISELE readmission note: Prior admission: Admitted 05/09/22 w/fall, hypotension, and ETOH w/d. RN GISELE met w/pt while hospitalized and pt declined wanting any resources for ETOH abuse. Pt discharged home 05/11/22. Pt lives w/his and daughter and is independent. Pt stated had all DME needed, including glucometer w/supplies, and insulin pump w/supplies. He denies having any discharge planning needs or concerns. Current admission: Admitted 05/26/22 w/seizure and hypoglycemia. Pt does have hx of ETOH w/d seizures. Pt was intubated on admission and was extubated today. NEELAM JAQUEZ particpated in ICU multi-disciplinary rounds. Pt awake/alert and @ bedside. Per Dr Roberts, pt to discharge home on [facility]. MRI done w/no acute findings. EEG ordered. RN GISELE met w/pt and after ICU rounds. They deny having any discharge planning needs or concerns. Pt states he has not drank for about 3 weeks and he denies wanting any resources for ETOH. He states he has all diabetic supplies and medications. and pt deny having any questions. Plan is for pt to discharge home. His PCP is Dr Bui and he sees Dr Parnell-cardiology. RN CM instructed them to ask for CM if any concerns arise. They voices understanding. Ke FINNEY RN, CM
[2022-05-28 10:11] LABS: Bedside Glucose 205 mg/dL (74-106)
[2022-05-28 11:25] LABS: Bedside Glucose 52 mg/dL (74-106)
--- NOTE | 2022-05-28 16:00 | PN.HOSP_ITS ---
Subjective Subjective Patient was seen and examined today, he was extubated today and is currently on room air. He complains of being hoarse. Objective Data Objective Data Vital Signs: Vital Signs Temp Pulse Resp BP Pulse Ox O2 Del Method FiO2 99.4 F H 98 17 132/63 H 96 Room Air 25 05/28/22 14:00 05/28/22 15:00 05/28/22 15:00 05/28/22 15:00 05/28/22 15:00 05/28/22 15:00 05/28/22 07:00 Oxygen Delivery Method Room Air Weight: 75.6 kg Body Mass Index (BMI) 24.7 Intake & Output: Intake and Output for Last 24 Hours 05/26/22 05/27/22 05/28/22 23:59 23:59 23:59 Intake Total 1080.79 / 1086.94 4094.31 / 4258.61 2380.90 / 2380.90 Output Total 2550 / 2850 1625 / 1625 Balance 1080.79 / 336.94 1544.31 / 1408.61 755.90 / 755.90 Lab / Micro Data Result Diagrams: 05/28/22 05:40 05/28/22 05:40 Labs: Laboratory Results - last 24 hr 05/26/22 17:55: POC Glucose 52 L 05/27/22 18:52: POC Glucose 223 H 05/27/22 21:57: POC Glucose 170 H 05/28/22 02:19: POC Glucose 154 H 05/28/22 05:40: WBC 9.3, RBC 3.99 L, Hgb 13.0, Hct 40.4, MCV 101.3 H, MCH 32.6 H , MCHC 32.2, RDW Std Deviation 51.3 H, RDW Coeff of Gabrielle 13.5, Plt Count 198, MPV 10.3, Immature Gran % (Auto) 0.400, Neut % (Auto) 67.0, Lymph % (Auto) 18.5 L, Placer % (Auto) 9.5, Eos % (Auto) 4.1, Baso % (Auto) 0.5, Absolute Neuts (auto) 6.2, Absolute Lymphs (auto) 1.73, Nucleated RBC % 0 05/28/22 05:40: Sodium 139, Potassium 4.4, Chloride 108 H, Carbon Dioxide 18.0 L , Anion Gap 13, BUN 13, Creatinine 0.89, Estim Creat Clear Calc 86.65, Est GFR (MDRD) Af Amer 113, Est GFR (MDRD) Non-Af 94, BUN/Creatinine Ratio 14.6, Glucose 199 H, Calcium 7.7 L, Phosphorus 1.5 L, Magnesium 1.9 05/28/22 05:45: POC Glucose 170 H 05/28/22 07:56: POC Glucose 202 H 05/28/22 09:39: POC Glucose 205 H Micro: Microbiology 05/26/22 18:25 Urine Catheter - Catheter Urine Culture - Final Culture exhibits no growth. 05/26/22 21:55 Sputum, Induced/Lukens Gram Stain - Final 05/26/22 21:55 Sputum, Induced/Lukens Respiratory Culture - Final Mixed normal respiratory mau. No Streptococcus pneumoniae, beta-hemolytic Streptococcus or Staphylococcus aureus isolated. ABG Data ABG results: ABG 05/28/22 05:49 Specimen Type ART Sample Site R Radial pH 7.34 L Bicarbonate Actual 15.8 L Total CO2 17 Base Excess -10 L O2 Saturation 88 L O2 % 25 ABG pCO2 29.5 L ABG pO2 57 L Bruce Test Positive O2 Delivery Device ET Tube Vent Mode CPAP/PS POC PEEP 5 POC Pressure Suppt 5 Physical Exam Const alert, oriented x3 and no apparent distress General Appearance: cooperative, well kempt and well developed Orientation / Consciousness: awake, oriented to person, oriented to place and oriented to time HEENT normocephalic, head/scalp atraumatic and moist oral mucous membranes HEENT Narrative: Patient is hoarse Head and Scalp: normocephalic Eyes PERRL, EOMs intact bilaterally and conjunctivae normal Neck supple, no JVD and thyroid normal General: trachea midline Resp normal respiratory effort, no retractions, no use of accessory muscles and clear to auscultation bilaterally Auscultation: Negative for rales, rhonchi or wheezes Cardio regular rate, regular rhythm, S1 normal heart sound, S2 normal heart sound, no murmurs, no rub and no gallops GI normal to inspection, nondistended, normoactive bowel sounds, soft to palpation, non-tender and non-distended Extremity no clubbing, cyanosis or edema Skin no rashes or lesions noted General Skin Exam: no breakdown Neuro oriented x3, CN's II-XII intact bilaterally, moves all extremities, no focal motor deficits and no sensory deficits noted Sensorium / Orientation: awake, alert, oriented to person and oriented to place Speech: speech normal Psych affect normal Assessment & Plan Assessment/Plan (1) Seizure: PLAN: Plan 1. Acute hypoxic respiratory failure secondary to acute seizure-patient is extubated and is on room air at this time #2 seizure disorder-exact etiology unclear at this point, patient confirms that he has not had anything to drink in approximately 2 weeks, he remains on Keppra for seizure disorder #3 cerebrovascular disease-patient has a past history of a left posterior cerebral artery CVA, complicates care, medical course, recovery, and prognosis #4 coronary artery disease-patient's beta-rolando therapy is being held right now secondary to a low normal blood pressure upon presentation, aspirin therapy is being continued #5 essential hypertension-patient's blood pressure medicines are being held at this time due to a low normal blood pressure, blood pressure will be monitored #6 type 1 diabetes requiring insulin-patient is currently on a dextrose drip, Accu-Cheks are being performed, patient's insulin pump is on hold #7 bipolar disorder-complicates care, medical course, recovery, and prognosis #8 hypothyroidism-patient will remain on Synthroid Total clinical time spent by myself addressing patient's medical issues, reviewing all the data, and collaborating with patient's care team: 36 minutes Charges/Coding Visit Charges Inpatient E&M: 66380 Subs Hosp L2
[2022-05-28 16:45] LABS: Bedside Glucose 219 mg/dL (74-106)
[2022-05-28] MEDS: BENZOCAINE/MENTHOL 1 LOZENGE MUCOUS MEM ×2 (18:31→20:49)
[2022-05-28] MEDS: QUEtiapine 100 MG Tablet PO (21:39)
[2022-05-28] MEDS: Nortriptyline 25 MG Capsule 100 MG PO (21:39)
[2022-05-28] MEDS: Aspirin 81 MG TAB.CHEW PO (21:39)
[2022-05-28] MEDS: levETIRAcetam 750 MG Tablet PO (21:39)
[2022-05-28 22:05] LABS: Bedside Glucose 255 mg/dL (74-106)
[2022-05-29] VITALS (15 sets, daily range): BP systolic 130–167; BP diastolic 59–79; PULSE 85–113; RESP 12–21; TEMP 36.7–37.7; O2SAT 96–99
[2022-05-29 03:57] LABS: Absolute Lymphocyte Count 1.74 X10^3/uL (0.83-4.51); Absolute Neutrophil Count 4.4 X10^3/uL (2.0-7.7); Basophil# 0.04 X10^3/uL; Basophil% 0.5 % (0-1); Eosinophil# 0.45 X10^3/uL; Eosinophils% 6.1 % (0-5); Hematocrit 38.3 % (40-54); Lymphocyte # 1.74 X10^3/ul (0.83-4.51); Lymphocyte % 23.7 % (19-41); Mean Corp Hgb Conc 33.9 g/dL (32-36); Mean Corpuscular Hgb 32.8 pg (27.0-32.0); Mean Corpuscular Volume 96.7 fL (80-94); Monocyte# 0.74 X10^3/uL; Monocyte% 10.1 % (0-10); NRBC Flagged by Analyzer 0 % (0-5); Neutrophil # 4.36 X10^3/uL (2.7-7.7); Neutrophil % 59.3 % (47-70); Platelet Count 179 K/mm3 (150-450); RBC Distribution Width SD 46.5 fl (35.1-43.9); Red Blood Count 3.96 M/mm3 (4.6-6.2); White Blood Count 7.4 K/mm3 (4.4-11.0)
[2022-05-29 04:10] LABS: Anion Gap 9 (5-15); BUN 7 mg/dL (7-18); Calcium,Total 7.8 mg/dL (8.5-10.1); Chloride 108 mmol/L (98-107); Creatinine, Serum 0.87 mg/dL (0.70-1.30); EST Glomerular Filtration Rate 96 mL/min (>60); Est Glom Filt Rate - Afr Amer 116 mL/min (>60); Estimated Creatinine Clearance 88.64 ml/min; Glucose 186 mg/dL (74-106); Magnesium 1.7 mg/dL (1.6-2.6); Phosphorus 2.1 mg/dL (2.5-4.9); Sodium Level 140 mmol/L (136-145)
[2022-05-29] MEDS: 0.9% Saline Lock 10 ML Syringe IV (05:17)
[2022-05-29] MEDS: Levothyroxine 150 MCG Tablet PO (05:17)
[2022-05-29] MEDS: BENZOCAINE/MENTHOL 1 LOZENGE MUCOUS MEM (05:18)
--- NOTE | 2022-05-29 06:53 | PCM.PN.INT ---
Assessment & Plan Assessment/Plan (1) Seizure: PLAN: Plan RECOMMENDATIONS: 1. Walking oximetry prior to discharge 2. Continue Keppra per neurology recommendations. 3. Outpatient neurology follow-up 4. Continue basal insulin until pump restarted 5. Okay to leave the intensive care unit 6. Hemodynamically stable on room air. Will sign off from a critical care perspective IMPRESSIONS: 1. Acute hypoxemic respiratory failure Resolved. The patient was initially intubated in the emergency department over concerns for airway protection in the setting of witnessed tonic-clonic seizure activity and postictal state. The patient is doing well from a respiratory perspective. Patient has been successfully extubated. Patient could have a walking oximetry prior to discharge. 2. Encephalopathy Clinical concern for postictal state, given presentation. The patient appears improved from a neurological perspective. No further seizure activity has been noted. Plan to continue supportive care per neurology recommendations with Keppra and seizure precautions. MRI shows nothing acute. EEG shows only generalized slowing. However, family very clear the patient had a seizure. Could follow-up with a neurologist as an outpatient for possible epilepsy. Would recommend no driving until further work-up can be obtained. 3. History of diabetes mellitus/history of CVA/coronary artery disease/hypothyroidism/hypertension/hyperlipidemia Complicates care, management, recovery and prognosis. Continue home medications as indicated. Patient appears to be developing potential complications with diabetes with lowering bicarb. Patient has not developed a gap. Continue basal insulin. Subjective Subjective Patient did well overnight. No acute issues were reported. Patient's blood pressure has been on the upper side. Patient did have a mild fever, but has been stable on room air. Objective Data Objective Data Vital Signs: Vital Signs Temp Pulse Resp BP Pulse Ox O2 Del Method FiO2 36.7 C 91 21 H 167/79 H 96 Room Air 25 05/29/22 05:00 05/29/22 05:00 05/29/22 05:00 05/29/22 05:00 05/29/22 05:00 05/29/22 05:00 05/28/22 07:00 Oxygen Delivery Method Room Air Weight: 74.5 kg Body Mass Index (BMI) 24.7 Intake & Output: Intake and Output for Last 24 Hours 05/27/22 05/28/22 05/29/22 23:59 23:59 23:59 Intake Total 4094.31 / 4258.61 2820.90 / 2820.90 Output Total 2550 / 2850 3775 / 3775 1999 Balance 1544.31 / 1408.61 -954.10 / -954.10 -1969 / Lab / Micro Data Attestation: I reviewed the patient's lab results. Result Diagrams: 05/29/22 03:45 05/29/22 03:45 Labs: Laboratory Results - last 24 hr 05/26/22 17:55: POC Glucose 52 L 05/28/22 07:56: POC Glucose 202 H 05/28/22 09:39: POC Glucose 205 H 05/28/22 16:20: POC Glucose 219 H 05/28/22 21:38: POC Glucose 255 H 05/29/22 03:45: WBC 7.4, RBC 3.96 L, Hgb 13.0, Hct 38.3 L, MCV 96.7 H, MCH 32.8 H, MCHC 33.9 D, RDW Std Deviation 46.5 H, RDW Coeff of Gabrielle 13.0, Plt Count 179, MPV 10.0, Immature Gran % (Auto) 0.300, Neut % (Auto) 59.3, Lymph % (Auto) 23.7, Hutchinson % (Auto) 10.1 H, Eos % (Auto) 6.1 H, Baso % (Auto) 0.5, Absolute Neuts (auto) 4.4, Absolute Lymphs (auto) 1.74, Nucleated RBC % 0 05/29/22 03:45: Sodium 140, Potassium 4.0, Chloride 108 H, Carbon Dioxide 23.0, Anion Gap 9, BUN 7, Creatinine 0.87, Estim Creat Clear Calc 88.64, Est GFR (MDRD) Af Amer 116, Est GFR (MDRD) Non-Af 96, BUN/Creatinine Ratio 8.0 L, Glucose 186 H, Calcium 7.8 L, Phosphorus 2.1 L, Magnesium 1.7 Micro: Microbiology 05/26/22 18:25 Urine Catheter - Catheter Urine Culture - Final Culture exhibits no growth. 05/26/22 21:55 Sputum, Induced/Lukens Gram Stain - Final 05/26/22 21:55 Sputum, Induced/Lukens Respiratory Culture - Final Mixed normal respiratory mau. No Streptococcus pneumoniae, beta-hemolytic Streptococcus or Staphylococcus aureus isolated. Physical Exam Const alert, oriented x3 and no apparent distress General Appearance: cooperative, well kempt and well developed HEENT normocephalic, head/scalp atraumatic and moist oral mucous membranes HEENT Narrative: Hoarse voice noted. Slight lip swelling. Head and Scalp: normocephalic Eyes PERRL, EOMs intact bilaterally and conjunctivae normal Neck supple, no JVD and thyroid normal General: trachea midline Resp normal respiratory effort and clear to auscultation bilaterally Auscultation: Negative for rales, rhonchi or wheezes Cardio regular rate, regular rhythm, S1 normal heart sound, S2 normal heart sound, no murmurs, no rub and no gallops GI normal to inspection, nondistended, normoactive bowel sounds, soft to palpation, non-tender and non-distended Extremity no clubbing, cyanosis or edema Skin no rashes or lesions noted General Skin Exam: no breakdown Neuro oriented x3, CN's II-XII intact bilaterally, moves all extremities, no focal motor deficits and no sensory deficits noted Psych cooperative and affect normal Charges/Coding Visit Charges Inpatient E&M: 59098 Subs Hosp L2
[2022-05-29] MEDS: Insulin Lispro 100 UNIT/ML INSULN.PEN SC (07:58)
[2022-05-29 08:20] LABS: Bedside Glucose 217 mg/dL (74-106)
[2022-05-29] MEDS: Citalopram 40 MG TABLET PO (09:21)
[2022-05-29] MEDS: levETIRAcetam 750 MG Tablet PO (09:21)
[2022-05-29] MEDS: QUEtiapine 100 MG Tablet PO (09:21)
[2022-05-29] MEDS: Enoxaparin 40 MG/0.4 ML Syringe SC (09:21)
--- NOTE | 2022-05-29 10:08 | DCINST_ITS ---
Discharge Instructions Diet Discharge Diet: - (Resume previous home diet) Activity Discharge Activity: Return to Normal Activity and May Not Drive Weight Bearing Status: Full weight bearing Follow Up Care Test Results: Test results from this visit will be discussed in further detail at your follow- up appointment, if applicable. Discharge Plan Admission Admit Date/Time: 05/26/22 20:11 Primary Reason for Your Visit: Seizure disorder, respiratory failure Attending Provider: Fredi Anderson Primary Care Provider: Yassine Bui Consulting Providers: Louise Veras ; George Hood Instructions Additional Instructions / Restrictions: Resume insulin pump tomorrow Do not drive until released by your physician to drive, recommend follow-up with a neurologist in the next several weeks Discharge Orders/Prescriptions Prescriptions: New levetiracetam 750 mg Tablet 750 mg PO BID Qty: 60 0RF Continued levothyroxine 125 mcg tablet 150 mcg PO DAILY Label Comments: TAKE 1 TABLET BY MOUTH ONCE DAILY nortriptyline 50 mg capsule 100 mg PO QHS quetiapine [Seroquel XR] 200 mg tablet extended release 24 hr 200 mg PO QPM multivitamin [Daily Multi-Vitamin] Tablet 1 tablet PO DAILY nitroglycerin 0.4 mg tablet, sublingual 0.4 mg SUBLINGUAL Q5M PRN (Reason: Cardiac/Chest Pain) Qty: 25 3RF thiamine HCl (vitamin B1) 100 mg tablet 100 mg PO DAILY Label Comments: TAKE 1 TABLET BY MOUTH ONCE DAILY cholecalciferol (vitamin D3) 10 mcg (400 unit) capsule 10 mcg PO DAILY citalopram 40 MG tablet 40 mg PO DAILY Label Comments: DEPRESSION insulin aspart U-100 100 UNIT/ML solution 1.1 unit Continuous Subcutaneous Infusion UD Label Comments: 1 UNIT PER HOUR AND THEN SLIDING SCALE PER INTAKE OF CARBS aspirin 81 mg Capsule 81 mg PO QHS potassium chloride [K-Tab] 20 mEq tablet extended release 20 meq PO DAILY Humalog Pen folic acid 400 mcg Tablet 0.4 mg PO DAILY famotidine 20 mg Tablet 20 mg PO DAILY metoprolol tartrate [Lopressor] 50 mg Tablet 25 mg PO DAILY Qty: 30 0RF meloxicam 15 mg tablet 15 mg PO DAILY Referrals / Follow Up: Yassine Bui MD [Primary Care Provider] - Within 2 Weeks Disposition Disposition (needs filled in before D/C Order can be placed): Home, Self Care
[2022-05-29] MEDS: Insulin Glargine-YFGN 100 UNIT/ML Pen 15 UNIT SC (10:16)
--- NOTE | 2022-05-29 10:17 | DS.PCM_ITS ---
Providers Date of Admission: 05/26/22 Date of Discharge: 05/29/22 Primary Care Physician: Dr. Yassine Bui MD Consultations 05/27/22 06:30 Consult: Java Lead Engineer / Pulmonary Medicine Routine Consulting Provider: George Hood Reason for Consult: Seizure, EtOH withdrawal poss, Hypoglycemia, Intubated. EMERGENT Consult: No MD Notified: Yes Date Notified: 05/26/22 Time Notified: 20:21 Method of Notification: Text Reason For Visit: SEIZURE, HYPOGLYCEMIA Diagnosis Discharge Diagnosis (1) Seizure: Status: Acute Code(s): R56.9 - Unspecified convulsions Plan 1. Acute hypoxic respiratory failure secondary to acute seizure-patient is extubated and is on room air at this time #2 seizure disorder-exact etiology unclear at this point, patient confirms that he has not had anything to drink in approximately 2 weeks, he remains on Keppra for seizure disorder #3 cerebrovascular disease-patient has a past history of a left posterior cerebral artery CVA, complicates care, medical course, recovery, and prognosis #4 coronary artery disease-patient's beta-rolando therapy is being held right now secondary to a low normal blood pressure upon presentation, aspirin therapy is being continued #5 essential hypertension-patient's blood pressure medicines are being held at this time due to a low normal blood pressure, blood pressure will be monitored #6 type 1 diabetes requiring insulin-patient is currently on a dextrose drip, Accu-Cheks are being performed, patient's insulin pump is on hold #7 bipolar disorder-complicates care, medical course, recovery, and prognosis #8 hypothyroidism-patient will remain on Synthroid Total clinical time spent by myself addressing patient's medical issues, reviewing all the data, and collaborating with patient's care team: 36 minutes Medications at Discharge Home Medications citalopram 40 mg tablet 40 mg PO DAILY depression 03/18/13 insulin aspart U-100 100 unit/mL subcutaneous solution 1.1 unit continuous subcutaneous infusion UD diabetes 06/07/17 nortriptyline 50 mg capsule 100 mg PO QHS depression 01/28/19 quetiapine 200 mg tablet,extended release 24 hr (Seroquel XR) 200 mg PO QPM bipolar 01/28/19 levothyroxine 125 mcg tablet 150 mcg PO DAILY hypothyroid 07/28/19 multivitamin (Daily Multi-Vitamin tablet) 1 tablet PO DAILY health 08/10/20 nitroglycerin 0.4 mg sublingual tablet 0.4 mg sublingual Q5M PRN Cardiac/Chest Pain #25 tabs 08/10/20 cholecalciferol (vitamin D3) 10 mcg (400 unit) capsule 10 mcg PO DAILY supplement 05/15/21 thiamine HCl (vitamin B1) 100 mg tablet 100 mg PO DAILY supplement 05/15/21 aspirin 81 mg capsule 81 mg PO QHS heart health 12/08/21 potassium chloride 20 mEq tablet,extended release (K-Tab) 20 meq PO DAILY supplement 12/08/21 Humalog Pen DM 12/09/21 famotidine 20 mg tablet 20 mg PO DAILY 05/09/22 folic acid 400 mcg tablet 0.4 mg PO DAILY 05/09/22 metoprolol tartrate 50 mg tablet (Lopressor) 25 mg PO DAILY BP #30 tabs 05/11/22 meloxicam 15 mg tablet 15 mg PO DAILY 05/26/22 levetiracetam 750 mg tablet 750 mg PO BID #60 tabs 05/29/22 Hospital Course Operations None Procedures Electroencephalogram Summary of Care Provided Minutes Spent on Discharge: 31 Hospital Course: This 57-year-old white male was brought in by squad after suffering an active tonic-clonic seizure for about 30 to 60 minutes, they noted his blood sugar was 63, doses of IV Versed were given to bring about the cessation of seizure. Per the patient's , patient had a past history of drinking but he had not drank alcohol for 2 weeks. Upon arrival in the emergency room, patient was diaphoretic and was not responding to painful stimuli and he had sonorous respirations. His insulin pump was removed, blood sugar was in the 50s and he was given D50 with no improvement in mental status and he was also given IV Narcan with no improvement. Patient was intubated for airway protection, the patient was admitted to ICU and seen by critical care. Patient's alcohol level on admission was negative, the explanation for the seizure was not apparent. Patient was maintained on IV Keppra, he was seen in consultation by teleneurology who recommended continuing seizure medications. Patient was eventually extubated without difficulty, on 05/29/2022, he was seen and examined: On examination he appeared in good health and spirits. Vital signs as doc umented. Skin warm and dry and without overt rashes. Neck without JVD, neck was supple, trachea midline, thyroid was normal. Lungs clear bilaterally, normal air movement was noted. Heart exam notable for regular rhythm, normal sounds and absence of murmurs, rubs or gallops. Abdomen unremarkable and without evidence of organomegaly, masses, or abdominal aortic enlargement. Bowel sounds are present, abdomen is not distended. Extremities nonedematous, no cyanosis was noted, no clubbing was noted. Neuro: Cranial nerves II through XII are grossly intact, no focal motor deficits were noted, sensation to light touch and pinprick intact, motor exam 5/5 throughout. Psych: Patient is alert and jayna ented x3, he does not appear anxious or depressed, he does not appear agitated. Patient appears stable for discharge home on 05/29/2022. Patient was not felt to have undergone alcohol withdrawal. Weight / BMI Weight Weight: 74.5 kg Body Mass Index (BMI) 24.7 ABG / Lab / Microbiology Data Result Diagrams: 05/29/22 03:45 05/29/22 03:45 Laboratory: Laboratory Results - last 24 hr 05/26/22 17:55: POC Glucose 52 L 05/28/22 16:20: POC Glucose 219 H 05/28/22 21:38: POC Glucose 255 H 05/29/22 03:45: WBC 7.4, RBC 3.96 L, Hgb 13.0, Hct 38.3 L, MCV 96.7 H, MCH 32.8 H, MCHC 33.9 D, RDW Std Deviation 46.5 H, RDW Coeff of Gabrielle 13.0, Plt Count 179, MPV 10.0, Immature Gran % (Auto) 0.300, Neut % (Auto) 59.3, Lymph % (Auto) 23.7, Norman % (Auto) 10.1 H, Eos % (Auto) 6.1 H, Baso % (Auto) 0.5, Absolute Neuts (auto) 4.4, Absolute Lymphs (auto) 1.74, Nucleated RBC % 0 05/29/22 03:45: Sodium 140, Potassium 4.0, Chloride 108 H, Carbon Dioxide 23.0, Anion Gap 9, BUN 7, Creatinine 0.87, Estim Creat Clear Calc 88.64, Est GFR (MDRD) Af Amer 116, Est GFR (MDRD) Non-Af 96, BUN/Creatinine Ratio 8.0 L, Glucose 186 H, Calcium 7.8 L, Phosphorus 2.1 L, Magnesium 1.7 05/29/22 07:54: POC Glucose 217 H Microbiology: Microbiology 05/26/22 18:30 Blood Culture (Wb) - Right Forearm Blood Culture - Preliminary No growth in 48 hours. 05/26/22 18:30 Blood Culture (Wb) - Left Forearm Blood Culture - Preliminary No growth in 48 hours. 05/26/22 18:25 Urine Catheter - Catheter Urine Culture - Final Culture exhibits no growth. 05/26/22 21:55 Sputum, Induced/Lukens Gram Stain - Final 05/26/22 21:55 Sputum, Induced/Lukens Respiratory Culture - Final Mixed normal respiratory mau. No Streptococcus pneumoniae, beta-hemolytic Streptococcus or Staphylococcus aureus isolated. D/C Instructions Discharge Diet: - (Resume previous home diet) Weight Bearing Status: Full weight bearing Meaningful Use Info Meaningful Use Diagnoses (Choose all that apply): None applicable Discharge Plan Admission Admit Date/Time: 05/26/22 20:11 Primary Reason for Your Visit: Seizure disorder, respiratory failure Attending Provider: Fredi Anderson Primary Care Provider: Yassine Bui Consulting Providers: Louise Veras ; George Hood Instructions Additional Instructions / Restrictions: Resume insulin pump tomorrow Do not drive until released by your physician to drive, recommend follow-up with a neurologist in the next several weeks Discharge Orders/Prescriptions Prescriptions: New levetiracetam 750 mg Tablet 750 mg PO BID Qty: 60 0RF Continued levothyroxine 125 mcg tablet 150 mcg PO DAILY Label Comments: TAKE 1 TABLET BY MOUTH ONCE DAILY nortriptyline 50 mg capsule 100 mg PO QHS quetiapine [Seroquel XR] 200 mg tablet extended release 24 hr 200 mg PO QPM multivitamin [Daily Multi-Vitamin] Tablet 1 tablet PO DAILY nitroglycerin 0.4 mg tablet, sublingual 0.4 mg SUBLINGUAL Q5M PRN (Reason: Cardiac/Chest Pain) Qty: 25 3RF thiamine HCl (vitamin B1) 100 mg tablet 100 mg PO DAILY Label Comments: TAKE 1 TABLET BY MOUTH ONCE DAILY cholecalciferol (vitamin D3) 10 mcg (400 unit) capsule 10 mcg PO DAILY citalopram 40 MG tablet 40 mg PO DAILY Label Comments: DEPRESSION insulin aspart U-100 100 UNIT/ML solution 1.1 unit Continuous Subcutaneous Infusion UD Label Comments: 1 UNIT PER HOUR AND THEN SLIDING SCALE PER INTAKE OF CARBS aspirin 81 mg Capsule 81 mg PO QHS potassium chloride [K-Tab] 20 mEq tablet extended release 20 meq PO DAILY Humalog Pen folic acid 400 mcg Tablet 0.4 mg PO DAILY famotidine 20 mg Tablet 20 mg PO DAILY metoprolol tartrate [Lopressor] 50 mg Tablet 25 mg PO DAILY Qty: 30 0RF meloxicam 15 mg tablet 15 mg PO DAILY Referrals / Follow Up: Yassine Bui MD [Primary Care Provider] - Within 2 Weeks Disposition Disposition (needs filled in before D/C Order can be placed): Home, Self Care Charges/Coding Visit Charges Inpatient E&M: 12900 Disch Hosp >30min
--- NOTE | 2022-05-29 11:28 | CASEMGMT ---
NEELAM JAQUEZ NOTE: Pt being discharged home. PT/OT notes reviewed. Pt w/some unsteadiness and shuffling gait and dditional therapy recommended. RN GISELE to room to talk w/pt and who is at bedside. Pt states he felt he did well when he worked w/therapy and feels he is back to his baseline. states she was in room when therapy worked w/pt yesterday and she feels pt is back to his baseline as well. Pt and deny needing HHC or OP therapy. They were made aware, if they change their minds once pt returns home, to discuss options w/his PCP. They voice understanding. They deny having any DME needs or discharge planning needs. Ke FINNEY RN CM
== END 2022-05-29 12:27 | disposition home or self-care (01) | DRG 100 ==
LOC: ED 20:20 → ICU 20:45
PROVIDERS: Internal Medicine Critical Care Medicine; Admitting Provider Family Medicine; Emergency Provider Emergency Medicine; PCP Family Medicine; Visit Provider Internal Medicine
DX: G40.909 Epilepsy, unspecified, not intractable, without status epilepticus (principal); J96.01 Acute respiratory failure with hypoxia; G93.40 Encephalopathy, unspecified; E10.649 Type 1 diabetes mellitus with hypoglycemia without coma; E10.40 Type 1 diabetes mellitus with diabetic neuropathy, unspecified; F31.9 Bipolar disorder, unspecified; Z79.4 Long term (current) use of insulin; G47.33 Obstructive sleep apnea (adult) (pediatric); E78.5 Hyperlipidemia, unspecified; K21.9 Gastro-esophageal reflux disease without esophagitis; E03.9 Hypothyroidism, unspecified; I25.10 Atherosclerotic heart disease of native coronary artery without angina pectoris; I25.5 Ischemic cardiomyopathy; F17.210 Nicotine dependence, cigarettes, uncomplicated; I10 Essential (primary) hypertension; G89.29 Other chronic pain; Z79.82 Long term (current) use of aspirin; Z79.1 Long term (current) use of non-steroidal anti-inflammatories (NSAID); Z86.73 Personal history of transient ischemic attack (TIA), and cerebral infarction without residual deficits; Z95.5 Presence of coronary angioplasty implant and graft
CPT/HCPCS: 31500; 31720; 36600; 51702; 70450; 70551; 71045; 80048; 80053; 80076; 80307; 81001; 82077; 82550; 82803; 82962; 83036; 83605; 83735; 84100; 84146; 84439; 84443; 84484; 85025; 87040; 87070; 87086; 87205; 92610; 93005; 94002; 94003; 94668; 94762; 95819; 97162; 97166; 97530; 97535; 99252; 99285; 99406; J7030; A4216; G0463; J3010; J3490

== ENCOUNTER 2022-06-23 17:48 | Emergency (ER) | payer MEDICARE, SELFPAY ==
[2022-06-23 17:49] VITALS: BP 95/61; PULSE 91; RESP 18; TEMP 36.2; O2SAT 100; BMI 23.3
--- NOTE | 2022-06-23 18:02 | RAD_ITS ---
EXAM: XR RIGHT SHOULDER COMPLETE, 2 OR MORE VIEWS CLINICAL INDICATION: trauma -- 3 views, axillary TECHNIQUE: Two or more views of the right shoulder. This report was created using [employer] report generation technology. COMPARISON: None. FINDINGS: BONES/JOINTS: Comminuted fracture at the distal third of the right clavicle. Preservation of the joint space. No sclerotic or destructive changes observed. SOFT TISSUES: Unremarkable. No soft tissue swelling or gas. No radiopaque foreign body. RAD/Shoulder min 2 Views IMPRESSION: Comminuted fracture at the distal third of the right clavicle. Electronically Signed: Elmer Calvin MD at 19:00 EST ,
[2022-06-23] MEDS: HYDROcodone Bitartrate/Apap 5/325 Tablet PO (18:07)
--- NOTE | 2022-06-23 18:18 | EX.ED.UPPERE ---
HPI History of Present Illness Chief Complaint: Upper Extremity Injury Narrative Narrative: 57-year-old male past medical history of diabetes, coronary artery disease presents with injury to his right shoulder and right ribs. He states he went to sit on a stool at home and fell onto the floor. He denies hitting his head or loss of consciousness. He now has excruciating pain with movement of his right shoulder. He is describing rib tenderness also. He denies other injuries. This happened approximately 6 hours ago, he states that he had to be helped up and sat down on the couch by one of the workers that was painting his house. He was waiting for his to come home so that he could present to the emergency department because of his shoulder and right rib pain. [facility] Medical History Alcohol abuse Alcohol abuse Anxiety and depression Atherosclerotic heart disease of [place] coronary artery without angina pectoris Bipolar disorder Chronic pain due to injury Congestive heart failure (CHF) CVA (cerebral vascular accident) Degenerative joint disease (DJD) of lumbar spine GERD (gastroesophageal reflux disease) History lymph node removal History of stroke History of vocal cord surgery Hoarseness Hyperlipemia Hypertension Hypothyroidism Ischemic cardiomyopathy Nicotine dependence Obstructive sleep apnea Old myocardial infarction Seizure Smoker TIA (transient ischemic attack) Type I diabetes with insulin pump usage Home Medications citalopram 40 mg tablet 40 mg PO DAILY depression 03/18/13 [History Last Taken 05/09/22] insulin aspart U-100 100 unit/mL subcutaneous solution 1.1 unit continuous subcutaneous infusion UD diabetes 06/07/17 [History Last Taken 12/08/21] nortriptyline 50 mg capsule 100 mg PO QHS depression 01/28/19 [History Last Taken 05/08/22] quetiapine 200 mg tablet,extended release 24 hr (Seroquel XR) 200 mg PO QPM bipolar 01/28/19 [History Last Taken 05/08/22] levothyroxine 125 mcg tablet 150 mcg PO DAILY hypothyroid 07/28/19 [History Last Taken 05/09/22] multivitamin (Daily Multi-Vitamin tablet) 1 tablet PO DAILY health 08/10/20 [History Last Taken 05/09/22] nitroglycerin 0.4 mg sublingual tablet 0.4 mg sublingual Q5M PRN Cardiac/Chest Pain #25 tabs 08/10/20 [Rx Last Taken Unknown] cholecalciferol (vitamin D3) 10 mcg (400 unit) capsule 10 mcg PO DAILY supplement 05/15/21 [History Last Taken 05/09/22] thiamine HCl (vitamin B1) 100 mg tablet 100 mg PO DAILY supplement 05/15/21 [History Last Taken 05/09/22] aspirin 81 mg capsule 81 mg PO QHS heart health 12/08/21 [History Last Taken 05/08/22] potassium chloride 20 mEq tablet,extended release (K-Tab) 20 meq PO DAILY supplement 12/08/21 [History Last Taken 05/09/22] Humalog Pen DM 12/09/21 [History Last Taken Unknown] famotidine 20 mg tablet 20 mg PO DAILY 05/09/22 [History Last Taken 05/09/22] folic acid 400 mcg tablet 0.4 mg PO DAILY 05/09/22 [History Last Taken 05/09/22] metoprolol tartrate 50 mg tablet (Lopressor) 25 mg PO DAILY BP #30 tabs 05/11/22 [Rx Last Taken 05/09/22] meloxicam 15 mg tablet 15 mg PO DAILY 05/26/22 [History Last Taken Unknown] levetiracetam 750 mg tablet 750 mg PO BID #60 tabs 05/29/22 [Rx Last Taken Unknown] hydrocodone-acetaminophen 5-325mg 5mg-325mg 1 tab PO Q6H PRN PRN Pain 3 days #12 TABLETS 06/23/22 [Rx Last Taken Unknown] Allergy/AdvReac Type Severity Reaction Status Date / Time No Known Allergies Allergy Verified 06/23/22 17:49 Family History Father Heart disease CVA (cerebral vascular accident) Mother CAD (coronary artery disease) Grandfather Cancer Surgical History History of appendectomy History of cataract extraction History of cholecystectomy History of coronary artery stent placement (02/04/10) History of left heart catheterization (06/2017) History of open reduction and internal fixation (ORIF) procedure History of prosthetic vocal cord History of tonsillectomy and adenoidectomy Social History household members: spouse Smoking Status: Current every day smoker tobacco type: cigarettes alcohol intake: current alcohol intake frequency: a few times a week substance use type: does not use caffeine: Yes Type: carbonated beverages Number of servings: 6 and coffee Number of servings: 2 ROS ROS ED ROS Narrative Constitutional: No fever, no chills. HEENT: No sore throat. No neck pain. No loss of vision. No rhinorrhea. Cardiovascular: Right-sided chest pain. No palpitations. No pedal edema. Respiratory: No cough, no shortness of breath. Abdominal: No abdominal pain. No nausea. No vomiting. Genitourinary: No dysuria. No hematuria. Musculoskeletal: No myalgias. Right shoulder pain. Worse with movement. Neurologic: No headaches. No dizziness. No lightheadedness. Skin: No rash. No change in color. Psychiatric: No depression. No anxiety. EXAM Physical Exam Narrative Exam Narrative: Afebrile. Vital signs noted. HEENT: Normocephalic. Atraumatic. PERRL, EOMI. Neck soft and supple. No point tenderness or step off. Cardiovascular: Regular rate and rhythm. No murmurs, rubs, or gallops appreciated. Right rib tenderness, no crepitance. Respiratory: No tachypnea. Lungs clear to auscultation bilaterally. Gastrointestinal: Abdomen soft, nontender, with normoactive bowel sounds. No rebound or guarding. Neurological: Awake. Alert. Nonfocal, nonlateralizing. Skin: No rash. Normal color. No pallor. Musculoskeletal: No pedal edema. Decreased motion of right shoulder secondary to pain. No crepitance. Positive distal clavicular tenderness. Mild tenderness over acromioclavicular joint. No palpable deficit. Neurovascular intact distally with palpable radial pulse. Const Vital Signs: 06/23/22 17:49 Temperature 97.1 F L Temperature Source Temporal Pulse Rate 91 Respiratory Rate 18 Blood Pressure 95/61 Blood Pressure Mean 72 Pulse Ox 100 Oxygen Delivery Method Room Air MDM MDM MDM Narrative Medical decision making narrative: Patient was given 1 [place] tablet for analgesia. X-rays were obtained of the right rib with chest x-ray along with the right shoulder. I interpreted his right shoulder x-rays and see a distal comminuted clavicular fracture. My interpretation of his rib x-rays show no evidence of acute displaced rib fracture, no pneumothorax. I obtained clavicular x-rays which show the distal portion of the clavicle with the nondisplaced comminuted fracture. I reviewed the radiology reports with confirms these findings and my interpretation. At this point in time, he was given a prescription for 3 days worth of [place], 12 tablets. He will be placed in a sling and swath and continue icing the area. He has been seen by Dr. Nance in the past with orthopedics, so he will follow-up with him within the next 5 to 7 days. I feel he can be discharged safely home with follow-up. Return instructions to the emergency department were reviewed. Disposition is discharged home in stable condition. Discharge Plan Triage Chief Complaint: Upper Extremity Injury ED Provider: Arnold Lundberg Dx/Rx/DC Orders Clinical Impression: Fall, Clavicle fracture, Contusion of ribs Instructions: ED Fracture, Clavicle, ED Bruise, Rib Prescriptions: New hydrocodone-acetaminophen 5-325 mg tablet 1 tab PO Q6H PRN PRN (Reason: Pain) 3 Days Qty: 12 0RF No Action levothyroxine 125 mcg tablet 150 mcg PO DAILY Label Comments: TAKE 1 TABLET BY MOUTH ONCE DAILY nortriptyline 50 mg capsule 100 mg PO QHS quetiapine [Seroquel XR] 200 mg tablet extended release 24 hr 200 mg PO QPM multivitamin [Daily Multi-Vitamin] Tablet 1 tablet PO DAILY nitroglycerin 0.4 mg tablet, sublingual 0.4 mg SUBLINGUAL Q5M PRN (Reason: Cardiac/Chest Pain) Qty: 25 3RF thiamine HCl (vitamin B1) 100 mg tablet 100 mg PO DAILY Label Comments: TAKE 1 TABLET BY MOUTH ONCE DAILY cholecalciferol (vitamin D3) 10 mcg (400 unit) capsule 10 mcg PO DAILY citalopram 40 MG tablet 40 mg PO DAILY Label Comments: DEPRESSION insulin aspart U-100 100 UNIT/ML solution 1.1 unit Continuous Subcutaneous Infusion UD Label Comments: 1 UNIT PER HOUR AND THEN SLIDING SCALE PER INTAKE OF CARBS aspirin 81 mg Capsule 81 mg PO QHS potassium chloride [K-Tab] 20 mEq tablet extended release 20 meq PO DAILY Humalog Pen folic acid 400 mcg Tablet 0.4 mg PO DAILY famotidine 20 mg Tablet 20 mg PO DAILY metoprolol tartrate [Lopressor] 50 mg Tablet 25 mg PO DAILY Qty: 30 0RF meloxicam 15 mg tablet 15 mg PO DAILY levetiracetam 750 mg Tablet 750 mg PO BID Qty: 60 0RF Primary Care Provider: Yassine Bui Referrals: Deejay Nance DO [Med Staff - Active Staff] - 5-7 Days Yassine Bui MD [Primary Care Provider] - Disposition Disposition: Home, Self Care
--- NOTE | 2022-06-23 18:27 | RAD_ITS ---
STUDY: X-RAY - RIGHT CLAVICLE REASON FOR EXAM: Male, 57 years old. All today. Right shoulder pain radiating into the back. TECHNIQUE: 2 view(s) of the clavicle. COMPARISON: None. FINDINGS: There is a comminuted fracture of the distal third of the clavicle without extension into the acromioclavicular joint. Normal acromioclavicular articulation. Normal visualized sternoclavicular articulation. Normal visualized pulmonary apex. RAD/Clavicle IMPRESSION: Nondisplaced comminuted fracture of the distal clavicle. Electronically Signed: Marvel Damon DO at 19:06 EST ,
--- NOTE | 2022-06-23 18:30 | RAD_ITS ---
EXAM: XR RIGHT RIBS AND AP CHEST, 3 OR MORE VIEWS CLINICAL INDICATION: fall TECHNIQUE: Frontal and oblique views of the right ribs and frontal view of the chest. This report was created using [employer] report generation technology. COMPARISON: None. FINDINGS: LUNGS AND PLEURAL SPACES: Unremarkable. No consolidation or edema. No pneumothorax. No effusion. HEART: Unremarkable. Cardiac silhouette not enlarged. MEDIASTINUM: Central airways and mediastinal contour are unremarkable. BONES/JOINTS: Distal right clavicle fracture again noted. RAD/Ribs Uni Min 3V w/PA Chest IMPRESSION: Distal right clavicle fracture again noted. No rib fracture identified. Electronically Signed: Elmer Calvin MD at 19:14 EST ,
== END 2022-06-23 19:34 | disposition home or self-care (01) ==
PROVIDERS: Emergency Provider Emergency Medicine; PCP Family Medicine; Visit Provider Emergency Medicine
DX: S42.001A Fracture of unspecified part of right clavicle, initial encounter for closed fracture (principal); I11.0 Hypertensive heart disease with heart failure; I50.9 Heart failure, unspecified; E10.9 Type 1 diabetes mellitus without complications; S20.219A Contusion of unspecified front wall of thorax, initial encounter; E78.5 Hyperlipidemia, unspecified; I25.10 Atherosclerotic heart disease of native coronary artery without angina pectoris; F17.210 Nicotine dependence, cigarettes, uncomplicated; W19.XXXA Unspecified fall, initial encounter
CPT/HCPCS: 71101; 73000; 73030; 99283

== ENCOUNTER → 2022-07-09 | Outpatient (CLI) | payer MEDICARE, SELFPAY ==
[2022-07-09 15:46] LABS: Free T3 1.8 pg/mL (2.18-3.98); T4 Free Direct 1.04 ng/dL (0.76-1.46); Thyroid Stim Hormone (TSH) 3.18 uIU/mL (0.358-3.74)
== END | disposition home or self-care (01) ==
LOC: MFPLAB 12:12
PROVIDERS: PCP Family Medicine; Visit Provider Family Medicine
DX: E03.9 Hypothyroidism, unspecified (principal)
CPT/HCPCS: 36415; 84439; 84443; 84481

== ENCOUNTER → 2023-01-07 | Outpatient (CLI) | payer MEDICARE, SELFPAY ==
[2023-01-07 11:08] LABS: ALB/GLOB Ratio 1.2 RATIO (0.9-2.4); AST(SGOT) 37 U/L (15-37); Alanine Aminotransfer ALT/SGPT 36 U/L (16-61); Albumin, Serum 3.7 g/dL (3.2-5.0); Alkaline Phosphatase 75 U/L (45-117); Anion Gap 6 (5-15); BUN 15 mg/dL (7-18); BUN/Creat Ratio 15.5 RATIO (10-20); Calcium,Total 8.9 mg/dL (8.5-10.1); Chloride 102 mmol/L (98-107); Cholesterol 240 mg/dL (200); Creatinine, Serum 0.97 mg/dL (0.70-1.30); EST Glomerular Filtration Rate 85 mL/min (>60); Est Glom Filt Rate - Afr Amer 103 mL/min (>60); Free T3 2.3 pg/mL (2.18-3.98); Globulin 3.2 g/dL (2.2-4.2); Glucose 349 mg/dL (74-106); High Density Lipoprotein 119 mg/dL; Potassium 4.7 mmol/L (3.5-5.1); Protein, Total 6.9 g/dL (6.4-8.2); Sodium Level 135 mmol/L (136-145); T4 Free Direct 0.91 ng/dL (0.76-1.46); Triglycerides 135 mg/dL; Very Low Density Lipoprotein 27 mg/dL (5-40)
[2023-01-07 11:34] LABS: Hemoglobin A1c 6.8 % (3.8-5.6)
[2023-01-07 11:59] LABS: Microalbumin,Random Urine 5.6 mg/L (NO RANGE EST.); Microalbumin:Creatinine Ratio 10.3 mg/g CRE (<30 mg/g CRE)
== END | disposition home or self-care (01) ==
LOC: MFPLAB 09:02
PROVIDERS: PCP Family Medicine; Visit Provider Family Medicine
DX: E11.9 Type 2 diabetes mellitus without complications (principal); Z79.4 Long term (current) use of insulin; E03.9 Hypothyroidism, unspecified
CPT/HCPCS: 36415; 80053; 80061; 82043; 82570; 83036; 84439; 84443; 84481

== ENCOUNTER → 2023-02-26 | Outpatient (CLI) | payer MEDICARE, SELFPAY ==
--- NOTE | 2023-02-26 13:54 | ECHOCS_ITS ---
Reason For Study: ASHD/CAD Procedure This was a 2D Doppler, Color Flow transthoracic echocardiogram. The study was technically difficult. Contrast injection was performed. Exam performed in department. Left Ventricle Normal LV size. Moderately severe segmental systolic dysfunction (see wall motion). The left ventricular ejection fraction is 35 %. [place] : Akinetic. Mid-Anterior : Akinetic. Infero-Basal: Normal. Mid-Inferior: Severely Hypokinetic. Right Ventricle Normal RV size. Normal systolic function. [place] Normal left atrium. Normal right atrium. Mitral Valve B[place]af[place] diffuse mitral valve thickening. Tricuspid Valve Normal tricuspid valve. Pericardium/Pleural No pericardial effusion. Medication 22 gauge I.V. with prn adaptor inserted into right arm. Diluted definity 2ml given slow IV push to enhance endocardial definition. MMode/2D Measurements & Calculations LVIDd: 4.9 cm IVSd: 0.96 cm LAV(MOD-bp): 39.1 ml LVIDs: 3.9 cm LVPWd: 1.2 cm LAV(MOD-bp) Indexed: 22.0 ml/m2 FS: 19.9 % LAV(MOD-sp2): 32.9 ml LAV(MOD-sp4): 40.5 ml LVAd ap4: 33.0 cm2 SV(MOD-sp4): 44.5 ml SV(sp4-el): 40.8 ml LVLd ap4: 8.5 cm EDV(MOD-sp4): 109.2 ml EDV(sp4-el): 109.0 ml LVAs ap4: 25.2 cm2 LVLs ap4: 7.9 cm ESV(MOD-sp4): 64.7 ml ESV(sp4-el): 68.3 ml EF(MOD-sp4): 40.7 % EF(sp4-el): 37.4 % LA A4 area: 14.3 cm2 RA A4 area: 9.6 cm2 TAPSE: 1.2 cm Doppler Measurements & Calculations MV V2 max: 136.3 cm/sec Ao V2 max: 79.9 cm/sec LV V1 max: 81.6 cm/sec MV max P.4 mmHg Ao max P.6 mmHg LV V1 max P.7 mmHg MV V2 mean: 82.4 cm/sec Ao V2 mean: 66.4 cm/sec LV V1 mean P.3 mmHg MV mean P.3 mmHg Ao mean P.9 mmHg LV V1 mean: 51.8 cm/sec MV V2 VTI: 18.0 cm Ao V2 VTI: 11.8 cm LV V1 VTI: 15.6 cm AV (velocity ratio): 1.3 ECHO/Echo Complete W/ Contrast Interpretation Summary Normal LV size. Moderately severe segmental systolic dysfunction (see wall motion). The left ventricular ejection fraction is 35 %. Contrast injection was performed. Compared to previous study, the left ventricu lar systolic function has worsened.. Ordering Physician: Debora Garcia Referring Physician: Debora Garcia Performed By: Kathryn Bell RCS
== END | disposition home or self-care (01) ==
PROVIDERS: PCP Family Medicine; Referring Provider Physician Assistant Medical; Visit Provider Physician Assistant Medical
DX: I25.10 Atherosclerotic heart disease of native coronary artery without angina pectoris (principal)
CPT/HCPCS: 93306; Q9957; A4216; C8929

== ENCOUNTER 2023-03-07 07:10 | Inpatient (IN) | payer MEDICARE, SELFPAY ==
[2023-03-07] VITALS (7 sets, daily range): BP systolic 107–163; BP diastolic 71–99; PULSE 88–104; RESP 14–22; TEMP 35.7–36.8; O2SAT 98–100; BMI 23.6; BMI 23.7
--- NOTE | 2023-03-07 07:24 | EDS_ITS ---
HPI History of Present Illness Chief Complaint: Substance Abuse Informant: patient Narrative Narrative: Patient presents requesting help with alcohol detox. He drinks 1/5 of vodka daily. He has been through detox in the past, most recently 2 years ago here at the hospital where they only kept him 1 night. reports he has had seizures when he stopped drinking in the past. Patient's last drink was at 630 this morning, but states that was to take the edge off as he was already developing tremors. [facility] Medical History Alcohol abuse Alcohol abuse Anxiety and depression Atherosclerotic heart disease of [place] coronary artery without angina pectoris Bipolar disorder Chronic pain due to injury Congestive heart failure (CHF) CVA (cerebral vascular accident) Degenerative joint disease (DJD) of lumbar spine GERD (gastroesophageal reflux disease) History lymph node removal History of stroke History of vocal cord surgery Hoarseness Hyperlipemia Hypertension Hypothyroidism Ischemic cardiomyopathy Nicotine dependence Obstructive sleep apnea Old myocardial infarction Seizure Smoker TIA (transient ischemic attack) Type I diabetes with insulin pump usage Home Medications citalopram 40 mg tablet 40 mg PO DAILY depression 03/18/13 [History Last Taken 05/09/22] insulin aspart U-100 100 unit/mL subcutaneous solution 1.1 unit continuous subcutaneous infusion UD diabetes 06/07/17 [History Last Taken 12/08/21] nortriptyline 50 mg capsule 100 mg PO QHS depression 01/28/19 [History Last Taken 05/08/22] quetiapine 200 mg tablet,extended release 24 hr (Seroquel XR) 200 mg PO QPM bipolar 01/28/19 [History Last Taken 05/08/22] levothyroxine 125 mcg tablet 150 mcg PO DAILY hypothyroid 07/28/19 [History Last Taken 05/09/22] multivitamin (Daily Multi-Vitamin tablet) 1 tablet PO DAILY health 08/10/20 [History Last Taken 05/09/22] nitroglycerin 0.4 mg sublingual tablet 0.4 mg sublingual Q5M PRN Cardiac/Chest Pain #25 tabs 08/10/20 [Rx Last Taken Unknown] thiamine HCl (vitamin B1) 100 mg tablet 100 mg PO DAILY supplement 05/15/21 [History Last Taken 05/09/22] aspirin 81 mg capsule 81 mg PO QHS heart health 12/08/21 [History Last Taken 05/08/22] potassium chloride 20 mEq tablet,extended release (K-Tab) 20 meq PO DAILY supplement 12/08/21 [History Last Taken 05/09/22] Humalog Pen DM 12/09/21 [History Last Taken Unknown] folic acid 400 mcg tablet 0.4 mg PO DAILY 05/09/22 [History Last Taken 05/09/22] meloxicam 15 mg tablet 15 mg PO DAILY 02/07/23 [History Last Taken Unknown] metoprolol succinate 25 mg tablet,extended release 24 hr 25 mg PO DAILY #90 tabs 02/07/23 [Rx Last Taken Unknown] sacubitril 24 mg-valsartan 26 mg tablet (Entresto) 1 tab PO BID #180 tabs 02/27/23 [Rx Last Taken Unknown] Allergy/AdvReac Type Severity Reaction Status Date / Time No Known Allergies Allergy Verified 03/07/23 07:10 Family History Father Heart disease CVA (cerebral vascular accident) Mother CAD (coronary artery disease) Grandfather Cancer Surgical History History of appendectomy History of cataract extraction History of cholecystectomy History of coronary artery stent placement (02/04/10) History of left heart catheterization (06/2017) History of open reduction and internal fixation (ORIF) procedure History of prosthetic vocal cord History of tonsillectomy and adenoidectomy Social History household members: spouse Smoking Status: Current every day smoker tobacco type: cigarettes alcohol intake: current alcohol intake frequency: a few times a week substance use type: does not use caffeine: Yes Type: carbonated beverages Number of servings: 6 and coffee Number of servings: 2 ROS ROS ED Constitutional Constitutional ED: Denies chills or fever(s) Eyes Eyes: Denies discharge from eye(s) ENT ENT ED: Denies discharge from eye(s), rhinorrhea or sore throat Cardiovascular Cardiovascular: Denies chest pain or palpitations Respiratory/Chest Respiratory/Chest: Denies cough or dyspnea Gastrointestinal Gastrointestinal: Denies abdominal pain, nausea or vomiting Musculoskeletal Musculoskeletal: Denies back pain or extremity pain Integumentary Denies Abrasions or rash Neurologic Neurologic: Denies headache(s) or weakness Psychiatric Psychiatric: Denies anxiety or depression Allergic/Immunologic Allergic/Immunologic ED: Denies lip swelling or urticaria EXAM Physical Exam Const Vital Signs: 03/07/23 07:11 03/07/23 07:23 Temperature 96.3 F L Temperature Source Temporal Pulse Rate 104 H 88 Respiratory Rate 22 H 20 H Blood Pressure 107/71 151/78 H Blood Pressure Mean 83 102 Blood Pressure Source Monitor Pulse Ox 100 98 Oxygen Delivery Method Room Air Room Air Positive well nourished and well developed General Appearance ED: well developed HEENT Reports normocephalic and head/scalp atraumatic Eyes PERRL and EOMs intact bilaterally Neck supple Chest Wall inspection of chest normal and palpation of chest normal Resp normal respiratory effort and clear to auscultation bilaterally Cardio regular rhythm Rate: tachycardic GI normal to inspection, nondistended, normoactive bowel sounds Palpation: soft Extremity normal to inspection Neuro oriented x3 and no sensory deficits noted Sensorium / Orientation: alert Motor Exam: strength 5/5 throughout Psych mental status grossly normal Skin no rashes or lesions noted MDM MDM MDM Narrative Medical decision making narrative: Lab work for addiction medicine obtained with plan for admission. Patient given 1 mg of IV Ativan. History & Record Review Discussion w/independent historian: Patient and Family Lab Data Attestation: I reviewed the patient's lab results. Labs: Laboratory Results - last 24 hr 03/07/23 07:55 WBC 6.6 RBC 4.62 Hgb 15.2 Hct 45.4 MCV 98.3 H MCH 32.9 H MCHC 33.5 RDW Std Deviation 46.1 H RDW Coeff of [place]ri[place] 12.7 Plt Count 172 MPV 9.9 Immature Gran % (Auto) 0.300 Neut % (Auto) 65.2 Lymph % (Auto) 22.8 [place] % (Auto) 10.0 Eos % (Auto) 0.9 Baso % (Auto) 0.8 Absolute Neuts (auto) 4.3 Absolute Lymphs (auto) 1.51 Nucleated RBC % 0 Sodium 137 Potassium 4.3 Chloride 99 Carbon Dioxide 30.0 Anion Gap 8 BUN 15 Creatinine 0.84 Estim Creat Clear Calc 90.71 Est GFR (MDRD) Af Amer 121 Est GFR (MDRD) Non-Af 100 BUN/Creatinine Ratio 17.8 Glucose 291 H Calcium 9.1 Total Bilirubin 0.90 AST 67 H ALT 56 Alkaline Phosphatase 81 Total Protein 7.0 Albumin 3.7 Globulin 3.3 Albumin/Globulin Ratio 1.1 Ethyl Alcohol 115.0 Treatment and Re-Evaluation Narrative: CBC was normal white count at 6.6 with a hemoglobin of 15.2. Chemistry studies unremarkable other than a glucose of 291. Patient is diabetic and has an insulin pump. LFTs significant for an AST of 67. EtOH is 115. Rules of the detox program were discussed with the patient and he has agreed. I will speak with hospitalist regarding admission. Discharge Plan Triage Chief Complaint: Substance Abuse ED Provider: Alejandrina Hernández Dx/Rx/DC Orders Clinical Impression: Desire for detoxification, ETOH abuse Prescriptions: No Action levothyroxine 125 mcg tablet 150 mcg PO DAILY Patient Comments: TAKE 1 TABLET BY MOUTH ONCE DAILY nortriptyline 50 mg capsule 100 mg PO QHS quetiapine [Seroquel XR] 200 mg tablet extended release 24 hr 200 mg PO QPM multivitamin [Daily Multi-Vitamin] Tablet 1 tablet PO DAILY nitroglycerin 0.4 mg tablet, sublingual 0.4 mg SUBLINGUAL Q5M PRN (Reason: Cardiac/Chest Pain) Qty: 25 3RF thiamine HCl (vitamin B1) 100 mg tablet 100 mg PO DAILY Patient Comments: TAKE 1 TABLET BY MOUTH ONCE DAILY meloxicam 15 mg tablet 15 mg PO DAILY metoprolol succinate 25 mg tablet extended release 24 hr 25 mg PO DAILY Qty: 90 3RF Entresto 24-26 mg tablet 1 tab PO BID Qty: 180 3RF Rx Instructions: Stop your lisinopril, after 36 hours start the entresto. Take one pill twice a day citalopram 40 MG tablet 40 mg PO DAILY Patient Comments: DEPRESSION insulin aspart U-100 100 UNIT/ML solution 1.1 unit Continuous Subcutaneous Infusion UD Patient Comments: 1 UNIT PER HOUR AND THEN SLIDING SCALE PER INTAKE OF CARBS aspirin 81 mg Capsule 81 mg PO QHS potassium chloride [K-Tab] 20 mEq tablet extended release 20 meq PO DAILY Humalog Pen folic acid 400 mcg Tablet 0.4 mg PO DAILY Primary Care Provider: Yassine Bui Referrals: Yassine Bui MD [Primary Care Provider] -
[2023-03-07] MEDS: LORazepam 2 MG/ML Syringe 1 MG IV ×2 (07:52→11:48)
[2023-03-07 08:14] LABS: Absolute Lymphocyte Count 1.51 X10^3/uL (0.83-4.51); Absolute Neutrophil Count 4.3 X10^3/uL (2.0-7.7); Basophil# 0.05 X10^3/uL; Basophil% 0.8 % (0-1); Eosinophil# 0.06 X10^3/uL; Eosinophils% 0.9 % (0-5); Hematocrit 45.4 % (40-54); Hemoglobin 15.2 g/dL (13.0-16.5); Lymphocyte # 1.51 X10^3/ul (0.83-4.51); Lymphocyte % 22.8 % (19-41); Mean Corp Hgb Conc 33.5 g/dL (32-36); Mean Corpuscular Hgb 32.9 pg (27.0-32.0); Mean Corpuscular Volume 98.3 fL (80-94); Mean Platelet Vol. 9.9 fl (6.2-12.0); Monocyte# 0.66 X10^3/uL; NRBC Flagged by Analyzer 0 % (0-5); Neutrophil # 4.32 X10^3/uL (2.7-7.7); Neutrophil % 65.2 % (47-70); Platelet Count 172 K/mm3 (150-450); RBC Distribution Width CV 12.7 % (11.6-14.6); RBC Distribution Width SD 46.1 fl (35.1-43.9); Red Blood Count 4.62 M/mm3 (4.6-6.2); White Blood Count 6.6 K/mm3 (4.4-11.0)
[2023-03-07 08:34] LABS: ALB/GLOB Ratio 1.1 RATIO (0.9-2.4); AST(SGOT) 67 U/L (15-37); Alanine Aminotransfer ALT/SGPT 56 U/L (16-61); Albumin, Serum 3.7 g/dL (3.2-5.0); Alkaline Phosphatase 81 U/L (45-117); Anion Gap 8 (5-15); BUN 15 mg/dL (7-18); BUN/Creat Ratio 17.8 RATIO (10-20); Calcium,Total 9.1 mg/dL (8.5-10.1); Chloride 99 mmol/L (98-107); Creatinine, Serum 0.84 mg/dL (0.70-1.30); EST Glomerular Filtration Rate 100 mL/min (>60); Est Glom Filt Rate - Afr Amer 121 mL/min (>60); Estimated Creatinine Clearance 90.71 ml/min; Globulin 3.3 g/dL (2.2-4.2); Glucose 291 mg/dL (74-106); Potassium 4.3 mmol/L (3.5-5.1); Sodium Level 137 mmol/L (136-145)
--- NOTE | 2023-03-07 09:32 | HP.PCM.HOS_ITS ---
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 Hospitalist contacted for admission. He has been drinking since he has been 15 or 16 and has only gone several month periods of sobriety over the years with the most recent 4 to 5 years ago, did come in for detox 2 years ago but only stayed 1 day and then left and has drink often but somewhat sporadically up until 3 months ago when he began drinking about daily, he 1/5 of vodka 100 proof daily and reports yesterday in between drinking he thought he saw his table in his shoe moving and this morning he was so shaky that he had to take some drinks of alcohol in order to stop shaking enough to come to the hospital. Last drink was at 630AM. [facility] Medical History (Updated 03/07/23 @ 09:[address] Mercy Cano MD) Alcohol abuse Alcohol abuse Anxiety and depression Atherosclerotic heart disease of [place] coronary artery without angina pectoris Bipolar disorder Chronic pain due to injury Congestive heart failure (CHF) CVA (cerebral vascular accident) Degenerative joint disease (DJD) of lumbar spine Diabetes mellitus type 1, uncomplicated, on residential insulin pump GERD (gastroesophageal reflux disease) History lymph node removal History of stroke History of vocal cord surgery Hoarseness Hyperlipemia Hypertension Hypothyroidism Ischemic cardiomyopathy Nicotine dependence Obstructive sleep apnea Old myocardial infarction Seizure Smoker TIA (transient ischemic attack) Type I diabetes with insulin pump usage Home Medications citalopram 40 mg tablet 40 mg PO DAILY depression 03/18/13 [History Last Taken 05/09/22] insulin aspart U-100 100 unit/mL subcutaneous solution 1.1 unit continuous subcutaneous infusion UD diabetes 06/07/17 [History Last Taken 12/08/21] nortriptyline 50 mg capsule 100 mg PO QHS depression 01/28/19 [History Last Taken 05/08/22] quetiapine 200 mg tablet,extended release 24 hr (Seroquel XR) 200 mg PO QPM bipolar 01/28/19 [History Last Taken 05/08/22] levothyroxine 125 mcg tablet 150 mcg PO DAILY hypothyroid 07/28/19 [History Last Taken 05/09/22] multivitamin (Daily Multi-Vitamin tablet) 1 tablet PO DAILY health 08/10/20 [History Last Taken 05/09/22] nitroglycerin 0.4 mg sublingual tablet 0.4 mg sublingual Q5M PRN Cardiac/Chest Pain #25 tabs 08/10/20 [Rx Last Taken Unknown] thiamine HCl (vitamin B1) 100 mg tablet 100 mg PO DAILY supplement 05/15/21 [History Last Taken 05/09/22] aspirin 81 mg capsule 81 mg PO QHS heart health 12/08/21 [History Last Taken 05/08/22] potassium chloride 20 mEq tablet,extended release (K-Tab) 20 meq PO DAILY supplement 12/08/21 [History Last Taken 05/09/22] Humalog Pen DM 12/09/21 [History Last Taken Unknown] folic acid 400 mcg tablet 0.4 mg PO DAILY 05/09/22 [History Last Taken 05/09/22] meloxicam 15 mg tablet 15 mg PO DAILY 02/07/23 [History Last Taken Unknown] metoprolol succinate 25 mg tablet,extended release 24 hr 25 mg PO DAILY #90 tabs 02/07/23 [Rx Last Taken Unknown] sacubitril 24 mg-valsartan 26 mg tablet (Entresto) 1 tab PO BID #180 tabs 02/27/23 [Rx Last Taken Unknown] Allergy/AdvReac Type Severity Reaction Status Date / Time No Known Allergies Allergy Verified 03/07/23 07:10 Family History Father Heart disease CVA (cerebral vascular accident) Mother CAD (coronary artery disease) Grandfather Cancer Surgical History History of appendectomy History of cataract extraction History of cholecystectomy History of coronary artery stent placement (02/04/10) History of left heart catheterization (06/2017) History of open reduction and internal fixation (ORIF) procedure History of prosthetic vocal cord History of tonsillectomy and adenoidectomy Social History household members: spouse Smoking Status: Current every day smoker tobacco type: cigarettes alcohol intake: current alcohol intake frequency: a few times a week substance use type: does not use caffeine: Yes Type: carbonated beverages Number of servings: 6 and coffee Number of servings: 2 ROS ROS Narrative General: Denies fever/chills HENT: Some head pressure and stuffy nose, denies sore throat EYES: Denies changes in vision Resp: Denies cough, denies shortness of breath Cardiac: Denies chest pain GI: Denies abdominal pain, denies changes in bowel, denies nausea/vomiting : Denies changes in urination Extremity: Denies swelling MSK: Denies weakness Neuro: Denies any numbness/tingling, was getting shaky for he drink at 630 this morning Heme: Denies any bleeding or bruising Skin: Denies rashes Psychiatric: No complaints voiced Vital Signs Vital Signs Vital Signs: 03/07/23 07:11 03/07/23 07:23 Temperature 96.3 F L Temperature Source Temporal Pulse Rate 104 H 88 Respiratory Rate 22 H 20 H Blood Pressure 107/71 151/78 H Blood Pressure Mean 83 102 Blood Pressure Source Monitor Pulse Ox 100 98 Oxygen Delivery Method Room Air Room Air Weight Weight: 68.311 kg Body Mass Index (BMI) 23.6 Physical Exam Narrative General: Alert, oriented, no apparent distress HEENT: Atraumatic, normocephalic Eyes: Anicteric, normal conjunctiva, extraocular movements grossly intact Neck: Supple, history of old tracheostomy Respiratory: Clear to auscultation bilaterally, normal respiratory effort Cardiovascular: Regular rate and rhythm GI: Soft, nontender, nondistended Extremities: No edema Musculoskeletal: Moving all extremities Neuro: No overt focal neurological deficits Skin: No rashes appreciated Psych: Cooperative Results Lab / Micro Data 03/07/23 07:55 03/07/23 07:55 Labs: Laboratory Results - last 24 hr 03/07/23 07:55: WBC 6.6, RBC 4.62, Hgb 15.2, Hct 45.4, MCV 98.3 H, MCH 32.9 H, MCHC 33.5, RDW Std Deviation 46.1 H, RDW Coeff of Gabrielle 12.7, Plt Count 172, MPV 9.9, Immature Gran % (Auto) 0.300, Neut % (Auto) 65.2, Lymph % (Auto) 22.8, [place] % (Auto) 10.0, Eos % (Auto) 0.9, Baso % (Auto) 0.8, Absolute Neuts (auto) 4.3, Absolute Lymphs (auto) 1.51, Nucleated RBC % 0, Sodium 137, Potassium 4.3, Chloride 99, Carbon Dioxide 30.0, Anion Gap 8, BUN 15, Creatinine 0.84, Estim Creat Clear Calc 90.71, Est GFR (MDRD) Af Amer 121, Est GFR (MDRD) Non-Af 100, BUN/Creatinine Ratio 17.8, Glucose 291 H, Calcium 9.1, Total Bilirubin 0.90, AST 67 H, ALT 56, Alkaline Phosphatase 81, Total Protein 7.0, Albumin 3.7, Globulin 3.3, Albumin/Globulin Ratio 1.1, Ethyl Alcohol 115.0 Assessment & Plan Assessment/Plan (1) Alcohol abuse: (2) Desire for detoxification: (3) Congestive heart failure (CHF): (4) Atherosclerotic heart disease of [place] coronary artery without angina pectoris: QUALIFIERS: [place] vs. transplanted heart: [place] heart Qualified Code(s): I25.10 - Atherosclerotic heart disease of [place] coronary artery without angina pectoris (5) Ischemic cardiomyopathy: (6) Nicotine dependence: (7) Diabetes mellitus type 1, uncomplicated, on residential insulin pump: PLAN: Plan #Alcohol use disorder - We will begin CIWA every 4 for 24 hours, then every 6 for 24 hours, then every 12 until discharge -Will begin phenobarbital taper, given extent of withdrawal symptoms will also add Ativan as needed -Gabapentin 300 mg every 8 as needed -Will start Bentyl and hydroxyzine as needed as well as loperamide as needed -Trazodone 100 mg p.o. nightly as needed sleep -Begin thiamine and folic acid supplementation -Zofran as needed for nausea -Case management consult to assist with discharge planning -EtOH level 115 and drug screen will be obtained #Diabetes mellitus chronically on insulin pump -Given that patient will be going through alcohol detox and this can be unpredictable and her is unclear how he will respond to both detox and the medications feel it is beneficial if we give external insulin instead of patient using his own pump -He uses 1 unit/h of basal and gets an additional 14 to 24 units throughout the day -We will give 10 units twice daily of Lantus with 5 units of Premeal and sliding scale #Hypothyroidism -Continue Synthroid #Tobacco use -Advise cessation -Patient agreeable to nicotine replacement #Chronic heart failure with reduced ejection fraction -Continue metoprolol and Entresto -Diet with no salt added and fluid restriction -Daily weights #Recent tooth infection -Patient recently started on antibiotics for dental infection -We will continue antibiotics #Coronary artery disease -Reports history of 1 stent in that nothing else was amenable to stenting or bypass -Continue beta-rolando and aspirin, unclear why patient not on statin, will check a.m. lipid panel #DVT ppx: Lovenox subcu Mercy Cano MD Time spent in the patient's overall evaluation,decision-making process, review of diagnostic data, adjustment of management, discussion with other providers, nursing nursing and ancillary staff involved in patient's care documentation, 55 minutes Charges/Coding Visit Charges Inpatient E&M: 82387 Init Hosp L2
[2023-03-07] MEDS: Gabapentin 300 MG Capsule PO (13:29)
[2023-03-07] MEDS: Enoxaparin 40 MG/0.4 ML Syringe SC (13:29)
[2023-03-07] MEDS: Phenobarbital 32.4 MG Tablet 64.8 MG PO ×3 (13:29→21:15)
[2023-03-07] MEDS: Amox/Clavulanate 875 MG Tablet PO ×2 (13:29→21:16)
[2023-03-07 15:39] LABS: Bedside Glucose 150 mg/dL (74-106)
[2023-03-07] MEDS: Insulin Lispro 100 UNIT/ML INSULN.PEN SC ×3 (16:13→21:14)
[2023-03-07 17:52] LABS: Bedside Glucose 115 mg/dL (74-106)
[2023-03-07] MEDS: Chlorhexidine 480 ML 15 ML PO (21:11)
[2023-03-07] MEDS: traZODone 100 MG Tablet PO (21:15)
[2023-03-07] MEDS: Insulin Glargine-YFGN 100 UNIT/ML Pen 10 UNIT SC (21:15)
[2023-03-07] MEDS: hydrOXYzine PAM 25 MG Capsule 50 MG PO (21:15)
[2023-03-07] MEDS: Aspirin 81 MG TAB.CHEW PO (21:16)
[2023-03-07] MEDS: Nortriptyline 25 MG Capsule 100 MG PO (21:16)
[2023-03-07 22:34] LABS: Bedside Glucose 205 mg/dL (74-106)
[2023-03-08 01:59] VITALS: BP 136/75; PULSE 90; RESP 16; TEMP 36.6; O2SAT 100
[2023-03-08] MEDS: Phenobarbital 32.4 MG Tablet 64.8 MG PO ×6 (02:04→21:15)
[2023-03-08 04:42] VITALS: BP 138/86; PULSE 104; RESP 16; TEMP 36.6; O2SAT 98
[2023-03-08] MEDS: Levothyroxine 150 MCG Tablet PO (04:45)
[2023-03-08] MEDS: Insulin Lispro 100 UNIT/ML INSULN.PEN SC ×6 (05:56→16:33)
[2023-03-08 06:00] VITALS: BMI 23.7
[2023-03-08 06:23] LABS: Bedside Glucose 243 mg/dL (74-106)
[2023-03-08 06:35] LABS: Absolute Lymphocyte Count 1.35 X10^3/uL (0.83-4.51); Absolute Neutrophil Count 3.4 X10^3/uL (2.0-7.7); Basophil# 0.04 X10^3/uL; Basophil% 0.7 % (0-1); Eosinophil# 0.21 X10^3/uL; Eosinophils% 3.8 % (0-5); Hematocrit 44.7 % (40-54); Hemoglobin 14.9 g/dL (13.0-16.5); Lymphocyte # 1.35 X10^3/ul (0.83-4.51); Lymphocyte % 24.7 % (19-41); Mean Corp Hgb Conc 33.3 g/dL (32-36); Mean Corpuscular Hgb 33.4 pg (27.0-32.0); Mean Corpuscular Volume 100.2 fL (80-94); Mean Platelet Vol. 10.3 fl (6.2-12.0); Monocyte# 0.44 X10^3/uL; Monocyte% 8.1 % (0-10); NRBC Flagged by Analyzer 0 % (0-5); Neutrophil # 3.41 X10^3/uL (2.7-7.7); Neutrophil % 62.5 % (47-70); Platelet Count 149 K/mm3 (150-450); RBC Distribution Width CV 12.7 % (11.6-14.6); RBC Distribution Width SD 46.8 fl (35.1-43.9); Red Blood Count 4.46 M/mm3 (4.6-6.2); White Blood Count 5.5 K/mm3 (4.4-11.0)
--- NOTE | 2023-03-08 06:56 | PCM.PN.HOSP ---
Reason for Visit Reason for Visit: Diagnoses Type 1 diabetes mellitus without complications (03/07/23) Alcohol abuse, uncomplicated (03/07/23) Nicotine dependence, unspecified, uncomplicated (03/07/23) Atherosclerotic heart disease of [place] coronary artery without angina pectoris (03/07/23) Ischemic cardiomyopathy (03/07/23) Heart failure, unspecified (03/07/23) Presence of insulin pump (external) (internal) (03/07/23) Subjective Subjective Patient had some hallucinations yesterday but feeling much better today and feels that shakes are now gone Objective Data Objective Data Vital Signs: Vital Signs Temp Pulse Resp BP Pulse Ox O2 Del Method 97.8 F 104 H 16 138/86 H 98 Room Air 03/08/23 04:42 03/08/23 04:42 03/08/23 04:42 03/08/23 04:42 03/08/23 04:42 03/08/23 04:42 Oxygen Delivery Method Room Air Weight: 68.5 kg Body Mass Index (BMI) 23.7 Intake & Output: Intake and Output for Last 24 Hours 03/06/23 03/07/23 03/08/23 23:59 23:59 23:59 Intake Total 1360 / 1360 350 / 350 Balance 1360 / 1360 350 / 350 Lab / Micro Data 03/08/23 05:45 03/08/23 05:45 Labs: Laboratory Results - last 24 hr 03/07/23 07:55: WBC 6.6, RBC 4.62, Hgb 15.2, Hct 45.4, MCV 98.3 H, MCH 32.9 H, MCHC 33.5, RDW Std Deviation 46.1 H, RDW Coeff of Gabrielle 12.7, Plt Count 172, MPV 9.9, Immature Gran % (Auto) 0.300, Neut % (Auto) 65.2, Lymph % (Auto) 22.8, [place] % (Auto) 10.0, Eos % (Auto) 0.9, Baso % (Auto) 0.8, Absolute Neuts (auto) 4.3, Absolute Lymphs (auto) 1.51, Nucleated RBC % 0, Sodium 137, Potassium 4.3, Chloride 99, Carbon Dioxide 30.0, Anion Gap 8, BUN 15, Creatinine 0.84, Estim Creat Clear Calc 90.71, Est GFR (MDRD) Af Amer 121, Est GFR (MDRD) Non-Af 100, BUN/Creatinine Ratio 17.8, Glucose 291 H, Calcium 9.1, Total Bilirubin 0.90, AST 67 H, ALT 56, Alkaline Phosphatase 81, Total Protein 7.0, Albumin 3.7, Globulin 3.3, Albumin/Globulin Ratio 1.1, Ethyl Alcohol 115.0 03/07/23 15:19: POC Glucose 150 H 03/07/23 17:34: POC Glucose 115 H 03/07/23 21:05: POC Glucose 205 H 03/08/23 05:45: WBC 5.5, RBC 4.46 L, Hgb 14.9, Hct 44.7, MCV 100.2 H, MCH 33.4 H, MCHC 33.3, RDW Std Deviation 46.8 H, RDW Coeff of Gabrielle 12.7, Plt Count 149 L, MPV 10.3, Immature Gran % (Auto) 0.200, Neut % (Auto) 62.5, Lymph % (Auto) 24.7, Bra[place] % (Auto) 8.1, Eos % (Auto) 3.8, Baso % (Auto) 0.7, Absolute Neuts (auto) 3.4, Absolute Lymphs (auto) 1.35, Nucleated RBC % 0 03/08/23 05:54: POC Glucose 243 H Physical Exam Narrative General: Alert, oriented, no apparent distress HEENT: Atraumatic, normocephalic Eyes: extraocular movements grossly intact Neck: Supple Respiratory: normal respiratory effort Cardiovascular: no edema appreciated GI: nondistended Extremities: Moving all extremities Neuro: No overt focal neurological deficits Psych: Cooperative Assessment & Plan Assessment/Plan (1) Alcohol abuse: (2) Desire for detoxification: (3) Congestive heart failure (CHF): (4) Atherosclerotic heart disease of [place] coronary artery without angina pectoris: QUALIFIERS: [place] vs. 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 nightly as needed sleep -Begin thiamine and folic acid supplementation -Zofran as needed for nausea -Case management consult to assist with discharge planning -EtOH level 115 and drug screen will be obtained -03/08: Maintaining on phenobarb taper, will monitor, may need to complete full taper pending withdrawal symptoms #Diabetes mellitus chronically on insulin pump -Given that patient will be going through alcohol detox and this can be unpredictable and her is unclear how he will respond to both detox and the medications feel it is beneficial if we give external insulin instead of patient using his own pump -He uses 1 unit/h of basal and gets an additional 14 to 24 units throughout the day -We will give 10 units twice daily of Lantus with 5 units of Premeal and sliding scale -03/08: Decrease Premeal to 3 units, continue to monitor closely to avoid hypoglycemia #Hypothyroidism -Continue Synthroid #Tobacco use -Advise cessation -Patient agreeable to nicotine replacement #Chronic heart failure with reduced ejection fraction -Continue metoprolol and Entresto -Diet with no salt added and fluid restriction -Daily weights #Recent tooth infection -Patient recently started on antibiotics for dental infection -We will continue antibiotics #Coronary artery disease -Reports history of 1 stent in that nothing else was amenable to stenting or bypass -Continue beta-rolando and aspirin, unclear why patient not on statin, will check a.m. lipid panel #DVT ppx: Lovenox subcu Mercy Cano MD Time spent in the patient's overall evaluation,decision-making process, review of diagnostic data, adjustment of management, discussion with other providers, nursing nursing and ancillary staff involved in patient's care documentation, 25 minutes Charges/Coding Visit Charges Inpatient E&M: 47805 Subs Hosp L1
[2023-03-08 07:08] LABS: Anion Gap 6 (5-15); BUN 15 mg/dL (7-18); BUN/Creat Ratio 20.2 RATIO (10-20); Calcium,Total 8.8 mg/dL (8.5-10.1); Chloride 99 mmol/L (98-107); Cholesterol 244 mg/dL (200); Creatinine, Serum 0.74 mg/dL (0.70-1.30); EST Glomerular Filtration Rate 115 mL/min (>60); Est Glom Filt Rate - Afr Amer 139 mL/min (>60); Estimated Creatinine Clearance 102.97 ml/min; Glucose 241 mg/dL (74-106); High Density Lipoprotein 118 mg/dL; Magnesium 1.7 mg/dL (1.6-2.6); Potassium 4.4 mmol/L (3.5-5.1); Sodium Level 135 mmol/L (136-145); Triglycerides 164 mg/dL; Very Low Density Lipoprotein 33 mg/dL (5-40)
[2023-03-08 07:56] VITALS: BP 153/91; PULSE 96; RESP 16; TEMP 36.4; O2SAT 98
[2023-03-08] MEDS: Folic Acid 1 MG Tablet PO (08:15)
[2023-03-08] MEDS: Thiamine Hydrochloride 100 MG Tablet PO (08:15)
[2023-03-08] MEDS: Amox/Clavulanate 875 MG Tablet PO ×2 (10:17→20:49)
[2023-03-08] MEDS: Citalopram 40 MG TABLET PO (10:17)
[2023-03-08] MEDS: SACUBITRIL/VALSARTAN 24/26 MG TABLET 1 EACH PO ×2 (10:19→21:21)
[2023-03-08] MEDS: Insulin Glargine-YFGN 100 UNIT/ML Pen 10 UNIT SC ×2 (10:19→20:52)
[2023-03-08] MEDS: Enoxaparin 40 MG/0.4 ML Syringe SC (10:20)
[2023-03-08 10:21] VITALS: PULSE 96
[2023-03-08] MEDS: Metoprolol(XL)Succ 25 MG Tablet PO (10:21)
[2023-03-08] MEDS: Chlorhexidine 480 ML 15 ML PO ×2 (10:22→20:48)
[2023-03-08 10:31] LABS: Bedside Glucose 304 mg/dL (74-106)
--- NOTE | 2023-03-08 11:10 | ADDICTION ---
This sba underwriter met with PT to conduct ASAM, MSE, AUDIT, DUDIT assessments and to plan for d/c. PT A+Ox4 and participated actively. All assessments completed and placed in PT's chart. PT plans to f/u with follow-up outpatient treatment services, however he wanted to discuss it with his family upon d/c. PT did not indicate a need for transportation post d/c from [facility].
[2023-03-08 13:18] LABS: Bedside Glucose 407 mg/dL (74-106)
[2023-03-08 16:20] VITALS: BP 149/80; PULSE 94; RESP 16; TEMP 36.5; O2SAT 98
[2023-03-08 16:45] LABS: Bedside Glucose 430 mg/dL (74-106)
[2023-03-08 17:18] LABS: Bedside Glucose 430 mg/dL (74-106)
[2023-03-08 21:14] LABS: Bedside Glucose 158 mg/dL (74-106)
[2023-03-08] MEDS: hydrOXYzine PAM 25 MG Capsule 50 MG PO (21:16)
[2023-03-08] MEDS: Atorvastatin Calcium 40 MG Tablet PO (21:16)
[2023-03-08] MEDS: traZODone 100 MG Tablet PO (21:16)
[2023-03-08] MEDS: Aspirin 81 MG TAB.CHEW PO (21:16)
[2023-03-08] MEDS: Nortriptyline 25 MG Capsule 100 MG PO (21:21)
[2023-03-08 21:32] VITALS: BP 142/67; PULSE 95; RESP 16; TEMP 36.6; O2SAT 99
[2023-03-09] MEDS: Phenobarbital 32.4 MG Tablet 64.8 MG PO ×6 (01:10→20:22)
[2023-03-09] MEDS: Insulin Glargine-YFGN 100 UNIT/ML Pen 10 UNIT SC ×3 (01:15→20:27)
[2023-03-09 01:36] LABS: Bedside Glucose 211 mg/dL (74-106)
[2023-03-09] MEDS: Levothyroxine 150 MCG Tablet PO (05:07)
[2023-03-09] MEDS: hydrOXYzine PAM 25 MG Capsule 50 MG PO (05:07)
[2023-03-09] MEDS: 0.9% Saline Lock 10 ML Syringe IV (05:08)
[2023-03-09 05:39] VITALS: BP 130/66; PULSE 90; RESP 16; TEMP 37; O2SAT 99
[2023-03-09 08:00] VITALS: BP 116/74; PULSE 100; RESP 18; TEMP 36.6; O2SAT 100
[2023-03-09] MEDS: Insulin Lispro 100 UNIT/ML INSULN.PEN SC ×6 (08:03→16:42)
[2023-03-09] MEDS: Thiamine Hydrochloride 100 MG Tablet PO (08:05)
[2023-03-09] MEDS: Folic Acid 1 MG Tablet PO (08:05)
[2023-03-09 08:06] LABS: Anion Gap 3 (5-15); BUN 20 mg/dL (7-18); BUN/Creat Ratio 23.1 RATIO (10-20); Calcium,Total 8.7 mg/dL (8.5-10.1); Chloride 100 mmol/L (98-107); Creatinine, Serum 0.86 mg/dL (0.70-1.30); EST Glomerular Filtration Rate 97 mL/min (>60); Est Glom Filt Rate - Afr Amer 117 mL/min (>60); Glucose 246 mg/dL (74-106); Potassium 4.4 mmol/L (3.5-5.1); Sodium Level 133 mmol/L (136-145)
--- NOTE | 2023-03-09 08:14 | PN.HOSP_ITS ---
Reason for Visit Reason for Visit: Diagnoses Type 1 diabetes mellitus without complications (03/07/23) Alcohol abuse, uncomplicated (03/07/23) Nicotine dependence, unspecified, uncomplicated (03/07/23) Atherosclerotic heart disease of [place] coronary artery without angina pectoris (03/07/23) Ischemic cardiomyopathy (03/07/23) Heart failure, unspecified (03/07/23) Presence of insulin pump (external) (internal) (03/07/23) Subjective Subjective Feeling much better today, withdrawal symptoms are very well controlled on phenobarb taper Objective Data Objective Data Vital Signs: Vital Signs Temp Pulse Resp BP Pulse Ox O2 Del Method 97.8 F 100 18 116/74 100 Room Air 03/09/23 08:00 03/09/23 08:00 03/09/23 08:00 03/09/23 08:00 03/09/23 08:00 03/09/23 08:00 Oxygen Delivery Method Room Air Weight: 68.5 kg Body Mass Index (BMI) 23.7 Intake & Output: Intake and Output for Last 24 Hours 03/07/23 03/08/23 03/09/23 23:59 23:59 23:59 Intake Total 1360 / 1360 350 / 350 Balance 1360 / 1360 350 / 350 Lab / Micro Data 03/08/23 05:45 03/09/23 07:05 Labs: Laboratory Results - last 24 hr 03/08/23 10:12: POC Glucose 304 H 03/08/23 12:01: POC Glucose 407 H 03/08/23 16:27: POC Glucose 430 H 03/08/23 16:30: POC Glucose 430 H 03/08/23 20:44: POC Glucose 158 H 03/09/23 01:14: POC Glucose 211 H 03/09/23 07:05: Sodium 133 L, Potassium 4.4, Chloride 100, Carbon Dioxide 30.0, Anion Gap 3 L, BUN 20 H, Creatinine 0.86, Estim Creat Clear Calc 88.60, Est GFR (MDRD) Af Amer 117, Est GFR (MDRD) Non-Af 97, BUN/Creatinine Ratio 23.1 H, Glucose 246 H, Calcium 8.7 Physical Exam Narrative General: Alert, oriented, no apparent distress HEENT: Atraumatic, normocephalic Eyes: extraocular movements grossly intact Neck: Supple Respiratory: normal respiratory effort Cardiovascular: no edema appreciated GI: nondistended Extremities: Moving all extremities Neuro: No overt focal neurological deficits Psych: Cooperative Assessment & Plan Assessment/Plan (1) Alcohol abuse: (2) Desire for detoxification: (3) Congestive heart failure (CHF): (4) Atherosclerotic heart disease of [place] coronary artery without angina pectoris: QUALIFIERS: [place] vs. 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 nightly as needed sleep -Begin thiamine and folic acid supplementation -Zofran as needed for nausea -Case management consult to assist with discharge planning -EtOH level 115 and drug screen will be obtained -03/08: Maintaining on phenobarb taper, will monitor, may need to complete full taper pending withdrawal symptoms -03/09: Patient actually doing very well on present phenobarbital dosing, patient feeling well enough asking to go home, discussed risks and benefits and ultimately feel tomorrow afternoon after the neck step down will be reasonable for discharge, patient in agreement. #Diabetes mellitus chronically on insulin pump -Given that patient will be going through alcohol detox and this can be unpredictable and her is unclear how he will respond to both detox and the medications feel it is beneficial if we give external insulin instead of patient using his own pump -He uses 1 unit/h of basal and gets an additional 14 to 24 units throughout the day -We will give 10 units twice daily of Lantus with 5 units of Premeal and sliding scale -03/08: Decrease Premeal to 3 units, continue to monitor closely to avoid hypo glycemia -03/09: Wildly variable sugars, Premeal we increased to 5 units, continue to adjust as needed, patient will go back on home insulin pump on discharge #Hypothyroidism -Continue Synthroid #Tobacco use -Advise cessation -Patient agreeable to nicotine replacement #Chronic heart failure with reduced ejection fraction -Continue metoprolol and Entresto -Diet with no salt added and fluid restriction -Daily weights #Recent tooth infection -Patient recently started on antibiotics for dental infection -We will continue antibiotics #Coronary artery disease -Reports history of 1 stent in that nothing else was amenable to stenting or bypass -Continue beta-rolando and aspirin, unclear why patient not on statin, will check a.m. lipid panel #DVT ppx: Lovenox subcu Mercy Cano MD Time spent in the patient's overall evaluation,decision-making process, review of diagnostic data, adjustment of management, discussion with other providers, nursing nursing and ancillary staff involved in patient's care documentation, 30 minutes Charges/Coding Visit Charges Inpatient E&M: 79318 Subs Hosp L1
[2023-03-09 10:15] VITALS: PULSE 100
[2023-03-09] MEDS: Amox/Clavulanate 875 MG Tablet PO ×2 (10:15→20:21)
[2023-03-09] MEDS: SACUBITRIL/VALSARTAN 24/26 MG TABLET 1 EACH PO ×2 (10:15→20:22)
[2023-03-09] MEDS: Metoprolol(XL)Succ 25 MG Tablet PO (10:15)
[2023-03-09] MEDS: Citalopram 40 MG TABLET PO (10:15)
[2023-03-09] MEDS: Enoxaparin 40 MG/0.4 ML Syringe SC (10:16)
[2023-03-09] MEDS: Chlorhexidine 480 ML 15 ML PO ×2 (10:21→20:25)
[2023-03-09 12:20] LABS: Bedside Glucose 298 mg/dL (74-106)
[2023-03-09 14:57] VITALS: BP 123/67; PULSE 99; RESP 18; TEMP 36.7; O2SAT 92
[2023-03-09 16:53] LABS: Bedside Glucose 268 mg/dL (74-106)
[2023-03-09 17:06] LABS: Bedside Glucose 345 mg/dL (74-106)
[2023-03-09] MEDS: traZODone 100 MG Tablet PO (20:21)
[2023-03-09] MEDS: Atorvastatin Calcium 40 MG Tablet PO (20:21)
[2023-03-09] MEDS: Aspirin 81 MG TAB.CHEW PO (20:21)
[2023-03-09] MEDS: Nortriptyline 25 MG Capsule 100 MG PO (20:22)
[2023-03-09 20:30] VITALS: BP 131/76; PULSE 94; RESP 16; TEMP 36.9; O2SAT 100
[2023-03-09 20:48] LABS: Bedside Glucose 210 mg/dL (74-106)
[2023-03-10] MEDS: Phenobarbital 32.4 MG Tablet 64.8 MG PO ×2 (03:19→08:52)
[2023-03-10 03:23] VITALS: BP 117/62; PULSE 84; RESP 17; TEMP 36.7; O2SAT 97
[2023-03-10 05:59] LABS: Anion Gap 5 (5-15); BUN 21 mg/dL (7-18); BUN/Creat Ratio 21.2 RATIO (10-20); Calcium,Total 8.7 mg/dL (8.5-10.1); Chloride 97 mmol/L (98-107); Creatinine, Serum 0.99 mg/dL (0.70-1.30); EST Glomerular Filtration Rate 83 mL/min (>60); Est Glom Filt Rate - Afr Amer 100 mL/min (>60); Estimated Creatinine Clearance 76.97 ml/min; Glucose 374 mg/dL (74-106); Potassium 4.6 mmol/L (3.5-5.1); Sodium Level 131 mmol/L (136-145)
[2023-03-10] MEDS: Levothyroxine 150 MCG Tablet PO (06:07)
[2023-03-10] MEDS: Insulin Lispro 100 UNIT/ML INSULN.PEN SC ×4 (08:05→12:11)
[2023-03-10] MEDS: Folic Acid 1 MG Tablet PO (08:11)
[2023-03-10] MEDS: Thiamine Hydrochloride 100 MG Tablet PO (08:11)
[2023-03-10 08:33] LABS: Bedside Glucose 369 mg/dL (74-106)
[2023-03-10 09:00] VITALS: PULSE 90; RESP 18; O2SAT 100
[2023-03-10 09:25] VITALS: BP 112/61; PULSE 90; RESP 18; TEMP 36.6; O2SAT 100
[2023-03-10] MEDS: SACUBITRIL/VALSARTAN 24/26 MG TABLET 1 EACH PO (09:41)
[2023-03-10] MEDS: Enoxaparin 40 MG/0.4 ML Syringe SC (09:41)
[2023-03-10] MEDS: Citalopram 40 MG TABLET PO (09:41)
[2023-03-10] MEDS: Amox/Clavulanate 875 MG Tablet PO (09:41)
[2023-03-10 09:43] VITALS: BP 112/61; PULSE 90
[2023-03-10] MEDS: Metoprolol(XL)Succ 25 MG Tablet PO (09:43)
[2023-03-10] MEDS: Chlorhexidine 480 ML 15 ML PO (09:43)
[2023-03-10] MEDS: Insulin Glargine-YFGN 100 UNIT/ML Pen 13 UNIT SC (09:50)
--- NOTE | 2023-03-10 11:03 | DS.PCM_ITS ---
Providers Date of Admission: 03/07/23 Date of Discharge: 03/10/23 Primary Care Physician: Dr. Yassine Bui MD Reason For Visit: ALCOHOL DETOX Diagnosis Discharge Diagnosis (1) Alcohol abuse: Status: Acute Code(s): F10.10 - Alcohol abuse, uncomplicated (2) Desire for detoxification: Status: Acute (3) Congestive heart failure (CHF): Status: Acute Code(s): I50.9 - Heart failure, unspecified (4) Atherosclerotic heart disease of [place] coronary artery without angina pectoris: Status: Acute Code(s): I25.10 - Atherosclerotic heart disease of [place] coronary artery without angina pectoris Qualifiers: [place] vs. transplanted heart: [place] heart Qualified Code(s): I25.10 - Atherosclerotic heart disease of [place] coronary artery without angina pectoris (5) Ischemic cardiomyopathy: Status: Acute Code(s): I25.5 - Ischemic cardiomyopathy (6) Nicotine dependence: Status: Chronic Code(s): F17.200 - Nicotine dependence, unspecified, uncomplicated (7) Diabetes mellitus type 1, uncomplicated, on terminal system operator insulin pump: Status: Acute Code(s): E10.9 - Type 1 diabetes mellitus without complications; Z96.41 - Presence of insulin pump (external) (internal) Plan #Alcohol use disorder #Diabetes mellitus chronically on insulin pump #Hypothyroidism #Tobacco use #Chronic heart failure with reduced ejection fraction #Recent tooth infection #Coronary artery disease Medications at Discharge Home Medications citalopram 40 mg tablet 40 mg PO DAILY depression 03/18/13 insulin aspart U-100 100 unit/mL subcutaneous solution 1.1 unit continuous subcutaneous infusion UD diabetes 06/07/17 nortriptyline 50 mg capsule 100 mg PO QHS depression 01/28/19 quetiapine 200 mg tablet,extended release 24 hr (Seroquel XR) 200 mg PO QPM bipolar 01/28/19 levothyroxine 125 mcg tablet 150 mcg PO DAILY hypothyroid 07/28/19 multivitamin (Daily Multi-Vitamin tablet) 1 tablet PO DAILY health 08/10/20 nitroglycerin 0.4 mg sublingual tablet 0.4 mg sublingual Q5M PRN Cardiac/Chest Pain #25 tabs 08/10/20 thiamine HCl (vitamin B1) 100 mg tablet 100 mg PO DAILY supplement 05/15/21 aspirin 81 mg capsule 81 mg PO QHS [facility] 12/08/21 potassium chloride 20 mEq tablet,extended release (K-Tab) 20 meq PO DAILY supplement 12/08/21 folic acid 400 mcg tablet 0.4 mg PO QPM supplement 05/09/22 metoprolol succinate 25 mg tablet,extended release 24 hr 25 mg PO DAILY bp #90 tabs 02/07/23 alendronate 70 mg tablet 70 mg PO QWEEK [facility] 03/07/23 chlorhexidine gluconate 0.12 % mouthwash 15 ml PO BID bad tooth 03/07/23 sacubitril 24 mg-valsartan 26 mg tablet (Entresto) 1 tab PO BID 03/07/23 Hospital Course Summary of Care Provided Minutes Spent on Discharge: 32 Hospital Course: Patient was admitted 03/07/23 requesting detox from alcohol. Patient was ad mitted and detox protocol ordered. They completed their detox and were discharged in stable condition. Given unclear how patient will react to detox medications his insulin pump was held and we administered subcu insulin. Glucoses started trending up as patient began to improve and was eating more and his insulin was adjusted but with plan to resume insulin pump on discharge. On the day of discharge no new medical complaints voiced. Discharged home with family in stable condition Physical Exam Narrative General: Alert, oriented, no apparent distress HEENT: Atraumatic, normocephalic Eyes: extraocular movements grossly intact Neck: Supple Respiratory: normal respiratory effort Cardiovascular: no edema appreciated GI: nondistended Extremities: Moving all extremities Neuro: No overt focal neurological deficits Psych: Cooperative Weight / BMI Weight Weight: 68.5 kg Body Mass Index (BMI) 23.7 ABG / Lab / Microbiology Data 03/08/23 05:45 03/10/23 04:53 Laboratory: Laboratory Results - last 24 hr 03/09/23 07:59: POC Glucose 268 H 03/09/23 11:58: POC Glucose 298 H 03/09/23 16:41: POC Glucose 345 H 03/09/23 20:26: POC Glucose 210 H 03/10/23 04:53: Sodium 131 L, Potassium 4.6, Chloride 97 L, Carbon Dioxide 29.0, Anion Gap 5, BUN 21 H, Creatinine 0.99, Estim Creat Clear Calc 76.97, Est GFR (MDRD) Af Amer 100, Est GFR (MDRD) Non-Af 83, BUN/Creatinine Ratio 21.2 H, Glucose 374 H, Calcium 8.7 03/10/23 08:04: POC Glucose 369 H D/C Instructions Discharge Diet: Carb Control Diet Meaningful Use Info Meaningful Use Diagnoses (Choose all that apply): None applicable Discharge Plan Admission Admit Date/Time: 03/07/23 09:47 Primary Reason for Your Visit: Alcohol detox Attending Provider: Mercy Cano Primary Care Provider: Yassine Bui Instructions Patient Instructions: Alcoholism Resources, Addiction: Getting Help, Addiction Recovery Counseling Additional Instructions / Restrictions: DISCHARGE INSTRUCTIONS PLEASE READ *Please take this with you to your next doctors appointment* -Please resume your insulin pump -PLEASE FINISH YOUR COURSE OF ANTIBIOTICS FOR YOUR TOOTH AND FOLLOW WITH YOUR DENTIST - It is strongly advised that you refrain from any substance use. Please call [facility] located at [address] [place] [phone] (ph [phone]) if you are interested in further resources -Please call your primary care provider's office upon discharge to schedule a hospital follow up within 1 week. -For any concerning signs or symptoms please call 911 or proceed to the nearest emergency department Discharge Orders/Prescriptions Prescriptions: Continued levothyroxine 125 mcg tablet 150 mcg PO DAILY Patient Comments: TAKE 1 TABLET BY MOUTH ONCE DAILY nortriptyline 50 mg capsule 100 mg PO QHS quetiapine [Seroquel XR] 200 mg tablet extended release 24 hr 200 mg PO QPM multivitamin [Daily Multi-Vitamin] Tablet 1 tablet PO DAILY nitroglycerin 0.4 mg tablet, sublingual 0.4 mg SUBLINGUAL Q5M PRN (Reason: Cardiac/Chest Pain) Qty: 25 3RF thiamine HCl (vitamin B1) 100 mg tablet 100 mg PO DAILY Patient Comments: TAKE 1 TABLET BY MOUTH ONCE DAILY metoprolol succinate 25 mg tablet extended release 24 hr 25 mg PO DAILY Qty: 90 3RF citalopram 40 MG tablet 40 mg PO DAILY Patient Comments: DEPRESSION insulin aspart U-100 100 UNIT/ML solution 1.1 unit Continuous Subcutaneous Infusion UD Patient Comments: 1 UNIT PER HOUR AND THEN SLIDING SCALE PER INTAKE OF CARBS aspirin 81 mg Capsule 81 mg PO QHS potassium chloride [K-Tab] 20 mEq tablet extended release 20 meq PO DAILY folic acid 400 mcg Tablet 0.4 mg PO QPM alendronate 70 mg tablet 70 mg PO QWEEK Rx Instructions: on wednesdays Entresto 24-26 mg tablet 1 tab PO BID Patient Comments: Stop your lisinopril, after 36 hours start the entresto. last Lisinopril was taking 03/07/23 at 0800 chlorhexidine gluconate 0.12 % mouthwash 15 ml PO BID Rx Instructions: rinse in morning and evening for 1 week prescribed 03/06/2023 - medication is on MS3 Referrals / Follow Up: Yassine Bui MD [Primary Care Provider] - Within 1 Week Disposition Disposition (needs filled in before D/C Order can be placed): Home, Self Care Charges/Coding Visit Charges Inpatient E&M: 46615 Disch Hosp >30min
--- NOTE | 2023-03-10 11:05 | PCM.DC ---
Discharge Instructions Diet Discharge Diet: Carb Control Diet Follow Up Care Test Results: Test results from this visit will be discussed in further detail at your follow-up appointment, if applicable. Discharge Plan Admission Admit Date/Time: 03/07/23 09:47 Primary Reason for Your Visit: Alcohol detox Attending Provider: Mercy Cano Primary Care Provider: Yassine Bui Instructions Patient Instructions: Alcoholism Resources, Addiction: Getting Help, Addiction Recovery Counseling Additional Instructions / Restrictions: DISCHARGE INSTRUCTIONS PLEASE READ *Please take this with you to your next doctors appointment* -Please resume your insulin pump -PLEASE FINISH YOUR COURSE OF ANTIBIOTICS FOR YOUR TOOTH AND FOLLOW WITH YOUR DENTIST - It is strongly advised that you refrain from any substance use. Please call [facility] located at [address] [place] [phone] (ph [phone]) if you are interested in further resources -Please call your primary care provider's office upon discharge to schedule a hospital follow up within 1 week. -For any concerning signs or symptoms please call 911 or proceed to the nearest emergency department Discharge Orders/Prescriptions Prescriptions: Continued levothyroxine 125 mcg tablet 150 mcg PO DAILY Patient Comments: TAKE 1 TABLET BY MOUTH ONCE DAILY nortriptyline 50 mg capsule 100 mg PO QHS quetiapine [Seroquel XR] 200 mg tablet extended release 24 hr 200 mg PO QPM multivitamin [Daily Multi-Vitamin] Tablet 1 tablet PO DAILY nitroglycerin 0.4 mg tablet, sublingual 0.4 mg SUBLINGUAL Q5M PRN (Reason: Cardiac/Chest Pain) Qty: 25 3RF thiamine HCl (vitamin B1) 100 mg tablet 100 mg PO DAILY Patient Comments: TAKE 1 TABLET BY MOUTH ONCE DAILY metoprolol succinate 25 mg tablet extended release 24 hr 25 mg PO DAILY Qty: 90 3RF citalopram 40 MG tablet 40 mg PO DAILY Patient Comments: DEPRESSION insulin aspart U-100 100 UNIT/ML solution 1.1 unit Continuous Subcutaneous Infusion UD Patient Comments: 1 UNIT PER HOUR AND THEN SLIDING SCALE PER INTAKE OF CARBS aspirin 81 mg Capsule 81 mg PO QHS potassium chloride [K-Tab] 20 mEq tablet extended release 20 meq PO DAILY folic acid 400 mcg Tablet 0.4 mg PO QPM alendronate 70 mg tablet 70 mg PO QWEEK Rx Instructions: on wednesdays Entresto 24-26 mg tablet 1 tab PO BID Patient Comments: Stop your lisinopril, after 36 hours start the entresto. last Lisinopril was taking 03/07/23 at 0800 chlorhexidine gluconate 0.12 % mouthwash 15 ml PO BID Rx Instructions: rinse in morning and evening for 1 week prescribed 03/06/2023 - medication is on MS3 Referrals / Follow Up: Yassine Bui MD [Primary Care Provider] - Within 1 Week Disposition Disposition (needs filled in before D/C Order can be placed): Home, Self Care
[2023-03-10 12:32] LABS: Bedside Glucose 336 mg/dL (74-106)
[2023-03-10 12:52] VITALS: BP 115/70; PULSE 75; PULSE 85; RESP 18; TEMP 36.6; O2SAT 99
== END 2023-03-10 13:22 | disposition home or self-care (01) | DRG 897 ==
LOC: ED 09:24 → MS3 10:37
PROVIDERS: Admitting Provider Internal Medicine; Emergency Provider Emergency Medicine; PCP Family Medicine; Visit Provider Internal Medicine
DX: F10.10 Alcohol abuse, uncomplicated (principal); I50.22 Chronic systolic (congestive) heart failure; F31.9 Bipolar disorder, unspecified; I11.0 Hypertensive heart disease with heart failure; E10.9 Type 1 diabetes mellitus without complications; Z79.4 Long term (current) use of insulin; E03.9 Hypothyroidism, unspecified; I25.10 Atherosclerotic heart disease of native coronary artery without angina pectoris; F17.210 Nicotine dependence, cigarettes, uncomplicated; I25.5 Ischemic cardiomyopathy; I25.2 Old myocardial infarction; G89.29 Other chronic pain; Z79.82 Long term (current) use of aspirin; Z95.5 Presence of coronary angioplasty implant and graft; Z79.899 Other long term (current) drug therapy; Z86.73 Personal history of transient ischemic attack (TIA), and cerebral infarction without residual deficits; Z96.41 Presence of insulin pump (external) (internal); Y90.5 Blood alcohol level of 100-119 mg/100 ml
CPT/HCPCS: 36415; 80048; 80053; 80061; 82077; 82962; 83735; 84443; 85025; 99284; 99406; J7030; A4216

== ENCOUNTER → 2023-05-01 | Outpatient (CLI) | payer MEDICARE, SELFPAY ==
--- OUTSIDE RECORDS SUMMARY | 2023-05-01 15:14 | XMS RPT_ITS | CCD ---
Author Name Unknown Address [address] [place] [address] Organization [facility] Results Test Name Value Interpretation Reference Range Facil ity Summary Purpose Family History No Family History Records Found Advance Directives No Advanced Directives Records Found Additional Source Comments (unrecognized sect ion and content) No Status Records Found INFORMATION SOURCE (unrecogn ized section and content) FOR RECORDS PERTAINING TO PATIENTS WHO ARE OR HAVE BEEN ENROLLED IN A CHEMICAL DEPENDENCY/SUBSTANCEABUSE PROGRAM, SOME INFORMATION MAY BE OMITTED. This clinical summary was aggregated from multiple sources. Caution should be exercised in using it in the provision of clinical care. This summary normalizes information from multiple sources, and as a consequence, information in this document may materially change the coding, format and clinical context of patient data. In addition, data may be omitted in some cases. CLINICAL DECISIONS SHOULD BE BASED ON THE PRIMARY CLINICAL RECORDS. [employer] provides no warranty or guarantee of the accuracy or completeness of information in this document.
[2023-05-01 18:10] LABS: ALB/GLOB Ratio 1.4 RATIO (0.9-2.4); AST(SGOT) 28 U/L (15-37); Alanine Aminotransfer ALT/SGPT 30 U/L (16-61); Albumin, Serum 3.8 g/dL (3.2-5.0); Alkaline Phosphatase 63 U/L (45-117); Anion Gap 10 (5-15); BUN 13 mg/dL (7-18); BUN/Creat Ratio 13.1 RATIO (10-20); Calcium,Total 8.2 mg/dL (8.5-10.1); Chloride 103 mmol/L (98-107); Cholesterol 235 mg/dL (200); Creatinine, Serum 0.99 mg/dL (0.70-1.30); EST Glomerular Filtration Rate 83 mL/min (>60); Est Glom Filt Rate - Afr Amer 100 mL/min (>60); Globulin 2.8 g/dL (2.2-4.2); Glucose 182 mg/dL (74-106); High Density Lipoprotein 93 mg/dL; Potassium 4.4 mmol/L (3.5-5.1); Protein, Total 6.6 g/dL (6.4-8.2); Sodium Level 140 mmol/L (136-145); Triglycerides 153 mg/dL; Very Low Density Lipoprotein 31 mg/dL (5-40)
== END | disposition home or self-care (01) ==
LOC: MFPLAB 14:41
PROVIDERS: PCP Family Medicine; Visit Provider Family Medicine
DX: E11.9 Type 2 diabetes mellitus without complications (principal)
CPT/HCPCS: 36415; 80053; 80061; 82043; 82570

== ENCOUNTER → 2023-05-03 | Outpatient (CLI) | payer MEDICARE, SELFPAY ==
--- OUTSIDE RECORDS SUMMARY | 2023-05-03 09:53 | XMS RPT_ITS | CCD ---
Author Name Unknown Address [address] [place] [address] Organization [facility] Results Test Name Value Interpretation [...] BE BASED ON THE PRIMARY CLINICAL RECORDS. [employer] provides no warranty or guarantee of the accuracy or completeness of information in this document.
[2023-05-03 11:04] LABS: Microalbumin,Random Urine 17.6 mg/L (NO RANGE EST.); Microalbumin:Creatinine Ratio 7.9 mg/g CRE (<30 mg/g CRE)
== END | disposition home or self-care (01) ==
LOC: MFPLAB 09:15
PROVIDERS: PCP Family Medicine; Visit Provider Family Medicine
DX: E11.9 Type 2 diabetes mellitus without complications (principal)
CPT/HCPCS: 82043; 82570

== ENCOUNTER 2023-07-23 19:57 | Emergency (ER) | payer MEDICARE, SELFPAY ==
[2023-07-23 19:58] VITALS: BP 148/84; PULSE 111; RESP 18; TEMP 35.9; O2SAT 100; BMI 23.8
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
== END 2023-07-23 20:47 | disposition home or self-care (01) ==
PROVIDERS: Emergency Provider Emergency Medicine; PCP Family Medicine; Visit Provider Emergency Medicine
DX: F10.151 Alcohol abuse with alcohol-induced psychotic disorder with hallucinations (principal); E10.9 Type 1 diabetes mellitus without complications; Z79.4 Long term (current) use of insulin; I25.10 Atherosclerotic heart disease of native coronary artery without angina pectoris; Z96.41 Presence of insulin pump (external) (internal); R00.0 Tachycardia, unspecified; Z86.73 Personal history of transient ischemic attack (TIA), and cerebral infarction without residual deficits; E78.5 Hyperlipidemia, unspecified; I10 Essential (primary) hypertension; I25.2 Old myocardial infarction; G47.33 Obstructive sleep apnea (adult) (pediatric); E03.9 Hypothyroidism, unspecified; Z79.899 Other long term (current) drug therapy; Z79.82 Long term (current) use of aspirin; F41.8 Other specified anxiety disorders; Z90.49 Acquired absence of other specified parts of digestive tract; Z98.49 Cataract extraction status, unspecified eye; Z95.5 Presence of coronary angioplasty implant and graft; F17.210 Nicotine dependence, cigarettes, uncomplicated
CPT/HCPCS: 99282

== ENCOUNTER → 2023-08-01 | Outpatient (CLI) | payer MEDICARE, SELFPAY ==
--- NOTE | 2023-08-01 07:18 | ECHOCS_ITS ---
Reason For Study: CHEST PAIN Procedure This was a 2D Doppler, Color Flow transthoracic echocardiogram. Contrast injection was performed. Exam performed in department. Left Ventricle Normal LV size. The left ventricular ejection fraction is 35 %. Stage 3 diastolic dysfunction. Moderately severe segmental systolic dysfunction (see wall motion). There are regional wall motion abnormalities as specified. Mid-Anterior : Akinetic. Anterior [place] : Akinetic. Right Ventricle Normal RV size. Normal systolic function. Atria Normal left atrium. Normal right atrium. Mitral Valve Normal mitral valve. Tricuspid Valve Normal tricuspid valve. Aortic Valve Trisinus/trileaflet aortic valve. Pulmonic Valve Normal pulmonic valve. Great Vessels Normal aortic root. The pulmonary artery is normal size. Normal inferior vena cava. Pericardium/Pleural No pericardial effusion. Medication Diluted definity 2.0ml given slow IV push to enhance endocardial definition. MMode/2D Measurements & Calculations LVIDd: 5.7 cm IVSd: 1.1 cm Ao root diam: 3.2 cm LVIDs: 4.6 cm LVPWd: 1.00 cm RVDd: 2.8 cm FS: 18.2 % LAV(MOD-sp2): 43.9 ml LVAd ap4: 32.2 cm2 LVAd ap2: 30.8 cm2 LVLd ap4: 8.8 cm LVLd ap2: 8.6 cm EDV(MOD-sp4): 97.9 ml EDV(MOD-sp2): 92.9 ml EDV(sp4-el): 99.8 ml EDV(sp2-el): 94.0 ml LVAs ap4: 23.6 cm2 LVAs ap2: 22.7 cm2 LVLs ap4: 7.4 cm LVLs ap2: 7.7 cm ESV(MOD-sp4): 61.9 ml ESV(MOD-sp2): 56.6 ml ESV(sp4-el): 64.0 ml ESV(sp2-el): 56.7 ml EF(MOD-sp4): 36.7 % EF(MOD-sp2): 39.0 % EF(sp4-el): 35.8 % SV(MOD-sp4): 36.0 ml SV(MOD-sp2): 36.3 ml SV(sp4-el): 35.8 ml LA dimension(2D): 3.4 cm TAPSE: 1.7 cm Time Measurements MV dec time: 0.11 sec Doppler Measurements & Calculations MV E max isaías: 112.0 cm/sec Lat Peak E' Isaías: 6.0 cm/sec Med Peak E' Isaías: 18.3 cm/sec MV A max isaías: 30.9 cm/sec E/E' lat: 18.8 E/E' med: 6.1 MV E/A: 3.6 MV V2 max: 116.1 cm/sec MV P1/2t max isaías: 116.1 cm/sec Ao V2 max: 98.7 cm/sec MV max P.4 mmHg MV P1/2t: 42.0 msec Ao max P.9 mmHg MV V2 mean: 57.6 cm/sec MV dec slope: 808.6 cm/sec2 Ao V2 mean: 71.3 cm/sec MV mean P.6 mmHg Ao mean P.3 mmHg MV V2 VTI: 21.6 cm MVA(P1/2t): 5.2 cm2 Ao V2 VTI: 21.8 cm AV (velocity ratio): 0.78 LV V1 max: 82.7 cm/sec PA V2 max: 74.7 cm/sec LV V1 max P.7 mmHg PA V2 mean: 55.8 cm/sec LV V1 mean P.5 mmHg LV V1 mean: 58.2 cm/sec LV V1 VTI: 16.9 cm ECHO/Echo Complete W/ Contrast Interpretation Summary The left ventricular ejection fraction is 35 %. Normal LV size. Stage 3 diastolic dysfunction. Moderately severe segmental systolic dysfunction (see wall motion). Ordering Physician: Debora Garcia Referring Physician: Debora Garcia Performed By: Mariaelena Meeks RDCS, RVT
--- NOTE | 2023-08-01 11:59 | STRESSREP_ITS ---
Stress Test Report Pharmacologic myocardial perfusion stress test. 58-year-old man with a history of previous coronary artery disease and anterior infarct Resting EKG demonstrates sinus rhythm with a rate of 82 bpm. Poor R wave progression suggestive of a previous anterior infarct is present. Resting blood pressure is 134/68 mmHg. 0.4 mg of regadenoson was infused per usual protocol followed by rapid intravenous saline flush injection. Continuous EKG monitoring was performed. The maximum heart rate was 91 bpm which was 55% of max impacted heart rate the maximum workload was 1 metabolic equivalent. At rest there were no ST or T wave changes noted to suggest ischemia and at peak infusion nonspecific ST changes were noted which did not meet the criteria for ischemia. No clinical angina is noted. The final blood pressure was 126/68 mmHg. Myocardial perfusion protocol. 13.3 mCi of technetium 99m sestamibi was injected at rest. 0.4 mg of reg adenoson was infused per usual protocol. At peak infusion 33.8 mCi of technetium 99m sestamibi was injected stress images were obtained stress and rest images were reconstructed and compared in the short axis vertical long and horizontal long axis. Gated images were also obtained. Perfusion SPECT analysis: Review of the stress images demonstrate normal uptake of tracer noted in all areas of the myocardium except for the mid anterior wall extending to the apex with a large perfusion defect. This is present on the resting images as well suggestive of a previous extensive anterior apical infarct. No areas of reversibility are noted suggest ischemia. Gated SPECT analysis: The gated ejection fraction is 30% with apical near akinesis. Conclusion: Myocardial perfusion stress test with anterior apical infarct. No ischemia is noted. Reduced ejection fraction
== END | disposition home or self-care (01) ==
LOC: CVS 07:17
PROVIDERS: PCP Family Medicine; Referring Provider Physician Assistant Medical; Visit Provider Physician Assistant Medical
DX: R07.9 Chest pain, unspecified (principal)
CPT/HCPCS: 78452; 93017; 93306; A9500; Q9957; A4216; C8929; J2785

== ENCOUNTER → 2023-08-01 | Outpatient (CLI) | payer MEDICARE, SELFPAY ==
[2023-08-01 17:56] LABS: Hemoglobin A1c 7.4 % (3.8-5.6)
[2023-08-01 18:17] LABS: Anion Gap 5 (5-15); BUN 7 mg/dL (7-18); BUN/Creat Ratio 5.8 RATIO (10-20); Calcium,Total 9.4 mg/dL (8.5-10.1); Chloride 102 mmol/L (98-107); Cholesterol 241 mg/dL (200); EST Glomerular Filtration Rate 66 mL/min (>60); Est Glom Filt Rate - Afr Amer 80 mL/min (>60); Free T3 1.9 pg/mL (2.18-3.98); Glucose 344 mg/dL (74-106); High Density Lipoprotein 89 mg/dL; Sodium Level 135 mmol/L (136-145); T4 Free Direct 0.91 ng/dL (0.76-1.46); Triglycerides 173 mg/dL; Very Low Density Lipoprotein 35 mg/dL (5-40)
== END | disposition home or self-care (01) ==
LOC: MFPLAB 14:16
PROVIDERS: PCP Family Medicine; Visit Provider Family Medicine
DX: E10.9 Type 1 diabetes mellitus without complications (principal); E03.9 Hypothyroidism, unspecified
CPT/HCPCS: 36415; 80048; 80061; 83036; 84439; 84443; 84481

== ENCOUNTER 2023-08-21 16:03 | Emergency (ER) | payer MEDICARE, SELFPAY ==
[2023-08-21] VITALS (11 sets, daily range): BP systolic 128–150; BP diastolic 67–82; PULSE 85–112; RESP 10–18; TEMP 36.7; O2SAT 97–100; BMI 23.2
--- NOTE | 2023-08-21 16:14 | EKG12_ITS ---
Test Reason : PALPATATIONS Blood Pressure : / mmHG Vent. Rate : 105 BPM Atrial Rate : 105 BPM P-R Int : 204 ms QRS Dur : 102 ms QT Int : 354 ms P-R-T Axes : 076 118 084 degrees QTc Int : 467 ms Sinus tachycardia Anterolateral infarct (cited on or before 25-FEB-2017) Abnormal ECG Confirmed by NADJA SEO, JAZMÍN ([id number]), photograph editor AGA PALAFOX ([id number]) on 08/26/2023 10:07:37 AM Referred By: Confirmed By:JENNIFER SAEZ MD
--- NOTE | 2023-08-21 16:20 | ED.VIS.CHEST ---
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 GERD (gastroesophageal reflux disease) History lymph node removal History of stroke History of vocal cord surgery Hoarseness Hyperlipemia Hypertension Hypothyroidism Ischemic cardiomyopathy Nicotine dependence Obstructive sleep apnea Old myocardial infarction Seizure Smoker TIA (transient ischemic attack) Type I diabetes with insulin pump usage Home Medications citalopram 40 mg tablet 40 mg PO DAILY depression 03/18/13 [History Last Taken 03/07/23 08:00] insulin aspart U-100 100 unit/mL subcutaneous solution 1.1 unit continuous subcutaneous infusion UD diabetes 06/07/17 [History Last Taken 12/08/21] nortriptyline 50 mg capsule 100 mg PO QHS depression 01/28/19 [History Last Taken 03/06/23 20:00] levothyroxine 125 mcg tablet 150 mcg PO DAILY hypothyroid 07/28/19 [History Last Taken 03/07/23 07:00] multivitamin (Daily Multi-Vitamin tablet) 1 tablet PO DAILY health 08/10/20 [History Last Taken 05/09/22] nitroglycerin 0.4 mg sublingual tablet 0.4 mg sublingual Q5M PRN Cardiac/Chest Pain #25 tabs 08/10/20 [Rx Last Taken Unknown] thiamine HCl (vitamin B1) 100 mg tablet 100 mg PO DAILY supplement 05/15/21 [History Last Taken 03/07/23 08:00] aspirin 81 mg capsule 81 mg PO QHS heart health 12/08/21 [History Last Taken 05/08/22] potassium chloride 20 mEq tablet,extended release (K-Tab) 20 meq PO DAILY supplement 12/08/21 [History Last Taken 03/07/23 08:00] folic acid 400 mcg tablet 0.4 mg PO QPM supplement 05/09/22 [History Last Taken 03/06/23 19:00] metoprolol succinate 25 mg tablet,extended release 24 hr 25 mg PO DAILY bp #90 tabs 02/07/23 [Rx Last Taken 03/07/23 08:00] alendronate 70 mg tablet 70 mg PO QWEEK bone health 03/07/23 [History Last Taken Unknown] sacubitril 24 mg-valsartan 26 mg tablet (Entresto) 1 tab PO BID 03/07/23 [History Last Taken Unknown] lorazepam 0.5 mg tablet 0.5 mg PO TID PRN 06/17/23 [History Last Taken Unknown] dicyclomine 10 mg capsule 20 mg (2 x 10 mg) PO TIDAC #20 CAPSULES 07/23/23 [Rx Last Taken Unknown] dicyclomine 10 mg capsule 20 mg (2 x 10 mg) PO TIDAC #20 CAPSULES 07/23/23 [Rx Last Taken Unknown] ondansetron 4 mg disintegrating tablet 4 mg PO Q8H PRN PRN Nausea #10 tabs 07/23/23 [Rx Last Taken Unknown] Allergy/AdvReac Type Severity Reaction Status Date / Time No Known Allergies Allergy Verified 08/21/23 16:06 Family History Father Heart disease CVA (cerebral vascular accident) Mother CAD (coronary artery disease) Grandfather Cancer Surgical History History of appendectomy History of cataract extraction History of cholecystectomy History of coronary artery stent placement (02/04/10) History of left heart catheterization (06/2017) History of open reduction and internal fixation (ORIF) procedure History of prosthetic vocal cord History of tonsillectomy and adenoidectomy Social History household members: spouse Smoking Status: Current every day smoker tobacco type: cigarettes alcohol intake: current alcohol intake frequency: holidays/special occasions only substance use type: does not use caffeine: Yes Type: carbonated beverages Number of servings: 6 and coffee Number of servings: 2 EXAM Physical Exam Const Vital Signs: 08/21/23 16:04 08/21/23 16:12 08/21/23 16:22 Temperature 98.1 F Temperature Source Temporal Pulse Rate 112 H Respiratory Rate 16 Respiratory Effort Normal Non-Labored Blood Pressure 150/82 H Blood Pressure Mean 104 Pulse Ox 100 Oxygen Delivery Method Room Air Room Air 08/21/23 16:17 08/21/23 16:30 08/21/23 16:45 Temperature Temperature Source Pulse Rate 107 H 97 96 Respiratory Rate 13 10 L 18 Respiratory Effort Blood Pressure Blood Pressure Mean Pulse Ox 100 98 99 Oxygen Delivery Method 08/21/23 17:00 08/21/23 17:15 08/21/23 17:30 Temperature Temperature Source Pulse Rate 96 93 92 Respiratory Rate 17 18 16 Respiratory Effort Blood Pressure Blood Pressure Mean Pulse Ox 99 99 99 Oxygen Delivery Method 08/21/23 17:45 08/21/23 18:00 08/21/23 19:00 Temperature Temperature Source Pulse Rate 89 90 90 Respiratory Rate 14 16 14 Respiratory Effort Blood Pressure 128/67 H Blood Pressure Mean 85 Pulse Ox 99 99 99 Oxygen Delivery Method MDM MDM MDM Narrative Medical decision making narrative: HISTORY OF PRESENT ILLNESS: 58-year-old male presents with palpitations. Sent in by his PCP secondary to a bad arrhythmia. The patient denies recent surgery in the last 4 weeks or immobilization in the last 3 days, denies previous diagnosis of DVT or PE, hemoptysis, unilateral leg swelling or malignancy with treatment the last 6 months or palliative. No estrogen use noted. Patient denies sudden onset of pain, no tearing sensation, no migratory symptoms, no new numbness, weakness or loss of sensation. Patient denies family history or personal history of Connective tissue disorders (Marfan's Syndrome, Kya Danlos etc) REVIEW OF SYSTEMS: Pertinent positives: Palpitations, chest pain Pertinent negatives: Shortness of breath, lower extremity edema PHYSICAL EXAM: Nursing triage notes reviewed, Vital signs reviewed Constitutional: please see mdm HENT: MMM Eyes: Pupils equal round and reactive to light, Extraocular muscles intact Neck: No stridor, no JVD, full neck ROM Lungs: Clear to auscultation, No wheezing or rales. No increased work of breathing, no conversational dyspnea, no accessory muscle use, no nasal flaring. No respiratory distress noted Heart: Regular rate and rhythm, No murmurs, No rubs and No gallops, 2+ distal pulses (radial, femoral, posterior tibial) in all extremities Abdomen: Soft, there is no tenderness, rigidity, rebound or guarding, no obvious peritoneal signs, no palpable pulsatile abdominal masses, no auscultated abdominal bruit : No CVAT Extremities: No edema Neuro: No focal neurological deficits, cranial nerves II through XII intact, 5/5 strength in all extremities. Intact sensation to light touch in all extremities, 2+ reflexes bilateral patella tendons. Normal gait. No ataxia. Skin: No rash or lesions noted MEDICAL DECISION MAKING: Chief Complaint: Palpitations External records reviewed: Stress test from July 2023 showed anteroapical infarct, but no ischemia noted during the test, reduced ejection fraction noted. Echocardiogram from August 01, 2023 shows ejection fraction 35 Factors affecting care: Ischemic cardiopathy, CAD, hyperlipidemia, CHF, alcohol abuse, bipolar, CVA Social determinants of health: History of alcohol abuse History obtained from others: PCP Consults: Spoke with patient's PCP prior to arrival who stated patient start having chest pain on the , took nitroglycerin, scheduled see the salon shampoo assistant next week. Specifically concerned about a bad rhythm a flutter MDM Narrative: Patient was initially tachycardic otherwise afebrile nontoxic-appearing. No focal cardiopulmonary normalities I considered the following differential diagnosis: Arrhythmia, anemia, electrolyte disturbance, myocardial schema ALL IMAGES (IF OBTAINED) HAVE BEEN PERSONALLY REVIEWED AND INTERPRETED BY MYSELF. EKG with sinus tachycardia, right axis deviation, slightly prolonged [place] interval, no STEMI noted V2 and V3 ST changes similar to prior EKG from April 2022 Repeat EKG with normal sinus rhythm, normal axis, first-degree AV block, no STEMI CBC without leukocytosis, severe anemia, no thrombocytopenia. BMP without evidence of significant electrolyte abnormalities, no anion gap, no acute kidney injury. High-sensitivity troponin is negative, no evidence of myocardial ischemia x 2 BNP within the limit suggestive no increased volume, ventricular stretch, transmural wall pressure The synthesis of his history, exam, and his emergency has no acute limb from radiology. Despite having complaint of palpitations and PCPs nurse for concern for atrial flutter no clinical or EKG or lab or imaging evidence to suggest an abnormal heart rhythm or myocardial ischemia or other abnormality that requires admission at this time. Patient was given strict return precautions and follow-up instructions. The etiology was complaint is unclear however it is likely not life-threatening based on his reassuring physical exam, labs and images. The patient and/or family, caregivers express understanding. The patient and/or family, caregivers agrees with the plan. Shared decision making: I will have a discussion with the patient and or visitors regarding risk/benefits of further testing or admission. They will be made aware of of the risk/benefits inherent in this decision they will be given the opportunity to voice understanding. Total critical care time today provided was at least 0 minutes. This excludes separately billable procedures. Critical care time (if documented) is secondary to the patient having high probability of clinically significant/life threatening deterioration in the patient's condition which required my urgent intervention. Impression: 1. Palpitations 2. History of ischemic heart Jocelyn 3. History hyperlipidemia 4. History of CHF Dispo: Discharge home This note was generated with [employer] dictation software. It may contain incorrect words, spelling, and punctuation that were not noted in review of the chart prior to signing. Lab Data Labs: Laboratory Results - last 24 hr 08/21/23 08/21/23 16:15 18:37 WBC 5.3 RBC 4.31 L Hgb 14.6 Hct 41.4 MCV 96.1 H MCH 33.9 H MCHC 35.3 RDW Std Deviation 45.0 H RDW Coeff of Gabrielle 12.6 Plt Count 187 MPV 10.3 Immature Gran % (Auto) 0.400 Neut % (Auto) 50.3 Lymph % (Auto) 33.2 Buchanan % (Auto) 12.1 H Eos % (Auto) 3.2 Baso % (Auto) 0.8 Absolute Neuts (auto) 2.7 Absolute Lymphs (auto) 1.76 Nucleated RBC % 0 Sodium 140 Potassium 3.9 Chloride 104 Carbon Dioxide 32.0 Anion Gap 4 L BUN 9 Creatinine 1.05 Estim Creat Clear Calc 75.10 Est GFR (MDRD) Af Amer 93 Est GFR (MDRD) Non-Af 77 BUN/Creatinine Ratio 8.6 L Glucose 135 H Calcium 9.2 Troponin I High Sens 34 34 B-Natriuretic Peptide 43.4 Radiography Diagnostic Testing: Clinical Impression(s) from Imaging Studies Chest X-Ray 08/21/23 16:40 IMPRESSION: No acute chest disease. No significant change. Electronically Signed: Bunny Adams MD at 17:06 EDT , Discharge Plan Triage Chief Complaint: Palpitations ED Provider: Bernardo Loza Dx/Rx/DC Orders Prescriptions: No Action levothyroxine 125 mcg tablet 150 mcg PO DAILY Patient Comments: TAKE 1 TABLET BY MOUTH ONCE DAILY nortriptyline 50 mg capsule 100 mg PO QHS multivitamin [Daily Multi-Vitamin] Tablet 1 tablet PO DAILY nitroglycerin 0.4 mg tablet, sublingual 0.4 mg SUBLINGUAL Q5M PRN (Reason: Cardiac/Chest Pain) Qty: 25 3RF thiamine HCl (vitamin B1) 100 mg tablet 100 mg PO DAILY Patient Comments: TAKE 1 TABLET BY MOUTH ONCE DAILY metoprolol succinate 25 mg tablet extended release 24 hr 25 mg PO DAILY Qty: 90 3RF lorazepam 0.5 mg tablet 0.5 mg PO TID PRN citalopram 40 MG tablet 40 mg PO DAILY Patient Comments: DEPRESSION insulin aspart U-100 100 UNIT/ML solution 1.1 unit Continuous Subcutaneous Infusion UD Patient Comments: 1 UNIT PER HOUR AND THEN SLIDING SCALE PER INTAKE OF CARBS aspirin 81 mg Capsule 81 mg PO QHS potassium chloride [K-Tab] 20 mEq tablet extended release 20 meq PO DAILY folic acid 400 mcg Tablet 0.4 mg PO QPM alendronate 70 mg tablet 70 mg PO QWEEK Rx Instructions: on wednesdays Entresto 24-26 mg tablet 1 tab PO BID Patient Comments: Stop your lisinopril, after 36 hours start the entresto. last Lisinopril was taking 03/07/23 at 0800 dicyclomine 10 mg capsule 20 mg PO TIDAC Qty: 20 0RF ondansetron [ondansetron] 4 mg tablet,disintegrating 4 mg PO Q8H PRN PRN (Reason: Nausea) Qty: 10 0RF dicyclomine 10 mg capsule 20 mg PO TIDAC Qty: 20 0RF Primary Care Provider: Yassine Bui Referrals: Yassine Bui MD [Primary Care Provider] -
[2023-08-21 16:36] LABS: Absolute Lymphocyte Count 1.76 X10^3/uL (0.83-4.51); Absolute Neutrophil Count 2.7 X10^3/uL (2.0-7.7); Basophil# 0.04 X10^3/uL; Basophil% 0.8 % (0-1); Eosinophil# 0.17 X10^3/uL; Eosinophils% 3.2 % (0-5); Hematocrit 41.4 % (40-54); Hemoglobin 14.6 g/dL (13.0-16.5); Lymphocyte # 1.76 X10^3/ul (0.83-4.51); Lymphocyte % 33.2 % (19-41); Mean Corp Hgb Conc 35.3 g/dL (32-36); Mean Corpuscular Hgb 33.9 pg (27.0-32.0); Mean Corpuscular Volume 96.1 fL (80-94); Mean Platelet Vol. 10.3 fl (6.2-12.0); Monocyte# 0.64 X10^3/uL; Monocyte% 12.1 % (0-10); NRBC Flagged by Analyzer 0 % (0-5); Neutrophil # 2.67 X10^3/uL (2.7-7.7); Neutrophil % 50.3 % (47-70); Platelet Count 187 K/mm3 (150-450); RBC Distribution Width CV 12.6 % (11.6-14.6); Red Blood Count 4.31 M/mm3 (4.6-6.2); White Blood Count 5.3 K/mm3 (4.4-11.0)
--- NOTE | 2023-08-21 16:40 | RAD_ITS ---
STUDY: X-RAY CHEST REASON FOR EXAM: Male, 58 years old. chest pain TECHNIQUE: Single AP portable view of the chest. COMPARISON: Same day, 11:39 AM. FINDINGS: The lungs are clear and expanded. There is no demonstrated pleural abnormality. Normal size heart. Normal mediastinum and beverley. Normal visualized pulmonary arteries. Normal visualized aortic arch and descending thoracic aorta. Normal visualized thoracic spine. 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 There is no demonstrated abnormality of the visualized soft tissue structures of the upper abdomen. RAD/Chest 1 View (Portable) IMPRESSION: No acute chest disease. No significant change. Electronically Signed: Bunny Adams MD at 17:06 EDT ,
[2023-08-21 16:55] LABS: Anion Gap 4 (5-15); BUN 9 mg/dL (7-18); BUN/Creat Ratio 8.6 RATIO (10-20); Calcium,Total 9.2 mg/dL (8.5-10.1); Chloride 104 mmol/L (98-107); Creatinine, Serum 1.05 mg/dL (0.70-1.30); EST Glomerular Filtration Rate 77 mL/min (>60); Est Glom Filt Rate - Afr Amer 93 mL/min (>60); Glucose 135 mg/dL (74-106); Potassium 3.9 mmol/L (3.5-5.1); Sodium Level 140 mmol/L (136-145); Troponin-I HS (w/2H Reflex) 34 pg/mL (3.0-78.0)
[2023-08-21 17:01] LABS: BNP,B-Type NATRIURETIC PEPTIDE 43.4 pg/mL (0-100)
--- NOTE | 2023-08-21 17:42 | EKG12_ITS ---
Test Reason : REPEAT Blood Pressure : / mmHG Vent. Rate : 091 BPM Atrial Rate : 091 BPM P-R Int : 212 ms QRS Dur : 098 ms QT Int : 378 ms P-R-T Axes : 074 146 091 degrees QTc Int : 464 ms Sinus rhythm with 1st degree A-V block Possible Left atrial enlargement Anterolateral infarct , age undetermined Abnormal ECG Confirmed by NADJA SEO, JAZMÍN ([id number]), manuscript editor AGA PALFAOX ([id number]) on 08/26/2023 10:07:52 AM Referred By: Confirmed By:JENNIFER SAEZ MD
[2023-08-21 18:29] LABS: Reflex Troponin-HS? (from REC) Y
[2023-08-21 18:58] LABS: Troponin-I HS 34 pg/mL (3.0-78.0)
== END 2023-08-21 19:33 | disposition home or self-care (01) ==
PROVIDERS: Emergency Provider Emergency Medicine; PCP Family Medicine; Visit Provider Emergency Medicine
DX: R00.2 Palpitations (principal); I11.0 Hypertensive heart disease with heart failure; I50.9 Heart failure, unspecified; E11.9 Type 2 diabetes mellitus without complications; Z79.4 Long term (current) use of insulin; E78.5 Hyperlipidemia, unspecified; I25.10 Atherosclerotic heart disease of native coronary artery without angina pectoris; Z86.73 Personal history of transient ischemic attack (TIA), and cerebral infarction without residual deficits; Z96.41 Presence of insulin pump (external) (internal); I25.2 Old myocardial infarction; F41.8 Other specified anxiety disorders; Z79.899 Other long term (current) drug therapy; E03.9 Hypothyroidism, unspecified; Z79.82 Long term (current) use of aspirin; Z90.49 Acquired absence of other specified parts of digestive tract; Z98.49 Cataract extraction status, unspecified eye; Z95.5 Presence of coronary angioplasty implant and graft; F17.210 Nicotine dependence, cigarettes, uncomplicated
CPT/HCPCS: 71045; 80048; 83880; 84484; 85025; 93005; 99284; A4216

== ENCOUNTER 2023-08-29 06:49 | Day surgery (SDC) | payer MEDICARE, SELFPAY ==
--- NOTE | 2023-08-20 14:29 | PCM.HP.BLA ---
History and Physical Date of Admission: 08/29/23 VERÓNICA ENGLE, is a 58 M who presents today for a diagnostic heart cath. He has a history of premature coronary artery disease, diabetes mellitus, retinopathy and neuropathy. He was diagnosed with autonamic nervous system neuropathy. He has had several falls and does have osteoporosis. Last year he broke his right collar bone, he may need surgery on this as it has not healed yet. He is having chest pain in the evenings. It is not brought on by anything. It does go away on without NTG. He has thought about taking it but has not needed to. He does not have any worsening SOB. When he coughs hard he feels lightheaded, this is not new. His positional dizziness has gotten better since the last time that he was here. Unfortunately he still continues to smoke. he has decreased his EToH. He did undergo a diagnostic stress test which demonstrated myocardial perfusion test with anterior apical infarct no ischemia noted. Reduced ejection fraction. Initially we had opted to treat medically however he called our office back and is concerned with chest discomfort. He states that he feels that his heart is just going to stop. He is concerned about his coronary artery disease. Because of this we will pursue a diagnostic heart catheterization. Medical History Alcohol abuse Anxiety and depression Atherosclerotic heart disease of [place] coronary artery without angina pectoris Bipolar disorder Chronic pain due to injury Congestive heart failure (CHF) CVA (cerebral vascular accident) Degenerative joint disease (DJD) of lumbar spine Desire for detoxification Diabetes mellitus type 1, uncomplicated, on nursing home insulin pump GERD (gastroesophageal reflux disease) History lymph node removal History of stroke History of vocal cord surgery Hoarseness Hyperlipemia Hypertension Hypothyroidism Ischemic cardiomyopathy Nicotine dependence Obstructive sleep apnea Old myocardial infarction Seizure Smoker TIA (transient ischemic attack) Type I diabetes with insulin pump usage Surgical History History of appendectomy History of cataract extraction History of cholecystectomy History of coronary artery stent placement (02/04/10) History of left heart catheterization (06/2017) History of open reduction and internal fixation (ORIF) procedure History of prosthetic vocal cord History of tonsillectomy and adenoidectomy Family History Father Heart disease CVA (cerebral vascular accident) Mother CAD (coronary artery disease) Grandfather Cancer Social History household members: spouse Smoking Status: Current every day smoker tobacco type: cigarettes alcohol intake: current alcohol intake frequency: holidays/special occasions only substance use type: does not use caffeine: Yes Type: carbonated beverages Number of servings: 6 and coffee Number of servings: 2 ROS Const Const: Negative for fatigue, weakness, fever(s) or headache(s) Eyes Eyes: Negative for blind spots, loss of peripheral vision or transient loss of vision ENT ENT: Positive for balance problems; Negative for headache(s), dizziness, tinnitus or Nosebleed/epistaxis Cardio Chest Pain: Yes Palpitations: No Edema: None Muscle aches with walking: None Resp Respiratory: Negative for SOB with activity, SOB at rest, SOB orthopnea\SOB lying down or Cough GI GI: Negative nausea, vomiting, heartburn or vomiting blood/hematemesis : Negative for hematuria Musc Musc: Positive for muscle aches/ myalgia, muscle weakness and balance problems; Negative for joint pain Neuro Neuro: Positive for lightheadedness; Negative for dizziness, near syncope, syncope, orthostatic symptoms, headache(s) or weakness Maxx Hematologic/Lymphatic: Negative for easy bleeding Endo Endo: Negative for fatigue Cardiology Exam Const Appearance: cooperative, no acute distress and well developed Orientation: alert, awake and oriented x3 Head Head: normocephalic and atraumatic Mouth: moist mucous membranes Eyes General: appearance normal, both eyes and all related structures Conjunctivae: conjunctivae normal Pupils: PERRL EOM: EOM intact bilaterally Neck Neck: normal visual inspection, no lymphadenopathy and no JVD Carotids: Negative bruit Neck Mass: Negative Neck mass Chest Chest inspection: normal inspection of the chest and symmetric chest movement Auscultation: Bilateral: Clear to Auscultation Cardio Palpation: normal PMI Rate: regular rate Rhythm: regular rhythm Heart sounds: S1 normal and S2 normal; Negative rub, gallop or murmur GI GI: normal to inspection, soft, no hepatosplenomegaly and bowel sounds present; Negative tender Neuro General: patient alert, patient awake, patient oriented x3, CN's II-XI intact bilaterally and moves all extremities Extremities Pulses: Normal: Right Radial Pulse and Left Radial Pulse and Diminished: Right Posterior Tibial Pulse and Left Posterior Tibial Pulse Lower Extremity Edema: None: Bilateral Psych Psychological: normal affect Supplemental Info Supplemental Information CORONARY ANGIOGRAPHY 06/2017: DOMINANCE: Right Dominant LEFT HEART ASSESSMENT Left Ventricular Ejection Fraction: by LV Gram 37 % Anterior Hypokinesis - Severe Depressed Left Ventricular systolic function LEFT MAIN: Angiographically normal LEFT ANTERIOR DECENDING ARTERY: PROX LAD: Previously placed stent is patent DISTAL LAD: Mild luminal irregularities CIRCUMFLEX ARTERY: PROX CIRC: Mild luminal irregularities less than 30% MID CIRC: Mild luminal irregularities RIGHT CORONARY ARTERY: PROX RCA: is occluded COLLATERAL FLOW: Collateral flow from Left to Right Echocardiogram 01/2023: Normal LV size. Moderately severe segmental systolic dysfunction (see wall motion). The left ventricular ejection fraction is 35 %. Contrast injection was performed. Compared to previous study, the left ventricular systolic function has worsened.. Echocardiogram in 07/2018: Normal LV size. The estimated ejection fraction is 47 %. Mild to moderate segmental systolic dysfunction (see wall motion). Stage 1 diastolic dysfunction. Contrast injection was performed. Compared to prior study, there is no significant change. Assessment & Plan Assessment/Plan (1) Abnormal stress test: (2) Chest pain: (3) Atherosclerotic heart disease of [place] coronary artery without angina pectoris: QUALIFIERS: [place] vs. 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 Follow-up will be based upon findings.
--- NOTE | 2023-08-21 11:39 | RAD_ITS ---
STUDY: X-RAY CHEST REASON FOR EXAM: Male, 58 years old. Abnormal stress test. TECHNIQUE: Frontal and lateral views of the chest. COMPARISON: None. FINDINGS: Mild hyperinflation. There is no demonstrated pleural abnormality. Borderline cardiomegaly. Normal mediastinum and [place]. Normal visualized pulmonary arteries. Normal visualized aortic arch and descending thoracic aorta. Normal visualized thoracic spine. Distal right clavicular fracture with no evidence of bridging bony union. Healed left posterior rib fractures. No abnormality of the visualized soft tissue structures of the upper abdomen. RAD/Chest PA and Lateral IMPRESSION: Stable chest with no acute or emergent finding. Electronically Signed: Phoenix Rasmussen MD at 12:26 EDT ,
[2023-08-21 12:38] LABS: Absolute Neutrophil Count 2.1 X10^3/uL (2.0-7.7); Basophil# 0.03 X10^3/uL; Basophil% 0.7 % (0-1); Eosinophil# 0.15 X10^3/uL; Eosinophils% 3.3 % (0-5); Hematocrit 42.9 % (40-54); Hemoglobin 14.7 g/dL (13.0-16.5); Lymphocyte % 35.6 % (19-41); Mean Corp Hgb Conc 34.3 g/dL (32-36); Mean Corpuscular Volume 96.4 fL (80-94); Mean Platelet Vol. 10.7 fl (6.2-12.0); Monocyte# 0.59 X10^3/uL; Monocyte% 13.1 % (0-10); NRBC Flagged by Analyzer 0 % (0-5); Neutrophil # 2.12 X10^3/uL (2.7-7.7); Neutrophil % 47.1 % (47-70); Platelet Count 186 K/mm3 (150-450); RBC Distribution Width CV 12.5 % (11.6-14.6); RBC Distribution Width SD 44.6 fl (35.1-43.9); Red Blood Count 4.45 M/mm3 (4.6-6.2); White Blood Count 4.5 K/mm3 (4.4-11.0)
[2023-08-21 12:48] LABS: Partial Thromboplast Time 27.1 Seconds (24.1-36.2); Prothrombin Time (Protime)PT. 12.8 SECONDS (11.7-14.9)
[2023-08-21 13:22] LABS: Anion Gap 5 (5-15); BUN 8 mg/dL (7-18); BUN/Creat Ratio 8.8 RATIO (10-20); Calcium,Total 9.3 mg/dL (8.5-10.1); Chloride 102 mmol/L (98-107); Creatinine, Serum 0.91 mg/dL (0.70-1.30); EST Glomerular Filtration Rate 91 mL/min (>60); Est Glom Filt Rate - Afr Amer 110 mL/min (>60); Glucose 211 mg/dL (74-106); Potassium 3.7 mmol/L (3.5-5.1); Sodium Level 136 mmol/L (136-145)
[2023-08-29 07:04] VITALS: BMI 23.9
--- NOTE | 2023-08-29 08:45 | CL.D_ITS ---
Patient Name: VERÓNICA ENGLE Study Date: 08/29/2023 Performing: Dante Parnell MD Ht: 67.5 inches 171.45 cm : 1965 Wt: 153 lbs 69.4 kg Age: 58 Gender: male BSA: 1.81 PROCEDURE(S) PERFORMED [id number])LHC/COR/LV CLINICAL PROFILE AND INDICATIONS Indications: Suspected CAD Heart Failure: None Stress/Imaging Date: 08/01/23Stress Test with SPECT MPI: Negative CAD Presentations: Stable angina. CONCLUSIONS Severe triple-vessel disease with high-grade LAD disease high-grade mid circumflex disease and a totally occluded right coronary artery with [id number] collaterals. Severe left ventricular systolic dysfunction with anterior and apical akinesis. RECOMMENDATIONS Surgery consult for coronary revascularization DESCRIPTION OF PROCEDURE The patient arrived to the procedure lab. The risks and benefits of the procedure as well as a full description of our services here and current unavailability of surgical backup were fully explained to the patient and/or their significant other prior to the catheterization. The Timeout was completed, verifying the correct patient and procedure. The patient's procedural site was prepped and draped in the usual fashion. Local anesthetic was given subcutaneously to right radial region with Lidocaine 2%. Using a modified Seldinger technique, arterial access was obtained via the right radial artery, a 6Fr sheath was inserted. Left Coronary Artery selective angiography was performed in multiple views using a 5 Fr. 4.0 Carver catheter. Right Coronary Artery selective angiography was then performed in multiple views using a 5 Fr. 4.0 Carver catheter. Left Ventriculography was performed in GRAHAM projection using a 5 Fr. Pigtail catheter. LV to AO pullback pressures were then recorded.The arterial sheath was pulled and a TR Band was applied for hemostasis CORONARY ANGIOGRAPHY DOMINANCE: Right Dominant LEFT HEART ASSESSMENT Left Ventricular Ejection Fraction: by LV Gram 25 % Anterior Akinesis. Apical Akinesis Depressed Left Ventricular systolic function LEFT MAIN: Angiographically normal LEFT ANTERIOR DESCENDING ARTERY: Previously stented vessel with a high-grade proximal LAD stenosis of 80%. First diagonal vessel with mild disease. Mild distal LAD disease. CIRCUMFLEX ARTERY: The left circumflex artery is a and nondominant vessel with an 80% proximal stenosis and a first obtuse marginal branch with mild disease. He has a left to right collateral RIGHT CORONARY ARTERY: is occluded COLLATERAL FLOW: Collateral flow from Left to Right COMPLICATIONS No Complications PROCEDURE MEDICATIONS Versed 1 mg IV Fentanyl 50 mcg IV Versed 1 mg IV Oxygen: 2 L/min via nasal cannula SUMMARY OF HEMODYNAMIC DATA Time AIR REST ECG 07:20:41 AO 117/61 (85) SA 08:21:03 LV 114/1, 12 08:25:09 LV 119/9, 16 08:25:18 LV 121/9, 16 08:26:00 LV 112/9, 16 08:26:08 LVp 108/8, 16 08:26:13 AOp 120/29 (47) 08:26:20 AIR REST 08:32:28 Signed By Dante Parnell MD On 08/29/2023 08:44:31 Dante Parnell MD
== END 2023-08-29 10:00 | disposition home or self-care (01) ==
LOC: CLSP 06:50
PROVIDERS: Physician Assistant Medical; PCP Family Medicine; Referring Provider Internal Medicine Cardiovascular Disease; Visit Provider Internal Medicine Cardiovascular Disease
DX: I25.119 Atherosclerotic heart disease of native coronary artery with unspecified angina pectoris (principal); I11.0 Hypertensive heart disease with heart failure; I50.22 Chronic systolic (congestive) heart failure; E10.9 Type 1 diabetes mellitus without complications; I25.5 Ischemic cardiomyopathy; R94.39 Abnormal result of other cardiovascular function study; F17.200 Nicotine dependence, unspecified, uncomplicated; E78.5 Hyperlipidemia, unspecified; I25.82 Chronic total occlusion of coronary artery; R07.9 Chest pain, unspecified; Z82.3 Family history of stroke; Z96.41 Presence of insulin pump (external) (internal); Z95.5 Presence of coronary angioplasty implant and graft; E03.9 Hypothyroidism, unspecified; R29.6 Repeated falls; M81.0 Age-related osteoporosis without current pathological fracture; Z86.73 Personal history of transient ischemic attack (TIA), and cerebral infarction without residual deficits; Z90.49 Acquired absence of other specified parts of digestive tract
CPT/HCPCS: 36415; 71046; 80048; 85025; 85610; 85730; 93458; 99152; 99153; J7040; Q9967; C1769; C1894

== ENCOUNTER → 2024-03-11 | Outpatient (CLI) | payer MEDICARE, SELFPAY ==
[2024-03-11 10:49] LABS: Free T3 2.6 pg/mL (2.18-3.98); T4 Free Direct 1.51 ng/dL (0.76-1.46)
== END | disposition home or self-care (01) ==
LOC: MFPLAB 09:18
PROVIDERS: PCP Family Medicine; Referring Provider Family Medicine; Visit Provider Family Medicine
DX: E03.9 Hypothyroidism, unspecified (principal)
CPT/HCPCS: 36415; 84439; 84443; 84481

== ENCOUNTER → 2024-06-10 | Outpatient (CLI) | payer MEDICARE, SELFPAY ==
[2024-06-10 10:46] LABS: Hemoglobin A1c 6.5 % (3.8-5.6)
[2024-06-10 11:05] LABS: Protein, Urine (Random) 23.9 mg/dL (<11.9); Protein:Creat Ratio 171 mg/g CRE (0-200)
[2024-06-10 13:17] LABS: ALB/GLOB Ratio 1.2 RATIO (0.9-2.4); AST(SGOT) 57 U/L (15-37); Alanine Aminotransfer ALT/SGPT 50 U/L (16-61); Albumin, Serum 3.6 g/dL (3.2-5.0); Alkaline Phosphatase 88 U/L (45-117); Anion Gap 6 (5-15); BUN 9 mg/dL (7-18); BUN/Creat Ratio 10.9 RATIO (10-20); Calcium,Total 8.7 mg/dL (8.5-10.1); Chloride 103 mmol/L (98-107); Cholesterol 148 mg/dL (200); Creatinine, Serum 0.82 mg/dL (0.70-1.30); EST Glomerular Filtration Rate 102 mL/min (>60); Est Glom Filt Rate - Afr Amer 123 mL/min (>60); Free T3 2.2 pg/mL (2.18-3.98); Glucose 137 mg/dL (74-106); High Density Lipoprotein 107 mg/dL; Potassium 3.5 mmol/L (3.5-5.1); Protein, Total 6.6 g/dL (6.4-8.2); Sodium Level 139 mmol/L (136-145); T4 Free Direct 1.17 ng/dL (0.76-1.46); Thyroid Stim Hormone (TSH) 0.647 uIU/mL (0.358-3.740); Triglycerides 97 mg/dL; Very Low Density Lipoprotein 19 mg/dL (5-40)
== END | disposition home or self-care (01) ==
LOC: MFPLAB 09:23
PROVIDERS: PCP Family Medicine; Referring Provider Family Medicine; Visit Provider Family Medicine
DX: E11.9 Type 2 diabetes mellitus without complications (principal); E03.9 Hypothyroidism, unspecified
CPT/HCPCS: 36415; 80053; 80061; 82570; 83036; 84156; 84439; 84443; 84481

== ENCOUNTER → 2025-01-14 | Outpatient (CLI) | payer MEDICARE, SELFPAY ==
[2025-01-14 13:04] LABS: AST(SGOT) 38 U/L (<=37); Alanine Aminotransfer ALT/SGPT 43 U/L (<=46); Albumin, Serum 4.2 g/dL (3.5-5.0); Alkaline Phosphatase 74 U/L (40-129); Anion Gap 14 (5-15); BUN 15 mg/dL (4-19); BUN/Creat Ratio 17.1 RATIO (10-20); Calcium,Total 9.2 mg/dL (7.6-11.0); Carbon Dioxide 23.3 mmol/L (21.0-32.0); Chloride 99 mmol/L (98-108); Free T3 2.3 pg/mL (2.18-3.98); Globulin 2.3 g/dL (2.2-4.2); Glucose 336 mg/dL (70-99); Potassium 3.9 mmol/L (3.3-5.1)
== END | disposition home or self-care (01) ==
LOC: MFPLAB 10:05
PROVIDERS: PCP Family Medicine; Visit Provider Family Medicine
DX: F10.10 Alcohol abuse, uncomplicated (principal); E03.9 Hypothyroidism, unspecified
CPT/HCPCS: 36415; 80053; 84439; 84443; 84481

== ENCOUNTER → 2025-02-15 | Outpatient (CLI) | payer MEDICARE, SELFPAY ==
--- NOTE | 2025-02-15 10:22 | RAD_ITS ---
EXAM: XR Left Shoulder Complete, 2 or More Views CLINICAL INDICATION: PAIN TECHNIQUE: Two or more views of the left shoulder. COMPARISON: No relevant prior studies available. FINDINGS: BONES/JOINTS: Acromioclavicular degenerative changes, mild. Mild degenerative changes of the glenohumeral joints. No acute fracture. No dislocation. SOFT TISSUES: Soft tissue swelling. RAD/Shoulder min 2 Views IMPRESSION: Degenerative changes as above. Reading Location: [id number]
--- NOTE | 2025-02-15 10:22 | RAD_ITS ---
PROCEDURE: CERV SPINE OBL/FLEX/EXT COMP 02/15/2025 REASON FOR EXAM: PAIN TECHNIQUE: Procedure Code: [id number] Modality: DX Procedure: CERV SPINE OBL/FLEX/EXT COMP 9 views COMPARISON: None FINDINGS: Vertebrae: No demonstrated fracture or suspicious osseous lesion disc spaces: Mild disc space narrowing throughout the cervical spine Alignment: Alignment is anatomic. No evidence of instability on the flexion or extension views. soft tissues: Unremarkable Other: Normal relationship between C7 and T1. normal odontoid process RAD/Cerv Spine Obl/Flex/Ext Comp IMPRESSION: Multilevel degenerative changes, no acute findings, no instability Disclaimer: Reading Location: [id number]
--- NOTE | 2025-02-15 10:22 | RAD_ITS ---
EXAM: XR Right Shoulder Complete, 2 or More Views CLINICAL INDICATION: PAIN TECHNIQUE: Two or more views of the right shoulder. COMPARISON: No relevant prior studies available. FINDINGS: BONES/JOINTS: Comminuted fracture of the distal clavicle with healing. No dislocation. SOFT TISSUES: Soft tissue swelling. RAD/Shoulder min 2 Views IMPRESSION: Comminuted fracture of the distal clavicle with healing. Reading Location: [id number]
--- NOTE | 2025-02-15 10:22 | RAD_ITS ---
PROCEDURE: L/S SPINE COMP/W BENDING VIEWS 02/15/2025 REASON FOR EXAM: PAIN TECHNIQUE: Procedure Code: [id number] Modality: DX Procedure: L/S SPINE COMP/W BENDING VIEWS COMPARISON: None FINDINGS: There is anatomic alignment of the lumbar spine. No demonstrated acute fracture. A chronic compression fracture at L4 has undergone previous vertebroplasty. No evidence of instability on the flexion or extension views. Mild disc space narrowing throughout the lumbar spine. Peripheral calcifications in the abdominal aorta without aneurysm. Air-fluid levels on the AP film suggests ileus RAD/L/S Spine Comp/w Bending Views IMPRESSION: Age consistent degenerative changes without acute abnormality or instability Reading Location: [id number]
== END | disposition home or self-care (01) ==
PROVIDERS: PCP Family Medicine; Referring Provider Anesthesiology Pain Medicine; Visit Provider Anesthesiology Pain Medicine
DX: M54.30 Sciatica, unspecified side (principal); M25.511 Pain in right shoulder; M25.512 Pain in left shoulder; M51.372 Other intervertebral disc degeneration, lumbosacral region with discogenic back pain and lower extremity pain
CPT/HCPCS: 72052; 72114; 73030